=== PATIENT | male | born 1965 | race Hispanic/Latino ===

== ENCOUNTER 2017-09-01 17:48 | Emergency (ER) | payer OTHER ==
[2017-09-01 18:14] LABS: #Basophils 0.1 thou/uL (0.0-0.2); #Eosinphils 0.2 thou/uL (0.0-0.7); #Lymphocytes 2.8 thou/uL (1.20-3.40); #Monocytes 0.6 thou/uL (0.11-0.59); #Neutrophils 3.7 thou/uL (1.40-6.50); %Basophils 0.9 % (0.0-1.0); %Eosinophils 2.9 % (0.0-10.0); %Lymphocytes 38.1 % (21.0-51.0); %Monocytes 8.2 % (0.0-10.0); Hematocrit 42.6 % (42.0-52.0); Mean Platelet Volume 7.2 fL (7.4-10.4); Red Blood Cell (RBC) Count 4.64 mill/uL (4.70-6.10); White Blood Cell (WBC) Count 7.4 thou/uL (4.8-10.8)
[2017-09-01 18:32] LABS: Lactic Acid - Sepsis 2.4 mmol/L (0.5-2.2)
[2017-09-01 18:36] LABS: ALT (SGPT) 22 U/L (8-55); AST (SGOT) 17 U/L (5-34); Alkaline Phosphatase 166 U/L (40-150); Anion Gap 16 mmol/L (10-20); BUN (Urea Nitrogen) 13 mg/dL (8.4-25.7); Bilirubin, Total 0.2 mg/dL (0.2-1.2); Calc. Creatinine Clearance 0 mL/min (70-130); Calcium 9.2 mg/dL (7.8-10.44); Carbon Dioxide 23 mmol/L (22-29); Chloride 98 mmol/L (98-107); Estimated GFR-MDRD 74; Globulin 3.8 g/dL (2.4-3.5); Protein, Total 7.8 g/dL (6.0-8.3)
[2017-09-01] MEDS ORDERED: Insulin Regular 300 UNITS/3 ML VIAL ONE (18:59)
[2017-09-01 19:00] LABS: Bilirubin Negative (Negative); Blood, Urine Negative (Negative); Glucose, Urine (Dipstick) >=1000 mg/dL (Negative); Ketone, Urine Negative (Negative); Nitrite Negative (Negative); Protein, Urine (Dipstick) Negative (Neg-Trace); Urobilinogen 0.2 mg/dL (0.2-1.0)
== END 2017-09-01 20:19 | disposition home or self-care (01) ==
LOC: ERS 17:48
DX: E11.65 Type 2 diabetes mellitus with hyperglycemia (principal); E78.5 Hyperlipidemia, unspecified; I10 Essential (primary) hypertension; F41.9 Anxiety disorder, unspecified; F32.9 Major depressive disorder, single episode, unspecified; F17.210 Nicotine dependence, cigarettes, uncomplicated; Z79.4 Long term (current) use of insulin; Z79.899 Other long term (current) drug therapy
CPT/HCPCS: 36416; 80053; 81003; 82010; 83605; 85025; 96361; 96374; J1815

== ENCOUNTER 2017-12-29 16:21 | Inpatient (IN) | payer BC, OTHER, SELFPAY ==
[~2017-12-29 16:21] MED LIST: ISOVUE-370 76%-LOCM 1 ML ONE
[2017-12-29] MEDS ORDERED: Acetaminophen 500 MG TAB ONE ×2 (16:27→20:31)
[2017-12-29 16:47] LABS: #Lymphocytes 1.9 thou/uL (1.20-3.40); #Monocytes 0.6 thou/uL (0.11-0.59); #Neutrophils 9.2 thou/uL (1.40-6.50); %Basophils 0.4 % (0.0-1.0); %Eosinophils 0.2 % (0.0-10.0); %Monocytes 4.7 % (0.0-10.0); %Neutrophils 78.7 % (42.0-75.0); Hemoglobin 14.4 g/dL (14.0-18.0); Mean Corpuscular HGB CONC 35.4 g/dL (32.0-36.0); Mean Corpuscular Hemoglobin 32.7 pg (27.0-31.0); Mean Corpuscular Volume 92.5 fl (80.0-94.0); Mean Platelet Volume 7.1 fL (7.4-10.4); Platelet Count 290 thou/uL (130-400); RBC Distribution Width 11.1 % (11.5-14.5); Red Blood Cell (RBC) Count 4.41 mill/uL (4.70-6.10); White Blood Cell (WBC) Count 11.7 thou/uL (4.8-10.8)
[2017-12-29] MEDS ORDERED: Ibuprofen 200 MG TAB ONE (16:59)
[2017-12-29 17:08] LABS: ALT (SGPT) 19 U/L (8-55); AST (SGOT) 20 U/L (5-34); Albumin 4.1 g/dL (3.5-5.0); Alkaline Phosphatase 131 U/L (40-150); Anion Gap 18 mmol/L (10-20); BUN (Urea Nitrogen) 13 mg/dL (8.4-25.7); Bilirubin, Total 0.3 mg/dL (0.2-1.2); Calc. Creatinine Clearance 0 mL/min (70-130); Calcium 9.4 mg/dL (7.8-10.44); Carbon Dioxide 22 mmol/L (22-29); Chloride 94 mmol/L (98-107); Estimated GFR-MDRD Greater than 90; Globulin 3.9 g/dL (2.4-3.5); Glucose 321 mg/dL (70-105); Potassium 4.5 mmol/L (3.5-5.1); Sodium 129 mmol/L (136-145)
[2017-12-29 17:39] LABS: Magnesium 1.9 mg/dL (1.6-2.6)
[2017-12-29 17:44] LABS: CKMB 5.1 ng/mL (0-6.6)
--- NOTE | 2017-12-29 17:45 | RAD ---
PORTABLE CHEST: Date: 12/29/17 HISTORY: Chest pain. FINDINGS: Lungs are clear. Heart and mediastinum unremarkable. IMPRESSION: No acute abnormality. POS: [facility]
[2017-12-29 17:54] LABS: Troponin I 1.203 ng/mL (< 0.028)
[2017-12-29 18:23] LABS: Bilirubin Negative (Negative); Blood, Urine Large (Negative); Clarity CLEAR (Clear); Glucose, Urine (Dipstick) >=1000 mg/dL (Negative); Leukocyte Negative (Negative); Nitrite Negative (Negative); Protein, Urine (Dipstick) 100 mg/dL (Neg-Trace); Specific Gravity, Urine 1.039 (1.002-1.036); Urobilinogen 0.2 mg/dL (0.2-1.0); pH, Urine 5.5 (5.0-9.0)
[2017-12-29 18:27] LABS: Bacteria/HPF None Seen HPF (None Seen); Hyaline Casts/LPF 0-3 HYALINE CAST LPF (0-3 Hyaline); Pathc Cast-AUWi Flag 0.27 (0-2.49); RBC/HPF 21-50 HPF (0-3); Squamous Epithelial None Seen HPF (0-3); WBC/HPF 0-3 HPF (0-3)
[2017-12-29 18:30] LABS: Base Excess-Venous -3.5 mmol/L (-30.0-30.0); CO2 Tension (PvCO2) 35.6 mmHg (41.0-51.0); Calcium, Ionized 0.91 mmol/L (1.12-1.32); O2 Tension (PvO2) 52.1 mmHg (35.0-45.0); Potassium 4.7 mmol/L (3.4-4.7); T. Carbon Dioxide 22.1 mmol/L (1.0-85.0); pH (Venous) 7.378 (7.35-7.45)
[2017-12-29] MEDS ORDERED: Metoprolol Tartrate 5 MG/5 ML VIAL ONE (18:32)
[2017-12-29] MEDS ORDERED: Insulin Regular 300 UNITS/3 ML VIAL ONE (19:11)
[2017-12-29 19:55] LABS: Troponin I 1.545 ng/mL (< 0.028)
[2017-12-29] MEDS ORDERED: Ondansetron HCl/PF 4 MG/2 ML Vial IVP PRN (21:25)
[2017-12-29] MEDS ORDERED: Dextrose 5% in Water 1,000 ML IV PRN (21:27)
[2017-12-29] MEDS ORDERED: Dextrose 50% Abboject 50 ML SYRINGE SLOW IVP PRN (21:27)
[2017-12-29] MEDS ORDERED: cefTRIAXone\\ROCEPHIN 1 GM in Sodium Chloride 0.9% 100 ML IVPB SCH (21:30)
[2017-12-29 22:04] LABS: Troponin I 1.999 ng/mL (< 0.028)
--- NOTE | 2017-12-29 22:12 | CT ---
CT PULMONARY ANGIO CHEST WITH CONTRAST: Date: 12/29/17 Multiple axial tomograms were obtained through the chest with pulmonary angio protocol. Multiplanar r econstructions with 3D postprocessing acquired. HISTORY: Chest pain. FINDINGS: Pulmonary arteries show normal enhancement. No evidence of pulmonary embolus identified. Thoracic aor ta is opacified and there is no evidence of aortic dissection. Mediastinum unremarkable. Images throu gh the upper abdomen unremarkable. Lungs are clear. No infiltrate identified. IMPRESSION: 1. No evidence of pulmonary embolus. 2. No evidence of acute lung process. POS: [facility]
--- NOTE | 2017-12-29 22:35 | CON ---
DATE OF CONSULTATION: 12/29/2017 REASON FOR CONSULTATION: Fever, slightly increased troponin levels, abnormal EKG. HISTORY OF PRESENT ILLNESS: Mr. Zavaleta is a 52-year-old gentleman with diabetes. He presented to hospital for special surgery with weakness and fatigue and subjective fever. On arrival here, he was found to have 10 2 degree fever. He thought he had the flu, he had generalized aching. EKG was done which showed jaden e ST elevation diffusely 1 mm. Troponin level was also elevated at 1.2. He had no chest pain or pressure, or not short of breath. PAST MEDICAL HISTORY: 1. Hypertension 2. Diabetes. 3. No previous cardiac history. MEDICATIONS AT HOME: Included; 1. Lisinopril. 2. Insulin. 3. Pravastatin. REVIEW OF SYSTEMS: Positive for generalized weakness and fatigue. PHYSICAL EXAMINATION: GENERAL: This is a pleasant 52-year-old gentleman resting comfortably now and did have 102 degree fe gunjan. Pulse initially 130. After 5 mg of Lopressor, it was down to 105-108 sinus. HEENT: Eyes: Sclerae nonicteric. Mouth mucous membranes moist. NECK: Supple, no lymphadenopathy. LUNGS: Clear, no wheezing, rales, or rhonchi. CARDIAC: Normal S1, normal S2. There is no murmur, rub, or gallop. He is tachycardic, but it has i mproved. ABDOMEN: Soft, nontender. EXTREMITIES: No clubbing, cyanosis or edema. PERTINENT LABORATORY AND X-RAY FINDINGS: Hemoglobin was 14.4, WBC is 11.7. Troponin was 1.2 and 2-1 /2 hours later, it was 1.5. EKG did not show any acute change during the time he was here. ASSESSMENT: 1. Slight elevation of troponin level. 2. Fever. 3. Mild diffuse ST elevation in multiple leads on the EKG was slightly concave up, probably this rep resents pericarditis with some element of myocarditis. PLAN: 1. Will go ahead and give him a single dose of enoxaparin. 2. Colchicine. 3. Beta ange. 4. Repeat troponin level in the morning.
[2017-12-29] MEDS ORDERED: Sodium Chloride 0.45% 1,000 ML IV SCH (22:45)
[2017-12-29] MEDS ORDERED: Ibuprofen 800 MG TAB PO SCH (23:59)
[2017-12-30] MEDS: Acetaminophen 325 MG TAB PO PRN ×5 (00:44→22:42)
[2017-12-30 02:07] LABS: Critical Call Chem Troponin I RESULT DECREASING; Troponin I 1.275 ng/mL (< 0.028)
[2017-12-30 04:10] LABS: #Lymphocytes 1.5 thou/uL (1.20-3.40); #Monocytes 0.7 thou/uL (0.11-0.59); #Neutrophils 9.6 thou/uL (1.40-6.50); %Basophils 0.2 % (0.0-1.0); %Eosinophils 0.1 % (0.0-10.0); %Monocytes 5.9 % (0.0-10.0); %Neutrophils 80.8 % (42.0-75.0); Hemoglobin 12.8 g/dL (14.0-18.0); Mean Corpuscular HGB CONC 35.2 g/dL (32.0-36.0); Mean Corpuscular Hemoglobin 32.3 pg (27.0-31.0); Mean Corpuscular Volume 91.7 fl (80.0-94.0); Mean Platelet Volume 7.3 fL (7.4-10.4); Platelet Count 289 thou/uL (130-400); Red Blood Cell (RBC) Count 3.96 mill/uL (4.70-6.10); White Blood Cell (WBC) Count 11.8 thou/uL (4.8-10.8)
[2017-12-30 04:24] LABS: Anion Gap 15 mmol/L (10-20); BUN (Urea Nitrogen) 16 mg/dL (8.4-25.7); Calc. Creatinine Clearance 131 mL/min (70-130); Calcium 8.6 mg/dL (7.8-10.44); Carbon Dioxide 21 mmol/L (22-29); Chloride 94 mmol/L (98-107); Estimated GFR-MDRD Greater than 90; Glucose 252 mg/dL (70-105); Sodium 126 mmol/L (136-145)
[2017-12-30] MEDS ORDERED: Enoxaparin Sodium 100 MG/ML SYRINGE SC SCH (04:45)
--- NOTE | 2017-12-30 06:22 | HP ---
PRIMARY CARE PHYSICIAN: Collin Rollins M.D. PRESENTING COMPLAINT: Fever. HISTORY OF PRESENT ILLNESS: A 52-year-old male with a past medical history of type 2 diabetes mellit us, hypertension, seizure disorder and depression, who presents to the emergency room with a 2-day hi story of fever associated with headaches and neck discomforts. He also noticed his blood sugar was h igh and decided to come to the emergency room. He reports feeling unwell and has had generalized wea kness; however, he denies any cough, chest pain, diaphoresis, palpitations or shortness of breath. H e had some nausea and had one episode of vomiting. He has had no abdominal pain, constipation, or di arrhea. He has no urinary symptoms. At the emergency room, he was found to be febrile with temperat ure of 101.4. Labs showed slight leukocytosis. Chemistry showed a glucose of 321, troponin was 1.20 . TSH was 0.27. He had an EKG done as well, which showed diffuse ST segment elevations. Cardiology was consulted and after review made diagnosis of myocarditis. Recommendation was to admit to IMCU. Start on beta-blockers on colchicine and Cardiology to review in the morning. PAST MEDICAL HISTORY: Diabetes mellitus, hypertension, seizure disorder, depression. PAST SURGICAL HISTORY: None. FAMILY HISTORY: Reviewed and noncontributory. SOCIAL HISTORY: He does not drink alcohol or smoke cigarettes. Does not use illicit drugs. ALLERGIES: None. REVIEW OF SYSTEMS: Constitutional: No fevers. HEENT: Neck pain. Cardiovascular: Negative. Resp iratory: Negative. GI: Negative apart from nausea and one vomited episodes. : Negative. Muscu loskeletal: Positive for neck pain. Skin: Negative. Neurological: Headaches. Hematological/lymp hatic: Negative. Psychiatric: Negative. Allergy/immunology: Negative. PHYSICAL EXAMINATION: VITAL SIGNS: Blood pressure 176/90, pulse 122, respirations 20, temperature 101.4. CONSTITUTIONAL: In moderate distress. HEENT: Normocephalic, atraumatic. Not pale, anicteric. EOMI, PERRLA. NECK: Supple, full range of movement. Trachea midline. No adenopathy. No tenderness to palpation. RESPIRATORY: Vesicular breath sounds bilaterally. No wheezes or rales. CARDIOVASCULAR: Slight tachycardia, S1, S2 only. No murmurs, rubs or gallops. ABDOMEN: Soft, nontender, nondistended. Bowel sounds positive. MUSCULOSKELETAL: Spontaneous movements in all extremities. SKIN: Warm, dry, well-perfused. No rashes or lesions. NEUROLOGIC: Alert and oriented to time, place and person. No focal deficits. PSYCHIATRIC: Normal mood and affects. LABORATORY DATA: As stated in HPI. IMAGING: CTA chest, no clots. Chest x-ray, no acute pulmonary findings. EKG, multiple segments wit h ST elevations. ASSESSMENT AND PLAN: 1. Myocarditis. We will admit to IMCU. Monitor on telemetry and trend troponin. He will also be s tarted on colchicine and carvedilol. He is currently chest pain free. Cardiology to review in the [facility]. 2. Sepsis. He presented with fever and tachycardia. While this could be from his myocarditis, whic h could be viral, we will treat for presumed bacterial causes with vancomycin and ceftriaxone. Follo w up on culture results. Influenza screen was negative as well as Rapid Strep test that was negative . 3. Hyperglycemia. The patient reports not taking his insulin dose for today. We will put him on sl iding scale insulin with long-acting insulin as well as fingerstick glucose before meals and at bedti mo, diabetic diet and hyperglycemia protocol. 4. Type 2 diabetes mellitus as above. 5. Elevated troponin likely combination of myocarditis and presumed sepsis, we will trend. 6. Hypertension. He was hypertensive on arrival. We will restart his home medication as well as ca rvedilol. Monitor blood pressure closely. 7. Seizure disorder. The patient has remained seizure free. We will resume home medications. 8. History of rectal abscess likely responsible for his septic presentation. We will place on IV va ncomycin and ceftriaxone. Wound Care consult. 9. His neck pain is unlikely secondary to meningitis. His neck supple and we already have a source of infection.
[2017-12-30 06:26] LABS: Critical Call Chem Troponin I RESULT DECREASING
[2017-12-30] MEDS: HumaLOG 300 UNITS/3 ML VIAL SC PRN ×3 (06:35→16:35)
[2017-12-30] MEDS: Carvedilol 6.25 MG TAB PO SCH ×2 (07:53→16:35)
[2017-12-30] MEDS: Aspirin 325 mg Enteric Coated Tablet PO SCH (07:54)
[2017-12-30] MEDS: Docusate 100 MG CAP PO SCH ×2 (07:54→20:44)
[2017-12-30] MEDS: Colchicine 0.6 MG TAB PO SCH ×2 (07:54→20:44)
[2017-12-30] MEDS: Vancomycin HCl 1.5 GM in Sodium Chloride 0.9% 250 ML 300 ML IVPB SCH ×2 (07:55→19:43)
[2017-12-30] MEDS: Heparin 5,000 UNITS/ML VIAL SC SCH ×2 (07:55→15:12)
[2017-12-30] MEDS: Insulin Detemir 100 UNITS/ML 40 UNITS in Pre-Filled Syringe 1 EACH SC SCH (07:55)
[2017-12-30] MEDS ORDERED: Colchicine 0.6 MG TAB PO SCH (09:00)
[2017-12-30] MEDS ORDERED: Metoprolol Tartrate 25 MG TAB PO SCH (09:00)
[2017-12-30] MEDS ORDERED: Ondansetron HCl/PF 4 MG/2 ML Vial SLOW IVP SCH (09:45)
[2017-12-30] MEDS ORDERED: Metoprolol Tartrate 5 MG/5 ML VIAL IVP PRN (10:09)
[2017-12-30] MEDS ORDERED: Metoprolol Tartrate 5 MG/5 ML VIAL IVP SCH ×4 (10:15→16:45)
--- NOTE | 2017-12-30 10:38 | PRG ---
DATE OF SERVICE: 12/30/2017 Mr. Zavaleta complains of a headache today and pain in his throat. He has no chest pain. He is nause ated. He was unable to keep his medicines down. PHYSICAL EXAMINATION: VITAL SIGNS: Blood pressure is 160/90, pulse is 126, it is sinus tachycardia. LUNGS: Clear. CARDIAC: Tachycardic, no murmur, rub or gallop. ABDOMEN: Soft, nontender. EXTREMITIES: No clubbing, cyanosis or edema. Troponin level has decreased now at 0.65. ASSESSMENT: 1. Probably pericarditis with myocarditis. 2. Hypertension. 3. Tachycardia. 4. ? Infection, he is on antibiotics. 5. Anti-inflammatory in the form of colchicine. 6. Beta ange. 7. Echo to be done.
[2017-12-30] MEDS ORDERED: Ketorolac Tromethamine 30 MG/ML VIAL IVP SCH (11:00)
[2017-12-30] MEDS ORDERED: Piperacillin/Tazobactam 3.375 GM in Sodium Chloride 0.9% 100 ML IVPB SCH (16:00)
--- NOTE | 2017-12-30 16:56 | PDOC.PN ---
- Subjective Encounter Start Date: 12/30/17 Encounter Start Time: 16:45 Subjective: f/u for sepsis unclear source, sinus tachycardia and elevated troponins. -: Initial w/u negative as focal infectious source however suspicion for khadijah- -: carditis or anal lesion. Currently tx with Meropenem and Vancomycin. - Objective MAR Reviewed: Yes Vital Signs & Weight: Vital Signs (12 hours) Temp Pulse Resp BP Pulse Ox 12/30/17 16:43 103.3 F H 12/30/17 15:35 103.2 F H 126 H 22 H 170/94 H 96 12/30/17 15:11 103.0 F H 12/30/17 13:47 103.1 F H 12/30/17 12:40 101.3 F H 12/30/17 11:50 103.1 F H 12/30/17 11:25 102.6 F H 109 H 20 150/76 H 96 12/30/17 10:32 103.2 F H 12/30/17 08:00 99.7 F H 121 H 20 100 12/30/17 07:15 99.7 F H 121 H 20 164/93 H 97 Weight Admit Weight 188 lb 4.8 oz Weight 188 lb 4.8 oz I&O: 12/29/17 12/30/17 12/31/17 06:59 06:59 06:59 Intake Total 1300 240 Output Total 1000 Balance 300 240 Result Diagrams: 12/30/17 03:40 12/30/17 03:40 Additional Labs: Accuchecks 12/30/17 12/30/17 12/30/17 15:38 11:35 05:35 POC Glucose 232 H 199 H 238 H 12/29/17 22:25 POC Glucose 305 H Microbiology 12/29/17 18:27 Throat - Pending Group A Streptococcus Culture - Final 12/29/17 18:05 Throat - Pending Group A Streptococcus Screen (JOCELYNN) - Final 12/29/17 16:30 Nasal swab Influenza Types A,B Direct EIA - Final 12/29/17 18:04 Venous blood - Right Hand Blood Culture - Preliminary Specimen has been received and culture in progress. No Growth to date. 12/29/17 18:04 Urine voided Urine Culture - Preliminary NO GROWTH AT 24 HOURS 12/29/17 18:01 Venous blood - Left Hand Blood Culture - Preliminary Specimen has been received and culture in progress. No Growth to date. Radiology Reviewed by me: Yes (Echo - EF 50-55%, structurally normal) EKG Reviewed by me: Yes (Tele - Sinus tachycardia in 130's) Phys Exam - Physical Examination lethargic, answers questions briefly HEENT: PERRLA, oral pharynx no lesions Neck: no JVD, supple Respiratory: no wheezing tachycardic Gastrointestinal: soft, non-tender, no distention, positive bowel sounds Musculoskeletal: no edema, pulses present lethargic but opens eyes and answers questions Neurological: moves all 4 limbs Skin: normal turgor, cap refill <2 seconds Dx/Plan (1) Sepsis Code(s): A41.9 - SEPSIS, UNSPECIFIED ORGANISM Status: Acute Comment: Etiology unclear, suspected either myocarditis or rectal process, initial blood and Ucx negative, respiratory panel PCR pending, continue empiric Meropenem and Vancomycin, consider CSF analysis (2) Sinus tachycardia Code(s): R00.0 - TACHYCARDIA, UNSPECIFIED Status: Acute Comment: Secondary to sepsis, supportive care, IVF's, antipyretics, beta-blockers (3) Hyperglycemia due to type 2 diabetes mellitus Code(s): E11.65 - TYPE 2 DIABETES MELLITUS WITH HYPERGLYCEMIA Status: Chronic Comment: Uncontrolled, Insulin requiring, continue ISS, serial accuchecks, A1C in am (4) Hyponatremia Code(s): E87.1 - HYPO-OSMOLALITY AND HYPONATREMIA Status: Acute Comment: Secondary to hypernatremia and pseudohyponatremia (5) Elevated troponin I level Code(s): R74.8 - ABNORMAL LEVELS OF OTHER SERUM ENZYMES Status: Acute Comment: Likely demand state given current sepsis and tachycardia, Cardiology consulted - Plan continue antibiotics Continue current IV abx -: Await final blood and Ucx results -: Consider CSF analysis to r/o HSV -: Antipyretics for fever control -: Colchicine for ? myocarditis * AM lab: BMP, CBC, A1C * Consult Gen surgery regarding hemorrhoid
--- NOTE | 2017-12-30 17:07 | EKG ---
Test Reason : Blood Pressure : / mmHG Vent. Rate : 126 BPM Atrial Rate : 126 BPM P-R Int : 174 ms QRS Dur : 118 ms QT Int : 290 ms P-R-T Axes : 072 018 -01 degrees QTc Int : 420 ms Sinus tachycardia Possible Inferior infarct (cited on or before 25-FEB-2014) Anterior ST upsloping elevation, cannot R/O acute anterior MA Abnormal ECG When compared with ECG of 29-DEC-2017 18:15, (Unconfirmed) Inverted T waves have replaced nonspecific T wave abnormality in Inferior leads Confirmed by DR. Glory JOSHUA ([id number]) on 12/30/2017 5:07:25 PM Referred By: KATIANA Confirmed By:DR. Glory JOSHUA
[2017-12-30] MEDS ORDERED: cefTRIAXone\\ROCEPHIN 1 GM, Syringe 0.4 ML in Sterile Water 9.6 ML SLOW IVP SCH (18:00)
[2017-12-30] MEDS: Meropenem 2 GM, Admixture Fee 1 EACH in Sodium Chloride 0.9% 100 ML IVPB SCH (18:02)
[2017-12-30] MEDS: Ondansetron HCl/PF 4 MG/2 ML Vial SLOW IVP PRN (18:32)
[2017-12-30] MEDS: Ketorolac Tromethamine 30 MG/ML VIAL IVP PRN (19:41)
--- NOTE | 2017-12-30 20:01 | CON ---
DATE OF SERVICE: 12/30/2017 SERVICE: Pulmonary Medicine. REASON FOR CONSULTATION: [facility] patient. HISTORY OF PRESENT ILLNESS: The patient is a 52-year-old male with past medical history significant for type 2 diabetes mellitus. He had a 3-day history of increasing nausea, vomiting, and diarrhea. He presented to the emergency department 2 days ago and was discovered to have a fever of 103. These fevers have been intermittent for over 3 days. He did not have any focalizing symptoms other than a headache, nausea, vomiting, and diarrhea. He had complaints of the stiff neck though admitting physician suggested that his neck was actually quite supple and had a low threshold for thinking this was seen as infection. Despite that, he was put on TACK PULLER type medications. In the Emergency Department, the emergency physician what he thought was a rectal abscess. This was subsequently blanched. There is no actual documentation of that procedure so far as I can tell. That being said, the documentation by Wound Care suggested this is just simply a hemorrhoid that appears that it has opened up. Overnight, the patient did not have any significant events. His chest pain has improved. PHYSICAL EXAMINATION: VITAL SIGNS: T-max 103.2, pulse 109, blood pressure 150/76, respirations 20, saturation 96% on room air. GENERAL: The patient is awake, alert, in no apparent distress. LUNGS: Decent air entry with no prolonged expiratory phase, wheezing, rhonchi or crackles. HEART: Normal rate, regular. ABDOMEN: Soft, nontender, nondistended. Bowel sounds positive. MUSCULOSKELETAL: No cyanosis or clubbing. There is no pitting in the bilateral lower extremities. NEUROLOGIC: Grossly nonfocal. PAST MEDICAL HISTORY: 1. Type 2 diabetes mellitus. 2. Hypertension. 3. Dyslipidemia. 4. Seizure disorder. 5. Major depressive disorder. PAST SURGICAL HISTORY: None. FAMILY HISTORY: Noncontributory. SOCIAL HISTORY: Negative for alcohol, tobacco or illicit drug use. He has no exposure to chemicals, dust, asbestosis, or tuberculosis. ALLERGIES: No known drug allergies. MEDICATIONS LIST: List of inpatient medications were reviewed. Couple of small updates were made. REVIEW OF SYSTEMS: General, head, ears, eyes, nose, throat, cardiovascular, respiratory, GI, , musculoskeletal, neurologic, and skin is negative except as mentioned in the HPI. LABORATORY: WBC 11.8, hemoglobin 12.8, platelets 289,000. Neutrophil count is 81%. A pH 7.37, pCO2 35, pO2 52.1. Basic metabolic profile and liver function studies are essentially unremarkable. TSH 0.2, lipase normal, troponin 1.203 which trended before returning to normal. Lactate was negative. Sodium 126, currently. Urinalysis is positive only for glucose, ketones, and large amounts of blood without anything that looks like urinary tract infection. Beta hydroxybutyric acid is marginally elevated. Group A strep from the throat was negative x2, culture pending. Blood culture x2, urine cultures negative to date. Influenza A and B are negative. IMAGING: CTA of the chest demonstrates no acute cardiopulmonary abnormality. No pulmonary embolism is present. ASSESSMENT: 1. Severe sepsis. 2. Pericarditis/myocarditis. 3. Hyponatremia. PLAN: At this time, there is confusion over whether or not the patient has a GI infection or TACK PULLER infection. Either way, the TACK PULLER sample apparently was not sent off. At this point, the utility of performing an LP is reduced if a bacterial process is present. We are currently not covering anaerobic organisms. As such, I will switch him from the Rocephin over to meropenem to cover both GI fritz, and continue covering the TACK PULLER. We are awaiting other cultures and studies to come back. There is a possibility the patient has nothing more than a simple viral illness, but I think that continuing empiric antibiotic coverage for the time being is indicated. He will remain in the IMCU for an additional 24 hours and we will continue to follow very closely. 70 minutes have been devoted to this patient in various activities. I personally reviewed all imaging studies and laboratory data noted within this document. For greater than fifty percent of this time, I was interacting with the patient at the bedside or coordinating care with the care team. For the remainder of the time I was immediately available to the patient in the hospital unit. KIA
[2017-12-30] MEDS ORDERED: Insulin Detemir 100 UNITS/ML 40 UNITS in Pre-Filled Syringe 1 EACH SC SCH (21:00)
[2017-12-31] MEDS ORDERED: Acetaminophen 1,000 MG in Premix Bag 1 BAG IVPB SCH (01:00)
[2017-12-31] MEDS: Meropenem 2 GM, Admixture Fee 1 EACH in Sodium Chloride 0.9% 100 ML IVPB SCH ×2 (01:40→12:02)
[2017-12-31 04:44] LABS: #Lymphocytes 1.4 thou/uL (1.20-3.40); #Monocytes 1.1 thou/uL (0.11-0.59); #Neutrophils 9.3 thou/uL (1.40-6.50); %Basophils 0.1 % (0.0-1.0); %Eosinophils 0.1 % (0.0-10.0); %Lymphocytes 11.9 % (21.0-51.0); Hemoglobin 13.7 g/dL (14.0-18.0); Mean Corpuscular HGB CONC 33.7 g/dL (32.0-36.0); Mean Corpuscular Hemoglobin 31.1 pg (27.0-31.0); Mean Corpuscular Volume 92.2 fl (80.0-94.0); Mean Platelet Volume 7.6 fL (7.4-10.4); Platelet Count 304 thou/uL (130-400); RBC Distribution Width 11.1 % (11.5-14.5); Red Blood Cell (RBC) Count 4.41 mill/uL (4.70-6.10); White Blood Cell (WBC) Count 11.8 thou/uL (4.8-10.8)
[2017-12-31 04:46] LABS: Hemoglobin A1c 11.5 % (4.0-6.0)
[2017-12-31 05:10] LABS: Anion Gap 17 mmol/L (10-20); BUN (Urea Nitrogen) 16 mg/dL (8.4-25.7); Calc. Creatinine Clearance 138 mL/min (70-130); Carbon Dioxide 21 mmol/L (22-29); Chloride 92 mmol/L (98-107); Estimated GFR-MDRD Greater than 90; Glucose 254 mg/dL (70-105); Potassium 3.9 mmol/L (3.5-5.1); Sodium 126 mmol/L (136-145)
[2017-12-31] MEDS: Acetaminophen 325 MG TAB PO PRN (06:02)
[2017-12-31] MEDS: Metoprolol Tartrate 5 MG/5 ML VIAL IVP PRN ×3 (06:05→19:59)
[2017-12-31] MEDS ORDERED: FLU VACC QS2017-18 36 mo. & older 0.5 ML SYRINGE IM ONE (09:00)
[2017-12-31] MEDS: Carvedilol 6.25 MG TAB PO SCH ×2 (11:25→17:48)
[2017-12-31] MEDS: Vancomycin HCl 1.5 GM in Sodium Chloride 0.9% 250 ML 300 ML IVPB SCH ×2 (11:25→19:51)
[2017-12-31] MEDS: Docusate 100 MG CAP PO SCH ×2 (11:27→21:56)
[2017-12-31] MEDS: Ondansetron HCl/PF 4 MG/2 ML Vial SLOW IVP PRN ×2 (11:31→17:48)
[2017-12-31] MEDS: Colchicine 0.6 MG TAB PO SCH ×2 (11:35→22:00)
[2017-12-31 11:37] LABS: CSF, Glucose 85 mg/dl (40-70); CSF, Protein 194 mg/dL (15-40)
[2017-12-31 11:39] LABS: CSF Source CSF; Clarity Hazy (Clear); RBC Count - Manual 60 /cumm (None Seen); Tube # 1
[2017-12-31 11:40] LABS: Color Of CSF Supernatant COLORLESS (Colorless); Tube # 2; Unspun CSF Color COLORLESS (Colorless)
[2017-12-31] MEDS: Insulin Detemir 100 UNITS/ML 40 UNITS in Pre-Filled Syringe 1 EACH SC SCH (11:42)
[2017-12-31 11:45] LABS: WBC/NonHematics Count - Manual 990 /cumm (0-5)
[2017-12-31 11:57] LABS: CSF Source CSF; Clarity Hazy (Clear); Tube # 4
[2017-12-31 11:58] LABS: RBC Count - Manual 45 /cumm (None Seen); WBC/NonHematics Count - Manual 1320 /cumm (0-5)
[2017-12-31] MEDS: Aspirin 325 mg Enteric Coated Tablet PO SCH (12:02)
[2017-12-31] MEDS ORDERED: Cefepime 2 GM in Sodium Chloride 0.9% 100 ML IVPB SCH (12:15)
[2017-12-31 12:53] LABS: Cell Count Non Hematic 39 %; Lymphocytes 10 %; Segmented Neutrophils 50 %
[2017-12-31 12:57] LABS: Cell Count Non Hematic 15 %; Lymphocytes 35 %; Segmented Neutrophils 49 %
--- NOTE | 2017-12-31 13:00 | RAD ---
FLUOROSCOPICALLY GUIDED LUMBAR PUNCTURE: History: Fever. Rule out meningitis and encephalitis. Dosimetry: 0.3 minutes of fluoroscopy and DAP 252 mGy*cm^2. FINDINGS: The right L2-3 interlaminar space was localized utilizing fluoroscopic guidance. The overlying skin w as prepped and draped in the usual sterile manner. A 1% Lidocaine solution was utilized to anesthetiz e overlying soft tissues. Using fluoroscopic guidance, a 22 gauge spinal needle was placed in the sub arachnoid space. A total of 10 ml of cerebral spinal fluid was removed without difficulty. Specimen w as sent to pathology for evaluation. IMPRESSION: Successful fluoroscopically guided lumbar puncture. POS: [facility]
--- NOTE | 2017-12-31 13:09 | PRG ---
DATE OF SERVICE: 12/31/2017 SUBJECTIVE: Mr. Zavaleta looks somewhat better today. His fever is down somewhat. He has no chest p ain. PHYSICAL EXAMINATION: VITAL SIGNS: Blood pressure is 149/83, pulse is 135, sinus, temperature is down to 100.8. LUNGS: Clear. CARDIAC: Tachycardic. ABDOMEN: Soft and nontender. ASSESSMENT: 1. Pericarditis with probably some small amount of myocarditis. 2. Fever, improved. 3. Increased white blood cell count in the cerebrospinal fluid. Would like to discuss with Dr. Cash er what he thinks the significance of this is. There does appear to be some inflammation reflected i n the cerebrospinal fluid.
[2017-12-31] MEDS: Acetaminophen 1,000 MG in Premix Bag 1 BAG IVPB PRN ×2 (13:33→21:23)
[2017-12-31] MEDS: Cefepime 2 GM, Syringe 2.5 ML in Sterile Water 10 ML SLOW IVP SCH ×2 (13:42→19:51)
[2017-12-31] MEDS ORDERED: Cefepime 2 GM, Syringe 2.5 ML in Sterile Water 10 ML SLOW IVP SCH (14:00)
--- NOTE | 2017-12-31 14:55 | PDOC.PN ---
- Subjective Encounter Start Date: 12/31/17 Encounter Start Time: 11:45 -: old records requested/rev Pt seen and examined, chart reviewed in its entirety, this is my first visit with this patient No F/C, no N/V/D/C, no CP, no SOB awkae and alert, Ox3. per family and nursing, this is much improved. still persistently febrile, Ofirmev ordered 10 point ROS performed and neg for all systems except as per HPI - Objective MAR Reviewed: Yes Vital Signs & Weight: Vital Signs (12 hours) Temp Pulse Resp BP BP Pulse Ox 12/31/17 12:00 101.1 F H 125 H 20 149/83 H 97 12/31/17 11:25 149/83 H 12/31/17 09:07 100.8 F H 12/31/17 08:00 102.5 F H 128 H 20 156/99 H 96 12/31/17 07:21 103.2 F H 12/31/17 06:05 102.5 F H 128 H 20 164/92 H 96 12/31/17 04:00 100.9 F H 108 H 20 151/84 H 96 Weight Admit Weight 188 lb 4.8 oz Weight 188 lb 4.8 oz I&O: 12/30/17 12/31/17 01/01/18 06:59 06:59 06:59 Intake Total 1300 1060 Output Total 1000 1930 Balance 300 -870 Result Diagrams: 01/02/18 03:52 01/02/18 03:52 Additional Labs: Accuchecks 12/31/17 12/31/17 12/30/17 11:39 05:35 20:40 POC Glucose 277 H 273 H 200 H 12/30/17 15:38 POC Glucose 232 H Radiology Reviewed by me: Yes EKG Reviewed by me: Yes Phys Exam - Physical Examination Constitutional: NAD HEENT: PERRLA, moist MMs, sclera anicteric, oral pharynx no lesions Neck: no nodes, no JVD, supple, full ROM Respiratory: no wheezing, no rales, no rhonchi, clear to auscultation bilateral Cardiovascular: RRR, no significant murmur, no rub Gastrointestinal: soft, non-tender, no distention, positive bowel sounds Musculoskeletal: pulses present, edema present Neurological: non-focal, normal sensation, moves all 4 limbs Lymphatic: no nodes Psychiatric: normal affect, A&O x 3 Skin: no rash, normal turgor, cap refill <2 seconds Dx/Plan (1) Meningitis Code(s): G03.9 - MENINGITIS, UNSPECIFIED Status: Acute Comment: stop Meropenem as carbapenems can decrease seizure threshold. WBC in CSF 1000, 50% granulocytes, 23% other cells, low lymphs. Continue Vanc, change meropenem to cefepime flagyl, watch cultures. > viral vs bacterial given possible matt- and myocarditis (2) Sepsis Code(s): A41.9 - SEPSIS, UNSPECIFIED ORGANISM Status: Acute Qualifiers: Sepsis type: sepsis due to unspecified organism Qualified Code(s): A41.9 - Sepsis, unspecified organism Comment: Etiology unclear, suspected either myocarditis or rectal process, initial blood and Ucx negative, respiratory panel PCR pending, continue empiric cefepime and flagyl and Vancomycin, watch CSF culture (3) Sinus tachycardia Code(s): R00.0 - TACHYCARDIA, UNSPECIFIED Status: Acute Comment: Secondary to sepsis, supportive care, IVF's, antipyretics, beta-blockers (4) Anxiety and depression Code(s): F41.9 - ANXIETY DISORDER, UNSPECIFIED; F32.9 - MAJOR DEPRESSIVE DISORDER, SINGLE EPISODE, UNSPECIFIED Status: Chronic (5) HTN (hypertension) Code(s): I10 - ESSENTIAL (PRIMARY) HYPERTENSION Status: Chronic Qualifiers: Hypertension type: essential hypertension Qualified Code(s): I10 - Essential (primary) hypertension (6) Hyperglycemia due to type 2 diabetes mellitus Code(s): E11.65 - TYPE 2 DIABETES MELLITUS WITH HYPERGLYCEMIA Status: Chronic Qualifiers: Diabetes mellitus group home insulin use: with intermediate designer use Qualified Code( s): E11.65 - Type 2 diabetes mellitus with hyperglycemia; 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
[2017-12-31 15:32] LABS: Ref Lab Test Ordered MYOCARDIAL AB PANEL
[2017-12-31] MEDS: Sodium Chloride 0.9% 1,000 ML IV SCH (16:10)
[2017-12-31] MEDS: metroNIDAZOLE 500 MG in Premix Bag 1 BAG IVPB SCH ×2 (17:48→23:51)
[2017-12-31 19:30] LABS: Vancomycin, Trough 9.3 ug/mL
[2017-12-31] MEDS: Promethazine HCl 25 MG/ML VIAL IM/IV PRN (19:49)
--- NOTE | 2017-12-31 21:13 | PRG ---
DATE OF SERVICE: 12/31/2017 SERVICE: Pulmonary Medicine. INTERVAL HISTORY: Patient is doing really quite well from a respiratory standpoint. He is breathing comfortably. His headache is improved a little bit. His fever profile has also improved. He denie s any current vomiting. He had some nausea this morning following breakfast. No diarrhea or other f ocalizing infectious symptoms are present. PHYSICAL EXAMINATION: VITAL SIGNS: T-max overnight 103.2, but throughout the day he has been 101.1 and down trending. Pul se 113, blood pressure 129/70, respirations 20, saturation 99% on room air. GENERAL: Patient is awake and alert. He is in no apparent distress. LUNGS: Decent air entry. There is no prolonged expiratory phase or wheezing present. HEART: Normal rate, regular. ABDOMEN: Soft, nontender, nondistended. Bowel sounds are positive. MUSCULOSKELETAL: No cyanosis or clubbing. No pitting in the bilateral lower extremities. NEUROLOGIC: Grossly nonfocal. LABORATORY DATA: WBC 11.8, hemoglobin 13.7, platelets 304,000. Sodium 126 and stable. Chloride 92, bicarbonate 21. Anion gap is 17. Creatinine 0.75. Blood sugars ranged from 200-277. Hemoglobin A 1c of 11.5. CSF has multiple white blood cells as well as red blood cells, but white blood cells cer tainly predominate. Neutrophil count is 50% of those miscellaneous studies are currently pending on the CSF. Cryptococcal antigen is unremarkable. Respiratory virus panel is negative. Group A Strept ococcus, blood cultures x3, influenza A and B are all unremarkable to date. ASSESSMENT: 1. Severe sepsis. 2. Pericarditis. 3. Meningitis, likely viral. 4. Hyponatremia. DISCUSSION AND PLAN: The patient is currently stable for transition out of the [facility]. Pulmonary Crit ical Care will continue to follow if he remains in this location, but from my perspective, he can go to the telemetry unit given the myocarditis and tachycardia. Pulmonary Critical Care will continue t o follow up for the time being.
[2017-12-31] MEDS: HumaLOG 300 UNITS/3 ML VIAL SC PRN (22:04)
[2018-01-01] MEDS: Ketorolac Tromethamine 30 MG/ML VIAL IVP PRN (02:10)
[2018-01-01] MEDS: Metoprolol Tartrate 5 MG/5 ML VIAL IVP PRN ×2 (02:13→16:50)
[2018-01-01] MEDS: Acetaminophen 1,000 MG in Premix Bag 1 BAG IVPB PRN ×4 (03:37→22:48)
[2018-01-01] MEDS: Vancomycin HCl 1.25 GM in Sodium Chloride 0.9% 250 ML 250 ML IVPB SCH ×3 (03:40→20:26)
[2018-01-01] MEDS: Cefepime 2 GM, Syringe 2.5 ML in Sterile Water 10 ML SLOW IVP SCH ×3 (03:40→20:26)
[2018-01-01 05:07] LABS: #Monocytes 1.1 thou/uL (0.11-0.59); #Neutrophils 6.4 thou/uL (1.40-6.50); %Basophils 0.2 % (0.0-1.0); %Lymphocytes 20.8 % (21.0-51.0); %Monocytes 11.8 % (0.0-10.0); %Neutrophils 67.1 % (42.0-75.0); Hemoglobin 12.7 g/dL (14.0-18.0); Mean Corpuscular HGB CONC 34.2 g/dL (32.0-36.0); Mean Corpuscular Hemoglobin 31.5 pg (27.0-31.0); Mean Platelet Volume 7.6 fL (7.4-10.4); Platelet Count 289 thou/uL (130-400); Red Blood Cell (RBC) Count 4.03 mill/uL (4.70-6.10); White Blood Cell (WBC) Count 9.5 thou/uL (4.8-10.8)
[2018-01-01 05:09] LABS: Anion Gap 16 mmol/L (10-20); BUN (Urea Nitrogen) 20 mg/dL (8.4-25.7); Calc. Creatinine Clearance 134 mL/min (70-130); Calcium 7.9 mg/dL (7.8-10.44); Carbon Dioxide 22 mmol/L (22-29); Chloride 90 mmol/L (98-107); Estimated GFR-MDRD Greater than 90; Glucose 260 mg/dL (70-105); Potassium 3.7 mmol/L (3.5-5.1); Sodium 124 mmol/L (136-145)
[2018-01-01] MEDS: metroNIDAZOLE 500 MG in Premix Bag 1 BAG IVPB SCH ×4 (06:00→23:52)
[2018-01-01] MEDS: Sodium Chloride 0.9% 1,000 ML IV SCH (06:01)
[2018-01-01] MEDS: HumaLOG 300 UNITS/3 ML VIAL SC PRN ×2 (06:06→17:00)
[2018-01-01] MEDS: Promethazine HCl 25 MG/ML VIAL IM/IV PRN (06:31)
[2018-01-01] MEDS: Colchicine 0.6 MG TAB PO SCH ×2 (08:16→21:22)
[2018-01-01] MEDS: Docusate 100 MG CAP PO SCH ×2 (08:16→20:32)
[2018-01-01] MEDS: Carvedilol 6.25 MG TAB PO SCH ×2 (08:26→16:54)
[2018-01-01] MEDS: Aspirin 325 mg Enteric Coated Tablet PO SCH (08:26)
[2018-01-01] MEDS: Insulin Detemir 100 UNITS/ML 40 UNITS in Pre-Filled Syringe 1 EACH SC SCH (08:27)
--- NOTE | 2018-01-01 10:16 | PRG ---
DATE OF SERVICE: 01/01/2018 HISTORY: Mr. Zavaleta does not have chest pain or pressure. Feels fatigued. PHYSICAL EXAMINATION: VITAL SIGNS: Blood pressure 155/91, pulse earlier was 101, then 99.3, but he feels warm now. LUNGS: Clear. CARDIAC: Tachycardic. ABDOMEN: Soft, nontender. EXTREMITIES: No edema. ASSESSMENT: 1. Meningitis. 2. Fever, thought to be probably viral, but he is also being covered for bacterial infection. 3. Pericarditis, relatively mild. 4. Likely mild underlying myocarditis, appears mild based on troponin rise. PLAN: Continue supportive therapy including antibiotics and medicines for pericarditis.
--- NOTE | 2018-01-01 14:26 | PRG ---
DATE OF SERVICE: 01/01/2018 SERVICE: Pulmonary Medicine. INTERVAL HISTORY: The patient is doing really quite well from a respiratory standpoint. He is breat jason comfortably. He denies any current fevers, chills, nausea or vomiting. He is able to tolerate p.o. this morning. His headache is improving a little bit. He had 101 fever this morning, but his f ever profile overall is improving. Otherwise, he is returning to his usual state of health. PHYSICAL EXAMINATION: VITAL SIGNS: T-max 101.4, pulse 102, blood pressure 135/79, respirations 18, saturation 97% on room air. GENERAL: The patient is awake and alert, in no apparent distress. LUNGS: Excellent air entry with no prolonged expiratory phase, wheezing, rhonchi or crackles. HEART: Normal rate, regular. ABDOMEN: Soft, nontender, nondistended. Bowel sounds are positive. MUSCULOSKELETAL: No cyanosis or clubbing. No pitting in the bilateral lower extremities. NEUROLOGIC: Grossly nonfocal. LABORATORY DATA: WBC 9.5, hemoglobin 12.7, and platelets 289,000. Basic metabolic profile is otherw ise unremarkable except for sodium of 124. This continues to trend downward gently. Microbiology is all negative to date. There are some special studies that are currently pending. ASSESSMENT: 1. Severe sepsis, improving. 2. Pericarditis. 3. Meningitis. 4. Hyponatremia. DISCUSSION AND PLAN: If the sodium continues to trend downward, we may need to consider putting him on 3% saline. From a cardiovascular and respiratory standpoint, he is stable for transition to the edical unit. Pulmonary or Critical Care will continue to follow if he remains in this location.
--- NOTE | 2018-01-01 14:34 | PDOC.PN ---
- Subjective Encounter Start Date: 01/01/18 Encounter Start Time: 12:40 Pt much more awake and alert today, still with haptic fevers, but having periods of 99.x now. no N/V/d/c,no CP or sOb, no Chills or rigors, no cough or sputum production. Toilerating IV antibiotics 10 point ROS performed and neg for all systesm except as per HPI - Objective MAR Reviewed: Yes Vital Signs & Weight: Vital Signs (12 hours) Temp Pulse Resp BP BP Pulse Ox 01/01/18 12:00 101.3 F H 102 H 18 135/79 97 01/01/18 08:26 155/91 H 01/01/18 08:00 99.3 F 105 H 20 158/92 H 100 01/01/18 04:00 101.4 F H 99 16 120/72 100 Weight Admit Weight 188 lb 4.8 oz Weight 186 lb 11.2 oz I&O: 12/31/17 01/01/18 01/02/18 06:59 06:59 06:59 Intake Total 1060 3050 Output Total 1930 1650 Balance -870 1400 Result Diagrams: 01/02/18 03:52 01/02/18 03:52 Additional Labs: Accuchecks 01/01/18 01/01/18 12/31/17 11:40 06:07 22:03 POC Glucose 282 H 300 H 336 H 12/31/17 16:55 POC Glucose 243 H Radiology Reviewed by me: Yes EKG Reviewed by me: Yes Phys Exam - Physical Examination Constitutional: NAD HEENT: PERRLA, moist MMs, sclera anicteric, oral pharynx no lesions Neck: no nodes, no JVD, supple, full ROM Respiratory: no wheezing, no rales, no rhonchi, clear to auscultation bilateral Cardiovascular: RRR, no significant murmur, no rub Gastrointestinal: soft, non-tender, no distention, positive bowel sounds Musculoskeletal: pulses present, edema present Neurological: non-focal, normal sensation, moves all 4 limbs Lymphatic: no nodes Psychiatric: normal affect, A&O x 3 Skin: no rash, normal turgor, cap refill <2 seconds Dx/Plan - Plan cont current plan of care, plan discussed w/ family, continue antibiotics, PT/OT , out of bed/ambulate, DVT proph w/SCDs * .
[2018-01-01 19:42] LABS: Vancomycin, Trough 14.9 ug/mL
[2018-01-02] MEDS: Ketorolac Tromethamine 30 MG/ML VIAL IVP PRN (02:52)
[2018-01-02 04:17] LABS: #Basophils 0.1 thou/uL (0.0-0.2); #Lymphocytes 1.8 thou/uL (1.20-3.40); #Monocytes 0.9 thou/uL (0.11-0.59); #Neutrophils 4.6 thou/uL (1.40-6.50); %Basophils 0.8 % (0.0-1.0); %Eosinophils 0.2 % (0.0-10.0); %Lymphocytes 24.4 % (21.0-51.0); %Monocytes 12.3 % (0.0-10.0); %Neutrophils 62.3 % (42.0-75.0); Hemoglobin 12.7 g/dL (14.0-18.0); Mean Corpuscular HGB CONC 35.8 g/dL (32.0-36.0); Mean Corpuscular Hemoglobin 31.8 pg (27.0-31.0); Platelet Count 301 thou/uL (130-400); RBC Distribution Width 10.9 % (11.5-14.5); Red Blood Cell (RBC) Count 3.98 mill/uL (4.70-6.10); White Blood Cell (WBC) Count 7.4 thou/uL (4.8-10.8)
[2018-01-02] MEDS: Cefepime 2 GM, Syringe 2.5 ML in Sterile Water 10 ML SLOW IVP SCH ×2 (04:33→11:38)
[2018-01-02] MEDS: Vancomycin HCl 1.25 GM in Sodium Chloride 0.9% 250 ML 250 ML IVPB SCH ×2 (04:33→11:38)
[2018-01-02 04:36] LABS: Anion Gap 9 mmol/L (10-20); BUN (Urea Nitrogen) 14 mg/dL (8.4-25.7); Calc. Creatinine Clearance 160 mL/min (70-130); Calcium 7.6 mg/dL (7.8-10.44); Carbon Dioxide 24 mmol/L (22-29); Chloride 91 mmol/L (98-107); Estimated GFR-MDRD Greater than 90; Glucose 174 mg/dL (70-105); Potassium 3.1 mmol/L (3.5-5.1); Sodium 121 mmol/L (136-145)
[2018-01-02] MEDS: metroNIDAZOLE 500 MG in Premix Bag 1 BAG IVPB SCH ×2 (05:53→11:38)
[2018-01-02] MEDS: HumaLOG 300 UNITS/3 ML VIAL SC PRN ×3 (05:57→17:03)
--- NOTE | 2018-01-02 09:29 | PRG ---
DATE OF SERVICE: 01/02/2018 SUBJECTIVE: Ms. Zavaleta is much better today. He is alert and oriented, still has headache, but fee ls better. OBJECTIVE: VITAL SIGNS: Blood pressure 130/77 earlier, now is 160 systolic. Pulse is improved, still at high, but it is improved at 108. ASSESSMENT: 1. Meningitis.? viral. 2. Episode of pericarditis. Appears mild and suspect that was viral. 3. Hypertension. PLAN: 1. Continue carvedilol. Discontinue colchicine. 2. Continue antibiotics for now. 3. Receiving potassium. 4. Likely resume lisinopril tomorrow. He was taking 10 mg a day. We will go ahead and order, resum e that today.
[2018-01-02] MEDS ORDERED: Lisinopril 5 MG TAB PO SCH ×2 (09:30)
[2018-01-02] MEDS: Aspirin 325 mg Enteric Coated Tablet PO SCH (09:53)
[2018-01-02] MEDS: Docusate 100 MG CAP PO SCH ×2 (09:53→21:23)
[2018-01-02] MEDS: Carvedilol 6.25 MG TAB PO SCH ×2 (09:53→17:03)
[2018-01-02] MEDS: Insulin Detemir 100 UNITS/ML 40 UNITS in Pre-Filled Syringe 1 EACH SC SCH (09:54)
[2018-01-02] MEDS: Potassium Chloride 20 MEQ TAB PO SCH ×2 (09:54→13:06)
[2018-01-02] MEDS: Colchicine 0.6 MG TAB PO SCH (09:55)
[2018-01-02] MEDS ORDERED: Ampicillin 2 GM in Sodium Chloride 0.9% 100 ML IVPB SCH ×2 (13:00→17:00)
[2018-01-02 13:16] LABS: VDRL, CSF Non Reactive (Non Rea:<1:1)
[2018-01-02] MEDS ORDERED: GENTAMICIN SULFATE IVPB SCH (13:30)
[2018-01-02] MEDS: Ampicillin 2 GM, Syringe 5.2 ML in Sterile Water 14.8 ML SLOW IVP SCH ×3 (14:26→21:23)
[2018-01-02] MEDS ORDERED: Sodium Chloride 256 MEQ in Sterile Water Injection 936 ML IV SCH ×2 (15:30→16:00)
--- NOTE | 2018-01-02 15:35 | PRG ---
DATE OF SERVICE: 01/02/2015 SERVICE: Pulmonary Medicine. INTERVAL HISTORY: The patient is doing fine from cardiovascular and respiratory standpoint. He martin es any current fevers, chills, nausea, vomiting or chest discomfort. His headache is completely gone . He is tolerating p.o. Overall, he feels much improved. OBJECTIVE: VITAL SIGNS: T-max 100.9. Fever profile continues to improve. HEENT: Normocephalic, atraumatic. Sclerae are white, conjunctivae pink. Oral mucosa is moist witho ut lesions. LUNGS: Decent air entry. There is no prolonged expiratory phase, wheezing, rhonchi or crackles. HEART: Normal rate, regular. ABDOMEN: Soft, nontender, nondistended. Bowel sounds are positive. MUSCULOSKELETAL: No cyanosis or clubbing. There is no pitting in the bilateral lower extremities. NEUROLOGIC: Grossly nonfocal. LABORATORY: WBC 7.4, hemoglobin 12.7, platelets 301,000. Sodium continues to drop to 121. Potassiu m 3.1. Creatinine 0.64. Basic metabolic profile is otherwise unremarkable. Urinalysis is negative. VDRL of the CSF was nonreactive. Other cultures are currently pending. Miscellaneous test is also pending. Spinal fluid cultures growing gram-positive bianka, positive for Listeria. ASSESSMENT: 1. Severe sepsis, resolving. 2. Pericarditis. 3. Meningitis, likely listeria. 4. Hyponatremia. DISCUSSION AND PLAN: The patient is doing fantastic clinically. After being said, sodium continues to creep downward. We will replace the potassium today. I will get a repeat basic metabolic profile in the morning, and start him on 1.5 normal saline peripherally. Magnesium will also be readdressed in the morning. Pulmonary Critical Care will continue to follow, but he will need to remain in the IMCU for the time being given his low are dropping sodium.
--- NOTE | 2018-01-02 15:48 | PDOC.PN ---
- Subjective Encounter Start Date: 01/02/18 Encounter Start Time: 14:00 Pt sleeping but arousable, Ox3 culture with Listeria, Amp started, Vanc, Cefepime adn Flagyl to sop. Pt related a history of his refrigerator not functioning well, eating lunch meats and foods not well chilled. Fevers, but no chills, no N/V/D/C, no CPor SOB, good appetite - Objective MAR Reviewed: Yes Vital Signs & Weight: Vital Signs (12 hours) Temp Pulse Resp BP BP Pulse Ox 01/02/18 15:16 100.9 F H 90 18 125/71 95 01/02/18 11:28 100.2 F H 101 H 20 156/89 H 93 L 01/02/18 09:53 161/91 H 01/02/18 09:52 99 161/91 H 01/02/18 08:00 100.8 F H 99 20 100 01/02/18 07:23 100.8 F H 99 20 130/77 96 01/02/18 05:45 98.9 F 01/02/18 04:00 99.7 F H 95 18 158/89 H 94 L Weight Admit Weight 188 lb 4.8 oz Weight 193 lb 3.2 oz I&O: 01/01/18 01/02/18 01/03/18 06:59 06:59 06:59 Intake Total 3050 3935 Output Total 1650 1250 Balance 1400 2685 Result Diagrams: 01/02/18 03:52 01/02/18 03:52 Additional Labs: Accuchecks 01/02/18 01/02/18 01/01/18 11:08 05:46 21:39 POC Glucose 222 H 164 H 197 H 01/01/18 16:34 POC Glucose 245 H Radiology Reviewed by me: Yes EKG Reviewed by me: Yes Phys Exam - Physical Examination Constitutional: NAD HEENT: PERRLA, moist MMs, sclera anicteric, oral pharynx no lesions Neck: no nodes, no JVD, supple, full ROM Respiratory: no wheezing, no rales, no rhonchi, clear to auscultation bilateral Cardiovascular: RRR, no significant murmur, no rub Gastrointestinal: soft, non-tender, no distention, positive bowel sounds Musculoskeletal: no edema, pulses present Neurological: non-focal, normal sensation, moves all 4 limbs Lymphatic: no nodes Psychiatric: normal affect, A&O x 3 Skin: no rash, normal turgor, cap refill <2 seconds Dx/Plan (1) Meningitis Code(s): G03.9 - MENINGITIS, UNSPECIFIED Status: Acute Comment: 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 streamline to amp alone, 2g IV q 4 hours. planning 14 days Rx, about 10 days to go (2) Sepsis Code(s): A41.9 - SEPSIS, UNSPECIFIED ORGANISM Status: Acute Qualifiers: Sepsis type: sepsis due to unspecified organism Qualified Code(s): A41.9 - Sepsis, unspecified organism Comment: Listeria - BCx neg so far. (3) Sinus tachycardia Code(s): R00.0 - TACHYCARDIA, UNSPECIFIED Status: Resolved Comment: Secondary to sepsis, supportive care, IVF's, antipyretics, beta-blockers (4) Hyponatremia Code(s): E87.1 - HYPO-OSMOLALITY AND HYPONATREMIA Status: Acute Comment: Secondary to hypernatremia and pseudohyponatremia, ? cerebral salt wasting. IVF to start (5) Urinary retention Code(s): R33.9 - RETENTION OF URINE, UNSPECIFIED Status: Acute (6) Anxiety and depression Code(s): F41.9 - ANXIETY DISORDER, UNSPECIFIED; F32.9 - MAJOR DEPRESSIVE DISORDER, SINGLE EPISODE, UNSPECIFIED Status: Chronic (7) Dyslipidemia Code(s): E78.5 - HYPERLIPIDEMIA, UNSPECIFIED Status: Chronic (8) HTN (hypertension) Code(s): I10 - ESSENTIAL (PRIMARY) HYPERTENSION Status: Chronic Qualifiers: Hypertension type: essential hypertension Qualified Code(s): I10 - Essential (primary) hypertension (9) Hyperglycemia due to type 2 diabetes mellitus Code(s): E11.65 - TYPE 2 DIABETES MELLITUS WITH HYPERGLYCEMIA Status: Chronic Qualifiers: Diabetes mellitus usp insulin use: with exterminator helper use Qualified Code( s): E11.65 - Type 2 diabetes mellitus with hyperglycemia; Z79.4 - [facility] ( current) use of insulin; Z79.4 - exterminator helper (current) use of insulin; Z79.4 - [facility] (current) use of insulin; Z79.4 - exterminator helper (current) use of insulin Comment: Uncontrolled, Insulin requiring, continue ISS, serial accuchecks, A1C in am (10) Seizure disorder Code(s): G40.909 - EPILEPSY, UNSP, NOT INTRACTABLE, WITHOUT STATUS EPILEPTICUS Status: Chronic (11) Elevated troponin I level Code(s): R74.8 - ABNORMAL LEVELS OF OTHER SERUM ENZYMES Status: Acute Comment: Likely demand state given current sepsis and tachycardia, Cardiology consulted - Plan cont current plan of care, plan discussed w/ family, continue antibiotics, PT/OT , out of bed/ambulate * .
[2018-01-02 19:11] LABS: HSV 2 - DNA Negative (Negative)
[2018-01-02 19:31] LABS: Vancomycin, Trough 11.8 ug/mL
[2018-01-02 19:33] LABS: Anion Gap 10 mmol/L (10-20); BUN (Urea Nitrogen) 15 mg/dL (8.4-25.7); Calc. Creatinine Clearance 153 mL/min (70-130); Calcium 7.6 mg/dL (7.8-10.44); Carbon Dioxide 25 mmol/L (22-29); Chloride 94 mmol/L (98-107); Estimated GFR-MDRD Greater than 90; Glucose 171 mg/dL (70-105); Potassium 3.7 mmol/L (3.5-5.1); Sodium 125 mmol/L (136-145)
[2018-01-03] MEDS: Ampicillin 2 GM, Syringe 5.2 ML in Sterile Water 14.8 ML SLOW IVP SCH ×6 (01:36→20:39)
[2018-01-03 05:24] LABS: Anion Gap 7 mmol/L (10-20); BUN (Urea Nitrogen) 13 mg/dL (8.4-25.7); Calc. Creatinine Clearance 158 mL/min (70-130); Calcium 7.3 mg/dL (7.8-10.44); Carbon Dioxide 26 mmol/L (22-29); Chloride 97 mmol/L (98-107); Estimated GFR-MDRD Greater than 90; Glucose 204 mg/dL (70-105); Potassium 3.4 mmol/L (3.5-5.1); Sodium 127 mmol/L (136-145)
[2018-01-03] MEDS: HumaLOG 300 UNITS/3 ML VIAL SC PRN (05:40)
[2018-01-03] MEDS: Insulin Detemir 100 UNITS/ML 40 UNITS in Pre-Filled Syringe 1 EACH SC SCH (09:38)
[2018-01-03] MEDS: Potassium Chloride 20 MEQ TAB PO SCH ×3 (09:40→17:49)
[2018-01-03] MEDS: Carvedilol 6.25 MG TAB PO SCH ×2 (09:41→17:48)
[2018-01-03] MEDS: Docusate 100 MG CAP PO SCH ×2 (09:41→20:39)
[2018-01-03] MEDS: Lisinopril 5 MG TAB PO SCH (09:42)
[2018-01-03] MEDS: Aspirin 81 mg Enteric Coated Tablet PO SCH (09:42)
[2018-01-03] MEDS ORDERED: Carvedilol 6.25 MG TAB PO SCH ×2 (09:48→10:00)
[2018-01-03] MEDS: Calcium Citrate 950 MG TAB PO SCH ×2 (09:53→20:38)
--- NOTE | 2018-01-03 10:15 | PRG ---
DATE OF SERVICE: 01/03/2018 Mr. Zavaleta is doing much better. PHYSICAL EXAMINATION: VITAL SIGNS: His heart rates in the 80s, blood pressure 127/80, pulse is in the 80s. LUNGS: Clear. CARDIAC: Normal S1 and S2. Reviewing all the information, I think that the patient did actually not have pericarditis or myocard itis, I think this is all secondary to the infection. The EKG changes were mild and even some of the se were actually present on the old EKGs. He never had chest pain so I do not think he did have matt carditis. The patient has had a mild hypokinesis of his apex, but that was probably related to high fevers and prolonged tachycardia. We are going to repeat an echo today, if that looks okay, I would not think t hat he has had myocarditis. If that is all normal we will sign off.
[2018-01-03] MEDS ORDERED: Sodium Chloride 256 MEQ in Sterile Water Injection 897.6 ML IV SCH (13:15)
--- NOTE | 2018-01-03 14:04 | PDOC.PN ---
- Subjective Encounter Start Date: 01/03/18 Encounter Start Time: 11:35 MS back to normnal. Tmax trending down, no n/v/d/c, bharti amp well wihout rash or itching 10 point ROS performed and neg for all systems except as per HPI - Objective MAR Reviewed: Yes Vital Signs & Weight: Vital Signs (12 hours) Temp Pulse Resp BP BP Pulse Ox 01/03/18 10:49 99.2 F 86 19 141/74 H 96 01/03/18 09:42 85 129/69 01/03/18 08:00 99.2 F 91 15 95 01/03/18 07:30 99.2 F 91 15 127/80 95 01/03/18 04:00 99.7 F H 84 16 127/76 97 Weight Admit Weight 188 lb 4.8 oz Weight 192 lb 1.6 oz I&O: 01/02/18 01/03/18 01/04/18 06:59 06:59 06:59 Intake Total 3935 4010 Output Total 1250 2700 Balance 2685 1310 Result Diagrams: 01/02/18 03:52 01/03/18 04:41 Additional Labs: Accuchecks 01/03/18 01/03/18 01/02/18 10:41 05:41 21:39 POC Glucose 191 H 209 H 154 H 01/02/18 16:53 POC Glucose 356 H Phys Exam - Physical Examination Constitutional: NAD HEENT: PERRLA, moist MMs, sclera anicteric, oral pharynx no lesions Neck: no nodes, no JVD, supple, full ROM Respiratory: no wheezing, no rales, no rhonchi, clear to auscultation bilateral Cardiovascular: RRR, no significant murmur, no rub Gastrointestinal: soft, non-tender, no distention, positive bowel sounds Musculoskeletal: no edema, pulses present Neurological: non-focal, normal sensation, moves all 4 limbs Lymphatic: no nodes Psychiatric: normal affect, A&O x 3 Skin: no rash, normal turgor, cap refill <2 seconds Dx/Plan (1) Meningitis Code(s): G03.9 - MENINGITIS, UNSPECIFIED Status: Acute Comment: 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 streamline to amp alone, 2g IV q 4 hours. planning 14 days Rx, about 10 days to go (2) Sepsis Code(s): A41.9 - SEPSIS, UNSPECIFIED ORGANISM Status: Acute Qualifiers: Sepsis type: sepsis due to unspecified organism Qualified Code(s): A41.9 - Sepsis, unspecified organism Comment: Listeria - BCx neg so far. (3) Sinus tachycardia Code(s): R00.0 - TACHYCARDIA, UNSPECIFIED Status: Resolved Comment: Secondary to sepsis, supportive care, IVF's, antipyretics, beta-blockers (4) Hyponatremia Code(s): E87.1 - HYPO-OSMOLALITY AND HYPONATREMIA Status: Acute Comment: Secondary to hypernatremia and pseudohyponatremia, ? cerebral salt wasting. IVF to start. Dr Kemp managing (5) Urinary retention Code(s): R33.9 - RETENTION OF URINE, UNSPECIFIED Status: Acute (6) Anxiety and depression Code(s): F41.9 - ANXIETY DISORDER, UNSPECIFIED; F32.9 - MAJOR DEPRESSIVE DISORDER, SINGLE EPISODE, UNSPECIFIED Status: Chronic (7) Dyslipidemia Code(s): E78.5 - HYPERLIPIDEMIA, UNSPECIFIED Status: Chronic (8) HTN (hypertension) Code(s): I10 - ESSENTIAL (PRIMARY) HYPERTENSION Status: Chronic Qualifiers: Hypertension type: essential hypertension Qualified Code(s): I10 - Essential (primary) hypertension (9) Hyperglycemia due to type 2 diabetes mellitus Code(s): E11.65 - TYPE 2 DIABETES MELLITUS WITH HYPERGLYCEMIA Status: Chronic Qualifiers: Diabetes mellitus assisted insulin use: with assisted use Qualified Code( s): E11.65 - Type 2 diabetes mellitus with hyperglycemia; Z79.4 - nursing home ( current) use of insulin; Z79.4 - nursing home (current) use of insulin; Z79.4 - nursing home (current) use of insulin; Z79.4 - equipment operator intermodal yard (current) use of insulin Comment: Uncontrolled, Insulin requiring, continue ISS, serial accuchecks, A1C in am (10) Seizure disorder Code(s): G40.909 - EPILEPSY, UNSP, NOT INTRACTABLE, WITHOUT STATUS EPILEPTICUS Status: Chronic (11) Elevated troponin I level Code(s): R74.8 - ABNORMAL LEVELS OF OTHER SERUM ENZYMES Status: Acute Comment: Likely demand state given current sepsis and tachycardia, Cardiology consulted (12) Metabolic encephalopathy Code(s): G93.41 - METABOLIC ENCEPHALOPATHY Status: Resolved Comment: due to meningoencephalitis, POA, resoved now - Plan cont current plan of care, plan discussed w/ family, continue antibiotics, PT/OT , out of bed/ambulate * .
--- NOTE | 2018-01-03 15:25 | PRG ---
DATE OF SERVICE: 01/03/2018 SERVICE: Pulmonary Medicine. INTERVAL HISTORY: The patient is doing outstanding from a cardiovascular and respiratory standpoint. He denies any current fevers, chills, nausea, vomiting or shortness of breath. He feels much impro lupe. He remains on 1.5% sodium chloride for hyponatremia. This is moving in the right direction, th ough we need to see whether or not he can come off of this drip. PHYSICAL EXAMINATION: VITAL SIGNS: Afebrile, currently with a T-max of 99.8 since yesterday evening. HEENT: Normocephalic, atraumatic. Sclerae are white, conjunctivae pink. Oral mucosa is moist witho ut lesions. LUNGS: Decent air entry. There is no prolonged expiratory phase or wheezing. HEART: Normal rate, regular. ABDOMEN: Soft, nontender, nondistended. Bowel sounds are positive. MUSCULOSKELETAL: No cyanosis or clubbing. No pitting in the bilateral lower extremities. NEUROLOGIC: Grossly nonfocal. LABORATORY DATA: Sodium 127 and up trending, potassium 3.4. Basic metabolic profile is otherwise un remarkable. HSV 1 and 2 are negative in the CSF. Spinal fluid is actually growing listeria monocyto genes. Cryptococcal antigen is negative. ASSESSMENT: 1. Severe sepsis, resolving. 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 3. Hyponatremia, improving. DISCUSSION AND PLANS: The meningitis is likely creating the hyponatremia. Typically this should not be severe. That being said, I am not willing to toy with his sodium with his reduced seizure thresh old. We will wean away his 1.5% sodium chloride tonight after sodium is checked. Tomorrow morning, if it is stable or up trending, then he will have no further requirements for inpatient Pulmonary Cri tical Care opinion. I will continue to follow while the patient remains in this location, but we basilio l likely get him to the floor after we stop the 1.5% sodium.
--- NOTE | 2018-01-03 15:41 | SPC ---
LEFT UPPER EXTREMITY PICC LINE ULTRASOUND AND FLUOROSCOPIC GUIDANCE: PROCEDURE: After informed consent had been obtained, the patient was placed on the interventional suite table in a supine position. The left arm was prepped and draped in a standard sterile fashion. Topical anes thesia was achieved utilizing 1% Lidocaine and sodium bicarbonate. Under real-time sonography, the b asilic vein of the left upper extremity was accessed with a small caliber needle with venous flash pr esent at the needle hub. A guidewire was then advanced in to the needle, and under real-time fluoros copy, the guidewire was advanced to the level of the inferior vena cava to confirm appropriate venous placement. A small skin incision was made and the needle was removed. Over the guidewire, a single lumen PICC line was cut to 42 cm. The PICC line was advanced under real-time fluoroscopy over the g uidewire to the level of the cavoatrial junction. The guidewire and peelaway sheath were then remove d. PICC line flushed and aspirated appropriately and was secured to the left upper extremity. There were no procedural complications. RADIATION EXPOSURE DATA: 0 minutes intermittent fluoroscopy, 4 mGy*^cm2. IMPRESSION: Technically successful ultrasound and fluoroscopic-guided left PICC line placement, as above. POS: [facility]
[2018-01-03 18:13] LABS: Anion Gap 9 mmol/L (10-20); BUN (Urea Nitrogen) 10 mg/dL (8.4-25.7); Calc. Creatinine Clearance 188 mL/min (70-130); Calcium 7.6 mg/dL (7.8-10.44); Carbon Dioxide 25 mmol/L (22-29); Chloride 101 mmol/L (98-107); Estimated GFR-MDRD Greater than 90; Glucose 113 mg/dL (70-105); Potassium 3.9 mmol/L (3.5-5.1); Sodium 131 mmol/L (136-145)
[2018-01-03] MEDS: Acetaminophen 325 MG TAB PO PRN (19:38)
--- NOTE | 2018-01-03 23:26 | ADD-PRG ---
ADDENDUM: 01/03/2018 The patient had an echocardiogram today, which showed normal left ventricular function. I think the apical wall motion abnormality earlier during his hospitalization was due to tachycardia and sepsis. The patient likely had demand ischemia based on this. There is no evidence of pericarditis or myoca rditis. Cardiac status has returned to normal. We would recommend continuing low dose aspirin, TAM inhibitor, low dose beta ange as he is on now. Resume cholesterol medicines when he leaves the [facility] for prevention in terms of his diabetes. Otherwise, we will sign off the case at this point. Thank you so much for allowing us to participate in his care.
[2018-01-04] MEDS: Ampicillin 2 GM, Syringe 5.2 ML in Sterile Water 14.8 ML SLOW IVP SCH ×6 (00:55→20:55)
[2018-01-04] MEDS: Acetaminophen 325 MG TAB PO PRN ×2 (05:35→20:58)
[2018-01-04 05:51] LABS: #Monocytes 0.6 thou/uL (0.11-0.59); #Neutrophils 7.1 thou/uL (1.40-6.50); %Eosinophils 0.5 % (0.0-10.0); %Lymphocytes 20.8 % (21.0-51.0); %Neutrophils 72.6 % (42.0-75.0); Hemoglobin 11.6 g/dL (14.0-18.0); Mean Corpuscular HGB CONC 35.4 g/dL (32.0-36.0); Mean Corpuscular Hemoglobin 32.7 pg (27.0-31.0); Mean Corpuscular Volume 92.5 fl (80.0-94.0); Platelet Count 379 thou/uL (130-400); RBC Distribution Width 11.1 % (11.5-14.5); Red Blood Cell (RBC) Count 3.54 mill/uL (4.70-6.10); White Blood Cell (WBC) Count 9.7 thou/uL (4.8-10.8)
[2018-01-04 06:22] LABS: Anion Gap 10 mmol/L (10-20); BUN (Urea Nitrogen) 8 mg/dL (8.4-25.7); Calc. Creatinine Clearance 191 mL/min (70-130); Calcium 7.9 mg/dL (7.8-10.44); Carbon Dioxide 26 mmol/L (22-29); Chloride 97 mmol/L (98-107); Estimated GFR-MDRD Greater than 90; Glucose 143 mg/dL (70-105); Magnesium 1.9 mg/dL (1.6-2.6); Potassium 3.9 mmol/L (3.5-5.1); Sodium 129 mmol/L (136-145)
[2018-01-04] MEDS: HumaLOG 300 UNITS/3 ML VIAL SC PRN ×2 (06:24→16:44)
[2018-01-04] MEDS: Insulin Detemir 100 UNITS/ML 40 UNITS in Pre-Filled Syringe 1 EACH SC SCH (08:34)
[2018-01-04] MEDS: Lisinopril 5 MG TAB PO SCH (08:35)
[2018-01-04] MEDS: Carvedilol 6.25 MG TAB PO SCH ×2 (08:35→16:44)
[2018-01-04] MEDS: Aspirin 81 mg Enteric Coated Tablet PO SCH (08:35)
[2018-01-04] MEDS: Calcium Citrate 950 MG TAB PO SCH ×2 (08:35→20:55)
[2018-01-04] MEDS: Docusate 100 MG CAP PO SCH ×2 (08:36→20:55)
--- NOTE | 2018-01-04 15:17 | EKG ---
Test Reason : Blood Pressure : / mmHG Vent. Rate : 118 BPM Atrial Rate : 118 BPM P-R Int : 166 ms QRS Dur : 102 ms QT Int : 320 ms P-R-T Axes : 037 007 024 degrees QTc Int : 448 ms Sinus tachycardia Possible Left atrial enlargement Inferior infarct , possibly acute Abnormal ECG No chest pain #1 Confirmed by CONTRERAS LUTZ ([id number]), editor managing newspaper JENNI ABARCA ([id number] on 01/04/2018 3:17:25 PM Referred By: Confirmed By:CONTRERAS LUTZ
--- NOTE | 2018-01-04 15:18 | EKG ---
Test Reason : Blood Pressure : / mmHG Vent. Rate : 121 BPM Atrial Rate : 121 BPM P-R Int : 162 ms QRS Dur : 102 ms QT Int : 320 ms P-R-T Axes : 043 015 032 degrees QTc Int : 454 ms Sinus tachycardia Possible Left atrial enlargement Inferior infarct , possibly acute Abnormal ECG No chest pain #2 Confirmed by CONTRERAS LUTZ ([id number]), subeditor JENNI ABARCA ([id number]) on 01/04/2018 3:17:51 PM Referred By: Confirmed By:CONTRERAS LUTZ
--- NOTE | 2018-01-04 16:30 | PRG ---
DATE OF SERVICE: 01/04/2018 SERVICE: Pulmonary Medicine. INTERVAL HISTORY: The patient is doing fine from a cardiovascular and respiratory standpoint. He is breathing comfortably. We stopped his 1.5% saline yesterday. Today, his sodium trickled down ever so slightly, but it is not going down very fast at this point. PHYSICAL EXAMINATION: VITAL SIGNS: Afebrile with T-max of 99.4. Pulse 94, blood pressure 152/81, respirations 16, and sat uration 99% on room air. GENERAL: The patient is awake, alert, in no apparent distress. LUNGS: Excellent air entry with no prolonged expiratory phase, wheezing, rhonchi, or crackles. HEART: Normal rate, regular. ABDOMEN: Soft, nontender, nondistended. Bowel sounds are positive. MUSCULOSKELETAL: No cyanosis or clubbing. There is no pitting in the bilateral lower extremities. NEUROLOGIC: Grossly nonfocal. LABORATORY DATA: CBC is grossly unremarkable/stable. Creatinine 0.55, BUN 8. Chloride 97. Sodium gently trending down to 129. Blood sugars ranged from 148-239 Spinal fluid is growing Listeria monocytogenes. A cryptococcal antigen is unremarkable. Other studies are curre ntly pending. ASSESSMENT: 1. Severe sepsis, resolving. 2. 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 3. Hyponatremia, stabilizing. 4. Metabolic encephalopathy, resolved. PLAN: The patient is stable for transition to the medical unit Pulmonary Critical Care will continu e to follow him for 1-2 additional days until the sodium firms up a touch. We will repeat the sodium tomorrow morning.
--- NOTE | 2018-01-04 16:47 | PDOC.PN ---
- Subjective Encounter Start Date: 01/04/18 Encounter Start Time: 12:20 Pt doing welll, no complaints, PT/OT ordered, ok to transfer to floor. NoF/c, no N/V/d/c. UPlm helping manage sodium. 10 point ROS performed and neg for all systems except as above - Objective MAR Reviewed: Yes Vital Signs & Weight: Vital Signs (12 hours) Temp Pulse Resp BP Pulse Ox 01/04/18 15:54 99.4 F 94 16 152/81 H 99 01/04/18 11:31 98.3 F 83 18 152/85 H 94 L 01/04/18 08:35 93 01/04/18 08:00 99.1 F 93 12 97 01/04/18 07:27 99.1 F 93 12 153/88 H 91 L Weight Admit Weight 188 lb 4.8 oz Weight 193 lb 6.4 oz I&O: 01/03/18 01/04/18 01/05/18 06:59 06:59 06:59 Intake Total 4010 3425 660 Output Total 2700 1350 1920 Balance 1310 2075 -1260 Result Diagrams: 01/06/18 06:21 01/08/18 06:32 Additional Labs: Accuchecks 01/04/18 01/04/18 01/04/18 15:40 11:25 05:15 POC Glucose 239 H 192 H 167 H 01/03/18 01/03/18 20:14 16:43 POC Glucose 148 H 127 H EKG Reviewed by me: Yes Phys Exam - Physical Examination Constitutional: NAD HEENT: PERRLA, moist MMs, sclera anicteric, oral pharynx no lesions Neck: no nodes, no JVD, supple, full ROM Respiratory: no wheezing, no rales, no rhonchi, clear to auscultation bilateral Cardiovascular: RRR, no significant murmur, no rub Gastrointestinal: soft, non-tender, positive bowel sounds Musculoskeletal: no edema, pulses present Neurological: non-focal, normal sensation, moves all 4 limbs Lymphatic: no nodes Psychiatric: normal affect, A&O x 3 Skin: no rash, normal turgor, cap refill <2 seconds Dx/Plan (1) Meningitis Code(s): G03.9 - MENINGITIS, UNSPECIFIED Status: Acute Comment: 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 streamline to amp alone, 2g IV q 4 hours. planning 14 days Rx, about 10 days to go (2) Sepsis Code(s): A41.9 - SEPSIS, UNSPECIFIED ORGANISM Status: Acute Qualifiers: Sepsis type: sepsis due to unspecified organism Qualified Code(s): A41.9 - Sepsis, unspecified organism Comment: Listeria - BCx neg so far. (3) Sinus tachycardia Code(s): R00.0 - TACHYCARDIA, UNSPECIFIED Status: Resolved Comment: Secondary to sepsis, supportive care, IVF's, antipyretics, beta-blockers (4) Hyponatremia Code(s): E87.1 - HYPO-OSMOLALITY AND HYPONATREMIA Status: Acute Comment: Secondary to hypernatremia and pseudohyponatremia, ? cerebral salt wasting. IVF to start. Dr Kemp managing (5) Urinary retention Code(s): R33.9 - RETENTION OF URINE, UNSPECIFIED Status: Acute (6) Anxiety and depression Code(s): F41.9 - ANXIETY DISORDER, UNSPECIFIED; F32.9 - MAJOR DEPRESSIVE DISORDER, SINGLE EPISODE, UNSPECIFIED Status: Chronic (7) Dyslipidemia Code(s): E78.5 - HYPERLIPIDEMIA, UNSPECIFIED Status: Chronic (8) HTN (hypertension) Code(s): I10 - ESSENTIAL (PRIMARY) HYPERTENSION Status: Chronic Qualifiers: Hypertension type: essential hypertension Qualified Code(s): I10 - Essential (primary) hypertension (9) Hyperglycemia due to type 2 diabetes mellitus Code(s): E11.65 - TYPE 2 DIABETES MELLITUS WITH HYPERGLYCEMIA Status: Chronic Qualifiers: Diabetes mellitus terminal gauger supervisor insulin use: with prison use Qualified Code( s): E11.65 - Type 2 diabetes mellitus with hyperglycemia; Z79.4 - longterm ( current) use of insulin; Z79.4 - long term care pharmacist (current) use of insulin; Z79.4 - longterm (current) use of insulin; Z79.4 - long term care pharmacist (current) use of insulin Comment: Uncontrolled, Insulin requiring, continue ISS, serial accuchecks, A1C in am (10) Seizure disorder Code(s): G40.909 - EPILEPSY, UNSP, NOT INTRACTABLE, WITHOUT STATUS EPILEPTICUS Status: Chronic (11) Elevated troponin I level Code(s): R74.8 - ABNORMAL LEVELS OF OTHER SERUM ENZYMES Status: Acute Comment: Likely demand state given current sepsis and tachycardia, Cardiology consulted (12) Metabolic encephalopathy Code(s): G93.41 - METABOLIC ENCEPHALOPATHY Status: Resolved Comment: due to meningoencephalitis, POA, resoved now - Plan * .
[2018-01-05] MEDS: Ampicillin 2 GM, Syringe 5.2 ML in Sterile Water 14.8 ML SLOW IVP SCH ×6 (01:34→20:44)
[2018-01-05] MEDS: Acetaminophen 325 MG TAB PO PRN ×2 (04:28→10:02)
[2018-01-05 06:35] LABS: Sodium 133 mmol/L (136-145)
[2018-01-05] MEDS: Docusate 100 MG CAP PO SCH ×2 (08:04→20:44)
[2018-01-05] MEDS: Carvedilol 6.25 MG TAB PO SCH ×2 (08:04→17:16)
[2018-01-05] MEDS: Lisinopril 5 MG TAB PO SCH (08:05)
[2018-01-05] MEDS: Aspirin 81 mg Enteric Coated Tablet PO SCH (08:05)
[2018-01-05] MEDS: Insulin Detemir 100 UNITS/ML 40 UNITS in Pre-Filled Syringe 1 EACH SC SCH ×2 (08:45→20:45)
[2018-01-05] MEDS: Ondansetron HCl/PF 4 MG/2 ML Vial SLOW IVP PRN ×2 (08:46→15:39)
[2018-01-05] MEDS: Calcium Citrate 950 MG TAB PO SCH ×2 (08:46→20:43)
[2018-01-05] MEDS ORDERED: Lisinopril 5 MG TAB PO SCH (10:00)
[2018-01-05] MEDS: Pravastatin Sodium 20 MG TAB PO SCH (10:01)
[2018-01-05] MEDS: Bupropion 150 MG XL TAB PO SCH (10:06)
[2018-01-05] MEDS: metFORMIN XR 500 MG TAB PO SCH (17:17)
[2018-01-05] MEDS: HumaLOG 300 UNITS/3 ML VIAL SC PRN (17:20)
[2018-01-05] MEDS: Promethazine HCl 25 MG/ML VIAL IM/IV PRN (18:37)
[2018-01-05] MEDS: Tamsulosin HCl 0.4 MG CAP PO SCH (20:43)
[2018-01-05] MEDS ORDERED: Non-Formulary Item 1 EACH (Insulin Glargine,Hum.Rec.Anlog 40 UNIT) SC SCH (21:00)
--- NOTE | 2018-01-05 22:50 | PRG ---
DATE OF SERVICE: 01/05/2018 SERVICE: Pulmonary Medicine. INTERVAL HISTORY: The patient is doing really well from a cardiovascular and respiratory standpoint. He is breathing comfortably. He has the headache that is returning again. He also had a little bi t of nausea. He ate breakfast, but had some vomiting. He took some Phenergan and then got very slee py. He is just now starting to wake up from that. He is hopeful that tomorrow is going to bring a b vickey day. Otherwise, he had no events overnight like seizures. PHYSICAL EXAMINATION: VITAL SIGNS: Afebrile, pulse 81, blood pressure 148/74, saturations 96, blood pressure 132/98. HEENT: Normocephalic, atraumatic. Sclerae are white, conjunctivae pink. Oral and nasal mucosa is m oist without lesions. LUNGS: Decent air entry. There is no prolonged expiratory phase, wheezing, rhonchi, or crackles pre sent. HEART: Normal rate, regular. ABDOMEN: Soft, nontender, nondistended. Bowel sounds are positive. MUSCULOSKELETAL: No cyanosis or clubbing. There is no pitting in the bilateral lower extremities. NEUROLOGIC: Grossly nonfocal. LABORATORY DATA: Sodium 133. 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 ASSESSMENT: 1. Severe sepsis, resolving. 2. 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 3. Hyponatremia, improving. 4. Metabolic encephalopathy, resolved. DISCUSSION AND PLAN: The patient's sodium is doing just fine. As such, he has no further requiremen ts for inpatient Pulmonary Critical Care opinion. Please call with additional questions or concerns moving forward.
[2018-01-06] MEDS: Ampicillin 2 GM, Syringe 5.2 ML in Sterile Water 14.8 ML SLOW IVP SCH ×7 (01:10→23:53)
[2018-01-06 06:30] LABS: #Eosinphils 0.1 thou/uL (0.0-0.7); #Lymphocytes 1.5 thou/uL (1.20-3.40); #Monocytes 0.7 thou/uL (0.11-0.59); #Neutrophils 7.4 thou/uL (1.40-6.50); %Basophils 0.1 % (0.0-1.0); %Eosinophils 0.6 % (0.0-10.0); %Lymphocytes 15.5 % (21.0-51.0); %Neutrophils 76.7 % (42.0-75.0); Hemoglobin 11.3 g/dL (14.0-18.0); Mean Corpuscular HGB CONC 35.2 g/dL (32.0-36.0); Mean Corpuscular Hemoglobin 31.8 pg (27.0-31.0); Mean Corpuscular Volume 90.3 fl (80.0-94.0); Mean Platelet Volume 6.3 fL (7.4-10.4); Platelet Count 478 thou/uL (130-400); RBC Distribution Width 11.1 % (11.5-14.5); Red Blood Cell (RBC) Count 3.55 mill/uL (4.70-6.10); White Blood Cell (WBC) Count 9.7 thou/uL (4.8-10.8)
[2018-01-06 06:55] LABS: Anion Gap 10 mmol/L (10-20); BUN (Urea Nitrogen) 10 mg/dL (8.4-25.7); Calc. Creatinine Clearance 154 mL/min (70-130); Calcium 8.4 mg/dL (7.8-10.44); Carbon Dioxide 29 mmol/L (22-29); Chloride 95 mmol/L (98-107); Estimated GFR-MDRD Greater than 90; Glucose 152 mg/dL (70-105); Potassium 3.5 mmol/L (3.5-5.1); Sodium 130 mmol/L (136-145)
[2018-01-06] MEDS: Insulin Detemir 100 UNITS/ML 40 UNITS in Pre-Filled Syringe 1 EACH SC SCH ×2 (08:38→19:28)
[2018-01-06] MEDS: Aspirin 81 mg Enteric Coated Tablet PO SCH (08:39)
[2018-01-06] MEDS: Lisinopril 10 MG TAB PO SCH (08:39)
[2018-01-06] MEDS: Carvedilol 6.25 MG TAB PO SCH ×2 (08:39→17:20)
[2018-01-06] MEDS: Pravastatin Sodium 20 MG TAB PO SCH (08:41)
[2018-01-06] MEDS: Docusate 100 MG CAP PO SCH ×2 (08:41→19:25)
[2018-01-06] MEDS: metFORMIN XR 500 MG TAB PO SCH ×2 (08:42→17:21)
[2018-01-06] MEDS: Calcium Citrate 950 MG TAB PO SCH ×2 (08:44→19:26)
[2018-01-06] MEDS: Bupropion 150 MG XL TAB PO SCH (08:44)
[2018-01-06] MEDS ORDERED: Heparin 1,000 UNITS/ML VIAL ONE (09:00)
[2018-01-06] MEDS: Acetaminophen 325 MG TAB PO PRN (14:16)
[2018-01-06] MEDS ORDERED: Potassium Chloride 20 MEQ TAB PO SCH (14:30)
--- NOTE | 2018-01-06 16:29 | PDOC.PN ---
- Subjective Encounter Start Date: 01/05/18 Encounter Start Time: 16:30 slepign soundly, no acute overnight events, doing well on medical floor. No F/c, no N/V/D/C, bharti po, bharti bx without itching or rash, PICC functioning well 10 point ROS performed and neg for all systems except as per hPI - Objective MAR Reviewed: Yes Vital Signs & Weight: Vital Signs (12 hours) Temp Pulse Resp BP BP Pulse Ox 01/06/18 08:39 151/67 H 01/06/18 08:00 98.1 F 98 16 98 01/06/18 07:46 98.1 F 98 16 151/67 H 98 Weight Admit Weight 188 lb 4.8 oz Weight 193 lb 6.4 oz I&O: 01/05/18 01/06/18 01/07/18 06:59 06:59 06:59 Intake Total 1340 1440 320 Output Total 2521 Balance -1181 1440 320 Result Diagrams: 01/06/18 06:21 01/08/18 06:32 Additional Labs: Accuchecks 01/06/18 01/06/18 01/05/18 11:34 04:41 19:28 POC Glucose 104 65 L 140 H 01/05/18 15:56 POC Glucose 157 H Phys Exam - Physical Examination Constitutional: NAD HEENT: PERRLA, moist MMs, sclera anicteric, oral pharynx no lesions Neck: no nodes, no JVD, supple, full ROM Respiratory: no wheezing, no rales, no rhonchi, clear to auscultation bilateral Cardiovascular: RRR, no significant murmur, no rub Gastrointestinal: soft, non-tender, no distention, positive bowel sounds Musculoskeletal: no edema, pulses present Neurological: non-focal, normal sensation, moves all 4 limbs Lymphatic: no nodes Psychiatric: normal affect, A&O x 3 Skin: no rash, normal turgor, cap refill <2 seconds Dx/Plan (1) Meningitis Code(s): G03.9 - MENINGITIS, UNSPECIFIED Status: Acute Comment: 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 streamline to amp alone, 2g IV q 4 hours. planning 14 days Rx, about 8 days to go (2) Sepsis Code(s): A41.9 - SEPSIS, UNSPECIFIED ORGANISM Status: Acute Qualifiers: Sepsis type: sepsis due to unspecified organism Qualified Code(s): A41.9 - Sepsis, unspecified organism Comment: Listeria - BCx neg so far. (3) Sinus tachycardia Code(s): R00.0 - TACHYCARDIA, UNSPECIFIED Status: Resolved Comment: Secondary to sepsis, supportive care, IVF's, antipyretics, beta-blockers (4) Hyponatremia Code(s): E87.1 - HYPO-OSMOLALITY AND HYPONATREMIA Status: Acute Comment: Secondary to hypernatremia and pseudohyponatremia, ? cerebral salt wasting. IVF to start. Dr Kemp managing (5) Urinary retention Code(s): R33.9 - RETENTION OF URINE, UNSPECIFIED Status: Acute (6) Anxiety and depression Code(s): F41.9 - ANXIETY DISORDER, UNSPECIFIED; F32.9 - MAJOR DEPRESSIVE DISORDER, SINGLE EPISODE, UNSPECIFIED Status: Chronic (7) Dyslipidemia Code(s): E78.5 - HYPERLIPIDEMIA, UNSPECIFIED Status: Chronic (8) HTN (hypertension) Code(s): I10 - ESSENTIAL (PRIMARY) HYPERTENSION Status: Chronic Qualifiers: Hypertension type: essential hypertension Qualified Code(s): I10 - Essential (primary) hypertension (9) Hyperglycemia due to type 2 diabetes mellitus Code(s): E11.65 - TYPE 2 DIABETES MELLITUS WITH HYPERGLYCEMIA Status: Chronic Qualifiers: Diabetes mellitus roasterman insulin use: with roasterman use Qualified Code( s): E11.65 - Type 2 diabetes mellitus with hyperglycemia; Z79.4 - manager terminal ( current) use of insulin; Z79.4 - manager terminal (current) use of insulin; Z79.4 - manager terminal (current) use of insulin; Z79.4 - intermediate (current) use of insulin Comment: Uncontrolled, Insulin requiring, continue ISS, serial accuchecks, A1C in am (10) Seizure disorder Code(s): G40.909 - EPILEPSY, UNSP, NOT INTRACTABLE, WITHOUT STATUS EPILEPTICUS Status: Chronic (11) Elevated troponin I level Code(s): R74.8 - ABNORMAL LEVELS OF OTHER SERUM ENZYMES Status: Acute Comment: Likely demand state given current sepsis and tachycardia, Cardiology consulted (12) Metabolic encephalopathy Code(s): G93.41 - METABOLIC ENCEPHALOPATHY Status: Resolved Comment: due to meningoencephalitis, POA, resoved now - Plan * .
--- NOTE | 2018-01-06 16:29 | PDOC.PN ---
- Subjective Encounter Start Date: 01/06/18 Encounter Start Time: 11:00 doing well, no complaints. Bored. bharti abx, no PICC problems NoF/C,no N/V/D/C, noCP or sOB, no new neuro issues. less headache, neck no longer stiff, hurts to move eyes a little 10 point ROS performed and neg for all systems except as per HPI - Objective MAR Reviewed: Yes Vital Signs & Weight: Vital Signs (12 hours) Temp Pulse Resp BP BP Pulse Ox 01/06/18 08:39 151/67 H 01/06/18 08:00 98.1 F 98 16 98 01/06/18 07:46 98.1 F 98 16 151/67 H 98 Weight Admit Weight 188 lb 4.8 oz Weight 193 lb 6.4 oz I&O: 01/05/18 01/06/18 01/07/18 06:59 06:59 06:59 Intake Total 1340 1440 320 Output Total 2521 Balance -1181 1440 320 Result Diagrams: 01/06/18 06:21 01/08/18 06:32 Additional Labs: Accuchecks 01/06/18 01/06/18 01/05/18 11:34 04:41 19:28 POC Glucose 104 65 L 140 H 01/05/18 15:56 POC Glucose 157 H Phys Exam - Physical Examination Constitutional: NAD HEENT: PERRLA, moist MMs, sclera anicteric, oral pharynx no lesions Neck: no nodes, no JVD, supple Respiratory: no wheezing, no rales, no rhonchi, clear to auscultation bilateral Cardiovascular: RRR, no significant murmur, no rub Gastrointestinal: soft, non-tender, no distention, positive bowel sounds Musculoskeletal: no edema, pulses present Neurological: non-focal, normal sensation, moves all 4 limbs Lymphatic: no nodes Psychiatric: normal affect, A&O x 3 Skin: no rash, normal turgor, cap refill <2 seconds Dx/Plan (1) Meningitis Code(s): G03.9 - MENINGITIS, UNSPECIFIED Status: Acute Comment: 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 streamline to amp alone, 2g IV q 4 hours. planning 14 days Rx, about 7 days to go (2) Sepsis Code(s): A41.9 - SEPSIS, UNSPECIFIED ORGANISM Status: Acute Qualifiers: Sepsis type: sepsis due to unspecified organism Qualified Code(s): A41.9 - Sepsis, unspecified organism Comment: Listeria - BCx neg so far. (3) Hyponatremia Code(s): E87.1 - HYPO-OSMOLALITY AND HYPONATREMIA Status: Acute Comment: Secondary to hypernatremia and pseudohyponatremia, ? cerebral salt wasting. IVF to start. Dr Kemp managing (4) Urinary retention Code(s): R33.9 - RETENTION OF URINE, UNSPECIFIED Status: Acute (5) Anxiety and depression Code(s): F41.9 - ANXIETY DISORDER, UNSPECIFIED; F32.9 - MAJOR DEPRESSIVE DISORDER, SINGLE EPISODE, UNSPECIFIED Status: Chronic (6) Dyslipidemia Code(s): E78.5 - HYPERLIPIDEMIA, UNSPECIFIED Status: Chronic (7) HTN (hypertension) Code(s): I10 - ESSENTIAL (PRIMARY) HYPERTENSION Status: Chronic Qualifiers: Hypertension type: essential hypertension Qualified Code(s): I10 - Essential (primary) hypertension (8) Hyperglycemia due to type 2 diabetes mellitus Code(s): E11.65 - TYPE 2 DIABETES MELLITUS WITH HYPERGLYCEMIA Status: Chronic Qualifiers: Diabetes mellitus senior living insulin use: with ad terminal makeup operator use Qualified Code( s): E11.65 - Type 2 diabetes mellitus with hyperglycemia; Z79.4 - half-way ( current) use of insulin; Z79.4 - intermodal truck driver (current) use of insulin; Z79.4 - intermodal truck driver (current) use of insulin; Z79.4 - intermodal truck driver (current) use of insulin Comment: restart home meds. SSI for correction (9) Seizure disorder Code(s): G40.909 - EPILEPSY, UNSP, NOT INTRACTABLE, WITHOUT STATUS EPILEPTICUS Status: Chronic (10) Elevated troponin I level Code(s): R74.8 - ABNORMAL LEVELS OF OTHER SERUM ENZYMES Status: Resolved Comment: Likely demand state given current sepsis and tachycardia, Cardiology consulted (11) Metabolic encephalopathy Code(s): G93.41 - METABOLIC ENCEPHALOPATHY Status: Resolved Comment: due to meningoencephalitis, POA, resoved now (12) Sinus tachycardia Code(s): R00.0 - TACHYCARDIA, UNSPECIFIED Status: Resolved Comment: Secondary to sepsis, supportive care, IVF's, antipyretics, beta-blockers - Plan cont current plan of care, continue antibiotics, PT/OT, out of bed/ambulate * .
[2018-01-06] MEDS: HumaLOG 300 UNITS/3 ML VIAL SC PRN (17:21)
[2018-01-06] MEDS: Tamsulosin HCl 0.4 MG CAP PO SCH (19:26)
--- NOTE | 2018-01-06 22:55 | PRG ---
DATE OF SERVICE: 01/06/2018 SERVICE: Pulmonary Medicine. INTERVAL HISTORY: The patient is doing fine from a respiratory standpoint. Today, his headache is b vickey. He also has been having any nausea or vomiting. He is tolerating p.o. this morning. All bharti d, he feels that he is improving. Otherwise, there has been no interval change to his condition. PHYSICAL EXAMINATION: VITAL SIGNS: Afebrile, blood pressure 151/67, respirations 16, saturation 98% on room air. GENERAL: The patient is awake, alert, in no apparent distress. LUNGS: Excellent air entry with no prolonged expiratory phase, wheezing, rhonchi or crackles. HEART: Normal rate and regular. ABDOMEN: Soft, nontender, nondistended. Bowel sounds are positive. MUSCULOSKELETAL: No cyanosis or clubbing. There is no pitting in the bilateral lower extremities. NEUROLOGIC: Nonfocal. LABORATORY DATA: CBC is unremarkable. Sodium is gently down trending to 130. Basic metabolic profi le is otherwise unremarkable. Potassium 3.5 and creatinine 0.69. virus antibody panels are un remarkable. ASSESSMENT: 1. 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 2. Severe sepsis, resolved. 3. Hyponatremia. 4. Metabolic encephalopathy, resolved. DISCUSSION, PLAN: The patient is doing really well. Clinically, he feels better today, but the sodi um continues to trend upward and downward. Until it firms up a touch more, I will continue to follow intermittently. I will repeat sodium tomorrow morning.
[2018-01-07] MEDS ORDERED: Ampicillin 2 GM, Syringe 5.2 ML in Sterile Water 14.8 ML SLOW IVP SCH ×3 (04:00→18:00)
[2018-01-07] MEDS: Ampicillin 2 GM, Syringe 5.2 ML in Sterile Water 14.8 ML SLOW IVP SCH (04:12)
[2018-01-07] MEDS: Acetaminophen 325 MG TAB PO PRN ×2 (06:06→12:43)
[2018-01-07] MEDS: Pravastatin Sodium 20 MG TAB PO SCH (08:41)
[2018-01-07] MEDS: Aspirin 81 mg Enteric Coated Tablet PO SCH (08:41)
[2018-01-07] MEDS: Carvedilol 6.25 MG TAB PO SCH ×2 (08:41→18:05)
[2018-01-07] MEDS: Docusate 100 MG CAP PO SCH ×2 (08:42→21:14)
[2018-01-07] MEDS: Lisinopril 10 MG TAB PO SCH (08:42)
[2018-01-07] MEDS: Insulin Detemir 100 UNITS/ML 40 UNITS in Pre-Filled Syringe 1 EACH SC SCH ×2 (08:43→21:13)
[2018-01-07] MEDS: Calcium Citrate 950 MG TAB PO SCH ×2 (08:44→21:14)
[2018-01-07] MEDS: Bupropion 150 MG XL TAB PO SCH (08:44)
[2018-01-07] MEDS: metFORMIN XR 500 MG TAB PO SCH ×2 (08:45→18:05)
[2018-01-07] MEDS: HumaLOG 300 UNITS/3 ML VIAL SC PRN ×2 (12:47→18:05)
[2018-01-07] MEDS: Ampicillin 2 GM in Sodium Chloride 0.9% 100 ML SLOW IVP SCH ×3 (14:26→21:15)
[2018-01-07] MEDS: Tamsulosin HCl 0.4 MG CAP PO SCH (21:14)
[2018-01-08] MEDS: Ampicillin 2 GM in Sodium Chloride 0.9% 100 ML SLOW IVP SCH ×6 (01:47→22:05)
[2018-01-08] MEDS: Acetaminophen 325 MG TAB PO PRN (06:13)
[2018-01-08] MEDS: Ondansetron HCl/PF 4 MG/2 ML Vial SLOW IVP PRN ×2 (06:20→17:38)
[2018-01-08 06:48] LABS: Anion Gap 12 mmol/L (10-20); BUN (Urea Nitrogen) 8 mg/dL (8.4-25.7); Calc. Creatinine Clearance 171 mL/min (70-130); Calcium 9.4 mg/dL (7.8-10.44); Carbon Dioxide 28 mmol/L (22-29); Chloride 96 mmol/L (98-107); Estimated GFR-MDRD Greater than 90; Glucose 91 mg/dL (70-105); Potassium 4.4 mmol/L (3.5-5.1); Sodium 132 mmol/L (136-145)
--- NOTE | 2018-01-08 08:43 | PDOC.PN ---
- Subjective Encounter Start Date: 01/07/18 Encounter Start Time: 09:40 continues toimprove, notices horzontal diplopia at extremes of lateral gzew,no visual defects. No f/C, no N/V/D/C, bharti abx, no rash. no headache, no neck pain 10 point ROs performed and neg for all systems except as per HPI - Objective MAR Reviewed: Yes Vital Signs & Weight: Weight Admit Weight 188 lb 4.8 oz Weight 193 lb 6.4 oz I&O: 01/07/18 01/08/18 01/09/18 06:59 06:59 06:59 Intake Total 1740 2380 Balance 1740 2380 Result Diagrams: 01/06/18 06:21 01/08/18 06:32 Additional Labs: Accuchecks 01/08/18 01/08/18 01/07/18 04:26 02:45 19:37 POC Glucose 102 86 315 H 01/07/18 01/07/18 16:12 11:19 POC Glucose 156 H 169 H Phys Exam - Physical Examination Constitutional: NAD HEENT: PERRLA, moist MMs, sclera anicteric, oral pharynx no lesions Neck: no nodes, no JVD, supple, full ROM Respiratory: no wheezing, no rales, no rhonchi, clear to auscultation bilateral Cardiovascular: RRR, no significant murmur, no rub Gastrointestinal: soft, non-tender, no distention, positive bowel sounds Musculoskeletal: no edema, pulses present LUE PICC C/D/I Neurological: non-focal, normal sensation, moves all 4 limbs Lymphatic: no nodes Psychiatric: normal affect, A&O x 3 Skin: no rash, normal turgor, cap refill <2 seconds Dx/Plan (1) Meningitis Code(s): G03.9 - MENINGITIS, UNSPECIFIED Status: Acute Comment: 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 streamline to amp alone, 2g IV q 4 hours. planning 14 days Rx, about 6 days to go (2) Sepsis Code(s): A41.9 - SEPSIS, UNSPECIFIED ORGANISM Status: Acute Qualifiers: Sepsis type: sepsis due to unspecified organism Qualified Code(s): A41.9 - Sepsis, unspecified organism Comment: Listeria - BCx neg so far. (3) Hyponatremia Code(s): E87.1 - HYPO-OSMOLALITY AND HYPONATREMIA Status: Acute Comment: Secondary to hypernatremia and pseudohyponatremia, ? cerebral salt wasting. IVF to start. Dr Kemp managing (4) Urinary retention Code(s): R33.9 - RETENTION OF URINE, UNSPECIFIED Status: Acute (5) Anxiety and depression Code(s): F41.9 - ANXIETY DISORDER, UNSPECIFIED; F32.9 - MAJOR DEPRESSIVE DISORDER, SINGLE EPISODE, UNSPECIFIED Status: Chronic (6) Dyslipidemia Code(s): E78.5 - HYPERLIPIDEMIA, UNSPECIFIED Status: Chronic (7) HTN (hypertension) Code(s): I10 - ESSENTIAL (PRIMARY) HYPERTENSION Status: Chronic Qualifiers: Hypertension type: essential hypertension Qualified Code(s): I10 - Essential (primary) hypertension (8) Hyperglycemia due to type 2 diabetes mellitus Code(s): E11.65 - TYPE 2 DIABETES MELLITUS WITH HYPERGLYCEMIA Status: Chronic Qualifiers: Diabetes mellitus middle or intermediate school principal insulin use: with middle or intermediate school principal use Qualified Code( s): E11.65 - Type 2 diabetes mellitus with hyperglycemia; Z79.4 - prison ( current) use of insulin; Z79.4 - prison (current) use of insulin; Z79.4 - prison (current) use of insulin; Z79.4 - prison (current) use of insulin Comment: restart home meds. SSI for correction (9) Seizure disorder Code(s): G40.909 - EPILEPSY, UNSP, NOT INTRACTABLE, WITHOUT STATUS EPILEPTICUS Status: Chronic (10) Elevated troponin I level Code(s): R74.8 - ABNORMAL LEVELS OF OTHER SERUM ENZYMES Status: Resolved Comment: Likely demand state given current sepsis and tachycardia, Cardiology consulted (11) Metabolic encephalopathy Code(s): G93.41 - METABOLIC ENCEPHALOPATHY Status: Resolved Comment: due to meningoencephalitis, POA, resoved now (12) Sinus tachycardia Code(s): R00.0 - TACHYCARDIA, UNSPECIFIED Status: Resolved Comment: Secondary to sepsis, supportive care, IVF's, antipyretics, beta-blockers - Plan * .
[2018-01-08] MEDS: Bupropion 150 MG XL TAB PO SCH (09:14)
[2018-01-08] MEDS: Pravastatin Sodium 20 MG TAB PO SCH (09:18)
[2018-01-08] MEDS: Docusate 100 MG CAP PO SCH ×2 (09:18→20:18)
[2018-01-08] MEDS: Calcium Citrate 950 MG TAB PO SCH ×2 (09:20→20:18)
[2018-01-08] MEDS: Carvedilol 6.25 MG TAB PO SCH ×2 (09:20→17:37)
[2018-01-08] MEDS: metFORMIN XR 500 MG TAB PO SCH ×2 (09:20→17:37)
[2018-01-08] MEDS: Aspirin 81 mg Enteric Coated Tablet PO SCH (09:22)
[2018-01-08] MEDS: Lisinopril 10 MG TAB PO SCH (09:22)
[2018-01-08] MEDS: Insulin Detemir 100 UNITS/ML 40 UNITS in Pre-Filled Syringe 1 EACH SC SCH ×2 (09:23→22:04)
[2018-01-08] MEDS: HumaLOG 300 UNITS/3 ML VIAL SC PRN (13:04)
[2018-01-08 14:41] VITALS: BMI 30.2
--- NOTE | 2018-01-08 15:12 | PDOC.PN ---
- Subjective Encounter Start Date: 01/08/18 Encounter Start Time: 10:45 pt states neck is sore when he woke up, but still improved. BARNETT improved and barely presnt, less diplopia with lateral gazes. some vertigo earlier, nausea and vomiting X 1 earlier, none of either now. Nof/C,no D/c, no CP or SOB. 10 point ROS performed and neg for all systems except as per HPI - Objective MAR Reviewed: Yes Vital Signs & Weight: Vital Signs (12 hours) Temp Pulse Resp BP BP Pulse Ox 01/08/18 13:00 98.6 F 01/08/18 12:00 87 18 147/82 H 01/08/18 09:22 178/91 H 01/08/18 09:20 178/91 H 01/08/18 08:00 98.2 F 96 16 178/91 H 99 Weight Admit Weight 188 lb 4.8 oz Weight 193 lb 6.4 oz I&O: 01/07/18 01/08/18 01/09/18 06:59 06:59 06:59 Intake Total 1740 2380 180 Balance 1740 2380 180 Result Diagrams: 01/06/18 06:21 01/08/18 06:32 Additional Labs: Accuchecks 01/08/18 01/08/18 01/08/18 11:38 04:26 02:45 POC Glucose 249 H 102 86 01/07/18 01/07/18 19:37 16:12 POC Glucose 315 H 156 H Radiology Reviewed by me: Yes EKG Reviewed by me: Yes Phys Exam - Physical Examination Constitutional: NAD HEENT: PERRLA, moist MMs, sclera anicteric, oral pharynx no lesions Neck: no nodes, no JVD, supple, full ROM Respiratory: no wheezing, no rales, no rhonchi, clear to auscultation bilateral Cardiovascular: RRR, no significant murmur, no rub Gastrointestinal: soft, non-tender, no distention, positive bowel sounds Musculoskeletal: no edema, pulses present Neurological: non-focal, normal sensation, moves all 4 limbs Lymphatic: no nodes Psychiatric: normal affect, A&O x 3 Skin: no rash, normal turgor, cap refill <2 seconds Dx/Plan (1) Meningitis Code(s): G03.9 - MENINGITIS, UNSPECIFIED Status: Acute Comment: 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 streamline to amp alone, 2g IV q 4 hours. planning 14 days Rx, about 6 days to go (2) Sepsis Code(s): A41.9 - SEPSIS, UNSPECIFIED ORGANISM Status: Acute Qualifiers: Sepsis type: sepsis due to unspecified organism Qualified Code(s): A41.9 - Sepsis, unspecified organism Comment: Listeria - BCx neg so far. (3) Hyponatremia Code(s): E87.1 - HYPO-OSMOLALITY AND HYPONATREMIA Status: Acute Comment: likely cerebral, up 130 to 132 without intervention, watch (4) Urinary retention Code(s): R33.9 - RETENTION OF URINE, UNSPECIFIED Status: Acute (5) Anxiety and depression Code(s): F41.9 - ANXIETY DISORDER, UNSPECIFIED; F32.9 - MAJOR DEPRESSIVE DISORDER, SINGLE EPISODE, UNSPECIFIED Status: Chronic (6) Dyslipidemia Code(s): E78.5 - HYPERLIPIDEMIA, UNSPECIFIED Status: Chronic (7) HTN (hypertension) Code(s): I10 - ESSENTIAL (PRIMARY) HYPERTENSION Status: Chronic Qualifiers: Hypertension type: essential hypertension Qualified Code(s): I10 - Essential (primary) hypertension (8) Hyperglycemia due to type 2 diabetes mellitus Code(s): E11.65 - TYPE 2 DIABETES MELLITUS WITH HYPERGLYCEMIA Status: Chronic Qualifiers: Diabetes mellitus snf insulin use: with rodent exterminator use Qualified Code( s): E11.65 - Type 2 diabetes mellitus with hyperglycemia; Z79.4 - rodent exterminator ( current) use of insulin; Z79.4 - rodent exterminator (current) use of insulin; Z79.4 - rodent exterminator (current) use of insulin; Z79.4 - rodent exterminator (current) use of insulin Comment: restart home meds. [facility] for correction (9) Seizure disorder Code(s): G40.909 - EPILEPSY, UNSP, NOT INTRACTABLE, WITHOUT STATUS EPILEPTICUS Status: Chronic (10) Elevated troponin I level Code(s): R74.8 - ABNORMAL LEVELS OF OTHER SERUM ENZYMES Status: Resolved Comment: Likely demand state given current sepsis and tachycardia, Cardiology consulted (11) Metabolic encephalopathy Code(s): G93.41 - METABOLIC ENCEPHALOPATHY Status: Resolved Comment: due to meningoencephalitis, POA, resoved now (12) Sinus tachycardia Code(s): R00.0 - TACHYCARDIA, UNSPECIFIED Status: Resolved Comment: Secondary to sepsis, supportive care, IVF's, antipyretics, beta-blockers - Plan cont current plan of care, continue antibiotics, out of bed/ambulate * .
--- NOTE | 2018-01-08 17:07 | PRG ---
DATE OF SERVICE: 01/08/2018 SERVICE: Pulmonary Medicine. INTERVAL HISTORY: The patient is doing fine from a cardiovascular and respiratory standpoint. He de nies any current chest pain, fevers, chills, nausea or vomiting. Otherwise, he has returned to his [facility] state of health. PHYSICAL EXAMINATION: VITAL SIGNS: Afebrile, pulse 87, blood pressure 147/82, respirations 18, saturation 99% on room air. GENERAL: The patient is awake and alert, in no apparent distress. LUNGS: Excellent air entry with no prolonged expiratory phase, wheezing, rhonchi or crackles. HEART: Normal rate, regular. ABDOMEN: Soft, nontender, nondistended. Bowel sounds positive. MUSCULOSKELETAL: No cyanosis or clubbing. No pitting in the bilateral lower extremities. NEUROLOGIC: Grossly nonfocal. LABORATORY DATA: Sodium 132. Basic metabolic profile is otherwise unremarkable. ASSESSMENT: 1. Severe sepsis. 2. 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 3. Hyponatremia, improving. 4. Metabolic encephalopathy, resolved. PLAN: The patient is doing outstanding from a cardiovascular and respiratory standpoint. His sodium is stable if not improving ever so slightly. We will continue fluid restriction until his sodium fi rao up a little bit. Pulmonary and Critical Care will sign off at this time. Please call with addit ional questions or concerns moving forward.
[2018-01-08] MEDS: Meclizine HCl 25 MG TAB PO PRN (18:39)
[2018-01-08] MEDS: Tamsulosin HCl 0.4 MG CAP PO SCH (20:18)
[2018-01-09] MEDS: Acetaminophen 325 MG TAB PO PRN ×4 (00:11→23:22)
[2018-01-09] MEDS: Ampicillin 2 GM in Sodium Chloride 0.9% 100 ML SLOW IVP SCH ×6 (01:47→23:17)
[2018-01-09] MEDS: Ondansetron HCl/PF 4 MG/2 ML Vial SLOW IVP PRN (04:07)
[2018-01-09] MEDS: Meclizine HCl 25 MG TAB PO PRN ×2 (07:04→16:34)
[2018-01-09] MEDS: Calcium Citrate 950 MG TAB PO SCH ×2 (09:48→20:10)
[2018-01-09] MEDS: metFORMIN XR 500 MG TAB PO SCH ×2 (09:48→16:34)
[2018-01-09] MEDS: Insulin Detemir 100 UNITS/ML 40 UNITS in Pre-Filled Syringe 1 EACH SC SCH ×2 (09:48→23:16)
[2018-01-09] MEDS: Bupropion 150 MG XL TAB PO SCH (09:48)
[2018-01-09] MEDS: Carvedilol 6.25 MG TAB PO SCH ×2 (09:49→16:34)
[2018-01-09] MEDS: Aspirin 81 mg Enteric Coated Tablet PO SCH (09:49)
[2018-01-09] MEDS: Pravastatin Sodium 20 MG TAB PO SCH (09:50)
[2018-01-09] MEDS: Docusate 100 MG CAP PO SCH ×2 (09:50→20:10)
[2018-01-09] MEDS: Lisinopril 10 MG TAB PO SCH (09:51)
--- NOTE | 2018-01-09 16:29 | PDOC.PN ---
- Subjective Encounter Start Date: 01/09/18 Encounter Start Time: 11:45 Subjective: pt up in bed complains of mild dizziness - Objective Vital Signs & Weight: Vital Signs (12 hours) Temp Pulse Resp BP BP Pulse Ox 01/09/18 11:40 98.4 F 98 16 170/98 H 100 01/09/18 09:51 144/88 H 01/09/18 09:49 144/88 H 01/09/18 08:00 98.4 F 98 16 95 01/09/18 07:30 97.7 F 91 14 155/91 H 100 Weight Admit Weight 188 lb 4.8 oz Weight 193 lb 6.4 oz I&O: 01/08/18 01/09/18 01/10/18 06:59 06:59 06:59 Intake Total 2380 2190 Balance 2380 2190 Result Diagrams: 01/06/18 06:21 01/08/18 06:32 Additional Labs: Accuchecks 01/09/18 01/08/18 01/08/18 03:59 21:34 16:48 POC Glucose 78 132 H 141 H Phys Exam - Physical Examination HEENT: PERRLA Neck: no nodes Respiratory: no wheezing, no rales Cardiovascular: RRR, no significant murmur Gastrointestinal: soft, non-tender Musculoskeletal: no edema, pulses present Neurological: non-focal, normal sensation Dx/Plan - Plan * Meningitis * sepsis * hyponatremia * htn * dm type2 * seizure disorder * * * plan: listeria on csf cx, continue amp until saturday. * sepsis resolved * na is stable continue to monitor * continue home meds * continue ss insulin * continue seizure meds * * * . 1 Review of Systems - Review of Systems Eyes: negative: Pain, Vision Change, Conjunctivae Inflammation, Eyelid Inflammation, Redness, Other ENT: negative: Ear Pain, Ear Discharge, Nose Pain, Nose Discharge, Nose Congestion, Mouth Pain, Mouth Swelling, Throat Pain, Throat Swelling, Other Respiratory: negative: Cough, Dry, Shortness of Breath, Hemoptysis, SOB with Excertion, Pleuritic Pain, Sputum, Wheezing Cardiovascular: negative: chest pain, palpitations, orthopnea, paroxysmal nocturnal dyspnea, edema, light headedness, other - Medications/Allergies Allergies/Adverse Reactions: Allergies Allergy/AdvReac Type Severity Reaction Status Date / Time No Known Allergies Allergy Verified 06/13/17 14:14 Medications: Current Medications Acetaminophen (Tylenol) 650 mg PO Q4H PRN PRN Reason: Headache/Fever or Pain Last Admin: 01/09/18 05:33 Dose: 650 mg Aspirin (Ecotrin) 81 mg PO DAILY [facility] Last Admin: 01/09/18 09:49 Dose: 81 mg Bupropion HCl (Wellbutrin Xl) 300 mg PO DAILY [facility] Last Admin: 01/09/18 09:48 Dose: 300 mg Calcium Citrate (Calcium Citrate) 950 mg PO BID [facility] Last Admin: 01/09/18 09:48 Dose: 950 mg Carvedilol (Coreg) 6.25 mg PO BID-[facility] Last Admin: 01/09/18 09:49 Dose: 6.25 mg Dextrose/Water (Dextrose 50%) 25 gm SLOW IVP PRN PRN PRN Reason: Hypoglycemia Docusate Sodium (Colace) 100 mg PO BID [facility] Last Admin: 01/09/18 09:50 Dose: 100 mg Glucagon (Glucagon) 1 mg IM PRN PRN PRN Reason: Hypoglycemia Dextrose/Water (D5w) 1,000 mls @ 0 mls/hr IV .Q0M PRN; As Directed PRN Reason: Hypoglycemia Insulin Detemir 40 units/ (Miscellaneous Medication) 0.4 mls @ 0 mls/hr SC [facility] Last Admin: 01/09/18 09:48 Dose: 0.4 mls Insulin Detemir 40 units/ (Miscellaneous Medication) 0.4 mls @ 0 mls/hr SC [facility] Last Admin: 01/08/18 22:04 Dose: Not Given Ampicillin Sodium 2 gm/ Sodium (Chloride) 100 mls @ 200 mls/hr SLOW IVP Q4H [facility] Last Admin: 01/09/18 14:42 Dose: 100 mls Insulin Human Lispro (Humalog) 0 units SC .MODERATE SLIDING SC PRN PRN Reason: Moderate Correctional Scale Last Admin: 01/08/18 13:04 Dose: 4 unit Insulin Human Lispro (Humalog) 0 units SC .BEDTIME SLIDING SC PRN PRN Reason: Bedtime Correctional Scale Last Admin: 12/31/17 22:04 Dose: 4 unit [facility]) [facility] [place] Last Admin: 01/09/18 09:51 Dose: 10 mg Meclizine HCl (Antivert) 25 mg PO Q8H PRN PRN Reason: Dizziness Last Admin: 01/09/18 07:04 Dose: 25 mg Metformin HCl (Glucophage Xr) 1,000 mg PO BID-[facility] Last Admin: 01/09/18 09:48 Dose: 1,000 mg Metoprolol Tartrate (Lopressor) 5 mg IVP Q4H PRN PRN Reason: HR>120 AND SBP >120 Last Admin: 01/01/18 16:50 Dose: 5 mg Ondansetron HCl (Zofran) 8 mg SLOW IVP Q6H PRN PRN Reason: Nausea/Vomiting Last Admin: 01/09/18 04:07 Dose: 8 mg Phenytoin Sodium (Dilantin Er) 100 mg PO TID [facility] Last Admin: 01/09/18 14:42 Dose: 100 mg Pravastatin Sodium (Pravachol) [facility] [place] Last Admin: 01/09/18 09:50 Dose: 10 mg Promethazine HCl (Phenergan) 25 mg IM/IV Q6H PRN PRN Reason: Nausea/Vomiting Last Admin: 01/05/18 18:37 Dose: 25 mg Sertraline HCl (Zoloft) 50 mg PO DAILY [facility] Last Admin: 01/09/18 09:49 Dose: 50 mg Sodium Chloride (Flush - Normal Saline) 10 ml IVF Q12HR [facility] Last Admin: 01/09/18 09:52 Dose: 10 ml Sodium Chloride (Flush - Normal Saline) 10 ml IVF PRN PRN PRN Reason: Saline Flush Last Admin: 01/04/18 05:20 Dose: 10 ml Tamsulosin HCl (Flomax) 0.4 mg PO HS [facility] Last Admin: 01/08/18 20:18 Dose: 0.4 mg
[2018-01-09] MEDS: Tamsulosin HCl 0.4 MG CAP PO SCH (20:10)
[2018-01-10] MEDS: Ampicillin 2 GM in Sodium Chloride 0.9% 100 ML SLOW IVP SCH ×4 (02:24→14:26)
[2018-01-10] MEDS: Meclizine HCl 25 MG TAB PO PRN ×2 (07:36→17:17)
[2018-01-10] MEDS: Carvedilol 6.25 MG TAB PO SCH ×2 (07:37→17:16)
[2018-01-10] MEDS: Docusate 100 MG CAP PO SCH ×2 (08:03→20:25)
[2018-01-10] MEDS: Aspirin 81 mg Enteric Coated Tablet PO SCH (08:04)
[2018-01-10] MEDS: Lisinopril 10 MG TAB PO SCH (08:04)
[2018-01-10] MEDS: Pravastatin Sodium 20 MG TAB PO SCH (08:04)
[2018-01-10] MEDS: Bupropion 150 MG XL TAB PO SCH (08:05)
[2018-01-10] MEDS: Calcium Citrate 950 MG TAB PO SCH ×2 (08:05→20:26)
[2018-01-10] MEDS: Insulin Detemir 100 UNITS/ML 40 UNITS in Pre-Filled Syringe 1 EACH SC SCH ×2 (08:12→20:26)
[2018-01-10] MEDS: metFORMIN XR 500 MG TAB PO SCH ×2 (08:13→17:16)
[2018-01-10] MEDS: Ampicillin 2 GM in Sodium Chloride 0.9% 100 ML IV SCH ×3 (14:14→21:56)
--- NOTE | 2018-01-10 14:50 | PDOC.PN ---
- Subjective Encounter Start Date: 01/10/18 Encounter Start Time: 13:00 Subjective: pt up in bed still has some dizziness but has improved a bit - Objective Vital Signs & Weight: Vital Signs (12 hours) Temp Pulse Resp BP BP BP Pulse Ox 01/10/18 12:26 98.0 F 101 H 15 147/71 H 98 01/10/18 08:04 167/92 H 01/10/18 07:58 97.9 F 88 16 167/92 H 98 01/10/18 07:40 98.3 F 96 20 01/10/18 07:37 164/96 H 01/10/18 04:00 98.3 F 96 20 167/93 H 98 Weight Admit Weight 188 lb 4.8 oz Weight 193 lb 6.4 oz I&O: 01/09/18 01/10/18 01/11/18 06:59 06:59 06:59 Intake Total 2190 2130 Balance 2190 2130 Result Diagrams: 01/06/18 06:21 01/08/18 06:32 Additional Labs: Accuchecks 01/10/18 01/10/18 01/09/18 11:17 04:16 20:45 POC Glucose 190 H 132 H 106 Phys Exam - Physical Examination HEENT: PERRLA, moist MMs Neck: no nodes, no JVD Respiratory: no wheezing, no rales Cardiovascular: RRR, no significant murmur Dx/Plan - Plan * . Plan * Meningitis * sepsis * hyponatremia * htn * dm type2 * seizure disorder * dizziness * * * plan: listeria on csf cx, continue amp until saturday 01/13 * sepsis resolved * na is stable continue to monitor * continue home meds * continue ss insulin * continue seizure meds * pt on meclizine * Review of Systems - Review of Systems Eyes: negative: Pain, Vision Change, Conjunctivae Inflammation, Eyelid Inflammation, Redness, Other ENT: negative: Ear Pain, Ear Discharge, Nose Pain, Nose Discharge, Nose Congestion, Mouth Pain, Mouth Swelling, Throat Pain, Throat Swelling, Other Respiratory: negative: Cough, Dry, Shortness of Breath, Hemoptysis, SOB with Excertion, Pleuritic Pain, Sputum, Wheezing Cardiovascular: negative: chest pain, palpitations, orthopnea, paroxysmal nocturnal dyspnea, edema, light headedness, other Musculoskeletal: negative: Neck Pain, Shoulder Pain, Arm Pain, Back Pain, Hand Pain, Leg Pain, Foot Pain, Other - Medications/Allergies Allergies/Adverse Reactions: Allergies Allergy/AdvReac Type Severity Reaction Status Date / Time No Known Allergies Allergy Verified 06/13/17 14:14 Medications: Current Medications Acetaminophen (Tylenol) 650 mg PO Q4H PRN PRN Reason: Headache/Fever or Pain Last Admin: 01/09/18 23:22 Dose: 650 mg Aspirin (Ecotrin) 81 mg PO DAILY [facility] Last Admin: 01/10/18 08:04 Dose: 81 mg Bupropion HCl (Wellbutrin Xl) 300 mg PO DAILY [facility] Last Admin: 01/10/18 08:05 Dose: 300 mg Calcium Citrate (Calcium Citrate) 950 mg PO BID [facility] Last Admin: 01/10/18 08:05 Dose: 950 mg Carvedilol (Coreg) 6.25 mg PO BID[facility] Last Admin: 01/10/18 07:37 Dose: 6.25 mg Dextrose/Water (Dextrose 50%) 25 gm SLOW IVP PRN PRN PRN Reason: Hypoglycemia Docusate Sodium (Colace) 100 mg PO BID [facility] Last Admin: 01/10/18 08:03 Dose: 100 mg Glucagon (Glucagon) 1 mg IM PRN PRN PRN Reason: Hypoglycemia Dextrose/Water (D5w) 1,000 mls @ 0 mls/hr IV .Q0M PRN; As Directed PRN Reason: Hypoglycemia Insulin Detemir 40 units/ (Miscellaneous Medication) 0.4 mls @ 0 mls/hr SC QAM [facility] Last Admin: 01/10/18 08:12 Dose: 0.4 mls Insulin Detemir 40 units/ (Miscellaneous Medication) 0.4 mls @ 0 mls/hr SC HS [facility] Last Admin: 01/09/18 23:16 Dose: Not Given Ampicillin Sodium 2 gm/ Sodium (Chloride) 100 mls @ 200 mls/hr IV Q4H [facility] Last Admin: 01/10/18 14:14 Dose: 100 mls Insulin Human Lispro (Humalog) 0 units SC .MODERATE SLIDING SC PRN PRN Reason: Moderate Correctional Scale Last Admin: 01/08/18 13:04 Dose: 4 unit Insulin Human Lispro (Humalog) 0 units SC .BEDTIME SLIDING SC PRN PRN Reason: Bedtime Correctional Scale Last Admin: 12/31/17 22:04 Dose: 4 unit [facility]inopril ([facility]est[facility]) [facility] [place] Admin: 01/10/18 08:04 Dose: 10 mg Meclizine HCl (Antivert) 25 mg PO Q8H PRN PRN Reason: Dizziness Last Admin: 01/10/18 07:36 Dose: 25 mg Metformin HCl (Glucophage Xr) 1,000 mg PO BID-[facility] Last Admin: 01/10/18 08:13 Dose: 1,000 mg Metoprolol Tartrate (Lopressor) 5 mg IVP Q4H PRN PRN Reason: HR>120 AND SBP >120 Last Admin: 01/01/18 16:50 Dose: 5 mg Ondansetron HCl (Zofran) 8 mg SLOW IVP Q6H PRN PRN Reason: Nausea/Vomiting Last Admin: 01/09/18 04:07 Dose: 8 mg Phenytoin Sodium (Dilantin Er) 100 mg PO TID [facility] Last Admin: 01/10/18 14:16 Dose: 100 mg Pravastatin Sodium (Pravachol) 10 mg PO [facility] Last Admin: 01/10/18 08:04 Dose: 10 mg Promethazine HCl (Phenergan) 25 mg IM/IV Q6H PRN PRN Reason: Nausea/Vomiting Last Admin: 01/05/18 18:37 Dose: 25 mg Sertraline HCl (Zoloft) 50 mg PO DAILY [facility] Last Admin: 01/10/18 08:04 Dose: 50 mg Sodium Chloride (Flush - Normal Saline) 10 ml IVF Q12HR [facility] Last Admin: 01/10/18 08:09 Dose: 10 ml Sodium Chloride (Flush - Normal Saline) 10 ml IVF PRN PRN PRN Reason: Saline Flush Last Admin: 01/10/18 02:25 Dose: 10 ml Tamsulosin HCl (Flomax) 0.4 mg PO HS [facility] Last Admin: 01/09/18 20:10 Dose: 0.4 mg
[2018-01-10] MEDS: Acetaminophen 325 MG TAB PO PRN ×2 (17:22→21:58)
[2018-01-10] MEDS: Tamsulosin HCl 0.4 MG CAP PO SCH (20:25)
[2018-01-11] MEDS: Ampicillin 2 GM in Sodium Chloride 0.9% 100 ML IV SCH ×6 (02:12→21:11)
[2018-01-11 04:49] LABS: Anion Gap 14 mmol/L (10-20); BUN (Urea Nitrogen) 10 mg/dL (8.4-25.7); Calc. Creatinine Clearance 156 mL/min (70-130); Calcium 9.2 mg/dL (7.8-10.44); Carbon Dioxide 23 mmol/L (22-29); Chloride 99 mmol/L (98-107); Estimated GFR-MDRD Greater than 90; Glucose 156 mg/dL (70-105); Potassium 4.7 mmol/L (3.5-5.1); Sodium 131 mmol/L (136-145)
[2018-01-11 05:01] LABS: Band 3 % (5-11); Hemoglobin 11.6 g/dL (14.0-18.0); Lymphocytes 35 % (21-51); MDiff Complete? YES; Mean Corpuscular HGB CONC 33.7 g/dL (32.0-36.0); Mean Corpuscular Hemoglobin 31.3 pg (27.0-31.0); Mean Platelet Volume 5.5 fL (7.4-10.4); Monocytes 8 % (0-10); Neutrophil 54 % (42-75); PLT Morphology Comment Appears Increased; Platelet Count 646 thou/uL (130-400); RBC Distribution Width 11.8 % (11.5-14.5); Red Blood Cell (RBC) Count 3.71 mill/uL (4.70-6.10); White Blood Cell (WBC) Count 6.6 thou/uL (4.8-10.8)
[2018-01-11] MEDS: Acetaminophen 325 MG TAB PO PRN ×2 (05:53→14:14)
[2018-01-11] MEDS: metFORMIN XR 500 MG TAB PO SCH ×2 (08:42→17:14)
[2018-01-11] MEDS: Calcium Citrate 950 MG TAB PO SCH ×2 (08:42→21:11)
[2018-01-11] MEDS: Bupropion 150 MG XL TAB PO SCH (08:43)
[2018-01-11] MEDS: Aspirin 81 mg Enteric Coated Tablet PO SCH (08:44)
[2018-01-11] MEDS: Docusate 100 MG CAP PO SCH ×2 (08:44→21:11)
[2018-01-11] MEDS: Carvedilol 6.25 MG TAB PO SCH ×2 (08:44→17:14)
[2018-01-11] MEDS: Pravastatin Sodium 20 MG TAB PO SCH (08:45)
[2018-01-11] MEDS: Lisinopril 10 MG TAB PO SCH (08:45)
[2018-01-11] MEDS: Insulin Detemir 100 UNITS/ML 40 UNITS in Pre-Filled Syringe 1 EACH SC SCH ×2 (08:50→21:11)
[2018-01-11] MEDS: HumaLOG 300 UNITS/3 ML VIAL SC PRN ×2 (12:30→17:17)
--- NOTE | 2018-01-11 14:54 | PDOC.PN ---
- Subjective Encounter Start Date: 01/11/18 Encounter Start Time: 13:45 Subjective: pt up in bed no compalins - Objective Vital Signs & Weight: Vital Signs (12 hours) Temp Pulse Resp BP BP BP Pulse Ox 01/11/18 11:39 98.1 F 96 18 154/92 H 99 01/11/18 08:45 145/81 H 01/11/18 08:44 145/81 H 01/11/18 08:00 98.0 F 91 18 01/11/18 07:49 98.0 F 91 18 145/81 H 99 01/11/18 04:00 98.2 F 95 18 162/91 H 98 Weight Admit Weight 188 lb 4.8 oz Weight 193 lb 6.4 oz I&O: 01/10/18 01/11/18 01/12/18 06:59 06:59 07:59 Intake Total 2130 1760 480 Output Total 1020 Balance 2130 740 480 Result Diagrams: 01/11/18 04:00 01/11/18 04:00 Additional Labs: Accuchecks 01/11/18 01/11/18 01/10/18 11:01 05:37 19:36 POC Glucose 173 H 151 H 167 H 01/10/18 16:53 POC Glucose 143 H Phys Exam - Physical Examination HEENT: PERRLA, moist MMs Neck: no nodes, no JVD Respiratory: no wheezing, no rales Cardiovascular: RRR, no significant murmur Gastrointestinal: soft, non-tender Musculoskeletal: no edema Neurological: non-focal Dx/Plan - Plan Meningitis * sepsis * hyponatremia * htn * dm type2 * seizure disorder * dizziness * * * plan: listeria on csf cx, continue amp until saturday 01/13 * sepsis resolved * na is stable continue to monitor * continue home meds * continue ss insulin * continue seizure meds * pt on meclizine * . Review of Systems - Review of Systems Eyes: negative: Pain, Vision Change, Conjunctivae Inflammation, Eyelid Inflammation, Redness, Other ENT: negative: Ear Pain, Ear Discharge, Nose Pain, Nose Discharge, Nose Congestion, Mouth Pain, Mouth Swelling, Throat Pain, Throat Swelling, Other Respiratory: negative: Cough, Dry, Shortness of Breath, Hemoptysis, SOB with Excertion, Pleuritic Pain, Sputum, Wheezing Cardiovascular: negative: chest pain, palpitations, orthopnea, paroxysmal nocturnal dyspnea, edema, light headedness, other Gastrointestinal: negative: Nausea, Vomiting, Abdominal Pain, Diarrhea, Constipation, Melena, Hematochezia, Other Genitourinary: negative: Dysuria, Frequency, Incontinence, Hematuria, Retention , Other - Medications/Allergies Allergies/Adverse Reactions: Allergies Allergy/AdvReac Type Severity Reaction Status Date / Time No Known Allergies Allergy Verified 06/13/17 14:14 Medications: Current Medications Acetaminophen (Tylenol) 650 mg PO Q4H PRN PRN Reason: Headache/Fever or Pain Last Admin: 01/11/18 14:14 Dose: 650 mg Aspirin (Ecotrin) 81 mg PO DAILY [facility] Last Admin: 01/11/18 08:44 Dose: 81 mg Bupropion HCl (Wellbutrin Xl) 300 mg PO DAILY [facility] Last Admin: 01/11/18 08:43 Dose: 300 mg Calcium Citrate (Calcium Citrate) 950 mg PO BID [facility] Last Admin: 01/11/18 08:42 Dose: 950 mg Carvedilol (Coreg) 6.25 mg PO BID-[facility] Last Admin: 01/11/18 08:44 Dose: 6.25 mg Dextrose/Water (Dextrose 50%) 25 gm SLOW IVP PRN PRN PRN Reason: Hypoglycemia Docusate Sodium (Colace) 100 mg PO BID [facility] Last Admin: 01/11/18 08:44 Dose: Not Given Glucagon (Glucagon) 1 mg IM PRN PRN PRN Reason: Hypoglycemia Dextrose/Water (D5w) 1,000 mls @ 0 mls/hr IV .Q0M PRN; As Directed PRN Reason: Hypoglycemia Insulin Detemir 40 units/ (Miscellaneous Medication) 0.4 mls @ 0 mls/hr SC QAM [facility] Last Admin: 01/11/18 08:50 Dose: Not Given Insulin Detemir 40 units/ (Miscellaneous Medication) 0.4 mls @ 0 mls/hr SC HS [facility] Last Admin: 01/10/18 20:26 Dose: Not Given Ampicillin Sodium 2 gm/ Sodium (Chloride) 100 mls @ 200 mls/hr IV Q4H [facility] Last Admin: 01/11/18 14:15 Dose: 100 mls Insulin Human Lispro (Humalog) 0 units SC .MODERATE SLIDING SC PRN PRN Reason: Moderate Correctional Scale Last Admin: 01/11/18 12:30 Dose: 2 unit Insulin Human Lispro (Humalog) 0 units SC .BEDTIME SLIDING SC PRN PRN Reason: Bedtime Correctional Scale Last Admin: 12/31/17 22:04 Dose: 4 unit Lisinopril (Zestril) 10 mg PO QAM [facility] Last Admin: 01/11/18 08:45 Dose: 10 mg Meclizine HCl (Antivert) 25 mg PO Q8H PRN PRN Reason: Dizziness Last Admin: 01/10/18 17:17 Dose: 25 mg Metformin HCl (Glucophage Xr) 1,000 mg PO BID-[facility] Last Admin: 01/11/18 08:42 Dose: 1,000 mg Metoprolol Tartrate (Lopressor) 5 mg IVP Q4H PRN PRN Reason: HR>120 AND SBP >120 Last Admin: 01/01/18 16:50 Dose: 5 mg Ondansetron HCl (Zofran) 8 mg SLOW IVP Q6H PRN PRN Reason: Nausea/Vomiting Last Admin: 01/09/18 04:07 Dose: 8 mg Phenytoin Sodium (Dilantin Er) 100 mg PO TID [facility] Last Admin: 01/11/18 14:14 Dose: 100 mg Pravastatin Sodium (Pravachol) [facility] [place] Last Admin: 01/11/18 08:45 Dose: 10 mg Promethazine HCl (Phenergan) 25 mg IM/IV Q6H PRN PRN Reason: Nausea/Vomiting Last Admin: 01/05/18 18:37 Dose: 25 mg Sertraline HCl (Zoloft) 50 mg PO DAILY [facility] Last Admin: 01/11/18 08:44 Dose: 50 mg Sodium Chloride (Flush - Normal Saline) 10 ml IVF Q12HR [facility] Last Admin: 01/11/18 08:46 Dose: 10 ml Sodium Chloride (Flush - Normal Saline) 10 ml IVF PRN PRN PRN Reason: Saline Flush Last Admin: 01/11/18 14:16 Dose: 10 ml Tamsulosin HCl (Flomax) 0.4 mg PO HS [facility] Last Admin: 01/10/18 20:25 Dose: 0.4 mg
[2018-01-11] MEDS: Tamsulosin HCl 0.4 MG CAP PO SCH (21:10)
[2018-01-12] MEDS: Ampicillin 2 GM in Sodium Chloride 0.9% 100 ML IV SCH ×6 (03:17→21:11)
[2018-01-12 05:01] LABS: Anion Gap 12 mmol/L (10-20); BUN (Urea Nitrogen) 10 mg/dL (8.4-25.7); Calc. Creatinine Clearance 156 mL/min (70-130); Calcium 9.5 mg/dL (7.8-10.44); Carbon Dioxide 27 mmol/L (22-29); Chloride 98 mmol/L (98-107); Estimated GFR-MDRD Greater than 90; Glucose 195 mg/dL (70-105); Potassium 4.5 mmol/L (3.5-5.1); Sodium 132 mmol/L (136-145)
[2018-01-12] MEDS: Aspirin 81 mg Enteric Coated Tablet PO SCH (08:39)
[2018-01-12] MEDS: Lisinopril 10 MG TAB PO SCH (08:39)
[2018-01-12] MEDS: Carvedilol 6.25 MG TAB PO SCH ×2 (08:40→16:40)
[2018-01-12] MEDS: metFORMIN XR 500 MG TAB PO SCH ×2 (08:41→16:37)
[2018-01-12] MEDS: Bupropion 150 MG XL TAB PO SCH (08:42)
[2018-01-12] MEDS: Calcium Citrate 950 MG TAB PO SCH ×2 (08:42→21:11)
[2018-01-12] MEDS: Pravastatin Sodium 20 MG TAB PO SCH (08:43)
[2018-01-12] MEDS: Docusate 100 MG CAP PO SCH ×2 (08:43→19:39)
[2018-01-12] MEDS: Insulin Detemir 100 UNITS/ML 40 UNITS in Pre-Filled Syringe 1 EACH SC SCH (08:44)
[2018-01-12] MEDS: Meclizine HCl 25 MG TAB PO PRN (11:01)
[2018-01-12] MEDS: HumaLOG 300 UNITS/3 ML VIAL SC PRN (13:00)
--- NOTE | 2018-01-12 17:36 | PDOC.PN ---
- Subjective Encounter Start Date: 01/12/18 Encounter Start Time: 12:00 Subjective: I FEEL MUCH BETTER - Objective MAR Reviewed: Yes Vital Signs & Weight: Vital Signs (12 hours) Temp Pulse Resp BP BP Pulse Ox 01/12/18 16:54 98.0 F 100 16 142/81 H 100 01/12/18 16:40 142/81 H 01/12/18 11:00 97.9 F 92 16 163/95 H 98 01/12/18 08:40 161/96 H 01/12/18 08:39 161/96 H 01/12/18 08:00 98.1 F 97 16 161/96 H 98 Weight Admit Weight 188 lb 4.8 oz Weight 193 lb 6.4 oz I&O: 01/11/18 01/12/18 01/13/18 05:59 06:59 06:59 Intake Total 480 Output Total Balance 480 Result Diagrams: 01/11/18 04:00 01/12/18 04:38 Additional Labs: Accuchecks 01/12/18 01/12/18 01/12/18 16:25 11:35 04:50 POC Glucose 148 H 265 H 199 H 01/11/18 20:48 POC Glucose 153 H Phys Exam - Physical Examination Constitutional: NAD HEENT: PERRLA, moist MMs, sclera anicteric Neck: supple, full ROM Respiratory: no wheezing, no rhonchi, clear to auscultation bilateral Cardiovascular: RRR Gastrointestinal: soft, non-tender, no distention Musculoskeletal: no edema Neurological: non-focal, moves all 4 limbs Psychiatric: normal affect, A&O x 3 Skin: no rash Dx/Plan (1) Meningitis Code(s): G03.9 - MENINGITIS, UNSPECIFIED Status: Acute Comment: 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 streamline to amp alone, 2g IV q 4 hours. planning 14 days Rx, about 6 days to go (2) Sepsis Code(s): A41.9 - SEPSIS, UNSPECIFIED ORGANISM Status: Acute Qualifiers: Sepsis type: sepsis due to unspecified organism Qualified Code(s): A41.9 - Sepsis, unspecified organism Comment: Listeria - BCx neg so far. (3) Elevated troponin I level Code(s): R74.8 - ABNORMAL LEVELS OF OTHER SERUM ENZYMES Status: Resolved Comment: Likely demand state given current sepsis and tachycardia, Cardiology consulted (4) Metabolic encephalopathy Code(s): G93.41 - METABOLIC ENCEPHALOPATHY Status: Resolved Comment: due to meningoencephalitis, POA, resoved now (5) Hyponatremia Code(s): E87.1 - HYPO-OSMOLALITY AND HYPONATREMIA Status: Acute Comment: likely cerebral, up 130 to 132 without intervention, watch (6) Anxiety and depression Code(s): F41.9 - ANXIETY DISORDER, UNSPECIFIED; F32.9 - MAJOR DEPRESSIVE DISORDER, SINGLE EPISODE, UNSPECIFIED Status: Chronic (7) HTN (hypertension) Code(s): I10 - ESSENTIAL (PRIMARY) HYPERTENSION Status: Chronic Qualifiers: Hypertension type: essential hypertension Qualified Code(s): I10 - Essential (primary) hypertension (8) Hyperglycemia due to type 2 diabetes mellitus Code(s): E11.65 - TYPE 2 DIABETES MELLITUS WITH HYPERGLYCEMIA Status: Chronic Qualifiers: Diabetes mellitus retirement insulin use: with exterminator helper use Qualified Code( s): E11.65 - Type 2 diabetes mellitus with hyperglycemia; Z79.4 - alf ( current) use of insulin; Z79.4 - joint terminal attack controller (current) use of insulin; Z79.4 - joint terminal attack controller (current) use of insulin; Z79.4 - joint terminal attack controller (current) use of insulin Comment: restart home meds. SSI for correction (9) Pilonidal cyst Code(s): L05.91 - PILONIDAL CYST WITHOUT ABSCESS Status: Chronic - Plan cont current plan of care, continue antibiotics, PT/OT CONDITION IMPROVED, CONTINUE FLUID RESTRICTION AND FOLLOW NA. * .
[2018-01-12] MEDS ORDERED: Dextrose 50% Abboject 50 ML SYRINGE SLOW IVP PRN (17:47)
[2018-01-12] MEDS ORDERED: Dextrose 5% in Water 1,000 ML IV PRN (17:47)
[2018-01-12] MEDS ORDERED: Insulin Regular 300 UNITS/3 ML VIAL SC PRN (17:47)
[2018-01-12] MEDS: Tamsulosin HCl 0.4 MG CAP PO SCH (21:11)
[2018-01-12] MEDS: Insulin Detemir 100 UNITS/ML 20 UNITS in Pre-Filled Syringe 1 EACH SC SCH (21:13)
[2018-01-13] MEDS: Ampicillin 2 GM in Sodium Chloride 0.9% 100 ML IV SCH ×6 (02:40→21:27)
[2018-01-13 05:17] LABS: #Eosinphils 0.1 thou/uL (0.0-0.7); #Lymphocytes 2.1 thou/uL (1.20-3.40); #Monocytes 0.5 thou/uL (0.11-0.59); #Neutrophils 4.2 thou/uL (1.40-6.50); %Basophils 0.3 % (0.0-1.0); %Eosinophils 1.3 % (0.0-10.0); %Lymphocytes 30.7 % (21.0-51.0); %Monocytes 7.2 % (0.0-10.0); %Neutrophils 60.5 % (42.0-75.0); Hemoglobin 11.6 g/dL (14.0-18.0); Mean Corpuscular HGB CONC 34.4 g/dL (32.0-36.0); Mean Corpuscular Hemoglobin 31.6 pg (27.0-31.0); Mean Corpuscular Volume 91.8 fl (80.0-94.0); Mean Platelet Volume 5.1 fL (7.4-10.4); Platelet Count 574 thou/uL (130-400); RBC Distribution Width 11.8 % (11.5-14.5); Red Blood Cell (RBC) Count 3.67 mill/uL (4.70-6.10)
[2018-01-13 05:31] LABS: Anion Gap 11 mmol/L (10-20); BUN (Urea Nitrogen) 10 mg/dL (8.4-25.7); Calc. Creatinine Clearance 174 mL/min (70-130); Calcium 9.2 mg/dL (7.8-10.44); Carbon Dioxide 27 mmol/L (22-29); Chloride 99 mmol/L (98-107); Estimated GFR-MDRD Greater than 90; Glucose 162 mg/dL (70-105); Potassium 4.2 mmol/L (3.5-5.1); Sodium 133 mmol/L (136-145)
[2018-01-13] MEDS: Aspirin 81 mg Enteric Coated Tablet PO SCH (08:26)
[2018-01-13] MEDS: Docusate 100 MG CAP PO SCH ×2 (08:26→21:26)
[2018-01-13] MEDS: Pravastatin Sodium 20 MG TAB PO SCH (08:27)
[2018-01-13] MEDS: Lisinopril 10 MG TAB PO SCH (08:28)
[2018-01-13] MEDS: Carvedilol 6.25 MG TAB PO SCH ×2 (08:28→17:55)
[2018-01-13] MEDS: Calcium Citrate 950 MG TAB PO SCH ×2 (08:29→21:26)
[2018-01-13] MEDS: Insulin Detemir 100 UNITS/ML 20 UNITS in Pre-Filled Syringe 1 EACH SC SCH ×2 (08:30→21:26)
[2018-01-13] MEDS: Bupropion 150 MG XL TAB PO SCH (08:30)
[2018-01-13] MEDS: metFORMIN XR 500 MG TAB PO SCH ×2 (08:30→17:55)
--- NOTE | 2018-01-13 10:35 | PDOC.PN ---
- Subjective Encounter Start Date: 01/13/18 Encounter Start Time: 10:33 Subjective: NO DIZZINESS THIS MORNING, I FEEL BETTER - Objective MAR Reviewed: Yes Vital Signs & Weight: Vital Signs (12 hours) Temp Pulse Resp BP BP Pulse Ox 01/13/18 08:28 146/83 H 01/13/18 08:00 97.9 F 103 H 18 146/83 H 99 Weight Admit Weight 188 lb 4.8 oz Weight 193 lb 6.4 oz I&O: 01/12/18 01/13/18 01/14/18 06:59 06:59 06:59 Intake Total 1910 Output Total 1200 Balance 710 Result Diagrams: 01/13/18 04:52 01/13/18 04:52 Additional Labs: Accuchecks 01/13/18 01/12/18 01/12/18 04:30 21:14 16:25 POC Glucose 166 H 286 H 148 H 01/12/18 11:35 POC Glucose 265 H Phys Exam - Physical Examination Constitutional: NAD HEENT: PERRLA, moist MMs, sclera anicteric Neck: supple, full ROM Respiratory: no wheezing, no rhonchi, clear to auscultation bilateral Cardiovascular: RRR, no significant murmur Gastrointestinal: soft, non-tender, positive bowel sounds Musculoskeletal: no edema, pulses present Neurological: non-focal, moves all 4 limbs Psychiatric: normal affect, A&O x 3 Skin: no rash Dx/Plan (1) Meningitis Code(s): G03.9 - MENINGITIS, UNSPECIFIED Status: Acute Comment: 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 streamline to amp alone, 2g IV q 4 hours. planning 14 days Rx, about 6 days to go (2) Sepsis Code(s): A41.9 - SEPSIS, UNSPECIFIED ORGANISM Status: Acute Qualifiers: Sepsis type: sepsis due to unspecified organism Qualified Code(s): A41.9 - Sepsis, unspecified organism Comment: Listeria - BCx neg so far. (3) Elevated troponin I level Code(s): R74.8 - ABNORMAL LEVELS OF OTHER SERUM ENZYMES Status: Resolved Comment: Likely demand state given current sepsis and tachycardia, Cardiology consulted (4) Metabolic encephalopathy Code(s): G93.41 - METABOLIC ENCEPHALOPATHY Status: Resolved Comment: due to meningoencephalitis, POA, resoved now (5) Hyponatremia Code(s): E87.1 - HYPO-OSMOLALITY AND HYPONATREMIA Status: Acute Comment: likely cerebral, up 130 to 132 without intervention, watch (6) Anxiety and depression Code(s): F41.9 - ANXIETY DISORDER, UNSPECIFIED; F32.9 - MAJOR DEPRESSIVE DISORDER, SINGLE EPISODE, UNSPECIFIED Status: Chronic (7) HTN (hypertension) Code(s): I10 - ESSENTIAL (PRIMARY) HYPERTENSION Status: Chronic Qualifiers: Hypertension type: essential hypertension Qualified Code(s): I10 - Essential (primary) hypertension (8) Hyperglycemia due to type 2 diabetes mellitus Code(s): E11.65 - TYPE 2 DIABETES MELLITUS WITH HYPERGLYCEMIA Status: Chronic Qualifiers: Diabetes mellitus long term care administrator insulin use: with long term care administrator use Qualified Code( s): E11.65 - Type 2 diabetes mellitus with hyperglycemia; Z79.4 - jail ( current) use of insulin; Z79.4 - jail (current) use of insulin; Z79.4 - medical terminologist (current) use of insulin; Z79.4 - jail (current) use of insulin Comment: restart home meds. SSI for correction (9) Pilonidal cyst Code(s): L05.91 - PILONIDAL CYST WITHOUT ABSCESS Status: Chronic - Plan cont current plan of care, continue antibiotics, PT/OT NO VERTIGO, STABLE SODIUM, HOME TOMORROW AFTER 1 MORE DOSE OF AMP * .
[2018-01-13] MEDS: HumaLOG 300 UNITS/3 ML VIAL SC PRN ×2 (16:33→21:29)
[2018-01-13] MEDS: Tamsulosin HCl 0.4 MG CAP PO SCH (21:26)
[2018-01-14] MEDS: Acetaminophen 325 MG TAB PO PRN ×2 (01:59→08:58)
[2018-01-14] MEDS: Ampicillin 2 GM in Sodium Chloride 0.9% 100 ML IV SCH ×3 (01:59→10:15)
[2018-01-14 04:53] LABS: #Eosinphils 0.1 thou/uL (0.0-0.7); #Lymphocytes 2.7 thou/uL (1.20-3.40); #Monocytes 0.5 thou/uL (0.11-0.59); #Neutrophils 6.9 thou/uL (1.40-6.50); %Basophils 0.4 % (0.0-1.0); %Eosinophils 0.7 % (0.0-10.0); %Lymphocytes 26.6 % (21.0-51.0); %Monocytes 4.9 % (0.0-10.0); %Neutrophils 67.4 % (42.0-75.0); Hemoglobin 12.2 g/dL (14.0-18.0); Mean Corpuscular HGB CONC 34.1 g/dL (32.0-36.0); Mean Corpuscular Hemoglobin 31.3 pg (27.0-31.0); Mean Corpuscular Volume 91.9 fl (80.0-94.0); Platelet Count 573 thou/uL (130-400); Red Blood Cell (RBC) Count 3.89 mill/uL (4.70-6.10); White Blood Cell (WBC) Count 10.2 thou/uL (4.8-10.8)
[2018-01-14 05:08] LABS: Anion Gap 14 mmol/L (10-20); BUN (Urea Nitrogen) 8 mg/dL (8.4-25.7); Calc. Creatinine Clearance 174 mL/min (70-130); Calcium 9.7 mg/dL (7.8-10.44); Carbon Dioxide 25 mmol/L (22-29); Chloride 100 mmol/L (98-107); Estimated GFR-MDRD Greater than 90; Glucose 88 mg/dL (70-105); Potassium 4.2 mmol/L (3.5-5.1); Sodium 135 mmol/L (136-145)
[2018-01-14] MEDS: HumaLOG 300 UNITS/3 ML VIAL SC PRN ×2 (06:07→12:19)
[2018-01-14 08:35] VITALS: BP 129/83; TEMP 98.2
[2018-01-14] MEDS: metFORMIN XR 500 MG TAB PO SCH (08:58)
[2018-01-14] MEDS: Docusate 100 MG CAP PO SCH (08:58)
[2018-01-14] MEDS: Pravastatin Sodium 20 MG TAB PO SCH (08:58)
[2018-01-14] MEDS: Bupropion 150 MG XL TAB PO SCH (08:58)
[2018-01-14] MEDS: Carvedilol 6.25 MG TAB PO SCH (08:59)
[2018-01-14] MEDS: Lisinopril 10 MG TAB PO SCH (08:59)
[2018-01-14] MEDS: Aspirin 81 mg Enteric Coated Tablet PO SCH (08:59)
[2018-01-14] MEDS: Calcium Citrate 950 MG TAB PO SCH (09:00)
[2018-01-14] MEDS: Insulin Detemir 100 UNITS/ML 20 UNITS in Pre-Filled Syringe 1 EACH SC SCH (09:00)
[2018-01-14] MEDS: Meclizine HCl 25 MG TAB PO PRN (09:08)
[2018-01-14 09:19] LABS: Final Culture No virus isolated. (.)
--- NOTE | 2018-01-14 15:26 | DIS ---
DATE OF ADMISSION: 12/29/2017 DATE OF DISCHARGE: 01/14/2018 PRIMARY DISCHARGE DIAGNOSES: 1. Listeria meningitis. 2. Pericarditis. 3. Sepsis. 4. Diabetes type 2. HOSPITAL COURSE: The patient was admitted with mental status changes. Workup included a lumbar punc ture. 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 The patient was seen and assessed b y Cardiology as well as Pulmonary Critical Care Service. The patient was treated with IV ampicillin. Patient improved during his stay here. He was also noted to have pericarditis initially on ECG as well as echocardiogram. The patient was seen and treated by Dr. Aldrich of the Cardiology Service. I t was felt that the initial hypokinesis was from sepsis. Follow up echo showed normal EF and no sign s of wall motion abnormalities. The patient's mental status continued to improve during his treatmen t. His sodium levels were below normal levels during his hospital stay. He was placed on a fluid re striction diet. His lab values improved to appropriate levels. The patient received a total of appr oximately 14 days of IV antibiotics and was deemed stable for discharge. He will be following up wit h his primary care physician. DISCHARGE DISPOSITION: To home. DISCHARGE DIET: ADA 1800. DISCHARGE MEDICATIONS: Please see medication reconciliation list. Lisinopril was added to his home regimen as well as 81 mg of aspirin every day and meclizine 25 mg as needed. PHYSICAL EXAMINATION: GENERAL: He is in no acute distress. HEAD: Normocephalic, atraumatic. EYES: PERRL. Extraocular muscles are intact. CARDIAC: Regular rate and rhythm, no murmurs, regurg, gallops. LUNGS: Clear to auscultation. ABDOMEN: Nontender, nondistended. EXTREMITIES: No clubbing, cyanosis or edema. CONSULTANTS: Dr. Aldrich, Cardiology and Dr. Kemp, Pulmonary and Critical Care. PROCEDURES: Lumbar puncture as well as echocardiogram results as dictated above. FOLLOWUP: The patient is to follow up with his PCP within 7-10 days.
== END 2018-01-14 13:25 | disposition home or self-care (01) | DRG 871 ==
LOC: ERS 16:21 → IMCU/EMU 21:58 → T4-A 01-04 17:51
PROVIDERS: ADMIT Internal Medicine; ATTEND Internal Medicine
PROC: 009U3ZX Drainage of Spinal Canal, Percutaneous Approach, Diagnostic (ICD-10-PCS; principal; 2017-12-31)
PROC: B01B1ZZ Fluoroscopy of Spinal Cord using Low Osmolar Contrast (ICD-10-PCS; 2017-12-31)
PROC: 02HV33Z Insertion of Infusion Device into Superior Vena Cava, Percutaneous Approach (ICD-10-PCS; 2018-01-03)
DX: A41.9 Sepsis, unspecified organism (principal); G93.41 Metabolic encephalopathy; A32.11 Listerial meningitis; E11.65 Type 2 diabetes mellitus with hyperglycemia; E87.1 Hypo-osmolality and hyponatremia; I24.8 Other forms of acute ischemic heart disease; G40.909 Epilepsy, unspecified, not intractable, without status epilepticus; I10 Essential (primary) hypertension; F32.9 Major depressive disorder, single episode, unspecified; R65.20 Severe sepsis without septic shock; E78.5 Hyperlipidemia, unspecified; F41.9 Anxiety disorder, unspecified; L05.91 Pilonidal cyst without abscess; R33.9 Retention of urine, unspecified
CPT/HCPCS: 36415; 36416; 36569; 62270; 71045; 71275; 80048; 80053; 80202; 81003; 81015; 82010; 82330; 82553; 82803; 82945; 83036; 83605; 83690; 83735; 83880; 83930; 84157; 84295; 84439; 84443; 84484; 85007; 85025; 85027; 85060; 86592; 86612; 86635; 86698; 87040; 87070; 87077; 87081; 87086; 87205; 87252; 87430; 87529; 87633; 87798; 87899; 89051; 93005; 93010; 93306; 96361; 96365; 96372; 96375; A4216; A4217; C1751; G8978-GP-CL; G8979-GP-CJ; G8987-GO-CI; G8988-GO-CI; G8989-GO-CI; J0131; J0290; J0692; J0696; J1644; J1815; J2185; J2405; J2543; J2550; J3370; J7050

== ENCOUNTER 2019-05-16 14:26 | Inpatient (IN) | payer BC ==
[2019-05-16 15:19] LABS: #Monocytes 0.4 thou/uL (0.11-0.59); #Neutrophils 6.7 thou/uL (1.40-6.50); %Eosinophils 0.6 % (0.0-10.0); %Lymphocytes 12.3 % (21.0-51.0); %Monocytes 5.3 % (0.0-10.0); %Neutrophils 81.9 % (42.0-75.0); Hemoglobin 11.7 g/dL (14.0-18.0); Mean Corpuscular HGB CONC 33.2 g/dL (32.0-36.0); Mean Corpuscular Hemoglobin 30.7 pg (27.0-31.0); Mean Corpuscular Volume 92.5 fL (78.0-98.0); Mean Platelet Volume 6.8 fL (7.4-10.4); Platelet Count 374 thou/uL (130-400); RBC Distribution Width 11.1 % (11.5-14.5); White Blood Cell (WBC) Count 8.2 thou/uL (4.8-10.8)
[2019-05-16 15:35] LABS: ALT (SGPT) 10 U/L (8-55); AST (SGOT) 10 U/L (5-34); Albumin 3.7 g/dL (3.5-5.0); Alkaline Phosphatase 115 U/L (40-150); Anion Gap 13 mmol/L (10-20); BUN (Urea Nitrogen) 22 mg/dL (8.4-25.7); Bilirubin, Total 0.3 mg/dL (0.2-1.2); Calc. Creatinine Clearance 0 mL/min (70-130); Calcium 9.4 mg/dL (7.8-10.44); Carbon Dioxide 22 mmol/L (22-29); Chloride 102 mmol/L (98-107); Estimated GFR-MDRD 78; Globulin 3.2 g/dL (2.4-3.5); Glucose 208 mg/dL (70-105); Lipase 35 U/L (8-78); Potassium 4.4 mmol/L (3.5-5.1); Protein, Total 6.9 g/dL (6.0-8.3); Sodium 133 mmol/L (136-145)
--- NOTE | 2019-05-16 15:37 | RAD ---
Chest AP view INDICATION: Sepsis COMPARISON: December 29, 2017 FINDINGS: Lungs:The lungs are clear Cardiac silhouette pulmonary vasculature:The cardiomediastinal silhouette appears within normal limit s. Pleural spaces:No pleural effusion or pneumothorax is demonstrated. Upper abdomen:No abnormality seen. Osseous structures: No acute osseous abnormality. Additional findings:None. IMPRESSION: No acute cardiopulmonary abnormality.
--- NOTE | 2019-05-16 15:42 | CT ---
CT OF THE ABDOMEN AND PELVIS WITH IV CONTRAST INDICATION: Abdominal pain with nausea vomiting and diarrhea COMPARISON: CT pelvis dated 04/14/2017 FINDINGS: ABDOMEN: Lung bases: Clear Liver: No focal lesion. Gallbladder: Normal appearing. Pancreas: Normal. Adrenal glands: Normal. Spleen: Normal. Kidneys: Normal. Retroperitoneum of the upper abdomen: There are mild vascular calcifications involving the abdominal aorta. No enlarged lymph nodes are evident. Pelvis: Small and large bowel: There is a normal appendix in the right lower quadrant. There are scattered di verticula involving the colon. There is fluid density seen within loops of ascending colon and transverse colon which can be seen with diarrheal states Bladder: Normal. Rectal and perirectal soft tissues:Normal. Reproductive structures: Normal. Free fluid in pelvis: No free fluid is evident. Lymphadenopathy pelvis: No lymphadenopathy is evident. Osseous structures: No acute osseous abnormality. No destructive osteolytic or osteoblastic lesion i s identified. There is scattered degenerative and osteoarthritic changes. IMPRESSION: 1. Fluid density seen within portions of the colon can be seen in diarrheal states or mild colitis. 2. No additional acute abnormality demonstrated. 3. Other chronic findings as above
[2019-05-16 16:13] LABS: Bacteria/HPF None Seen HPF (None Seen); Bilirubin Negative (Negative); Blood, Urine 2+ (Negative); Clarity Clear (Clear); Glucose, Urine (Dipstick) 30 mg/dL (Negative); Leukocyte Negative Leu/uL (Negative); Nitrite Negative (Negative); Protein, Urine (Dipstick) 10 mg/dL (Neg-Trace); Squamous Epithelial 0-3 HPF (0-3); Urobilinogen Normal mg/dL (Less than 2); WBC/HPF 0-3 HPF (0-3)
[2019-05-16] MEDS ORDERED: Morphine 10 MG/ML VIAL ONE (16:16)
[2019-05-16] MEDS ORDERED: Ondansetron PF 4 MG/2 ML Vial ONE (16:17)
[2019-05-16] MEDS ORDERED: metroNIDAZOLE 500 MG/100 ML BAG ONE (16:17)
[2019-05-16] MEDS ORDERED: Dextrose 50% Abboject 50 ML SYRINGE SLOW IVP PRN (18:32)
[2019-05-16] MEDS ORDERED: Dextrose 5% in Water 1,000 ML IV PRN (18:32)
[2019-05-16] MEDS ORDERED: HumaLOG 300 UNITS/3 ML VIAL SC PRN (18:32)
[2019-05-16] MEDS ORDERED: Acetaminophen 325 MG TAB PO PRN (18:32)
[2019-05-16] MEDS ORDERED: Morphine 2 MG/ML SYRINGE SLOW IVP PRN (18:45)
[2019-05-16 19:05] LABS: Lactic Acid 1.6 mmol/L (0.5-2.2)
[2019-05-16] MEDS ORDERED: Ondansetron ODT 4 MG TAB SL PRN (19:15)
[2019-05-16] MEDS ORDERED: Ondansetron PF 4 MG/2 ML Vial IVP PRN (19:15)
--- NOTE | 2019-05-16 19:21 | HP ---
PRIMARY CARE PROVIDER: Collin Rollins MD CHIEF COMPLAINT: Diarrhea. HISTORY OF PRESENT ILLNESS: Mr. Zavaleta is a pleasant 54-year-old gentleman, who was seen at [facility] on May 16, 2019, after he was sent here from urgent care clinic. 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 He reports that he has a history of bone spurs in both legs. He reports that they become inflamed and formed blisters and then the skin breaks down. He reports that this has been going on for the last few months. He had these lesions bilaterally, but now the lesions on the left foot are healed and he has a lesion on the right foot. He reports that one week ago, he was seen [facility] and was started on antibiotic. He does not recall the name of the antibiotic. Two nights ago, he left some meat overnight in his vehicle. He moved it to the refrigerator yesterday morning to make dry sandwiches. He had sandwich yesterday afternoon. Last night, he ate at [employer]. Today morning, he woke up feeling nauseous. He reports having abdominal cramps. He also reports two loose watery stools. He checked his temperature and was found to have a fever of 101.4 degrees Fahrenheit. He reports that the abdominal cramps are on and off, across upper abdomen, radiating to left lower quadrant, 7/10 at its worst. He cannot recall any aggravating or relieving factors. He presented to the emergency room because Urgent Care [facility] sent him here. REVIEW OF SYSTEMS: All other systems were reviewed and found to be negative. PAST MEDICAL HISTORY: Diabetes mellitus type 2, dependent on insulin; dyslipidemia; hypertension, depression, seizure disorder. Also had a history of cardiomyopathy; 2D echocardiogram done in December 2017, showed left ventricular ejection fraction of 50% to 55% and a hypokinetic apex. PAST SURGICAL HISTORY: None. SOCIAL HISTORY: The patient denies tobacco use, alcohol use, or recreational drug use. FAMILY HISTORY: Significant for myocardial infarction in his mother and one of his brothers. Another brother had stroke. ALLERGIES: NO KNOWN DRUG ALLERGIES. CURRENT MEDICATIONS: These need to be clarified, but include metformin, pravastatin, lisinopril, sertraline, bupropion, Dilantin, aspirin, Levemir 30 units 2 times a day, and Humalog by insulin sliding scale. PHYSICAL EXAMINATION: GENERAL: On examination, Mr. Zvaaleta is awake and alert, not in acute distress. VITAL SIGNS: Blood pressure is 159/87, pulse 115, respiratory rate 20, oxygen saturation 95% on room air, T-max in the emergency room is 99.7 degrees Fahrenheit. EYES: No scleral icterus, no conjunctival pallor. ENT: Dry mucosal membranes. No oropharyngeal erythema or exudates. NECK: Supple and nontender, trachea is midline. RESPIRATORY: Accessory muscles of breathing are not active. Chest wall movements are symmetric bilaterally. Lungs are clear to auscultation without wheeze, rhonchi, or crepitations. CARDIOVASCULAR: S1 and S2 are heard, tachycardic and regular. Peripheral pulses palpable. No carotid bruit. No pericardial rub. ABDOMEN: Mild epigastric tenderness. No guarding or rigidity. Bowel sounds are heard, no hepatomegaly, no splenomegaly. NEUROLOGIC: Cranial nerves 2 through 12 intact, deep tendon reflexes 2+. MUSCULOSKELETAL: Power is 5/5 in all 4 extremities. SKIN: Small wound on plantar aspect of right great toe. LYMPHATIC: No cervical lymphadenopathy. PSYCHIATRIC: Normal mood, normal affect, the patient is oriented to person, place, and time. LABORATORY DATA: Mr. Zavaleta labs and investigations were reviewed. I reviewed his electrocardiogram, which shows sinus tachycardia, no ST changes to suggest an acute coronary syndrome. I also reviewed his chest x-ray, which does not show any pulmonary infiltrates. He also had CT scan of the abdomen and pelvis with IV contrast, which showed fluid density within portions of the colon, which can be seen in diarrheal states or mild colitis. He has normal white count, mildly decreased hemoglobin of 11.7, normal platelet count, decreased sodium of 133, normal potassium, normal creatinine, normal LFTs, normal lipase, and elevated lactic acid level of 2.5. Urinalysis is negative for nitrite and leukocyte esterase. ASSESSMENT AND PLAN: Mr. Zavaleta is a pleasant 54-year-old gentleman, who was seen at [facility] on May 16, 2019. His problem list includes: 1. Sepsis: Mr. Zavaleta is presenting with severe sepsis, most likely secondary to infectious colitis. He will be admitted to the hospital for further management. 2. Infectious colitis: Mr. Zavaleta appears to be presenting with infectious colitis, most likely secondary to food poisoning from bacterial sources. He will be admitted to the hospital for further management. We will check stool cultures. We will also check Clostridium difficile test, given his recent use of antibiotics. 3. Diabetes mellitus type 2: We will start him on Accu-Cheks and insulin sliding scale. 4. Depression: Chronic, moderate, stable. Continue home medications. 5. Seizure disorder: Continue Dilantin once dose is clarified. 6. Hypertension: Resume home medications of clarifying doses, monitor vital signs and titrate antihypertensives as needed. Many thanks for allowing me to participate in Mr. Zavaleta' care. Please feel free to contact me with any questions or concerns. LEVEL OF RISK: High. LEVEL OF COMPLEXITY: High. Job ID: [id number] MTDD
[2019-05-16 20:10] VITALS: BMI 32.0
[2019-05-16] MEDS: Insulin Glargine 20 UNITS in Pre-Filled Syringe 1 EACH SC SCH (21:25)
[2019-05-16] MEDS: Sodium Chloride 0.9% 1,000 ML IV SCH (21:30)
[2019-05-16] MEDS: metroNIDAZOLE 500 MG in Premix Bag 1 BAG IVPB SCH (21:31)
[2019-05-17] MEDS: Sodium Chloride 0.9% 1,000 ML IV SCH (04:30)
[2019-05-17 05:56] LABS: #Eosinphils 0.1 thou/uL (0.0-0.7); #Lymphocytes 1.3 thou/uL (1.20-3.40); #Monocytes 0.5 thou/uL (0.11-0.59); #Neutrophils 3.5 thou/uL (1.40-6.50); %Basophils 0.2 % (0.0-1.0); %Eosinophils 2.5 % (0.0-10.0); %Monocytes 9.4 % (0.0-10.0); %Neutrophils 63.8 % (42.0-75.0); Hemoglobin 10.2 g/dL (14.0-18.0); Mean Corpuscular HGB CONC 34.5 g/dL (32.0-36.0); Mean Corpuscular Hemoglobin 31.6 pg (27.0-31.0); Mean Corpuscular Volume 91.6 fL (78.0-98.0); Mean Platelet Volume 7.1 fL (7.4-10.4); Platelet Count 259 thou/uL (130-400); RBC Distribution Width 12.1 % (11.5-14.5); Red Blood Cell (RBC) Count 3.23 mill/uL (4.70-6.10); White Blood Cell (WBC) Count 5.5 thou/uL (4.8-10.8)
[2019-05-17] MEDS: metroNIDAZOLE 500 MG in Premix Bag 1 BAG IVPB SCH ×2 (05:57→14:16)
[2019-05-17 06:06] LABS: Anion Gap 10 mmol/L (10-20); BUN (Urea Nitrogen) 16 mg/dL (8.4-25.7); Calc. Creatinine Clearance 148 mL/min (70-130); Calcium 8.2 mg/dL (7.8-10.44); Carbon Dioxide 22 mmol/L (22-29); Chloride 107 mmol/L (98-107); Estimated GFR-MDRD Greater than 90; Glucose 150 mg/dL (70-105); Potassium 4.1 mmol/L (3.5-5.1); Sodium 135 mmol/L (136-145)
[2019-05-17] MEDS ORDERED: Enoxaparin Sodium 40 MG/0.4 ML SYRINGE SC SCH (09:00)
[2019-05-17] MEDS: Insulin Glargine 20 UNITS in Pre-Filled Syringe 1 EACH SC SCH (09:46)
[2019-05-17 16:49] VITALS: BP 169/87; TEMP 97.9
--- NOTE | 2019-05-17 21:48 | DIS ---
DATE OF ADMISSION: 05/16/2019 DATE OF DISCHARGE: 05/17/2019 PRIMARY CARE PROVIDER: Dr. Rollins. DISCHARGE DIAGNOSES: 1. Sepsis. 2. Infectious colitis. CONDITION OF PATIENT ON THE DAY OF DISCHARGE: Stable. I assessed Mr. Zavaleta on the day of discharge. He does not have any diarrhea today. Vital signs are stable. S1 and S2 are heard, regular. Lungs are clear to auscultation bilaterally. DISCHARGE MEDICATIONS: 1. Bupropion 300 mg daily. 2. NovoLog insulin by sliding scale. 3. Levemir insulin 30 units 2 times a day. 4. Lisinopril 20 mg daily. 5. Metformin 2000 mg 2 times a day. 6. Phenytoin 300 mg daily. 7. Pravastatin 10 mg daily. 8. Zoloft 50 mg daily. 9. Aspirin 81 mg daily. 10. Ciprofloxacin 500 mg 2 times a day for 6 more days. 11. Metronidazole 500 mg 3 times a day for 6 more days. 12. Acetaminophen p.r.n. 13. Ibuprofen p.r.n. HOSPITAL COURSE: Mr. Zavaleta is a pleasant 54-year-old gentleman, who was admitted to [facility] on May 16, 2019, for sepsis due to colitis, presumed to be infectious. Please refer to my history and physical note dated May 16, 2019, for further details. He was treated with ciprofloxacin and metronidazole. Diarrhea resolved. Stool Clostridium difficile test was negative. Shiga toxin test was negative. Campylobacter antigen test was pending. The estimated date for testing is May 20, 2019. There was a delay in testing of Campylobacter antigen due to apns lack of available supply. Preliminary blood cultures were negative. He is being discharged home on ciprofloxacin and Flagyl. He has been advised to follow up with his primary care provider for final reports of stool and blood cultures. Many thanks for allowing me to participate in your patient's care. Please feel free to contact me with any questions or concerns. LABORATORY DATA: On the day of discharge, he has a white count of 5500, hemoglobin 10.2, platelet count 259,000. Sodium 135, potassium 4.1, and creatinine 0.74. DISCHARGE DESTINATION: Home. TIME SPENT: Total amount of time spent coordinating this discharge: 32 minutes. FOLLOWUP APPOINTMENTS: The patient has been advised to follow up with his primary care provider. Job ID: [id number]
== END 2019-05-17 19:05 | disposition home or self-care (01) | DRG 872 ==
LOC: ERS 14:26 → T4-B 16:20
PROVIDERS: ADMIT Internal Medicine; ATTEND Internal Medicine
DX: A41.9 Sepsis, unspecified organism (principal); A09 Infectious gastroenteritis and colitis, unspecified; E11.9 Type 2 diabetes mellitus without complications; E78.5 Hyperlipidemia, unspecified; I10 Essential (primary) hypertension; F32.9 Major depressive disorder, single episode, unspecified; G40.909 Epilepsy, unspecified, not intractable, without status epilepticus; R65.20 Severe sepsis without septic shock; Z79.4 Long term (current) use of insulin; Z79.82 Long term (current) use of aspirin
CPT/HCPCS: 36415; 36416; 71045; 74177; 80048; 80053; 81003; 81015; 83605; 83690; 85025; 87040; 87045; 87046; 87324; 87449; 87899; 93005; 96361; 96365; 96367; 96375; J0744; J1650; J1815; J2270; J2405; Q9966

== ENCOUNTER 2019-11-17 19:32 | Emergency (ER) | payer BC ==
[2019-11-17 20:26] LABS: #Basophils 0.1 thou/uL (0.0-0.2); #Eosinphils 0.3 thou/uL (0.0-0.7); #Lymphocytes 3.1 thou/uL (1.20-3.40); #Monocytes 0.5 thou/uL (0.11-0.59); #Neutrophils 3.5 thou/uL (1.40-6.50); %Eosinophils 3.6 % (0.0-10.0); %Lymphocytes 41.7 % (21.0-51.0); %Monocytes 6.6 % (0.0-10.0); %Neutrophils 47.1 % (42.0-75.0); Hemoglobin 11.5 g/dL (14.0-18.0); Mean Corpuscular Hemoglobin 31.9 pg (27.0-31.0); Mean Corpuscular Volume 88.6 fL (78.0-98.0); Mean Platelet Volume 7.5 fL (7.4-10.4); Platelet Count 301 thou/uL (130-400); Red Blood Cell (RBC) Count 3.61 mill/uL (4.70-6.10); White Blood Cell (WBC) Count 7.5 thou/uL (4.8-10.8)
[2019-11-17 20:48] LABS: ALT (SGPT) 14 U/L (8-55); AST (SGOT) 12 U/L (5-34); Albumin 3.9 g/dL (3.5-5.0); Alkaline Phosphatase 122 U/L (40-110); Anion Gap 11 mmol/L (10-20); BUN (Urea Nitrogen) 24 mg/dL (8.4-25.7); Bilirubin, Total 0.2 mg/dL (0.2-1.2); Calc. Creatinine Clearance 0 mL/min (70-130); Calcium 9.1 mg/dL (7.8-10.44); Carbon Dioxide 27 mmol/L (22-29); Chloride 102 mmol/L (98-107); Estimated GFR-MDRD 60; Globulin 3.1 g/dL (2.4-3.5); Glucose 183 mg/dL (70-105); Potassium 4.2 mmol/L (3.5-5.1); Sodium 136 mmol/L (136-145)
--- NOTE | 2019-11-21 15:45 | EKG ---
Test Reason : Blood Pressure : / mmHG Vent. Rate : 082 BPM Atrial Rate : 082 BPM P-R Int : 198 ms QRS Dur : 108 ms QT Int : 378 ms P-R-T Axes : 032 005 022 degrees QTc Int : 441 ms Normal sinus rhythm Possible Inferior infarct , age undetermined Abnormal ECG Confirmed by KONG MILES ([id number]), movie editor JENNI ABARCA ([id number]) on 11/21/2019 3:44:40 PM Referred By: Confirmed By:KONG Mcneal
== END 2019-11-17 21:37 | disposition home or self-care (01) ==
LOC: ERS 19:32
DX: I10 Essential (primary) hypertension (principal); E11.9 Type 2 diabetes mellitus without complications; E78.5 Hyperlipidemia, unspecified; F41.9 Anxiety disorder, unspecified; F32.9 Major depressive disorder, single episode, unspecified; Z87.891 Personal history of nicotine dependence; Z79.899 Other long term (current) drug therapy
CPT/HCPCS: 36415; 80053; 85025; 93005

== ENCOUNTER 2019-12-31 12:35 | Outpatient (CLI) | payer BC ==
--- NOTE | 2019-12-31 13:08 | RAD ---
EXAM: XR Foot Rt 3 View STANDARD PROVIDED CLINICAL HISTORY: Diabetic ulcer FINDINGS: There is no evidence for fracture or other acute osseous abnormality. Alignment appears anatomic. Yessica nt spaces appear preserved. Plantar and posterior calcaneal enthesophyte formation are noted. Vascular calcifications are seen. IMPRESSION: No evidence for an acute osseous abnormality. If there is persistent clinical concern, conservative m anagement and follow-up imaging advised.
== END 2019-12-31 12:36 | disposition home or self-care (01) ==
LOC: RAD 12:35
DX: E11.621 Type 2 diabetes mellitus with foot ulcer (principal); L97.512 Non-pressure chronic ulcer of other part of right foot with fat layer exposed

== ENCOUNTER 2020-03-24 21:39 | Emergency (ER) | payer BC, SELFPAY ==
[2020-03-24 22:49] LABS: #Basophils 0.1 thou/uL (0.0-0.2); #Eosinphils 0.1 thou/uL (0.0-0.7); #Lymphocytes 2.4 thou/uL (1.20-3.40); #Monocytes 0.5 thou/uL (0.11-0.59); #Neutrophils 5.4 thou/uL (1.40-6.50); %Basophils 0.6 % (0.0-1.0); %Eosinophils 1.6 % (0.0-10.0); %Monocytes 5.9 % (0.0-10.0); %Neutrophils 63.8 % (42.0-75.0); Hemoglobin 11.1 g/dL (14.0-18.0); Mean Corpuscular HGB CONC 34.5 g/dL (32.0-36.0); Mean Corpuscular Hemoglobin 31.3 pg (27.0-31.0); Mean Corpuscular Volume 90.7 fL (78.0-98.0); Mean Platelet Volume 8.7 fL (7.4-10.4); Platelet Count 292 thou/uL (130-400); RBC Distribution Width 11.5 % (11.5-14.5); Red Blood Cell (RBC) Count 3.56 mill/uL (4.70-6.10); White Blood Cell (WBC) Count 8.5 thou/uL (4.8-10.8)
--- NOTE | 2020-03-24 22:59 | RAD ---
Exam: Chest one view HISTORY:Altered mental status. Hyperglycemia. Comparison: 05/16/2019 FINDINGS: Cardiac silhouette: Normal Aorta: Atherosclerosis Pulmonary vessels: Normal Costophrenic angles: Clear LUNGS: No masses or consolidation. Pneumothorax: None Osseous abnormalities: None IMPRESSION: No acute cardiopulmonary process. Atherosclerosis.
[2020-03-24 23:06] LABS: Base Excess-Venous -0.3 mmol/L (-2.0 to 3.0); Bicarbonate (HCO3v) 25.3 mmol/L (22.0-28.0); CO2 Tension (PvCO2) 44.9 mmHg (40.0-50.0); Calcium, Ionized 1.14 mmol/L (See Comments:); Chloride 96 mmol/L (98-107); Hemoglobin - Calc 11.1 g/dL (14.0-18.0); Potassium 4.1 mmol/L (3.5-5.1); Sodium 133 mmol/L (138-145); T. Carbon Dioxide 26.7 mmol/L (22.0-28.0); vO2 Saturation-calc 83.6 % (60.0-85.0)
[2020-03-24 23:25] LABS: ALT (SGPT) 10 U/L (8-55); AST (SGOT) 10 U/L (5-34); Alkaline Phosphatase 165 U/L (40-110); Anion Gap 13 mmol/L (10-20); BUN (Urea Nitrogen) 21 mg/dL (8.4-25.7); Bilirubin, Total 0.2 mg/dL (0.2-1.2); Calc. Creatinine Clearance 0 mL/min (70-130); Calcium 8.6 mg/dL (7.8-10.44); Carbon Dioxide 25 mmol/L (22-29); Chloride 99 mmol/L (98-107); Estimated GFR-MDRD 46; Globulin 2.9 g/dL (2.4-3.5); Glucose 423 mg/dL (70-105); Magnesium 1.8 mg/dL (1.6-2.6); Phosphorus 2.9 mg/dL (2.3-4.7); Potassium 4.4 mmol/L (3.5-5.1); Protein, Total 6.9 g/dL (6.0-8.3); Sodium 133 mmol/L (136-145)
[2020-03-24 23:59] LABS: Bilirubin Negative (Negative); Blood, Urine 1+ (Negative); Clarity Clear (Clear); Glucose, Urine (Dipstick) Greater than 1000 mg/dL (Negative); Leukocyte Negative Leu/uL (Negative); Nitrite Negative (Negative); Protein, Urine (Dipstick) 50 mg/dL (Neg-Trace); Squamous Epithelial 0-3 HPF (0-3); Urobilinogen Normal mg/dL (Less than 2); WBC/HPF 0-3 HPF (0-3)
[2020-03-25 00:01] LABS: Bacteria/HPF Rare-Few HPF (None Seen)
== END 2020-03-25 00:52 | disposition home or self-care (01) ==
LOC: ERS 21:39
DX: E11.65 Type 2 diabetes mellitus with hyperglycemia (principal); E78.5 Hyperlipidemia, unspecified; E78.00 Pure hypercholesterolemia, unspecified; I10 Essential (primary) hypertension; F31.9 Bipolar disorder, unspecified; F41.9 Anxiety disorder, unspecified; Z87.891 Personal history of nicotine dependence; Z79.4 Long term (current) use of insulin; Z79.82 Long term (current) use of aspirin; Z79.899 Other long term (current) drug therapy
CPT/HCPCS: 36416; 71045; 80053; 81003; 81015; 82010; 82330; 82803; 83735; 84100; 84484; 85025

== ENCOUNTER 2020-04-21 10:08 | Emergency (ER) | payer OTHER, SELFPAY ==
[2020-04-22 14:49] LABS: SARS-CoV-2 MS2 Positive; SARS-CoV-2 N Gene Positive; SARS-CoV-2 S Gene Positive; SARS-CoV-2 orf1ab Positive
== END 2020-04-21 11:01 | disposition home or self-care (01) ==
LOC: ERS 10:08
DX: U07.1 COVID-19 (principal); J01.90 Acute sinusitis, unspecified; I10 Essential (primary) hypertension; F41.9 Anxiety disorder, unspecified; F32.9 Major depressive disorder, single episode, unspecified; E11.9 Type 2 diabetes mellitus without complications; E78.5 Hyperlipidemia, unspecified; E78.00 Pure hypercholesterolemia, unspecified; Z87.891 Personal history of nicotine dependence; Z79.82 Long term (current) use of aspirin; Z79.4 Long term (current) use of insulin; Z79.899 Other long term (current) drug therapy
CPT/HCPCS: 87635; 99283; U0003

== ENCOUNTER 2020-04-28 12:00 | Inpatient (IN) | payer OTHER, SELFPAY ==
[2020-04-28 12:51] LABS: #Lymphocytes 1.4 thou/uL (1.20-3.40); #Monocytes 0.4 thou/uL (0.11-0.59); #Neutrophils 8.7 thou/uL (1.40-6.50); %Eosinophils 0.3 % (0.0-10.0); %Lymphocytes 13.2 % (21.0-51.0); %Monocytes 3.4 % (0.0-10.0); %Neutrophils 83.2 % (42.0-75.0); Hemoglobin 10.6 g/dL (14.0-18.0); Mean Corpuscular HGB CONC 34.8 g/dL (32.0-36.0); Mean Corpuscular Hemoglobin 31.9 pg (27.0-31.0); Mean Corpuscular Volume 91.8 fL (78.0-98.0); Mean Platelet Volume 7.6 fL (7.4-10.4); Platelet Count 270 thou/uL (130-400); White Blood Cell (WBC) Count 10.5 thou/uL (4.8-10.8)
[2020-04-28 13:11] LABS: ALT (SGPT) 12 U/L (8-55); AST (SGOT) 16 U/L (5-34); Albumin 3.2 g/dL (3.5-5.0); Alkaline Phosphatase 91 U/L (40-110); Anion Gap 16 mmol/L (10-20); BUN (Urea Nitrogen) 28 mg/dL (8.4-25.7); Bilirubin, Total 0.3 mg/dL (0.2-1.2); Calc. Creatinine Clearance 0 mL/min (70-130); Calcium 8.3 mg/dL (7.8-10.44); Carbon Dioxide 19 mmol/L (22-29); Chloride 100 mmol/L (98-107); Estimated GFR-MDRD 51; Globulin 3.8 g/dL (2.4-3.5); Glucose 290 mg/dL (70-105); Potassium 4.6 mmol/L (3.5-5.1); Sodium 130 mmol/L (136-145)
--- NOTE | 2020-04-28 13:11 | RAD ---
XR Chest 1 View Portable HISTORY: Cough and shortness of breath COMPARISON: 03/24/2020 FINDINGS: The heart size normal. The lungs are well expanded. Mild opacity may be seen in the left lo wer lung. This appears to be new since the last exam
[2020-04-28] MEDS ORDERED: Dexamethasone 10 MG/ML VIAL ONE (17:10)
--- NOTE | 2020-04-28 19:04 | HP ---
PRIMARY CARE PHYSICIAN: Collin Rollins MD CHIEF COMPLAINT: Having worse coughing and shortness of breath. HISTORY OF PRESENT ILLNESS: Mr. Zavaleta is a very pleasant 54-year-old gentleman, who has a history of diabetes mellitus and hypertension. He has also been diagnosed with COVID-19 infection. He came in about a week ago on because he was having sinus like symptoms and he denies having any fever. He says he got tested and then about a few days later, he was told that he was positive. He was quarantining at home and then the last couple of days, his symptoms have gotten worse. He says he is having increasing coughing and says that when he would cough, he would get very short of breath. He also notes increasing sinus congestion and he says it has been going down into his bronchial tubes and he feels a tightness in his chest. He says he has had no fever that he can think of. No nausea, no vomiting. He did have a couple of bouts of diarrhea but it was not very intense, only two stools and for this reason, he came to the ER for evaluation. When he was evaluated in the ER, he was found to be moderately hypoxic, which corrected easily with 2 L of nasal cannula. However, it is felt that it is best to monitor him in the hospital for a few days. REVIEW OF SYSTEMS: All systems were reviewed and are negative except for that mentioned in the history of present illness. PAST MEDICAL HISTORY: Significant for diabetes mellitus, hypertension, seizure disorder, depression. He denies cardiomyopathy, but it was in his records. PAST SURGICAL HISTORY: None. SOCIAL HISTORY: He is a nonsmoker and nondrinker. He does not use any recreational drugs. FAMILY HISTORY: Significant for coronary artery disease in his mother and brothers. ALLERGIES: NO KNOWN DRUG ALLERGIES. CURRENT MEDICATIONS: Include: 1. Aspirin 81 mg daily. 2. Phenytoin 100 mg 3 times a day. 3. Amlodipine 10 mg daily. 4. Bupropion extended release 300 mg daily. 5. Lisinopril 40 mg daily. 6. Metformin 500 mg twice a day. 7. Pravastatin 10 mg daily. 8. Sertraline 50 mg daily. 9. Levemir insulin 40 units subcu twice daily. 10. NovoLog insulin as directed. 11. Augmentin 875 mg twice a day. 12. Prednisone 20 mg three tablets every 3 days. PHYSICAL EXAMINATION: GENERAL: He is alert and oriented. He appears to be in no acute distress. VITAL SIGNS: Blood pressure 151/78, heart rate 103, respiratory rate of 22, temperature is 99.2. HEENT: Pupils are equal, round, and reactive. Extraocular muscles are intact. His sclerae anicteric. Throat, there is no erythema, no exudates. NECK: No adenopathy. No bruits. LUNGS: He has some very fine rales and occasional wheeze. No rhonchi. CARDIOVASCULAR: He has a normal S1, S2. There is no S3 or S4. No murmurs, clicks, or rubs. ABDOMEN: Soft, nontender, and nondistended. Positive for bowel sounds. No rebound. No guarding. No organomegaly. EXTREMITIES: There is no clubbing or cyanosis. No edema. No calf tenderness. No joint effusions. He has palpable dorsalis pedis pulses. NEUROLOGIC: The exam is grossly nonfocal. SKIN AND INTEGUMENT: Under the bottom of the right toe, there is an ulcer with kind of a reddish base, but there is no drainage. No odor. He has good capillary refill. LABORATORY RESULTS: White blood cell count is 10.5, hemoglobin 10.6, hematocrit is 30.3, and platelet count is 270. Sodium 130, potassium 4.6, chloride is 100, CO2 is 19, BUN of 28, creatinine 1.45, glucose is 290, albumin 3.2. Chest x-ray was essentially negative. The heart size was normal and there is no evidence of any increased pulmonary vascular markings. ASSESSMENT: This is a pleasant 54-year-old gentleman, who is being admitted for acute respiratory failure due to COVID-19 infection. He will be monitored in the hospital to see which direction he is going. I talked to him about remdesivir. He is seven days out and this can be used up to 10 days post onset of symptoms. We discussed the risks and benefits including kidney injury as well as liver injury and the fact that this is an experimental medicine, which has been released for emergency use. He says that he is agreeable to the medication should he be deemed a candidate. Therefore, we will reassess him tomorrow and if his sats are lower, then strong consideration will be given to starting this medication. Also consideration for Decadron as well. 1. Diabetes mellitus. We will reconcile and restart his home medications, as well as sliding scale. 2. Hypertension. Once again reconcile and start his home medications. 3. We will place him on full dose anticoagulation given the risk for thrombosis in this disorder. 4. Diabetic foot infection. We will recommend some local cream and consider wound care consult if available during the COVID infection. Job ID: [id number]
[2020-04-28] MEDS ORDERED: Ondansetron PF 4 MG/2 ML Vial IVP PRN (20:07)
[2020-04-28] MEDS ORDERED: Ondansetron ODT 4 MG TAB SL PRN (20:07)
[2020-04-28] MEDS ORDERED: Dextrose 50% Abboject 50 ML SYRINGE SLOW IVP PRN (20:32)
[2020-04-28] MEDS ORDERED: Dextrose 5% in Water 1,000 ML IV PRN (20:32)
[2020-04-28] MEDS ORDERED: Loperamide HCl 2 MG CAP PO PRN (20:32)
[2020-04-28 20:49] VITALS: BMI 30.7
[2020-04-28] MEDS ORDERED: Non-Formulary Item 1 EACH (Insulin Detemir [Levemir Flextouch] 30 UNIT) SQ SCH (21:00)
[2020-04-28] MEDS: Benzonatate 100 MG CAP PO PRN (21:03)
[2020-04-28] MEDS: HumaLOG 300 UNITS/3 ML VIAL SC PRN (21:08)
[2020-04-28] MEDS: Insulin Glargine 30 UNITS in Pre-Filled Syringe 1 EACH SC SCH (21:10)
[2020-04-28] MEDS: Enoxaparin Sodium 100 MG/ML SYRINGE SC SCH (21:11)
[2020-04-28] MEDS: hydrALAZINE 20 MG/ML VIAL SLOW IVP PRN (21:16)
[2020-04-29] MEDS: HumaLOG 300 UNITS/3 ML VIAL SC PRN ×3 (04:22→21:34)
[2020-04-29] MEDS: hydrALAZINE 20 MG/ML VIAL SLOW IVP PRN ×2 (04:27→08:59)
[2020-04-29 06:18] LABS: #Lymphocytes 1.4 thou/uL (1.20-3.40); #Monocytes 0.4 thou/uL (0.11-0.59); %Basophils 0.2 % (0.0-1.0); %Eosinophils 0.3 % (0.0-10.0); %Lymphocytes 18.1 % (21.0-51.0); %Monocytes 4.6 % (0.0-10.0); %Neutrophils 76.9 % (42.0-75.0); Hemoglobin 10.6 g/dL (14.0-18.0); Mean Corpuscular HGB CONC 33.8 g/dL (32.0-36.0); Mean Corpuscular Volume 91.9 fL (78.0-98.0); Platelet Count 285 thou/uL (130-400); RBC Distribution Width 11.1 % (11.5-14.5); Red Blood Cell (RBC) Count 3.41 mill/uL (4.70-6.10); White Blood Cell (WBC) Count 7.7 thou/uL (4.8-10.8)
[2020-04-29 06:38] LABS: Anion Gap 16 mmol/L (10-20); BUN (Urea Nitrogen) 25 mg/dL (8.4-25.7); CRP (Inflammatory) 27.09 mg/dL (= or < 0.5); Calc. Creatinine Clearance 97 mL/min (70-130); Calcium 8.5 mg/dL (7.8-10.44); Carbon Dioxide 18 mmol/L (22-29); Chloride 103 mmol/L (98-107); Estimated GFR-MDRD 71; Glucose 323 mg/dL (70-105); Potassium 4.5 mmol/L (3.5-5.1); Sodium 132 mmol/L (136-145)
[2020-04-29] MEDS: Enoxaparin Sodium 100 MG/ML SYRINGE SC SCH ×2 (08:57→20:56)
[2020-04-29] MEDS: Insulin Glargine 30 UNITS in Pre-Filled Syringe 1 EACH SC SCH ×2 (08:58→20:57)
[2020-04-29] MEDS: Zinc Sulfate 220 MG CAP PO SCH (08:58)
[2020-04-29] MEDS: Amlodipine 10 MG TAB PO SCH (08:58)
[2020-04-29] MEDS: Folic Acid/Vit B Comp W-C PO SCH (08:58)
[2020-04-29] MEDS: Lisinopril 20 MG TAB PO SCH (08:59)
[2020-04-29] MEDS: Ascorbic Acid 500 mg Chewable Tablet PO SCH (08:59)
[2020-04-29] MEDS: Simvastatin 5 MG TAB PO SCH (09:00)
[2020-04-29] MEDS: Benzonatate 100 MG CAP PO PRN ×3 (09:04→21:24)
--- NOTE | 2020-04-29 12:52 | PDOC.HOSPP ---
- Subjective Encounter Date: 04/29/20 Encounter Time: 12:50 Subjective: Ms. Zavaleta was seen today in follow-up of COVID pneumonia. He feels about the same. He continues to have coughing spells, and this is when he gets short of breath. - Objective Vital Signs & Weight: Vital Signs (12 hours) Temp Pulse Resp BP BP Pulse Ox 04/29/20 11:00 98.1 F 99 18 154/82 H 93 L 04/29/20 08:59 99 184/97 H 04/29/20 08:58 99 184/97 H 04/29/20 08:00 97.5 F L 100 18 137/77 93 L 04/29/20 07:00 97.5 F L 100 18 137/87 93 L 04/29/20 04:27 99 184/97 H 04/29/20 03:00 97.9 F 100 24 H 184/97 H 96 04/29/20 01:10 97 04/29/20 01:07 97 Weight Weight 196 lb I&O: 04/28/20 04/29/20 04/30/20 06:59 06:59 06:59 Intake Total 240 Balance 240 Result Diagrams: 04/29/20 05:43 04/29/20 05:43 Additional Labs: Accuchecks 04/29/20 04/28/20 04/28/20 04:24 21:10 13:12 POC Glucose 339 H 337 H 279 H Hospitalist ROS - Medication Medications: Active Medications Generic Name Dose Route Start Last Admin Trade Name Freq PRN Reason Stop Dose Admin Amlodipine Besylate 10 mg 04/29/20 09:00 04/29/20 08:58 Norvasc PO 10 mg DAILY ALEXEI Administration Ascorbic Acid 1,000 mg 04/29/20 09:00 04/29/20 08:59 Vitamin C PO 1,000 mg DAILY ALEXEI Administration Benzonatate 100 mg 04/28/20 20:32 04/29/20 09:04 Tessalon PO 100 mg Q6H PRN Administration Cough Enoxaparin Sodium 90 mg 04/28/20 21:00 04/29/20 08:57 Lovenox SC 90 mg 0900,2100 ALEXEI Administration Hydralazine HCl 10 mg 04/28/20 20:32 04/29/20 08:59 Apresoline SLOW IVP 10 mg Q4H PRN Administration SBP > 180 and HR < 70 Insulin Glargine 30 units/ 0.3 mls @ 0 mls/hr 04/28/20 21:00 04/29/20 08:58 Miscellaneous Medication SC 0.3 mls BID ALEXEI Administration Insulin Human Lispro 0 units 04/28/20 20:32 04/29/20 04:22 Humalog SC 8 unit .MODERATE SLIDING SC PRN Administration Moderate Correctional Scale Insulin Human Lispro 0 units 04/28/20 20:32 04/28/20 21:08 Humalog SC 4 unit .BEDTIME SLIDING SC PRN Administration Bedtime Correctional Scale Lisinopril 40 mg 04/29/20 09:00 04/29/20 08:59 Zestril PO 40 mg DAILY ALEXEI Administration Pantoprazole Sodium 40 mg 04/29/20 09:00 04/29/20 08:59 Protonix PO 40 mg DAILY ALEXEI Administration Phenytoin Sodium 300 mg 04/29/20 09:00 04/29/20 08:58 Dilantin Er PO 300 mg DAILY ALEXEI Administration Simvastatin 5 mg 04/29/20 09:00 04/29/20 09:00 Zocor PO 5 mg QAM ALEXEI Administration Sodium Chloride 10 ml 04/29/20 09:00 04/29/20 09:00 Flush - Normal Saline IVF 10 ml Q12HR ALEXEI Administration Vitamin B Complex/Vit C/Folic Acid 1 tab 04/29/20 09:00 04/29/20 08:58 Nephro-Yuliya Tablet PO 1 tab DAILY ALEXEI Administration Zinc Sulfate 220 mg 04/29/20 09:00 04/29/20 08:58 Zinc Sulfate PO 220 mg DAILY ALEXEI Administration - Exam Eye: PERRL, anicteric sclera Heart: RRR, no murmur, no gallops, no rubs Respiratory: rales (+ rales faint, and) Gastrointestinal: soft, non-tender, non-distended, normal bowel sounds, no palpable masses Extremities: no cyanosis Hosp A/P (1) Pneumonia due to COVID-19 virus Code(s): U07.1 - COVID-19; J12.89 - OTHER VIRAL PNEUMONIA Status: Acute (2) Diabetes mellitus type 2 in nonobese Code(s): E11.9 - TYPE 2 DIABETES MELLITUS WITHOUT COMPLICATIONS Status: Chronic (3) HTN (hypertension) Code(s): I10 - ESSENTIAL (PRIMARY) HYPERTENSION Status: Chronic Qualifiers: Hypertension type: essential hypertension Qualified Code(s): I10 - Essential (primary) hypertension - Plan * COVID Pneumonia- continue supportive care. He appears to have relatively mild symptoms so far. * Will continue to monitor his inflammatory markers * Will trend his need for supplemental oxygen * HTN- re-start his home medications * DM- Low dose Lantus Insulin has been added, and will titrate as needed
[2020-04-29] MEDS ORDERED: Non-Formulary Item 1 EACH in Sodium Chloride 0.9% 250 ML 210 ML IV SCH (15:45)
[2020-04-29] MEDS: Dexamethasone 6 MG in Sodium Chloride 0.9% 50 ML IVPB SCH (16:16)
[2020-04-30] MEDS: Benzonatate 100 MG CAP PO PRN ×2 (04:17→21:17)
[2020-04-30 05:57] LABS: #Lymphocytes 1.6 thou/uL (1.20-3.40); #Monocytes 0.4 thou/uL (0.11-0.59); #Neutrophils 4.4 thou/uL (1.40-6.50); %Basophils 0.4 % (0.0-1.0); %Eosinophils 0.6 % (0.0-10.0); %Lymphocytes 24.3 % (21.0-51.0); %Monocytes 6.7 % (0.0-10.0); %Neutrophils 67.9 % (42.0-75.0); Hemoglobin 10.8 g/dL (14.0-18.0); Mean Corpuscular HGB CONC 34.7 g/dL (32.0-36.0); Mean Corpuscular Hemoglobin 31.8 pg (27.0-31.0); Mean Corpuscular Volume 91.5 fL (78.0-98.0); Mean Platelet Volume 7.7 fL (7.4-10.4); Platelet Count 354 thou/uL (130-400); Red Blood Cell (RBC) Count 3.39 mill/uL (4.70-6.10); White Blood Cell (WBC) Count 6.5 thou/uL (4.8-10.8)
[2020-04-30 06:16] LABS: Anion Gap 13 mmol/L (10-20); BUN (Urea Nitrogen) 17 mg/dL (8.4-25.7); CRP (Inflammatory) 18.33 mg/dL (= or < 0.5); Calc. Creatinine Clearance 107 mL/min (70-130); Calcium 8.7 mg/dL (7.8-10.44); Carbon Dioxide 23 mmol/L (22-29); Chloride 105 mmol/L (98-107); Estimated GFR-MDRD 79; Glucose 120 mg/dL (70-105); Potassium 3.9 mmol/L (3.5-5.1); Sodium 137 mmol/L (136-145)
[2020-04-30 06:19] LABS: ALT (SGPT) 18 U/L (8-55); AST (SGOT) 22 U/L (5-34); Albumin 3.2 g/dL (3.5-5.0); Alkaline Phosphatase 87 U/L (40-110); Bilirubin, Direct 0.1 mg/dL (0.1-0.3); Bilirubin, Total 0.2 mg/dL (0.2-1.2); Protein, Total 7.2 g/dL (6.0-8.3)
[2020-04-30] MEDS: Folic Acid/Vit B Comp W-C PO SCH (08:31)
[2020-04-30] MEDS: Amlodipine 10 MG TAB PO SCH (08:31)
[2020-04-30] MEDS: Lisinopril 20 MG TAB PO SCH (08:31)
[2020-04-30] MEDS: metFORMIN XR 500 MG TAB PO SCH ×2 (08:31→16:28)
[2020-04-30] MEDS: Zinc Sulfate 220 MG CAP PO SCH (08:31)
[2020-04-30] MEDS: Ascorbic Acid 500 mg Chewable Tablet PO SCH (08:32)
[2020-04-30] MEDS: Simvastatin 5 MG TAB PO SCH (08:32)
[2020-04-30] MEDS: Enoxaparin Sodium 100 MG/ML SYRINGE SC SCH ×2 (08:32→21:12)
[2020-04-30] MEDS: Insulin Glargine 30 UNITS in Pre-Filled Syringe 1 EACH SC SCH ×2 (08:33→21:13)
[2020-04-30] MEDS: Ondansetron ODT 4 MG TAB PO PRN ×2 (13:17→21:17)
[2020-04-30] MEDS: Acetaminophen 325 MG TAB PO PRN ×2 (13:17→21:17)
--- NOTE | 2020-04-30 16:09 | PDOC.HOSPP ---
- Subjective Encounter Date: 04/30/20 Encounter Time: 16:07 Subjective: Mr. Zavaleta was seen today in follow-up of COVID pneumonia. He had a episode of dizziness this afternoon when he got up to go to the bathroom. He says he has had vertigo before. He denies feeling short of breath. He denies chest pain. , body aches. - Objective Vital Signs & Weight: Vital Signs (12 hours) Temp Pulse Resp BP BP Pulse Ox 04/30/20 15:00 99 18 152/88 H 98 04/30/20 11:00 98.8 F 101 H 18 160/82 H 96 04/30/20 08:31 97 184/97 H 04/30/20 08:00 96 04/30/20 07:00 97.9 F 99 20 157/82 H 93 L 04/30/20 04:42 98.2 F 97 16 129/74 93 L Weight Admit Weight 196 lb Weight 196 lb I&O: 04/29/20 04/30/20 05/01/20 06:59 06:59 06:59 Intake Total 240 Balance 240 Result Diagrams: 04/30/20 05:34 04/30/20 05:34 Additional Labs: Accuchecks 04/30/20 04/30/20 04/30/20 15:07 11:07 04:27 POC Glucose 146 H 182 H 146 H 04/29/20 04/29/20 21:10 18:33 POC Glucose 245 H 141 H Hospitalist ROS - Medication Medications: Active Medications Generic Name Dose Route Start Last Admin Trade Name Freq PRN Reason Stop Dose Admin Acetaminophen 650 mg 04/28/20 20:32 04/30/20 13:17 Tylenol PO 650 mg Q4H PRN Administration Headache/Fever/Mild Pain (1-3) Amlodipine Besylate 10 mg 04/29/20 09:00 04/30/20 08:31 Norvasc PO 10 mg DAILY ALEXEI Administration Ascorbic Acid 1,000 mg 04/29/20 09:00 04/30/20 08:32 Vitamin C PO 1,000 mg DAILY ALEXEI Administration Benzonatate 100 mg 04/28/20 20:32 04/30/20 04:17 Tessalon PO 100 mg Q6H PRN Administration Cough Enoxaparin Sodium 90 mg 04/28/20 21:00 04/30/20 08:32 Lovenox SC 90 mg 0900,2100 ALEXEI Administration Hydralazine HCl 10 mg 04/28/20 20:32 04/29/20 08:59 Apresoline SLOW IVP 10 mg Q4H PRN Administration SBP > 180 and HR < 70 Insulin Glargine 30 units/ 0.3 mls @ 0 mls/hr 04/28/20 21:00 04/30/20 08:33 Miscellaneous Medication SC 0.3 mls BID ALEXEI Administration Dexamethasone 6 mg/ Sodium 51.5 mls @ 100 mls/hr 04/29/20 16:00 04/29/20 16: 16 Chloride IVPB 51.5 mls 1600 ALEXEI Administration Insulin Human Lispro 0 units 04/28/20 20:32 04/29/20 12:50 Humalog SC 4 unit .MODERATE SLIDING SC PRN Administration Moderate Correctional Scale Insulin Human Lispro 0 units 04/28/20 20:32 04/29/20 21:34 Humalog SC 2 unit .BEDTIME SLIDING SC PRN Administration Bedtime Correctional Scale Lisinopril 40 mg 04/29/20 09:00 04/30/20 08:31 Zestril PO 40 mg DAILY ALEXEI Administration Metformin HCl 1,000 mg 04/30/20 08:00 04/30/20 08:31 Glucophage Xr PO 1,000 mg BID-WM ALEXEI Administration Ondansetron HCl 4 mg 04/28/20 20:32 04/30/20 13:17 Zofran Odt PO 4 mg Q6H PRN Administration Nausea/Vomiting Pantoprazole Sodium 40 mg 04/29/20 09:00 04/30/20 08:31 Protonix PO 40 mg DAILY ALEXEI Administration Phenytoin Sodium 300 mg 04/29/20 09:00 04/30/20 08:31 Dilantin Er PO 300 mg DAILY ALEXEI Administration Simvastatin 5 mg 04/29/20 09:00 04/30/20 08:32 Zocor PO 5 mg QAM ALEXEI Administration Sodium Chloride 10 ml 04/29/20 09:00 04/30/20 08:34 Flush - Normal Saline IVF 10 ml Q12HR ALEXEI Administration Vitamin B Complex/Vit C/Folic Acid 1 tab 04/29/20 09:00 04/30/20 08:31 Nephro-Yluiya Tablet PO 1 tab DAILY ALEXEI Administration Zinc Sulfate 220 mg 04/29/20 09:00 04/30/20 08:31 Zinc Sulfate PO 220 mg DAILY ALEXEI Administration - Exam Eye: PERRL Heart: RRR, no murmur, no gallops, no rubs, normal peripheral pulses Respiratory: no ronchi, normal chest expansion, no tachypnea, rales Gastrointestinal: soft, non-tender, non-distended, normal bowel sounds, no palpable masses, no hepatomegaly Extremities: no cyanosis (good dorsalis pedis and posterior tibial pulses), no edema Hosp A/P (1) Pneumonia due to COVID-19 virus Code(s): U07.1 - COVID-19; J12.89 - OTHER VIRAL PNEUMONIA Status: Acute (2) Diabetes mellitus type 2 in nonobese Code(s): E11.9 - TYPE 2 DIABETES MELLITUS WITHOUT COMPLICATIONS Status: Chronic (3) HTN (hypertension) Code(s): I10 - ESSENTIAL (PRIMARY) HYPERTENSION Status: Chronic Qualifiers: Hypertension type: essential hypertension Qualified Code(s): I10 - Essential (primary) hypertension - Plan * COVID Pneumonia- He is currently on day 2 of Remdesivir * Continue Decadron IV * Will continue to monitor his inflammatory markers * Will trend his need for supplemental oxygen * HTN- is elevated- will continue his home medications and PRN medications as well * DM- Metoformin has been re-started * Depression and Anxiety- re-start Sertraline, and Burpropion * Vertigo- likley the result of the COVID infection- add Meclizine
[2020-04-30] MEDS: Dexamethasone 6 MG in Sodium Chloride 0.9% 50 ML IVPB SCH (16:16)
[2020-04-30] MEDS: Non-Formulary Item 1 EACH in Sodium Chloride 0.9% 250 ML 230 ML IV SCH (16:16)
[2020-04-30] MEDS ORDERED: Ibuprofen 200 MG TAB PO PRN (16:20)
[2020-04-30] MEDS: Meclizine HCl 25 MG TAB PO PRN (16:28)
[2020-05-01 06:27] LABS: #Basophils 0.1 thou/uL (0.0-0.2); #Lymphocytes 1.4 thou/uL (1.20-3.40); #Monocytes 0.4 thou/uL (0.11-0.59); #Neutrophils 3.9 thou/uL (1.40-6.50); %Basophils 1.4 % (0.0-1.0); %Eosinophils 0.4 % (0.0-10.0); %Lymphocytes 24.6 % (21.0-51.0); %Monocytes 7.5 % (0.0-10.0); %Neutrophils 66.1 % (42.0-75.0); Hemoglobin 10.5 g/dL (14.0-18.0); Mean Corpuscular HGB CONC 35.2 g/dL (32.0-36.0); Mean Corpuscular Hemoglobin 32.2 pg (27.0-31.0); Mean Corpuscular Volume 91.4 fL (78.0-98.0); Mean Platelet Volume 7.6 fL (7.4-10.4); Platelet Count 393 thou/uL (130-400); Red Blood Cell (RBC) Count 3.26 mill/uL (4.70-6.10); White Blood Cell (WBC) Count 5.9 thou/uL (4.8-10.8)
[2020-05-01 06:50] LABS: Anion Gap 13 mmol/L (10-20); BUN (Urea Nitrogen) 18 mg/dL (8.4-25.7); CRP (Inflammatory) 23.47 mg/dL (= or < 0.5); Calc. Creatinine Clearance 102 mL/min (70-130); Calcium 8.3 mg/dL (7.8-10.44); Carbon Dioxide 23 mmol/L (22-29); Chloride 105 mmol/L (98-107); Estimated GFR-MDRD 75; Glucose 164 mg/dL (70-105); Potassium 4.1 mmol/L (3.5-5.1); Sodium 137 mmol/L (136-145)
[2020-05-01 06:56] LABS: ALT (SGPT) 17 U/L (8-55); AST (SGOT) 19 U/L (5-34); Alkaline Phosphatase 80 U/L (40-110); Bilirubin, Direct 0.1 mg/dL (0.1-0.3); Bilirubin, Total 0.2 mg/dL (0.2-1.2); Protein, Total 6.9 g/dL (6.0-8.3)
[2020-05-01] MEDS: Folic Acid/Vit B Comp W-C PO SCH (08:49)
[2020-05-01] MEDS: Aspirin 81 mg Enteric Coated Tablet PO SCH (08:49)
[2020-05-01] MEDS: metFORMIN XR 500 MG TAB PO SCH ×2 (08:49→18:13)
[2020-05-01] MEDS: Lisinopril 20 MG TAB PO SCH (08:50)
[2020-05-01] MEDS: Zinc Sulfate 220 MG CAP PO SCH (08:50)
[2020-05-01] MEDS: Simvastatin 5 MG TAB PO SCH (08:50)
[2020-05-01] MEDS: Ascorbic Acid 500 mg Chewable Tablet PO SCH (08:50)
[2020-05-01] MEDS: Amlodipine 10 MG TAB PO SCH (08:50)
[2020-05-01] MEDS: Bupropion 150 MG XL TAB PO SCH (08:50)
[2020-05-01] MEDS: Insulin Glargine 30 UNITS in Pre-Filled Syringe 1 EACH SC SCH (08:51)
[2020-05-01] MEDS: Enoxaparin Sodium 100 MG/ML SYRINGE SC SCH ×2 (08:51→22:07)
[2020-05-01] MEDS: Acetaminophen 325 MG TAB PO PRN ×2 (11:04→22:10)
[2020-05-01] MEDS: Meclizine HCl 25 MG TAB PO PRN (12:25)
--- NOTE | 2020-05-01 14:52 | PDOC.HOSPP ---
- Subjective Encounter Date: 05/01/20 Encounter Time: 14:51 Subjective: Mr. Zavaleta was seen today in follow-up of COVID infection with respiratory failure. He says he is feeling better today. He is breathing better, and less cough. - Objective Vital Signs & Weight: Vital Signs (12 hours) Temp Pulse Resp BP Pulse Ox 05/01/20 08:00 98.1 F 116 H 22 H 138/77 92 L Weight Admit Weight 196 lb Weight 196 lb Result Diagrams: 05/01/20 05:50 05/01/20 05:50 Additional Labs: Accuchecks 05/01/20 05/01/20 04/30/20 10:56 06:21 21:28 POC Glucose 147 H 160 H 378 H 04/30/20 15:07 POC Glucose 146 H Hospitalist ROS - Medication Medications: Active Medications Generic Name Dose Route Start Last Admin Trade Name Freq PRN Reason Stop Dose Admin Acetaminophen 650 mg 04/28/20 20:32 04/30/20 21:17 Tylenol PO 650 mg Q4H PRN Administration Headache/Fever/Mild Pain (1-3) Amlodipine Besylate 10 mg 04/29/20 09:00 05/01/20 08:50 Norvasc PO 10 mg DAILY ALEXEI Administration Ascorbic Acid 1,000 mg 04/29/20 09:00 05/01/20 08:50 Vitamin C PO 1,000 mg DAILY ALEXEI Administration Aspirin 81 mg 05/01/20 09:00 05/01/20 08:49 Ecotrin PO 81 mg DAILY ALEXEI Administration Benzonatate 100 mg 04/28/20 20:32 04/30/20 21:17 Tessalon PO 100 mg Q6H PRN Administration Cough Bupropion HCl 300 mg 05/01/20 09:00 05/01/20 08:50 Wellbutrin Xl PO 300 mg DAILY ALEXEI Administration Enoxaparin Sodium 90 mg 04/28/20 21:00 05/01/20 08:51 Lovenox SC 90 mg 0900,2100 ALEXEI Administration Hydralazine HCl 10 mg 04/28/20 20:32 04/29/20 08:59 Apresoline SLOW IVP 10 mg Q4H PRN Administration SBP > 180 and HR < 70 Insulin Glargine 30 units/ 0.3 mls @ 0 mls/hr 04/28/20 21:00 05/01/20 08:51 Miscellaneous Medication SC 0.3 mls BID ALEXEI Administration Dexamethasone 6 mg/ Sodium 51.5 mls @ 100 mls/hr 04/29/20 16:00 04/30/20 16: 16 Chloride IVPB 51.5 mls 1600 ALEXEI Administration Non-Formulary Medication 1 250 mls @ 250 mls/hr 04/30/20 16:00 04/30/20 16:16 each/ Sodium Chloride IV 05/03/20 16:59 250 mls 1600 ALEXEI Administration Insulin Human Lispro 0 units 04/28/20 20:32 04/29/20 12:50 Humalog SC 4 unit .MODERATE SLIDING SC PRN Administration Moderate Correctional Scale Insulin Human Lispro 0 units 04/28/20 20:32 04/29/20 21:34 Humalog SC 2 unit .BEDTIME SLIDING SC PRN Administration Bedtime Correctional Scale Lisinopril 40 mg 04/29/20 09:00 05/01/20 08:50 Zestril PO 40 mg DAILY ALEXEI Administration Meclizine HCl 25 mg 04/30/20 16:07 05/01/20 12:25 Antivert PO 25 mg Q8H PRN Administration Dizziness Metformin HCl 1,000 mg 04/30/20 08:00 05/01/20 08:49 Glucophage Xr PO 1,000 mg BID-WM ALEXEI Administration Ondansetron HCl 4 mg 04/28/20 20:32 04/30/20 21:17 Zofran Odt PO 4 mg Q6H PRN Administration Nausea/Vomiting Pantoprazole Sodium 40 mg 04/29/20 09:00 05/01/20 08:50 Protonix PO 40 mg DAILY ALEXEI Administration Phenytoin Sodium 300 mg 04/29/20 09:00 05/01/20 08:49 Dilantin Er PO 300 mg DAILY ALEXEI Administration Sertraline HCl 50 mg 05/01/20 09:00 05/01/20 08:50 Zoloft PO 50 mg DAILY ALEXEI Administration Simvastatin 5 mg 04/29/20 09:00 05/01/20 08:50 Zocor PO 5 mg QAM ALEXEI Administration Sodium Chloride 10 ml 04/29/20 09:00 05/01/20 08:52 Flush - Normal Saline IVF 10 ml Q12HR ALEXEI Administration Vitamin B Complex/Vit C/Folic Acid 1 tab 04/29/20 09:00 05/01/20 08:49 Nephro-Yuliya Tablet PO 1 tab DAILY ALEXEI Administration Zinc Sulfate 220 mg 04/29/20 09:00 05/01/20 08:50 Zinc Sulfate PO 220 mg DAILY ALEXEI Administration - Exam Eye: PERRL, anicteric sclera Heart: RRR, no murmur, no gallops, no rubs, normal peripheral pulses Respiratory: rales (+ rales bilaterally, no wheezing or rhonchi) Gastrointestinal: soft, non-tender, non-distended, normal bowel sounds, no palpable masses Extremities: no cyanosis Hosp A/P (1) Pneumonia due to COVID-19 virus Code(s): U07.1 - COVID-19; J12.89 - OTHER VIRAL PNEUMONIA Status: Acute (2) Diabetes mellitus type 2 in nonobese Code(s): E11.9 - TYPE 2 DIABETES MELLITUS WITHOUT COMPLICATIONS Status: Chronic (3) HTN (hypertension) Code(s): I10 - ESSENTIAL (PRIMARY) HYPERTENSION Status: Chronic Qualifiers: Hypertension type: essential hypertension Qualified Code(s): I10 - Essential (primary) hypertension - Plan * COVID Pneumonia- One more day of Remdesivir * He appears to be clinically improving * Continue Decadron IV * It appears his inflammatory markers are improving * Will trend his need for supplemental oxygen * HTN- is elevated- will continue his home medications and PRN medications as well * DM- Metoformin has been re-started * Depression and Anxiety- re-start Sertraline, and Burpropion * Vertigo- likely the result of the COVID infection- continue Meclizine as needed
[2020-05-01] MEDS: Dexamethasone 6 MG in Sodium Chloride 0.9% 50 ML IVPB SCH (15:41)
[2020-05-01] MEDS: Non-Formulary Item 1 EACH in Sodium Chloride 0.9% 250 ML 230 ML IV SCH (15:41)
[2020-05-02] MEDS: Insulin Glargine 30 UNITS in Pre-Filled Syringe 1 EACH SC SCH ×3 (02:08→21:51)
[2020-05-02 05:55] LABS: ALT (SGPT) 24 U/L (8-55); AST (SGOT) 30 U/L (5-34); Albumin 2.9 g/dL (3.5-5.0); Alkaline Phosphatase 76 U/L (40-110); Anion Gap 13 mmol/L (10-20); BUN (Urea Nitrogen) 19 mg/dL (8.4-25.7); Bilirubin, Direct 0.1 mg/dL (0.1-0.3); Bilirubin, Total 0.2 mg/dL (0.2-1.2); CRP (Inflammatory) 27.48 mg/dL (= or < 0.5); Calc. Creatinine Clearance 102 mL/min (70-130); Calcium 8.5 mg/dL (7.8-10.44); Carbon Dioxide 23 mmol/L (22-29); Chloride 106 mmol/L (98-107); Estimated GFR-MDRD 75; Glucose 106 mg/dL (70-105); Potassium 3.7 mmol/L (3.5-5.1); Protein, Total 6.9 g/dL (6.0-8.3); Sodium 138 mmol/L (136-145)
[2020-05-02] MEDS: Enoxaparin Sodium 100 MG/ML SYRINGE SC SCH ×2 (08:10→21:51)
[2020-05-02] MEDS: Aspirin 81 mg Enteric Coated Tablet PO SCH (08:11)
[2020-05-02] MEDS: Zinc Sulfate 220 MG CAP PO SCH (08:11)
[2020-05-02] MEDS: Folic Acid/Vit B Comp W-C PO SCH (08:11)
[2020-05-02] MEDS: metFORMIN XR 500 MG TAB PO SCH ×2 (08:11→17:22)
[2020-05-02] MEDS: Bupropion 150 MG XL TAB PO SCH (08:11)
[2020-05-02] MEDS: Ascorbic Acid 500 mg Chewable Tablet PO SCH (08:12)
[2020-05-02] MEDS: Simvastatin 5 MG TAB PO SCH (08:12)
[2020-05-02] MEDS: Lisinopril 20 MG TAB PO SCH (08:13)
[2020-05-02] MEDS: Amlodipine 10 MG TAB PO SCH (08:14)
[2020-05-02] MEDS: Ondansetron ODT 4 MG TAB PO PRN (08:39)
[2020-05-02] MEDS: Acetaminophen 325 MG TAB PO PRN ×2 (10:29→17:29)
[2020-05-02] MEDS: Meclizine HCl 25 MG TAB PO PRN (12:18)
--- NOTE | 2020-05-02 15:31 | PDOC.HOSPP ---
- Subjective Encounter Date: 05/02/20 Encounter Time: 13:00 Subjective: feels better, slept well last night is amb in room - Objective Vital Signs & Weight: Vital Signs (12 hours) Temp Pulse Resp BP Pulse Ox 05/02/20 11:00 98.1 F 105 H 16 146/90 H 96 05/02/20 08:00 96 05/02/20 07:00 98.4 F 109 H 18 175/90 H 96 Weight Admit Weight 196 lb Weight 196 lb Result Diagrams: 05/01/20 05:50 05/02/20 05:06 Additional Labs: Accuchecks 05/02/20 05/02/20 05/01/20 10:41 05:51 22:55 POC Glucose 93 106 195 H 05/01/20 05/01/20 16:42 16:10 POC Glucose 144 H 69 L Hospitalist ROS - Medication Medications: Active Medications Generic Name Dose Route Start Last Admin Trade Name Freq PRN Reason Stop Dose Admin Acetaminophen 650 mg 04/28/20 20:32 05/02/20 10:29 Tylenol PO 650 mg Q4H PRN Administration Headache/Fever/Mild Pain (1-3) Amlodipine Besylate 10 mg 04/29/20 09:00 05/02/20 08:14 Norvasc PO 10 mg DAILY ALEXEI Administration Ascorbic Acid 1,000 mg 04/29/20 09:00 05/02/20 08:12 Vitamin C PO 1,000 mg DAILY ALEXEI Administration Aspirin 81 mg 05/01/20 09:00 05/02/20 08:11 Ecotrin PO 81 mg DAILY ALEXEI Administration Benzonatate 100 mg 04/28/20 20:32 04/30/20 21:17 Tessalon PO 100 mg Q6H PRN Administration Cough Bupropion HCl 300 mg 05/01/20 09:00 05/02/20 08:11 Wellbutrin Xl PO 300 mg DAILY ALEXEI Administration Enoxaparin Sodium 90 mg 04/28/20 21:00 05/02/20 08:10 Lovenox SC 90 mg 0900,2100 ALEXEI Administration Hydralazine HCl 10 mg 04/28/20 20:32 04/29/20 08:59 Apresoline SLOW IVP 10 mg Q4H PRN Administration SBP > 180 and HR < 70 Insulin Glargine 30 units/ 0.3 mls @ 0 mls/hr 04/28/20 21:00 05/02/20 08:09 Miscellaneous Medication SC 0.3 mls BID ALEXEI Administration Non-Formulary Medication 1 250 mls @ 250 mls/hr 04/30/20 16:00 05/01/20 15:41 each/ Sodium Chloride IV 05/03/20 16:59 250 mls 1600 ALEXEI Administration Insulin Human Lispro 0 units 04/28/20 20:32 04/29/20 12:50 Humalog SC 4 unit .MODERATE SLIDING SC PRN Administration Moderate Correctional Scale Insulin Human Lispro 0 units 04/28/20 20:32 04/29/20 21:34 Humalog SC 2 unit .BEDTIME SLIDING SC PRN Administration Bedtime Correctional Scale Lisinopril 40 mg 04/29/20 09:00 05/02/20 08:13 Zestril PO 40 mg DAILY ALEXEI Administration Meclizine HCl 25 mg 04/30/20 16:07 05/02/20 12:18 Antivert PO 25 mg Q8H PRN Administration Dizziness Metformin HCl 1,000 mg 04/30/20 08:00 05/02/20 08:11 Glucophage Xr PO 1,000 mg BID-WM ALEXEI Administration Ondansetron HCl 4 mg 04/28/20 20:32 05/02/20 08:39 Zofran Odt PO 4 mg Q6H PRN Administration Nausea/Vomiting Pantoprazole Sodium 40 mg 04/29/20 09:00 05/02/20 08:13 Protonix PO 40 mg DAILY ALEXEI Administration Phenytoin Sodium 300 mg 04/29/20 09:00 05/02/20 08:11 Dilantin Er PO 300 mg DAILY ALEXEI Administration Sertraline HCl 50 mg 05/01/20 09:00 05/02/20 08:12 Zoloft PO 50 mg DAILY ALEXEI Administration Simvastatin 5 mg 04/29/20 09:00 05/02/20 08:12 Zocor PO 5 mg QAM ALEXEI Administration Sodium Chloride 10 ml 04/29/20 09:00 05/02/20 08:15 Flush - Normal Saline IVF 10 ml Q12HR ALEXEI Administration Vitamin B Complex/Vit C/Folic Acid 1 tab 04/29/20 09:00 05/02/20 08:11 Nephro-Yuliya Tablet PO 1 tab DAILY ALEXEI Administration Zinc Sulfate 220 mg 04/29/20 09:00 05/02/20 08:11 Zinc Sulfate PO 220 mg DAILY ALEXEI Administration - Exam General Appearance: awake alert Eye: PERRL, anicteric sclera ENT: no oropharyngeal lesions, moist mucosa Neck: supple, no JVD Heart: RRR, no murmur Respiratory: no wheezes, no rales, rhonchi Gastrointestinal: soft, non-tender, non-distended, normal bowel sounds Extremities: no cyanosis, no edema Neurological: cranial nerve grossly intact, no focal deficits Psychiatric: A&O x 3 Hosp A/P (1) Pneumonia due to COVID-19 virus Code(s): U07.1 - COVID-19; J12.89 - OTHER VIRAL PNEUMONIA Status: Acute (2) DM type 2 (diabetes mellitus, type 2) Status: Chronic Qualifiers: Diabetes mellitus terminal press operator insulin use: with long-term use (3) Anxiety and depression Code(s): F41.9 - ANXIETY DISORDER, UNSPECIFIED; F32.9 - MAJOR DEPRESSIVE DISORDER, SINGLE EPISODE, UNSPECIFIED Status: Chronic (4) Dyslipidemia Code(s): E78.5 - HYPERLIPIDEMIA, UNSPECIFIED Status: Chronic (5) HTN (hypertension) Code(s): I10 - ESSENTIAL (PRIMARY) HYPERTENSION Status: Chronic Qualifiers: Hypertension type: essential hypertension Qualified Code(s): I10 - Essential (primary) hypertension - Plan is on day 3 of remdesivir, last dose in am, dexamethasone taper and dc oxygen, if not will need home oxygen for dc plan continue asp, zocor, norvasc, bupropion, sertraline, lantus, lisinopril and metformin hemostable likely dc plan in am if stable
[2020-05-02] MEDS: Non-Formulary Item 1 EACH in Sodium Chloride 0.9% 250 ML 230 ML IV SCH (15:54)
[2020-05-02] MEDS: Dexamethasone Sod Phosphate 6 MG in Sodium Chloride 0.9% 50 ML IVPB SCH (17:22)
[2020-05-03 06:07] LABS: Anion Gap 15 mmol/L (10-20); BUN (Urea Nitrogen) 22 mg/dL (8.4-25.7); CRP (Inflammatory) 25.87 mg/dL (= or < 0.5); Calc. Creatinine Clearance 123 mL/min (70-130); Calcium 8.6 mg/dL (7.8-10.44); Carbon Dioxide 19 mmol/L (22-29); Chloride 105 mmol/L (98-107); Estimated GFR-MDRD Greater than 90; Glucose 109 mg/dL (70-105); Potassium 4.4 mmol/L (3.5-5.1); Sodium 135 mmol/L (136-145)
[2020-05-03 06:09] LABS: ALT (SGPT) 34 U/L (8-55); AST (SGOT) 36 U/L (5-34); Albumin 2.8 g/dL (3.5-5.0); Alkaline Phosphatase 67 U/L (40-110); Bilirubin, Direct 0.1 mg/dL (0.1-0.3); Bilirubin, Total 0.2 mg/dL (0.2-1.2); Protein, Total 6.9 g/dL (6.0-8.3)
[2020-05-03] MEDS: Insulin Glargine 30 UNITS in Pre-Filled Syringe 1 EACH SC SCH ×2 (08:44→22:33)
[2020-05-03] MEDS: Enoxaparin Sodium 100 MG/ML SYRINGE SC SCH ×2 (08:44→22:32)
[2020-05-03] MEDS: Lisinopril 20 MG TAB PO SCH (08:46)
[2020-05-03] MEDS: Amlodipine 10 MG TAB PO SCH (08:46)
[2020-05-03] MEDS: Ascorbic Acid 500 mg Chewable Tablet PO SCH (08:46)
[2020-05-03] MEDS: Aspirin 81 mg Enteric Coated Tablet PO SCH (08:46)
[2020-05-03] MEDS: metFORMIN XR 500 MG TAB PO SCH ×2 (08:46→16:50)
[2020-05-03] MEDS: Folic Acid/Vit B Comp W-C PO SCH (08:46)
[2020-05-03] MEDS: Simvastatin 5 MG TAB PO SCH (08:47)
[2020-05-03] MEDS: Benzonatate 100 MG CAP PO PRN ×3 (08:47→22:48)
[2020-05-03] MEDS: Zinc Sulfate 220 MG CAP PO SCH (08:47)
[2020-05-03] MEDS: Bupropion 150 MG XL TAB PO SCH (08:51)
--- NOTE | 2020-05-03 14:51 | PDOC.HOSPP ---
- Subjective Encounter Date: 05/03/20 Encounter Time: 12:00 Subjective: feels better, still has coughing spells is amb in room - Objective Vital Signs & Weight: Vital Signs (12 hours) Temp Pulse Resp BP BP Pulse Ox 05/03/20 11:00 98.1 F 107 H 18 163/80 H 94 L 05/03/20 08:46 98.1 F 103 H 18 184/97 H 175/83 H 93 L 05/03/20 08:00 93 L Weight Admit Weight 196 lb Weight 196 lb Result Diagrams: 05/01/20 05:50 05/03/20 05:23 Additional Labs: Accuchecks 05/03/20 05/03/20 05/02/20 12:33 06:21 21:57 POC Glucose 197 H 114 H 157 H 05/02/20 17:32 POC Glucose 131 H Hospitalist ROS - Medication Medications: Active Medications Generic Name Dose Route Start Last Admin Trade Name Freq PRN Reason Stop Dose Admin Acetaminophen 650 mg 04/28/20 20:32 05/02/20 17:29 Tylenol PO 650 mg Q4H PRN Administration Headache/Fever/Mild Pain (1-3) Amlodipine Besylate 10 mg 04/29/20 09:00 05/03/20 08:46 Norvasc PO 10 mg DAILY ALEXEI Administration Ascorbic Acid 1,000 mg 04/29/20 09:00 05/03/20 08:46 Vitamin C PO 1,000 mg DAILY ALEXEI Administration Aspirin 81 mg 05/01/20 09:00 05/03/20 08:46 Ecotrin PO 81 mg DAILY ALEXEI Administration Benzonatate 100 mg 04/28/20 20:32 05/03/20 08:47 Tessalon PO 100 mg Q6H PRN Administration Cough Bupropion HCl 300 mg 05/01/20 09:00 05/03/20 08:51 Wellbutrin Xl PO 300 mg DAILY ALEXEI Administration Enoxaparin Sodium 90 mg 04/28/20 21:00 05/03/20 08:44 Lovenox SC 90 mg 09,2100 ALEEXI Administration Hydralazine HCl 10 mg 04/28/20 20:32 04/29/20 08:59 Apresoline SLOW IVP 10 mg Q4H PRN Administration SBP > 180 and HR < 70 Insulin Glargine 30 units/ 0.3 mls @ 0 mls/hr 04/28/20 21:00 05/03/20 08:44 Miscellaneous Medication SC 0.3 mls BID ALEXEI Administration Non-Formulary Medication 1 250 mls @ 250 mls/hr 04/30/20 16:00 05/02/20 15:54 each/ Sodium Chloride IV 05/03/20 16:59 250 mls 1600 ALEXEI Administration Dexamethasone Sodium Phosphate 50.6 mls @ 98.252 mls/hr 05/02/20 16:00 17:22 6 mg/ Sodium Chloride IVPB 50.6 mls 1600 ALEXEI Administration Insulin Human Lispro 0 units 04/28/20 20:32 04/29/20 12:50 Humalog SC 4 unit .MODERATE SLIDING SC PRN Administration Moderate Correctional Scale Insulin Human Lispro 0 units 04/28/20 20:32 04/29/20 21:34 Humalog SC 2 unit .BEDTIME SLIDING SC PRN Administration Bedtime Correctional Scale Lisinopril 40 mg 04/29/20 09:00 05/03/20 08:46 Zestril PO 40 mg DAILY ALEXEI Administration Meclizine HCl 25 mg 04/30/20 16:07 05/02/20 12:18 Antivert PO 25 mg Q8H PRN Administration Dizziness Metformin HCl 1,000 mg 04/30/20 08:00 05/03/20 08:46 Glucophage Xr PO 1,000 mg BID-WM ALEXEI Administration Ondansetron HCl 4 mg 04/28/20 20:32 05/02/20 08:39 Zofran Odt PO 4 mg Q6H PRN Administration Nausea/Vomiting Pantoprazole Sodium 40 mg 04/29/20 09:00 05/03/20 08:47 Protonix PO 40 mg DAILY ALEXEI Administration Phenytoin Sodium 300 mg 04/29/20 09:00 05/03/20 08:45 Dilantin Er PO 300 mg DAILY ALEXEI Administration Sertraline HCl 50 mg 05/01/20 09:00 05/03/20 08:47 Zoloft PO 50 mg DAILY ALEXEI Administration Simvastatin 5 mg 04/29/20 09:00 05/03/20 08:47 Zocor PO 5 mg QAM ALEXEI Administration Sodium Chloride 10 ml 04/29/20 09:00 05/03/20 08:47 Flush - Normal Saline IVF Not Given Q12HR [facility] Vitamin B Complex/Vit C/Folic Acid 1 tab 04/29/20 09:00 05/03/20 08:46 Nephro-Yuliya Tablet PO 1 tab DAILY ALEXEI Administration Zinc Sulfate 220 mg 04/29/20 09:00 05/03/20 08:47 Zinc Sulfate PO 220 mg DAILY ALEXEI Administration - Exam General Appearance: awake alert Eye: PERRL, anicteric sclera ENT: no oropharyngeal lesions, moist mucosa Neck: supple, no JVD Heart: RRR, no murmur Respiratory: no wheezes, no rales Gastrointestinal: soft, non-tender, non-distended, normal bowel sounds Extremities: no cyanosis, no edema Neurological: cranial nerve grossly intact, no focal deficits Psychiatric: normal affect, A&O x 3 Hosp A/P (1) Pneumonia due to COVID-19 virus Code(s): U07.1 - COVID-19; J12.89 - OTHER VIRAL PNEUMONIA Status: Acute (2) DM type 2 (diabetes mellitus, type 2) Status: Chronic Qualifiers: Diabetes mellitus termination clerk insulin use: with mcc use (3) Anxiety and depression Code(s): F41.9 - ANXIETY DISORDER, UNSPECIFIED; F32.9 - MAJOR DEPRESSIVE DISORDER, SINGLE EPISODE, UNSPECIFIED Status: Chronic (4) Dyslipidemia Code(s): E78.5 - HYPERLIPIDEMIA, UNSPECIFIED Status: Chronic (5) HTN (hypertension) Code(s): I10 - ESSENTIAL (PRIMARY) HYPERTENSION Status: Chronic Qualifiers: Hypertension type: essential hypertension Qualified Code(s): I10 - Essential (primary) hypertension - Plan is on day 4 of remdesivir, dexamethasone taper and dc oxygen, if not will need home oxygen for dc plan continue asp, zocor, norvasc, bupropion, sertraline, lantus, lisinopril and metformin hemostable likely dc plan in am if stable, still has elevated inflamatory markers, will check repeat cxr
[2020-05-03] MEDS: Dexamethasone Sod Phosphate 6 MG in Sodium Chloride 0.9% 50 ML IVPB SCH (15:07)
[2020-05-03] MEDS: Non-Formulary Item 1 EACH in Sodium Chloride 0.9% 250 ML 230 ML IV SCH (16:50)
--- NOTE | 2020-05-03 16:59 | RAD ---
Chest AP view INDICATION: Follow-up Covid positive patient COMPARISON: Prior exam dated April 28, 2020 FINDINGS: Lungs: There is worsening bilateral airspace disease consistent with worsening pneumonia Cardiac silhouette: The cardiomediastinal silhouette appears within normal limits. Pulmonary vasculature: Normal Pleural spaces: No pleural effusion or pneumothorax is demonstrated. Upper abdomen: No abnormality seen. Osseous structures: No acute osseous abnormality. Additional findings: None. IMPRESSION: Worsening bilateral airspace disease consistent with worsening pneumonia
[2020-05-04 07:30] LABS: Anion Gap 12 mmol/L (10-20); BUN (Urea Nitrogen) 20 mg/dL (8.4-25.7); CRP (Inflammatory) 13.43 mg/dL (= or < 0.5); Calc. Creatinine Clearance 118 mL/min (70-130); Calcium 9.1 mg/dL (7.8-10.44); Carbon Dioxide 22 mmol/L (22-29); Chloride 102 mmol/L (98-107); Estimated GFR-MDRD 89; Glucose 140 mg/dL (70-105); Potassium 4.1 mmol/L (3.5-5.1); Sodium 132 mmol/L (136-145)
[2020-05-04 07:38] LABS: ALT (SGPT) 36 U/L (8-55); AST (SGOT) 26 U/L (5-34); Alkaline Phosphatase 73 U/L (40-110); Bilirubin, Direct 0.1 mg/dL (0.1-0.3); Bilirubin, Total 0.2 mg/dL (0.2-1.2); Protein, Total 7.2 g/dL (6.0-8.3)
[2020-05-04] MEDS: Zinc Sulfate 220 MG CAP PO SCH (09:07)
[2020-05-04] MEDS: metFORMIN XR 500 MG TAB PO SCH ×2 (09:07→17:08)
[2020-05-04] MEDS: Ascorbic Acid 500 mg Chewable Tablet PO SCH (09:08)
[2020-05-04] MEDS: Amlodipine 10 MG TAB PO SCH (09:08)
[2020-05-04] MEDS: Lisinopril 20 MG TAB PO SCH (09:08)
[2020-05-04] MEDS: Aspirin 81 mg Enteric Coated Tablet PO SCH (09:08)
[2020-05-04] MEDS: Folic Acid/Vit B Comp W-C PO SCH (09:08)
[2020-05-04] MEDS: Simvastatin 5 MG TAB PO SCH (09:10)
[2020-05-04] MEDS: Enoxaparin Sodium 100 MG/ML SYRINGE SC SCH ×2 (09:15→20:04)
[2020-05-04] MEDS: Insulin Glargine 30 UNITS in Pre-Filled Syringe 1 EACH SC SCH ×2 (09:17→20:03)
[2020-05-04] MEDS: Benzonatate 100 MG CAP PO PRN (09:42)
[2020-05-04] MEDS: Bupropion 150 MG XL TAB PO SCH (12:35)
--- NOTE | 2020-05-04 14:13 | PDOC.HOSPP ---
- Subjective Encounter Date: 05/04/20 Encounter Time: 12:00 Subjective: no sob, is off oxygen says he is amb around his bed has dry cough, tries to lie on his sides when he sleeps - Objective Vital Signs & Weight: Vital Signs (12 hours) BP Pulse Ox 05/04/20 08:00 96 05/04/20 05:00 158/84 H Weight Admit Weight 196 lb Weight 196 lb Result Diagrams: 05/01/20 05:50 05/04/20 06:27 Additional Labs: Accuchecks 05/04/20 05/04/20 05/03/20 12:51 02:58 22:43 POC Glucose 129 H 304 H 289 H 05/03/20 17:53 POC Glucose 165 H Hospitalist ROS - Medication Medications: Active Medications Generic Name Dose Route Start Last Admin Trade Name Freq PRN Reason Stop Dose Admin Acetaminophen 650 mg 04/28/20 20:32 05/02/20 17:29 Tylenol PO 650 mg Q4H PRN Administration Headache/Fever/Mild Pain (1-3) Amlodipine Besylate 10 mg 04/29/20 09:00 05/04/20 09:08 Norvasc PO 10 mg DAILY ALEXEI Administration Ascorbic Acid 1,000 mg 04/29/20 09:00 05/04/20 09:08 Vitamin C PO 1,000 mg DAILY ALEXEI Administration Aspirin 81 mg 05/01/20 09:00 05/04/20 09:08 Ecotrin PO 81 mg DAILY ALEXEI Administration Benzonatate 100 mg 04/28/20 20:32 05/04/20 09:42 Tessalon PO 100 mg Q6H PRN Administration Cough Bupropion HCl 300 mg 05/01/20 09:00 05/04/20 12:35 Wellbutrin Xl PO 300 mg DAILY ALEXEI Administration Enoxaparin Sodium 90 mg 04/28/20 21:00 05/04/20 09:15 Lovenox SC 90 mg 0900,2100 ALEXEI Administration Hydralazine HCl 10 mg 04/28/20 20:32 04/29/20 08:59 Apresoline SLOW IVP 10 mg Q4H PRN Administration SBP > 180 and HR < 70 Insulin Glargine 30 units/ 0.3 mls @ 0 mls/hr 04/28/20 21:00 05/04/20 09:17 Miscellaneous Medication SC 0.3 mls BID ALEXEI Administration Dexamethasone Sodium Phosphate 50.6 mls @ 98.252 mls/hr 05/02/20 16:00 15:07 6 mg/ Sodium Chloride IVPB 50.6 mls 1600 ALEXEI Administration Insulin Human Lispro 0 units 04/28/20 20:32 04/29/20 12:50 Humalog SC 4 unit .MODERATE SLIDING SC PRN Administration Moderate Correctional Scale Insulin Human Lispro 0 units 04/28/20 20:32 04/29/20 21:34 Humalog SC 2 unit .BEDTIME SLIDING SC PRN Administration Bedtime Correctional Scale Lisinopril 40 mg 04/29/20 09:00 05/04/20 09:08 Zestril PO 40 mg DAILY ALEXEI Administration Meclizine HCl 25 mg 04/30/20 16:07 05/02/20 12:18 Antivert PO 25 mg Q8H PRN Administration Dizziness Metformin HCl 1,000 mg 04/30/20 08:00 05/04/20 09:07 Glucophage Xr PO 1,000 mg BID-WM ALEXEI Administration Ondansetron HCl 4 mg 04/28/20 20:32 05/02/20 08:39 Zofran Odt PO 4 mg Q6H PRN Administration Nausea/Vomiting Pantoprazole Sodium 40 mg 04/29/20 09:00 05/04/20 09:07 Protonix PO 40 mg DAILY ALEXEI Administration Phenytoin Sodium 300 mg 04/29/20 09:00 05/04/20 09:15 Dilantin Er PO 300 mg DAILY ALEXEI Administration Sertraline HCl 50 mg 05/01/20 09:00 05/04/20 09:09 Zoloft PO 50 mg DAILY ALEXEI Administration Simvastatin 5 mg 04/29/20 09:00 05/04/20 09:10 Zocor PO 5 mg QAM ALEXEI Administration Sodium Chloride 10 ml 04/29/20 09:00 05/04/20 09:16 Flush - Normal Saline IVF 10 ml Q12HR ALEXEI Administration Vitamin B Complex/Vit C/Folic Acid 1 tab 04/29/20 09:00 05/04/20 09:08 Nephro-Yuliya Tablet PO 1 tab DAILY ALEXEI Administration Zinc Sulfate 220 mg 04/29/20 09:00 05/04/20 09:07 Zinc Sulfate PO 220 mg DAILY ALEXEI Administration - Exam General Appearance: awake alert Eye: PERRL, anicteric sclera ENT: no oropharyngeal lesions, moist mucosa Neck: supple, no JVD Heart: RRR, no murmur Respiratory: no wheezes, rales, rhonchi Gastrointestinal: soft, non-tender, non-distended, normal bowel sounds Extremities: no cyanosis, no edema Neurological: cranial nerve grossly intact, no focal deficits Psychiatric: normal affect, A&O x 3 Hosp A/P (1) Pneumonia due to COVID-19 virus Code(s): U07.1 - COVID-19; J12.89 - OTHER VIRAL PNEUMONIA Status: Acute (2) DM type 2 (diabetes mellitus, type 2) Status: Chronic Qualifiers: Diabetes mellitus shelter 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 (3) Anxiety and depression Code(s): F41.9 - ANXIETY DISORDER, UNSPECIFIED; F32.9 - MAJOR DEPRESSIVE DISORDER, SINGLE EPISODE, UNSPECIFIED Status: Chronic (4) Dyslipidemia Code(s): E78.5 - HYPERLIPIDEMIA, UNSPECIFIED Status: Chronic (5) HTN (hypertension) Code(s): I10 - ESSENTIAL (PRIMARY) HYPERTENSION Status: Chronic Qualifiers: Hypertension type: essential hypertension Qualified Code(s): I10 - Essential (primary) hypertension - Plan has finished 4 days of remdesivir(last dose on , is on dexamethasone is off supplemental oxygen, likely will need home oxygen, has extensive disease in his lungs on cxr. continue asp, zocor, norvasc, bupropion, sertraline, lantus, lisinopril and metformin hemostable still has elevated inflamatory markers dc plan per advice
[2020-05-04] MEDS: glipiZIDE 5 MG TAB PO SCH (17:08)
[2020-05-04] MEDS: Dexamethasone Sod Phosphate 6 MG in Sodium Chloride 0.9% 50 ML IVPB SCH (17:08)
--- NOTE | 2020-05-04 18:02 | CON ---
DATE OF CONSULTATION: 05/04/2020 REASON FOR CONSULTATION: COVID pneumonia. 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 He had an episode of gastroenteritis with colitis. The C difficile antigen was negative. All the other assays were negative. Now, he presents on the with 2-3 days' history of dyspnea, cough, and myalgias. COVID test was positive. He was felt to be [id number] course of illness, had bilateral infiltrates with elevated inflammatory markers, so he was given remdesivir, started on Decadron as well. The remdesivir has been completed on the and he is still on Decadron 6 mg daily. The patient also received for a while Rocephin and azithromycin. It looks like the Decadron was started on the , so this is the 6th day of therapy with Decadron. He is feeling better now, he has turned around this on room air and saturating 94%, still coughing intermittently. No headaches. No visual symptoms. No anosmia. No sore throat, odynophagia, or dysphagia. No back pain. No chest pain. No abdominal pain or diarrhea. No genitourinary symptoms no joint symptoms. He moves extremities equally. PAST MEDICAL HISTORY: Includes: 1. Type 2 diabetes. 2. Hyperlipidemia. 3. Hypertension. 4. Listeria meningitis in 2018. SOCIAL HISTORY: Never smoker. Lives in the area. No alcoholic beverage use. ALLERGIES: NONE. FAMILY HISTORY: Noncontributory. CURRENT MEDICATIONS: 1. P.r.n. medications. 2. Wellbutrin. 3. Decadron. 4. He finished his remdesivir. 5. Insulin. 6. Ondansetron. 7. Pantoprazole. 8. Zinc. PHYSICAL EXAMINATION: VITAL SIGNS: His T-max is 98.4. Other vital signs are fairly unremarkable. His O2 sats started at 93, went down to 92%, and now is up to 96% on room air. His flow rates started at 2, went up to 4 briefly and then went down to 1.5 and 2, and now he is on room air, saturating at 94. SKIN: Normal. There is no lymphadenopathy. He is voiding in the toilet. HEENT: Ocular movements conjugate. Oral cavity normal. NECK: Supple. LUNGS: Symmetric air entry with a few crackles in the scattered areas. No wheezing. HEART: S1 and S2. Regular rate. No S3 or S4. ABDOMEN: Soft, not distended or tender. No ascites. No bladder distention. EXTREMITIES: No joint inflammatory activity. No edema. Pulses 1+ in dorsalis pedis. Plantar responses are flexor. He moves extremities equally. NEUROLOGIC: His cognitive function appears to be intact. LABORATORY DATA: Sodium 132 and creatinine 0.89. The trends in the inflammatory markers. The ferritin keeps going up and is now at 2300. The C-reactive protein, however, started at 27, went down to 18, up to 27 and now is at 13. The CRP tends to be a more fast turnaround of the decreased than the ferritin. The D-dimer went up to 0.64, now is down to 0.45 and the patient has been on enoxaparin b.i.d. ASSESSMENT: Type 2 diabetes and COVID pneumonia with severe course, but now clearly improving. The ferritin still going up, but the other markers are going down, so hopefully, in the next day or 2, he can go home off oxygen. This is the 7th day of illness, so another 3 days as long as he is not symptomatic. He should be able to get off quarantine if he goes home. If his CRP continues to trend down as well as a D-dimer and the ferritin turns around the thing and his O2 saturations are good on room air, then may be sent him home tomorrow or the day after. Job ID: [id number]
[2020-05-04] MEDS: Acetaminophen 325 MG TAB PO PRN (18:05)
[2020-05-05 07:01] LABS: Anion Gap 15 mmol/L (10-20); BUN (Urea Nitrogen) 19 mg/dL (8.4-25.7); CRP (Inflammatory) 8.11 mg/dL (= or < 0.5); Calc. Creatinine Clearance 119 mL/min (70-130); Calcium 9.2 mg/dL (7.8-10.44); Carbon Dioxide 23 mmol/L (22-29); Chloride 104 mmol/L (98-107); Estimated GFR-MDRD 90; Glucose 92 mg/dL (70-105); Potassium 4.5 mmol/L (3.5-5.1); Sodium 137 mmol/L (136-145)
[2020-05-05] MEDS: Aspirin 81 mg Enteric Coated Tablet PO SCH (08:47)
[2020-05-05] MEDS: metFORMIN XR 500 MG TAB PO SCH ×2 (08:47→16:53)
[2020-05-05] MEDS: Bupropion 150 MG XL TAB PO SCH (08:47)
[2020-05-05] MEDS: Simvastatin 5 MG TAB PO SCH (08:48)
[2020-05-05] MEDS: glipiZIDE 5 MG TAB PO SCH ×2 (08:48→16:53)
[2020-05-05] MEDS: Lisinopril 20 MG TAB PO SCH (08:50)
[2020-05-05] MEDS: Ascorbic Acid 500 mg Chewable Tablet PO SCH (08:50)
[2020-05-05] MEDS: Folic Acid/Vit B Comp W-C PO SCH (08:50)
[2020-05-05] MEDS: Amlodipine 10 MG TAB PO SCH (08:50)
[2020-05-05] MEDS: Insulin Glargine 30 UNITS in Pre-Filled Syringe 1 EACH SC SCH ×2 (08:54→20:32)
[2020-05-05] MEDS: Enoxaparin Sodium 100 MG/ML SYRINGE SC SCH ×2 (08:54→20:32)
[2020-05-05] MEDS: Zinc Sulfate 220 MG CAP PO SCH (08:54)
[2020-05-05] MEDS: Benzonatate 100 MG CAP PO PRN (14:40)
[2020-05-05] MEDS: Dexamethasone Sod Phosphate 6 MG in Sodium Chloride 0.9% 50 ML IVPB SCH (16:53)
--- NOTE | 2020-05-05 17:14 | PDOC.HOSPP ---
- Subjective Encounter Date: 05/05/20 Encounter Time: 12:00 Subjective: feels better, is more active and walking in the room is back on nasal canula oxygen now - Objective Vital Signs & Weight: Vital Signs (12 hours) Temp Pulse Resp BP Pulse Ox 05/05/20 12:42 98.1 F 101 H 18 150/88 H 95 05/05/20 09:00 98.1 F 100 16 194/96 H 97 05/05/20 08:00 97 Weight Admit Weight 196 lb Weight 196 lb Result Diagrams: 05/01/20 05:50 05/05/20 06:26 Additional Labs: Accuchecks 05/05/20 05/05/20 05/04/20 12:38 06:45 20:15 POC Glucose 84 77 235 H 05/04/20 17:21 POC Glucose 95 Hospitalist ROS - Medication Medications: Active Medications Generic Name Dose Route Start Last Admin Trade Name Freq PRN Reason Stop Dose Admin Acetaminophen 650 mg 04/28/20 20:32 05/04/20 18:05 Tylenol PO 650 mg Q4H PRN Administration Headache/Fever/Mild Pain (1-3) Amlodipine Besylate 10 mg 04/29/20 09:00 05/05/20 08:50 Norvasc PO 10 mg DAILY ALEXEI Administration Ascorbic Acid 1,000 mg 04/29/20 09:00 05/05/20 08:50 Vitamin C PO 1,000 mg DAILY ALEXEI Administration Aspirin 81 mg 05/01/20 09:00 05/05/20 08:47 Ecotrin PO 81 mg DAILY ALEXEI Administration Benzonatate 100 mg 04/28/20 20:32 05/05/20 14:40 Tessalon PO 100 mg Q6H PRN Administration Cough Bupropion HCl 300 mg 05/01/20 09:00 05/05/20 08:47 Wellbutrin Xl PO 300 mg DAILY ALEXEI Administration Enoxaparin Sodium 90 mg 04/28/20 21:00 05/05/20 08:54 Lovenox SC 90 mg 09,2099 ALEXEI Administration Glipizide 5 mg 05/04/20 16:30 05/05/20 16:53 Glucotrol PO 5 mg BID-AC ALEXEI Administration Hydralazine HCl 10 mg 04/28/20 20:32 04/29/20 08:59 Apresoline SLOW IVP 10 mg Q4H PRN Administration SBP > 180 and HR < 70 Insulin Glargine 30 units/ 0.3 mls @ 0 mls/hr 04/28/20 21:00 05/05/20 08:54 Miscellaneous Medication SC 0.3 mls BID ALEXEI Administration Dexamethasone Sodium Phosphate 50.6 mls @ 98.252 mls/hr 05/02/20 16:00 16:53 6 mg/ Sodium Chloride IVPB 50.6 mls 1600 ALEXEI Administration Insulin Human Lispro 0 units 04/28/20 20:32 04/29/20 12:50 Humalog SC 4 unit .MODERATE SLIDING SC PRN Administration Moderate Correctional Scale Insulin Human Lispro 0 units 04/28/20 20:32 04/29/20 21:34 Humalog SC 2 unit .BEDTIME SLIDING SC PRN Administration Bedtime Correctional Scale Lisinopril 40 mg 04/29/20 09:00 05/05/20 08:50 Zestril PO 40 mg DAILY ALEXEI Administration Meclizine HCl 25 mg 04/30/20 16:07 05/02/20 12:18 Antivert PO 25 mg Q8H PRN Administration Dizziness Metformin HCl 1,000 mg 04/30/20 08:00 05/05/20 16:53 Glucophage Xr PO 1,000 mg BID-WM ALEXEI Administration Ondansetron HCl 4 mg 04/28/20 20:32 05/02/20 08:39 Zofran Odt PO 4 mg Q6H PRN Administration Nausea/Vomiting Pantoprazole Sodium 40 mg 04/29/20 09:00 05/05/20 08:51 Protonix PO 40 mg DAILY ALEXEI Administration Phenytoin Sodium 300 mg 04/29/20 09:00 05/05/20 08:48 Dilantin Er PO 300 mg DAILY ALEXEI Administration Sertraline HCl 50 mg 05/01/20 09:00 05/05/20 08:48 Zoloft PO 50 mg DAILY ALEXEI Administration Simvastatin 5 mg 04/29/20 09:00 05/05/20 08:48 Zocor PO 5 mg QAM ALEXEI Administration Sodium Chloride 10 ml 04/29/20 09:00 05/05/20 08:51 Flush - Normal Saline IVF 10 ml Q12HR ALEXEI Administration Vitamin B Complex/Vit C/Folic Acid 1 tab 04/29/20 09:00 05/05/20 08:50 Nephro-Yuliya Tablet PO 1 tab DAILY ALEXEI Administration Zinc Sulfate 220 mg 04/29/20 09:00 05/05/20 08:54 Zinc Sulfate PO 220 mg DAILY ALEXEI Administration - Exam General Appearance: awake alert Eye: PERRL, anicteric sclera ENT: no oropharyngeal lesions, moist mucosa Neck: supple, no JVD Heart: RRR, no murmur Respiratory: no wheezes, rales, rhonchi Gastrointestinal: soft, non-distended, normal bowel sounds Extremities: no cyanosis, no edema Neurological: cranial nerve grossly intact, no focal deficits Psychiatric: normal affect, A&O x 3 Hosp A/P (1) Pneumonia due to COVID-19 virus Code(s): U07.1 - COVID-19; J12.89 - OTHER VIRAL PNEUMONIA Status: Acute (2) DM type 2 (diabetes mellitus, type 2) Status: Chronic Qualifiers: Diabetes mellitus ad terminal makeup operator insulin use: with ad terminal makeup operator use (3) Anxiety and depression Code(s): F41.9 - ANXIETY DISORDER, UNSPECIFIED; F32.9 - MAJOR DEPRESSIVE DISORDER, SINGLE EPISODE, UNSPECIFIED Status: Chronic (4) Dyslipidemia Code(s): E78.5 - HYPERLIPIDEMIA, UNSPECIFIED Status: Chronic (5) HTN (hypertension) Code(s): I10 - ESSENTIAL (PRIMARY) HYPERTENSION Status: Chronic Qualifiers: Hypertension type: essential hypertension Qualified Code(s): I10 - Essential (primary) hypertension - Plan has finished 4 days of remdesivir(last dose on , is on dexamethasone is off supplemental oxygen, likely will need home oxygen, has extensive disease in his lungs on cxr. continue asp, zocor, norvasc, bupropion, sertraline, lantus, lisinopril and metformin hemostable inflamatory markers are slowly trending down dc plan per advice, likely in am on home O2 and home health with nursing
[2020-05-05] MEDS: HumaLOG 300 UNITS/3 ML VIAL SC PRN (20:53)
[2020-05-06 07:31] LABS: #Eosinphils 0.1 thou/uL (0.0-0.7); #Lymphocytes 2.1 thou/uL (1.20-3.40); #Monocytes 0.4 thou/uL (0.11-0.59); #Neutrophils 3.3 thou/uL (1.40-6.50); %Basophils 0.6 % (0.0-1.0); %Eosinophils 1.4 % (0.0-10.0); %Lymphocytes 35.2 % (21.0-51.0); %Monocytes 6.5 % (0.0-10.0); %Neutrophils 56.2 % (42.0-75.0); Hemoglobin 11.6 g/dL (14.0-18.0); Mean Corpuscular HGB CONC 34.1 g/dL (32.0-36.0); Mean Corpuscular Hemoglobin 31.5 pg (27.0-31.0); Mean Corpuscular Volume 92.4 fL (78.0-98.0); Mean Platelet Volume 6.7 fL (7.4-10.4); Platelet Count 805 thou/uL (130-400); RBC Distribution Width 11.2 % (11.5-14.5); Red Blood Cell (RBC) Count 3.69 mill/uL (4.70-6.10); White Blood Cell (WBC) Count 5.9 thou/uL (4.8-10.8)
[2020-05-06] MEDS: Folic Acid/Vit B Comp W-C PO SCH (07:42)
[2020-05-06] MEDS: glipiZIDE 5 MG TAB PO SCH (07:42)
[2020-05-06] MEDS: Aspirin 81 mg Enteric Coated Tablet PO SCH (07:42)
[2020-05-06] MEDS: Amlodipine 10 MG TAB PO SCH (07:42)
[2020-05-06] MEDS: Ascorbic Acid 500 mg Chewable Tablet PO SCH (07:42)
[2020-05-06] MEDS: Simvastatin 5 MG TAB PO SCH (07:43)
[2020-05-06] MEDS: Lisinopril 20 MG TAB PO SCH (07:43)
[2020-05-06] MEDS: metFORMIN XR 500 MG TAB PO SCH (07:43)
[2020-05-06 07:46] LABS: ALT (SGPT) 87 U/L (8-55); AST (SGOT) 76 U/L (5-34); Albumin 3.2 g/dL (3.5-5.0); Alkaline Phosphatase 83 U/L (40-110); Anion Gap 14 mmol/L (10-20); BUN (Urea Nitrogen) 19 mg/dL (8.4-25.7); Bilirubin, Total Less than 0.2 mg/dL (0.2-1.2); CRP (Inflammatory) 4.02 mg/dL (= or < 0.5); Calc. Creatinine Clearance 133 mL/min (70-130); Calcium 9.5 mg/dL (7.8-10.44); Carbon Dioxide 23 mmol/L (22-29); Chloride 103 mmol/L (98-107); Estimated GFR-MDRD Greater than 90; Globulin 4.5 g/dL (2.4-3.5); Glucose 68 mg/dL (70-105); Potassium 4.5 mmol/L (3.5-5.1); Protein, Total 7.7 g/dL (6.0-8.3); Sodium 135 mmol/L (136-145)
[2020-05-06] MEDS: Enoxaparin Sodium 100 MG/ML SYRINGE SC SCH (09:25)
[2020-05-06] MEDS: Zinc Sulfate 220 MG CAP PO SCH (09:26)
[2020-05-06] MEDS: Bupropion 150 MG XL TAB PO SCH (09:26)
[2020-05-06] MEDS: Insulin Glargine 30 UNITS in Pre-Filled Syringe 1 EACH SC SCH (09:26)
[2020-05-06 14:27] VITALS: BP 162/93; TEMP 97.1
--- NOTE | 2020-05-06 18:59 | DIS ---
DATE OF ADMISSION: 04/28/2020 DATE OF DISCHARGE: 05/06/2020 DISCHARGE DISPOSITION: Is to home. PRIMARY DISCHARGE DIAGNOSES: 1. COVID-19 pneumonia. 2. Sepsis secondary to above. SECONDARY DISCHARGE DIAGNOSES: 1. Diabetes mellitus type 2. 2. Hypertension. 3. Anxiety. 4. Depression. 5. Dyslipidemia. PROCEDURES DONE DURING HOSPITALIZATION: The patient finished 4-day course of Remdesivir. Last dose was on 05/03/2020. He also received dexamethasone for nearly 8 days during his stay here. Chest x-ray done on the day of admission showed bilateral patchy infiltrates. He has had a repeat chest x-ray done on 2019, which showed worsening of his infiltrates in both lungs. H and H of 11 and 34, platelet count 805. Serial ferritin levels done peaked up to 2307. Serial CRP initially peaked at 27 and has come down to 4.0 at the time of discharge. His COVID-19 PCR on 04/21/2020 was positive. DISCHARGE MEDICATIONS: 1. Norvasc 10 mg daily. 2. Bupropion extended release 300 mg daily. 3. Levemir 30 units subcutaneous twice daily. 4. Lisinopril 40 mg daily. 5. Metformin extended release 1000 mg twice daily. 6. Phenytoin extended release 300 mg daily. 7. Pravastatin 10 mg p.o. q.a.m. 8. Zoloft 50 mg p.o. q.a.m. 9. Eliquis 2.5 mg twice daily for another 15 days. 10. Aspirin 81 mg daily. 11. Dexamethasone 4 mg p.o. daily for 4 days. 12. Protonix 40 mg p.o. daily. ALLERGIES: TO SHRIMP. INPATIENT CONSULT: Dr. Murray for Infectious Disease. DISCHARGE PLAN: The patient to follow up with his primary care physician, Dr. Collin Rollins in 1 week. He needs to follow up with om outpatient consultation with Dr. Murray on Saturday or Saturday. BRIEF COURSE DURING HOSPITALIZATION: The patient initially got admitted on April 28 with complaints of increasing cough and shortness of breath. He had tested positive for COVID-19 on April 22. On initial presentation, his x-ray showed bilateral infiltrates with the patient having fever and a fever of 99.2 degrees with multiple risk factors. He was placed on Remdesivir and has completed a 4-day course. He was also on steroids for all the 8 days that he was here. He is being given prescription for dexamethasone for another 3 days upon discharge. He was evaluated by Dr. Murray. The patient has been prescribed oxygen for home use as well due to his saturations dropping on ambulation due to bilateral patchy infiltrates from COVID pneumonia. He is also prescribed Eliquis for a total duration of 15 days in view of risk of clotting from COVID-19 infection. Prior to discharge, he is eating well and is ambulating in the room. Case Management consultation was requested for help with setting up oxygen and for help with Eliquis as well. He is hemodynamically stable and will be shortly discharged home. Please note, I have seen and examined the patient on the day of discharge. Job ID: [id number] MTDD
--- NOTE | 2020-05-09 07:18 | PQF ---
MATT Mason MD [phone] [id number] CLINICAL DOCUMENTATION CLARIFICATION FORM: POST DISCHARGE Addendum to original discharge summary date: ____ Late entry note date: __ DATE: 05/09/2020 ATTN: Matt Rojas Please exercise your independent, professional judgment in responding to the clarification form. Clinical indicators are provided on the bottom of this form for your review Diagnosis: Sepsis Present on Admission (POA): [ x ] Yes [ ] No [ ] Unable to determine Coding guidelines require hospitals to identify whether a diagnosis was present on admission (POA) or not. To accurately assign the appropriate POA indicator, this information must be clearly documented within the medical record. CLINICAL INDICATORS - SIGNS / SYMPTOMS / LABS DS 05/06 "Sepsis" DS 05/06 "Covid19 pneumonia" Chest Xray 04/28 "mild opacity may be seen in the left lower lung" HP 04/28 "CC: having worse coughing and SOB" HP 04/28 "acute respiratoru failure due to Covid19 infection" Vital Signs 04/28: Temp=98.3 Pulse=99 JY=761/90 Respi=20 Labs WBC: 04/28=10.5 04/30=6.5 05/06=5.9 Labs Lactate: 04/28=1.2 RISK FACTORS: DM-DS 05/06 Covid19 infection-DS 05/06 Pneumonia-DS 05/06 TREATMENT: Chest Xray-Collected 04/28 Oxygen via [facility] 04/28 Ciprofloxacin 500mg oral-MAR 04/28 (This form is maintained as a part of the permanent medical record) 2014 [email or web address]. All Rights Reserved [email or web address] [phone] [email or web address]
== END 2020-05-06 14:46 | disposition home or self-care (01) | DRG 871 ==
LOC: ERS 12:00 → T4-A 15:51
PROVIDERS: ADMIT Internal Medicine; ATTEND Internal Medicine
PROC: 8E0ZXY6 Isolation (ICD-10-PCS; principal; 2020-04-28)
DX: A41.9 Sepsis, unspecified organism (principal); U07.1 COVID-19; J96.01 Acute respiratory failure with hypoxia; J12.89 Other viral pneumonia; E11.9 Type 2 diabetes mellitus without complications; E78.5 Hyperlipidemia, unspecified; E78.00 Pure hypercholesterolemia, unspecified; G40.409 Other generalized epilepsy and epileptic syndromes, not intractable, without status epilepticus; R42 Dizziness and giddiness; F41.9 Anxiety disorder, unspecified; F32.9 Major depressive disorder, single episode, unspecified; Z91.013 Allergy to seafood; Z79.82 Long term (current) use of aspirin; Z79.4 Long term (current) use of insulin; Z79.899 Other long term (current) drug therapy
CPT/HCPCS: 36415; 36416; 71045; 80048; 80053; 80076; 82728; 83605; 84484; 85025; 85379; 86140; 93005; 96361; 96374; J0360; J1100; J1650; J1815; Q0162

== ENCOUNTER 2020-12-02 19:40 | Emergency (ER) | payer OTHER, SELFPAY ==
[2020-12-02] MEDS ORDERED: Morphine 4 MG/ML VIAL ONE (20:13)
[2020-12-02 20:35] LABS: #Basophils 0.1 thou/uL (0.0-0.2); #Eosinphils 0.3 thou/uL (0.0-0.7); #Lymphocytes 3.3 thou/uL (1.20-3.40); #Monocytes 0.5 thou/uL (0.11-0.59); #Neutrophils 3.4 thou/uL (1.40-6.50); %Basophils 1.1 % (0.0-1.0); %Eosinophils 4.3 % (0.0-10.0); %Lymphocytes 43.3 % (21.0-51.0); %Monocytes 7.1 % (0.0-10.0); %Neutrophils 44.2 % (42.0-75.0); Hemoglobin 11.2 g/dL (14.0-18.0); Mean Corpuscular HGB CONC 34.9 g/dL (32.0-36.0); Mean Corpuscular Hemoglobin 31.4 pg (27.0-31.0); Platelet Count 338 thou/uL (130-400); RBC Distribution Width 11.3 % (11.5-14.5); Red Blood Cell (RBC) Count 3.55 mill/uL (4.70-6.10); White Blood Cell (WBC) Count 7.6 thou/uL (4.8-10.8)
[2020-12-02 20:55] LABS: ALT (SGPT) 12 U/L (8-55); AST (SGOT) 10 U/L (5-34); Albumin 3.7 g/dL (3.5-5.0); Alkaline Phosphatase 125 U/L (40-110); Anion Gap 16 mmol/L (10-20); BUN (Urea Nitrogen) 28 mg/dL (8.4-25.7); Bilirubin, Total Less than 0.2 mg/dL (0.2-1.2); Calc. Creatinine Clearance 0 mL/min (70-130); Calcium 8.8 mg/dL (7.8-10.44); Carbon Dioxide 23 mmol/L (22-29); Chloride 101 mmol/L (98-107); Globulin 3.6 g/dL (2.4-3.5); Glucose 333 mg/dL (70-105); Lipase 62 U/L (8-78); Potassium 4.6 mmol/L (3.5-5.1); Protein, Total 7.3 g/dL (6.0-8.3); Sodium 135 mmol/L (136-145)
[2020-12-02 21:20] LABS: Bacteria/HPF None Seen HPF (None Seen); Bilirubin Negative (Negative); Blood, Urine 2+ (Negative); Clarity Clear (Clear); Glucose, Urine (Dipstick) Greater than 1000 mg/dL (Negative); Ketone, Urine Negative (Negative); Leukocyte Negative Leu/uL (Negative); Nitrite Negative (Negative); Protein, Urine (Dipstick) 200 mg/dL (Neg-Trace); Specific Gravity, Urine 1.016 (1.002-1.036); Squamous Epithelial None Seen HPF (0-3); Urobilinogen Normal mg/dL (Less than 2); WBC/HPF 0-3 HPF (0-3)
== END 2020-12-03 00:25 | disposition home or self-care (01) ==
LOC: ERS 19:40
DX: R10.9 Unspecified abdominal pain (principal); E11.9 Type 2 diabetes mellitus without complications; E78.5 Hyperlipidemia, unspecified; E78.00 Pure hypercholesterolemia, unspecified; I10 Essential (primary) hypertension; Z79.82 Long term (current) use of aspirin; Z79.4 Long term (current) use of insulin; Z79.899 Other long term (current) drug therapy
CPT/HCPCS: 71045; 74176; 80053; 81003; 81015; 83690; 84484; 85025; 93005; 96374; J2270

== ENCOUNTER 2021-04-17 21:41 | Emergency (ER) | payer SELFPAY ==
[2021-04-17 22:26] LABS: #Eosinphils 0.2 thou/uL (0.0-0.7); #Lymphocytes 1.9 thou/uL (1.20-3.40); #Monocytes 0.6 thou/uL (0.11-0.59); #Neutrophils 7.3 thou/uL (1.40-6.50); %Basophils 0.4 % (0.0-1.0); %Lymphocytes 19.1 % (21.0-51.0); %Monocytes 6.1 % (0.0-10.0); %Neutrophils 72.4 % (42.0-75.0); Hemoglobin 10.6 g/dL (14.0-18.0); Mean Corpuscular HGB CONC 34.2 g/dL (32.0-36.0); Mean Corpuscular Hemoglobin 31.3 pg (27.0-31.0); Mean Corpuscular Volume 91.7 fL (78.0-98.0); Mean Platelet Volume 7.5 fL (7.4-10.4); Platelet Count 337 thou/uL (130-400); RBC Distribution Width 11.2 % (11.5-14.5); Red Blood Cell (RBC) Count 3.38 mill/uL (4.70-6.10)
[2021-04-17 22:48] LABS: ALT (SGPT) 11 U/L (8-55); AST (SGOT) 13 U/L (5-34); Albumin 3.7 g/dL (3.5-5.0); Alkaline Phosphatase 122 U/L (40-110); Anion Gap 15 mmol/L (10-20); BUN (Urea Nitrogen) 34 mg/dL (8.4-25.7); Bilirubin, Total 0.2 mg/dL (0.2-1.2); CK (CPK) 202 U/L (30-200); Calc. Creatinine Clearance 0 mL/min (70-130); Calcium 9.3 mg/dL (7.8-10.44); Carbon Dioxide 20 mmol/L (22-29); Chloride 104 mmol/L (98-107); Globulin 3.3 g/dL (2.4-3.5); Glucose 232 mg/dL (70-105); Potassium 4.8 mmol/L (3.5-5.1); Sodium 134 mmol/L (136-145)
== END 2021-04-18 00:07 | disposition home or self-care (01) ==
LOC: ERS 21:41
DX: E86.0 Dehydration (principal); E11.9 Type 2 diabetes mellitus without complications; E78.5 Hyperlipidemia, unspecified; E78.00 Pure hypercholesterolemia, unspecified; I10 Essential (primary) hypertension; Z79.4 Long term (current) use of insulin; Z79.899 Other long term (current) drug therapy
CPT/HCPCS: 36415; 80053; 82550; 85025; 99284

== ENCOUNTER 2021-06-14 21:07 | Inpatient (IN) | payer OTHER ==
[~2021-06-14 21:07] MED LIST changes: -ISOVUE-370 76%-LOCM 1 ML ONE; +Iopamidol-370 76% 500 ML 1 ML ONE
[2021-06-14 21:51] LABS: #Eosinphils 0.3 thou/uL (0.0-0.7); #Lymphocytes 2.6 thou/uL (1.20-3.40); #Monocytes 0.5 thou/uL (0.11-0.59); #Neutrophils 5.2 thou/uL (1.40-6.50); %Basophils 0.1 % (0.0-1.0); %Eosinophils 3.1 % (0.0-10.0); %Lymphocytes 30.1 % (21.0-51.0); %Monocytes 5.8 % (0.0-10.0); %Neutrophils 60.9 % (42.0-75.0); Mean Corpuscular HGB CONC 33.8 g/dL (32.0-36.0); Mean Corpuscular Hemoglobin 30.6 pg (27.0-31.0); Mean Corpuscular Volume 90.7 fL (78.0-98.0); Platelet Count 418 thou/uL (130-400); RBC Distribution Width 11.3 % (11.5-14.5); Red Blood Cell (RBC) Count 3.25 mill/uL (4.70-6.10); White Blood Cell (WBC) Count 8.6 thou/uL (4.8-10.8)
[2021-06-14 22:17] LABS: ALT (SGPT) 13 U/L (8-55); AST (SGOT) 11 U/L (5-34); Albumin 3.7 g/dL (3.5-5.0); Alkaline Phosphatase 126 U/L (40-110); Anion Gap 13 mmol/L (10-20); BUN (Urea Nitrogen) 41 mg/dL (8.4-25.7); Bilirubin, Total 0.2 mg/dL (0.2-1.2); Calc. Creatinine Clearance 0 mL/min (70-130); Calcium 9.3 mg/dL (7.8-10.44); Carbon Dioxide 16 mmol/L (22-29); Chloride 111 mmol/L (98-107); Globulin 3.5 g/dL (2.4-3.5); Glucose 230 mg/dL (70-105); Potassium 5.8 mmol/L (3.5-5.1); Protein, Total 7.2 g/dL (6.0-8.3); Sodium 134 mmol/L (136-145)
[2021-06-14 22:40] LABS: Bilirubin Negative (Negative); Blood, Urine 1+ (Negative); Clarity Clear (Clear); Glucose, Urine (Dipstick) 100 mg/dL (Negative); Ketone, Urine Negative (Negative); Leukocyte Negative Leu/uL (Negative); Nitrite Negative (Negative); Protein, Urine (Dipstick) 70 mg/dL (Neg-Trace); RBC/HPF 0-3 HPF (0-3); Specific Gravity, Urine 1.012 (1.002-1.036); Squamous Epithelial None Seen HPF (0-3); Urobilinogen Normal mg/dL (Less than 2); WBC/HPF 0-3 HPF (0-3)
[2021-06-14 22:47] LABS: Bacteria/HPF Rare-Few HPF (None Seen)
[2021-06-15 01:19] LABS: SARS-CoV-2 NAA Rapid Test Not Detected (NotDetected)
[2021-06-15 01:45] LABS: Troponin I Less than 0.010 ng/mL (< 0.028)
[2021-06-15] MEDS: Sodium Chloride 0.9% 1,000 ML IV SCH ×2 (04:56→19:01)
[2021-06-15 04:59] LABS: Troponin I Less than 0.010 ng/mL (< 0.028)
[2021-06-15] MEDS ORDERED: Ondansetron PF 4 MG/2 ML Vial IVP PRN (05:06)
[2021-06-15] MEDS ORDERED: Dextrose 5% in Water 1,000 ML IV PRN (05:11)
[2021-06-15] MEDS ORDERED: HumaLOG 300 UNITS/3 ML VIAL SC PRN (05:11)
[2021-06-15 05:56] LABS: #Eosinphils 0.2 thou/uL (0.0-0.7); #Lymphocytes 2.2 thou/uL (1.20-3.40); #Monocytes 0.6 thou/uL (0.11-0.59); #Neutrophils 4.5 thou/uL (1.40-6.50); %Basophils 0.3 % (0.0-1.0); %Eosinophils 2.7 % (0.0-10.0); %Lymphocytes 29.7 % (21.0-51.0); %Monocytes 7.3 % (0.0-10.0); %Neutrophils 59.9 % (42.0-75.0); Hemoglobin 9.5 g/dL (14.0-18.0); Mean Corpuscular HGB CONC 34.7 g/dL (32.0-36.0); Mean Corpuscular Hemoglobin 31.2 pg (27.0-31.0); Mean Platelet Volume 7.1 fL (7.4-10.4); Platelet Count 376 thou/uL (130-400); RBC Distribution Width 11.4 % (11.5-14.5); Red Blood Cell (RBC) Count 3.05 mill/uL (4.70-6.10); White Blood Cell (WBC) Count 7.5 thou/uL (4.8-10.8)
[2021-06-15 06:17] LABS: Iron 111 ug/dL (65-175); Iron Binding Capacity, Total 248 mcg/dL (261-462)
[2021-06-15 06:18] LABS: Anion Gap 12 mmol/L (10-20); BUN (Urea Nitrogen) 36 mg/dL (8.4-25.7); Calc. Creatinine Clearance 0 mL/min (70-130); Calcium 8.9 mg/dL (7.8-10.44); Carbon Dioxide 15 mmol/L (22-29); Chloride 114 mmol/L (98-107); Glucose 256 mg/dL (70-105); Iron 110 ug/dL (65-175); Iron Binding Capacity, Total 248 mcg/dL (261-462); Potassium 5.2 mmol/L (3.5-5.1); Sodium 136 mmol/L (136-145)
[2021-06-15 06:36] LABS: Thyroid Stimulating Hormone 0.6275 uIU/mL (0.35-4.94)
[2021-06-15] MEDS ORDERED: Amlodipine 5 MG TAB ONE (09:03)
[2021-06-15] MEDS ORDERED: Regadenoson 0.4 MG/5 ML SYRINGE ONE (09:07)
[2021-06-15] MEDS: Sodium Bicarbonate 150 MEQ in Dextrose 5% in Water 1,000 ML IV SCH (12:46)
[2021-06-15] MEDS: Amlodipine 10 MG TAB PO SCH (13:40)
[2021-06-15] MEDS ORDERED: HumaLOG 300 UNITS/3 ML VIAL ONE (13:52)
[2021-06-15] MEDS: HumaLOG 300 UNITS/3 ML VIAL SC PRN ×2 (13:56→19:02)
[2021-06-15 14:50] LABS: Anion Gap 11 mmol/L (10-20); BUN (Urea Nitrogen) 33 mg/dL (8.4-25.7); Calc. Creatinine Clearance 0 mL/min (70-130); Calcium 9.1 mg/dL (7.8-10.44); Carbon Dioxide 18 mmol/L (22-29); Chloride 109 mmol/L (98-107); Glucose 332 mg/dL (70-105); Potassium 5.2 mmol/L (3.5-5.1); Sodium 133 mmol/L (136-145)
[2021-06-15 22:33] VITALS: BMI 33.3
[2021-06-15] MEDS: Lantus 1000 UNITS/10 ML VIAL SC SCH (23:00)
[2021-06-16] MEDS: Sodium Bicarbonate 150 MEQ in Dextrose 5% in Water 1,000 ML IV SCH ×2 (03:09→10:21)
[2021-06-16 05:22] LABS: #Eosinphils 0.3 thou/uL (0.0-0.7); #Lymphocytes 2.6 thou/uL (1.20-3.40); #Monocytes 0.5 thou/uL (0.11-0.59); %Basophils 0.2 % (0.0-1.0); %Eosinophils 4.2 % (0.0-10.0); %Lymphocytes 41.1 % (21.0-51.0); %Monocytes 8.1 % (0.0-10.0); %Neutrophils 46.4 % (42.0-75.0); Hemoglobin 9.3 g/dL (14.0-18.0); Mean Corpuscular HGB CONC 35.1 g/dL (32.0-36.0); Mean Corpuscular Hemoglobin 31.6 pg (27.0-31.0); Mean Corpuscular Volume 90.1 fL (78.0-98.0); Mean Platelet Volume 7.2 fL (7.4-10.4); Platelet Count 365 thou/uL (130-400); RBC Distribution Width 11.4 % (11.5-14.5); Red Blood Cell (RBC) Count 2.96 mill/uL (4.70-6.10); White Blood Cell (WBC) Count 6.4 thou/uL (4.8-10.8)
[2021-06-16 05:47] LABS: Anion Gap 10 mmol/L (10-20); BUN (Urea Nitrogen) 28 mg/dL (8.4-25.7); Calc. Creatinine Clearance 91 mL/min (70-130); Calcium 8.8 mg/dL (7.8-10.44); Carbon Dioxide 24 mmol/L (22-29); Chloride 109 mmol/L (98-107); Glucose 178 mg/dL (70-105); Potassium 4.5 mmol/L (3.5-5.1); Sodium 138 mmol/L (136-145)
[2021-06-16] MEDS: HumaLOG 300 UNITS/3 ML VIAL SC PRN ×3 (06:11→16:11)
[2021-06-16] MEDS ORDERED: Sodium Chloride 0.9% 1,000 ML IV SCH (09:00)
[2021-06-16] MEDS: Amlodipine 10 MG TAB PO SCH (10:16)
[2021-06-16] MEDS: Lantus 1000 UNITS/10 ML VIAL SC SCH ×2 (10:16→21:56)
[2021-06-16] MEDS ORDERED: hydrALAZINE 25 MG TAB PO SCH ×2 (10:30→15:00)
[2021-06-16] MEDS ORDERED: buPROPion HCl 100 MG TAB PO SCH (12:30)
[2021-06-16] MEDS ORDERED: Lisinopril 20 MG TAB PO SCH (12:30)
[2021-06-17] MEDS: Acetaminophen 325 MG TAB PO PRN (04:54)
[2021-06-17 05:29] LABS: #Eosinphils 0.3 thou/uL (0.0-0.7); #Lymphocytes 2.6 thou/uL (1.20-3.40); #Monocytes 0.4 thou/uL (0.11-0.59); #Neutrophils 3.5 thou/uL (1.40-6.50); %Basophils 0.4 % (0.0-1.0); %Eosinophils 4.4 % (0.0-10.0); %Lymphocytes 38.4 % (21.0-51.0); %Monocytes 6.3 % (0.0-10.0); %Neutrophils 50.5 % (42.0-75.0); Hemoglobin 9.6 g/dL (14.0-18.0); Mean Corpuscular HGB CONC 34.3 g/dL (32.0-36.0); Mean Corpuscular Hemoglobin 31.2 pg (27.0-31.0); Mean Platelet Volume 7.3 fL (7.4-10.4); Platelet Count 393 thou/uL (130-400); RBC Distribution Width 11.3 % (11.5-14.5); Red Blood Cell (RBC) Count 3.07 mill/uL (4.70-6.10); White Blood Cell (WBC) Count 6.8 thou/uL (4.8-10.8)
[2021-06-17 05:50] LABS: Anion Gap 11 mmol/L (10-20); BUN (Urea Nitrogen) 25 mg/dL (8.4-25.7); Calc. Creatinine Clearance 108 mL/min (70-130); Calcium 8.9 mg/dL (7.8-10.44); Carbon Dioxide 25 mmol/L (22-29); Chloride 109 mmol/L (98-107); Glucose 113 mg/dL (70-105); Potassium 4.2 mmol/L (3.5-5.1); Sodium 141 mmol/L (136-145)
[2021-06-17] MEDS ORDERED: buPROPion HCl 100 MG TAB PO SCH (09:00)
[2021-06-17] MEDS: Lisinopril 20 MG TAB PO SCH (09:44)
[2021-06-17] MEDS: Amlodipine 10 MG TAB PO SCH (09:45)
[2021-06-17] MEDS: Lantus 1000 UNITS/10 ML VIAL SC SCH ×2 (09:46→22:21)
[2021-06-17] MEDS ORDERED: GoLYTELY 4,000 ml Bottle PO SCH (10:30)
[2021-06-17] MEDS: HumaLOG 300 UNITS/3 ML VIAL SC PRN (11:10)
[2021-06-17] MEDS: hydrALAZINE 20 MG/ML VIAL SLOW IVP PRN (11:18)
[2021-06-17] MEDS ORDERED: hydrALAZINE 25 MG TAB PO SCH ×2 (11:30→22:00)
[2021-06-17] MEDS: hydrALAZINE 25 MG TAB PO SCH (23:02)
[2021-06-18] MEDS: Acetaminophen 325 MG TAB PO PRN ×3 (00:46→13:17)
[2021-06-18] MEDS: Dextrose 50% Abboject 50 ML SYRINGE SLOW IVP PRN ×3 (01:04→07:41)
[2021-06-18] MEDS ORDERED: Dextrose 5 % And 0.9 % NaCl 1,000 ML IV SCH (04:45)
[2021-06-18] MEDS ORDERED: PROPOFOL 200 MG/20 ML VIAL ONE (08:21)
[2021-06-18] MEDS ORDERED: Lidocaine 1% PF 5 ML VIAL ONE (08:21)
[2021-06-18] MEDS ORDERED: Ondansetron HCl/PF 4 MG/2 ML Vial IVP PRN (08:38)
[2021-06-18] MEDS ORDERED: Promethazine HCl 25 MG/ML VIAL IM PRN (08:38)
[2021-06-18] MEDS ORDERED: Promethazine HCl 25 MG/ML VIAL IVPB PRN (08:38)
[2021-06-18] MEDS: Lisinopril 20 MG TAB PO SCH (10:21)
[2021-06-18] MEDS: Amlodipine 10 MG TAB PO SCH (10:24)
[2021-06-18] MEDS: Lantus 1000 UNITS/10 ML VIAL SC SCH (10:26)
[2021-06-18] MEDS: hydrALAZINE 20 MG/ML VIAL SLOW IVP PRN (10:30)
[2021-06-18] MEDS: hydrALAZINE 25 MG TAB PO SCH ×2 (12:23→15:53)
[2021-06-18] MEDS ORDERED: Spironolactone 25 MG TAB PO SCH (14:30)
[2021-06-18] MEDS ORDERED: cloNIDine 0.1 MG TAB PO SCH ×2 (15:45→21:00)
[2021-06-18 15:53] VITALS: BP 144/73; TEMP 98
== END 2021-06-18 18:00 | disposition home or self-care (01) | DRG 683 ==
LOC: ERS 21:07 → ERHOLD 23:36 → 2SW 23:47 → OBSVTOIN 06-16 10:00
PROVIDERS: ADMIT Internal Medicine; ATTEND Internal Medicine
PROC: 0DJ08ZZ Inspection of Upper Intestinal Tract, Via Natural or Artificial Opening Endoscopic (ICD-10-PCS; principal; 2021-06-18)
PROC: 0DJD8ZZ Inspection of Lower Intestinal Tract, Via Natural or Artificial Opening Endoscopic (ICD-10-PCS; 2021-06-18)
DX: N17.9 Acute kidney failure, unspecified (principal); E87.2 Acidosis; I12.9 Hypertensive chronic kidney disease with stage 1 through stage 4 chronic kidney disease, or unspecified chronic kidney disease; E11.22 Type 2 diabetes mellitus with diabetic chronic kidney disease; E78.5 Hyperlipidemia, unspecified; R07.9 Chest pain, unspecified; E11.65 Type 2 diabetes mellitus with hyperglycemia; K57.30 Diverticulosis of large intestine without perforation or abscess without bleeding; R19.5 Other fecal abnormalities; F41.9 Anxiety disorder, unspecified; F32.9 Major depressive disorder, single episode, unspecified; E86.0 Dehydration; D63.1 Anemia in chronic kidney disease; E87.5 Hyperkalemia; I16.0 Hypertensive urgency; M47.812 Spondylosis without myelopathy or radiculopathy, cervical region; N18.30 Chronic kidney disease, stage 3 unspecified; I95.1 Orthostatic hypotension; Z20.822 Contact with and (suspected) exposure to COVID-19; G40.909 Epilepsy, unspecified, not intractable, without status epilepticus; Z86.16 Personal history of COVID-19; Z79.4 Long term (current) use of insulin; Z79.82 Long term (current) use of aspirin; Z79.899 Other long term (current) drug therapy; Z87.891 Personal history of nicotine dependence
CPT/HCPCS: 0240U; 36415; 36416; 71045; 72141; 74177; 78452; 80048; 80053; 81003; 81015; 82274; 82728; 83540; 83550; 84443; 84484; 85025; 93005; 93017; 93306; A9500; G0378; J0360; J1815; J2704; J2785; J7070; Q9967

== ENCOUNTER 2021-07-15 18:07 | Emergency (ER) | payer OTHER ==
[2021-07-15 19:08] LABS: #Eosinphils 0.4 thou/uL (0.0-0.7); #Lymphocytes 2.9 thou/uL (1.20-3.40); #Monocytes 0.6 thou/uL (0.11-0.59); #Neutrophils 3.6 thou/uL (1.40-6.50); %Basophils 0.3 % (0.0-1.0); %Eosinophils 4.8 % (0.0-10.0); %Monocytes 8.1 % (0.0-10.0); %Neutrophils 47.7 % (42.0-75.0); Hemoglobin 9.6 g/dL (14.0-18.0); Mean Corpuscular Hemoglobin 32.3 pg (27.0-31.0); Mean Corpuscular Volume 92.3 fL (78.0-98.0); Mean Platelet Volume 7.4 fL (7.4-10.4); Platelet Count 355 thou/uL (130-400); RBC Distribution Width 11.8 % (11.5-14.5); Red Blood Cell (RBC) Count 2.98 mill/uL (4.70-6.10); White Blood Cell (WBC) Count 7.5 thou/uL (4.8-10.8)
[2021-07-15 19:29] LABS: ALT (SGPT) 22 U/L (8-55); AST (SGOT) 16 U/L (5-34); Albumin 3.4 g/dL (3.5-5.0); Alkaline Phosphatase 112 U/L (40-110); Anion Gap 12 mmol/L (10-20); BUN (Urea Nitrogen) 25 mg/dL (8.4-25.7); Bilirubin, Total Less than 0.2 mg/dL (0.2-1.2); Calc. Creatinine Clearance 0 mL/min (70-130); Calcium 8.4 mg/dL (7.8-10.44); Carbon Dioxide 25 mmol/L (22-29); Chloride 103 mmol/L (98-107); Glucose 193 mg/dL (70-105); Protein, Total 6.4 g/dL (6.0-8.3); Sodium 135 mmol/L (136-145)
[2021-07-15 19:49] LABS: CK (CPK) 74 U/L (30-200); Lipase 43 U/L (8-78)
[2021-07-15 21:17] LABS: SARS-CoV-2 NAA Rapid Test Not Detected (NotDetected)
== END 2021-07-15 20:42 | disposition home or self-care (01) ==
LOC: ERS 18:07
DX: R53.1 Weakness (principal); E11.22 Type 2 diabetes mellitus with diabetic chronic kidney disease; I12.9 Hypertensive chronic kidney disease with stage 1 through stage 4 chronic kidney disease, or unspecified chronic kidney disease; N18.30 Chronic kidney disease, stage 3 unspecified; E78.5 Hyperlipidemia, unspecified; Z87.891 Personal history of nicotine dependence
CPT/HCPCS: 36415; 71045; 80053; 82550; 83690; 83880; 84484; 85025; 93005; U0002

== ENCOUNTER 2021-08-08 15:14 | Emergency (ER) | payer OTHER ==
[2021-08-08 16:10] LABS: #Eosinphils 0.2 thou/uL (0.0-0.7); #Lymphocytes 2.6 thou/uL (1.20-3.40); #Monocytes 0.6 thou/uL (0.11-0.59); #Neutrophils 5.8 thou/uL (1.40-6.50); %Basophils 0.3 % (0.0-1.0); %Eosinophils 2.3 % (0.0-10.0); %Lymphocytes 28.3 % (21.0-51.0); %Monocytes 6.5 % (0.0-10.0); %Neutrophils 62.5 % (42.0-75.0); Hemoglobin 9.7 g/dL (14.0-18.0); Mean Corpuscular HGB CONC 34.7 g/dL (32.0-36.0); Mean Corpuscular Hemoglobin 31.8 pg (27.0-31.0); Mean Corpuscular Volume 91.7 fL (78.0-98.0); Mean Platelet Volume 7.8 fL (7.4-10.4); Platelet Count 374 thou/uL (130-400); RBC Distribution Width 11.3 % (11.5-14.5); Red Blood Cell (RBC) Count 3.05 mill/uL (4.70-6.10); White Blood Cell (WBC) Count 9.3 thou/uL (4.8-10.8)
[2021-08-08 16:23] LABS: ALT (SGPT) 14 U/L (8-55); AST (SGOT) 11 U/L (5-34); Albumin 3.5 g/dL (3.5-5.0); Alkaline Phosphatase 117 U/L (40-110); Anion Gap 13 mmol/L (10-20); BUN (Urea Nitrogen) 37 mg/dL (8.4-25.7); Bilirubin, Total Less than 0.2 mg/dL (0.2-1.2); Calc. Creatinine Clearance 0 mL/min (70-130); Carbon Dioxide 24 mmol/L (22-29); Chloride 106 mmol/L (98-107); Globulin 3.1 g/dL (2.4-3.5); Glucose 131 mg/dL (70-105); Protein, Total 6.6 g/dL (6.0-8.3); Sodium 138 mmol/L (136-145)
[2021-08-08 18:00] LABS: Bacteria/HPF None Seen HPF (None Seen); Bilirubin Negative (Negative); Blood, Urine Trace (Negative); Clarity Clear (Clear); Glucose, Urine (Dipstick) 200 mg/dL (Negative); Ketone, Urine Negative (Negative); Leukocyte Negative Leu/uL (Negative); Nitrite Negative (Negative); Protein, Urine (Dipstick) 300 mg/dL (Neg-Trace); Specific Gravity, Urine 1.016 (1.002-1.036); Squamous Epithelial 0-3 HPF (0-3); Urobilinogen Normal mg/dL (Less than 2); WBC/HPF 0-3 HPF (0-3); pH, Urine 5.5 (5.0-9.0)
== END 2021-08-08 19:10 | disposition home or self-care (01) ==
LOC: ERS 15:14
DX: N28.9 Disorder of kidney and ureter, unspecified (principal); K57.30 Diverticulosis of large intestine without perforation or abscess without bleeding; E78.5 Hyperlipidemia, unspecified; E78.00 Pure hypercholesterolemia, unspecified; N18.30 Chronic kidney disease, stage 3 unspecified; I12.0 Hypertensive chronic kidney disease with stage 5 chronic kidney disease or end stage renal disease; E11.22 Type 2 diabetes mellitus with diabetic chronic kidney disease; N18.6 End stage renal disease; Z79.4 Long term (current) use of insulin; Z87.891 Personal history of nicotine dependence
CPT/HCPCS: 36415; 74176; 80053; 81003; 81015; 83605; 83690; 85025; 87086; 94760

== ENCOUNTER 2021-09-12 11:28 | Emergency (ER) | payer OTHER ==
[2021-09-12 12:34] LABS: #Eosinphils 0.2 thou/uL (0.0-0.7); #Lymphocytes 2.2 thou/uL (1.20-3.40); #Monocytes 0.5 thou/uL (0.11-0.59); #Neutrophils 5.6 thou/uL (1.40-6.50); %Basophils 0.3 % (0.0-1.0); %Neutrophils 65.7 % (42.0-75.0); Hemoglobin 10.3 g/dL (14.0-18.0); Mean Corpuscular HGB CONC 35.4 g/dL (32.0-36.0); Mean Corpuscular Hemoglobin 31.9 pg (27.0-31.0); Mean Corpuscular Volume 90.2 fL (78.0-98.0); Mean Platelet Volume 7.8 fL (7.4-10.4); Platelet Count 354 thou/uL (130-400); Red Blood Cell (RBC) Count 3.22 mill/uL (4.70-6.10); White Blood Cell (WBC) Count 8.5 thou/uL (4.8-10.8)
[2021-09-12 12:42] LABS: ALT (SGPT) 13 U/L (8-55); AST (SGOT) 15 U/L (5-34); Albumin 3.4 g/dL (3.5-5.0); Alkaline Phosphatase 143 U/L (40-110); Anion Gap 16 mmol/L (10-20); BUN (Urea Nitrogen) 37 mg/dL (8.4-25.7); Bilirubin, Total Less than 0.2 mg/dL (0.2-1.2); Calc. Creatinine Clearance 0 mL/min (70-130); Calcium 9.1 mg/dL (7.8-10.44); Carbon Dioxide 20 mmol/L (22-29); Chloride 101 mmol/L (98-107); Globulin 3.3 g/dL (2.4-3.5); Glucose 416 mg/dL (70-105); Potassium 5.3 mmol/L (3.5-5.1); Protein, Total 6.7 g/dL (6.0-8.3); Sodium 132 mmol/L (136-145)
[2021-09-12] MEDS ORDERED: Insulin Regular 300 UNITS/3 ML VIAL ONE (14:44)
== END 2021-09-12 15:42 | disposition home or self-care (01) ==
LOC: ERS 11:28
DX: E11.65 Type 2 diabetes mellitus with hyperglycemia (principal); E87.5 Hyperkalemia; R42 Dizziness and giddiness; I12.0 Hypertensive chronic kidney disease with stage 5 chronic kidney disease or end stage renal disease; E11.22 Type 2 diabetes mellitus with diabetic chronic kidney disease; N18.6 End stage renal disease; E78.5 Hyperlipidemia, unspecified; E78.00 Pure hypercholesterolemia, unspecified; Z87.891 Personal history of nicotine dependence; Z79.84 Long term (current) use of oral hypoglycemic drugs; Z79.899 Other long term (current) drug therapy; Z79.82 Long term (current) use of aspirin
CPT/HCPCS: 36416; 71045; 80053; 83880; 84484; 85025; 93005; J1815

== ENCOUNTER 2021-09-27 13:54 | Emergency (ER) | payer OTHER ==
[2021-09-27] MEDS ORDERED: Boostrix 0.5 ML (Tdap) VIAL ONE (14:58)
== END 2021-09-27 15:36 | disposition home or self-care (01) ==
LOC: ERS 13:54
DX: S46.911A Strain of unspecified muscle, fascia and tendon at shoulder and upper arm level, right arm, initial encounter (principal); S20.20XA Contusion of thorax, unspecified, initial encounter; S80.211A Abrasion, right knee, initial encounter; V49.40XA Driver injured in collision with unspecified motor vehicles in traffic accident, initial encounter; I12.0 Hypertensive chronic kidney disease with stage 5 chronic kidney disease or end stage renal disease; N18.6 End stage renal disease; E11.22 Type 2 diabetes mellitus with diabetic chronic kidney disease; E78.5 Hyperlipidemia, unspecified; E78.00 Pure hypercholesterolemia, unspecified; Z87.891 Personal history of nicotine dependence
CPT/HCPCS: 71045; 90471; 90715

== ENCOUNTER 2021-11-14 13:42 | Inpatient (IN) | payer OTHER ==
[2021-11-14] MEDS ORDERED: Ondansetron PF 4 MG/2 ML Vial IVP SCH (14:30)
[2021-11-14] MEDS ORDERED: Nitroglycerin 2% Ointment 1 INCH/1 GM Packet ONE ×2 (14:34→15:23)
[2021-11-14] MEDS ORDERED: Ondansetron PF 4 MG/2 ML Vial ONE (14:34)
[2021-11-14 14:57] LABS: #Lymphocytes 1.4 thou/uL (1.20-3.40); #Monocytes 0.4 thou/uL (0.11-0.59); #Neutrophils 6.5 thou/uL (1.40-6.50); %Basophils 0.1 % (0.0-1.0); %Eosinophils 0.4 % (0.0-10.0); %Lymphocytes 16.6 % (21.0-51.0); %Monocytes 4.7 % (0.0-10.0); %Neutrophils 78.2 % (42.0-75.0); Mean Corpuscular HGB CONC 36.1 g/dL (32.0-36.0); Mean Corpuscular Hemoglobin 32.1 pg (27.0-31.0); Mean Corpuscular Volume 88.7 fL (78.0-98.0); Mean Platelet Volume 8.5 fL (7.4-10.4); Platelet Count 374 thou/uL (130-400); RBC Distribution Width 11.4 % (11.5-14.5); Red Blood Cell (RBC) Count 3.75 mill/uL (4.70-6.10); White Blood Cell (WBC) Count 8.4 thou/uL (4.8-10.8)
[2021-11-14] MEDS ORDERED: Amlodipine 5 MG TAB ONE (15:14)
[2021-11-14 15:20] LABS: Actual Bicarbonate (HCO3v) 24 mEq/L (22-28); Analyzer IN Cardio ER; Base Excess -2.2 mEq/L (-2.0 to +3.0); Calcium, Ionized (venous) 1.11 mmol/L (1.16-1.32); Chloride (VBG) 94 mmol/L (98-106); Hemoglobin (Hb) 12.3 g/dL (13.1-17.2); Potassium (VBG) 4.13 mmol/L (3.70-5.30); Sodium 129.7 mmol/L (133-146); pH (venous) 7.32 (7.32-7.43)
[2021-11-14 15:24] LABS: ALT (SGPT) 15 U/L (8-55); AST (SGOT) 13 U/L (5-34); Albumin 3.4 g/dL (3.5-5.0); Alkaline Phosphatase 201 U/L (40-110); Anion Gap 17 mmol/L (10-20); BUN (Urea Nitrogen) 28 mg/dL (8.4-25.7); Bilirubin, Total 0.4 mg/dL (0.2-1.2); Calc. Creatinine Clearance 0 mL/min (70-130); Calcium 9.6 mg/dL (7.8-10.44); Carbon Dioxide 23 mmol/L (22-29); Chloride 92 mmol/L (98-107); Globulin 3.6 g/dL (2.4-3.5); Lipase 47 U/L (8-78); Magnesium 2.1 mg/dL (1.6-2.6); Potassium 4.6 mmol/L (3.5-5.1); Sodium 127 mmol/L (136-145)
[2021-11-14 15:46] LABS: Glucose 725 mg/dL (70-105)
[2021-11-14] MEDS ORDERED: Insulin Regular 300 UNITS/3 ML VIAL IVP SCH (16:34)
[2021-11-14] MEDS ORDERED: NS 0.9% w/ 20 MEQ KCL 1,000 ML ONE ×2 (16:48→19:15)
[2021-11-14] MEDS ORDERED: Promethazine HCl 25 MG/ML VIAL ONE (17:13)
[2021-11-14 17:14] LABS: SARS-CoV-2 NAA Rapid Test Not Detected (NotDetected)
[2021-11-14] MEDS ORDERED: INSULIN REGULAR IN 0.9 % NACL 100 UNIT in Premix Bag 1 BAG IVPB SCH (17:30)
[2021-11-14] MEDS ORDERED: Sodium Chloride 0.9% 1,000 ML IV SCH (17:30)
[2021-11-14] MEDS ORDERED: INSULIN REGULAR IN 0.9 % NACL 100 UNIT/100 ML BAG ONE (17:33)
[2021-11-14 18:22] LABS: Bacteria/HPF None Seen HPF (None Seen); Bilirubin Negative (Negative); Blood, Urine 1+ (Negative); Clarity Clear (Clear); Glucose, Urine (Dipstick) Greater than 1000 mg/dL (Negative); Ketone, Urine Trace mg/dL (Negative); Leukocyte Negative Leu/uL (Negative); Nitrite Negative (Negative); Protein, Urine (Dipstick) 200 mg/dL (Neg-Trace); Specific Gravity, Urine 1.022 (1.002-1.036); Squamous Epithelial 0-3 HPF (0-3); Urobilinogen Normal mg/dL (Less than 2); WBC/HPF 0-3 HPF (0-3); pH, Urine 6.5 (5.0-9.0)
[2021-11-14 18:37] LABS: Lactic Acid 2.1 mmol/L (0.5-2.2)
[2021-11-14] MEDS ORDERED: Ondansetron PF 4 MG/2 ML Vial IVP PRN (20:18)
[2021-11-14] MEDS ORDERED: Acetaminophen 325 MG TAB PO PRN (20:18)
[2021-11-14] MEDS ORDERED: Sodium Chloride 0.9% 1,000 ML IV PRN ×4 (20:19)
[2021-11-14] MEDS ORDERED: Dextrose 5 %-0.45 % NaCl 1,000 ML IV PRN (20:19)
[2021-11-14] MEDS ORDERED: NS 0.9% w/ 20 MEQ KCL 1,000 ML IV PRN ×2 (20:19)
[2021-11-14] MEDS ORDERED: Electrolyte Replacement Protocol 1 EACH IVPB ONE (20:19)
[2021-11-14] MEDS ORDERED: Electrolyte Replacement Protocol FS PRN (20:30)
[2021-11-14] MEDS ORDERED: HUMULIN R 100 UNITS in Sodium Chloride 0.9% 100 ML IVPB SCH (20:30)
[2021-11-14 20:54] LABS: Amphetamine Not Detected (NotDetected); Barbiturates Screen Not Detected (NotDetected); Benzodiazepine Screen Not Detected (NotDetected); Cocaine Metabolite Screen Not Detected (NotDetected); Methadone Not Detected (NotDetected); Methamphetamine Not Detected (NotDetected); Opiate Screen Not Detected (NotDetected); Oxycodone Screen Not Detected (NotDetected); Phencyclidine (PCP) Not Detected (NotDetected); THC/Cannabinoid Screen Not Detected (NotDetected); Tricyclic Screen Not Detected (NotDetected)
[2021-11-14 21:05] LABS: Anion Gap 14 mmol/L (10-20); BUN (Urea Nitrogen) 24 mg/dL (8.4-25.7); Calc. Creatinine Clearance 0 mL/min (70-130); Calcium 8.8 mg/dL (7.8-10.44); Carbon Dioxide 23 mmol/L (22-29); Chloride 107 mmol/L (98-107); Glucose 292 mg/dL (70-105); Potassium 3.7 mmol/L (3.5-5.1); Sodium 140 mmol/L (136-145)
[2021-11-14] MEDS ORDERED: D5 1/2 NS w/20 mEq KCL 1,000 ML ONE (21:31)
[2021-11-14] MEDS: Amlodipine 10 MG TAB PO SCH (21:37)
[2021-11-14] MEDS: hydrALAZINE 25 MG TAB PO SCH (22:12)
[2021-11-14] MEDS: Carvedilol 6.25 MG TAB PO SCH (22:12)
[2021-11-15 00:58] VITALS: BMI 32.7
[2021-11-15] MEDS: Heparin 5,000 UNITS/ML VIAL SC SCH ×4 (01:49→22:04)
[2021-11-15 02:05] LABS: #Lymphocytes 1.5 thou/uL (1.20-3.40); #Monocytes 0.3 thou/uL (0.11-0.59); #Neutrophils 10.1 thou/uL (1.40-6.50); %Basophils 0.4 % (0.0-1.0); %Lymphocytes 12.2 % (21.0-51.0); %Monocytes 2.9 % (0.0-10.0); %Neutrophils 84.5 % (42.0-75.0); Hemoglobin 11.5 g/dL (14.0-18.0); Mean Corpuscular HGB CONC 35.9 g/dL (32.0-36.0); Mean Corpuscular Hemoglobin 32.4 pg (27.0-31.0); Mean Corpuscular Volume 90.4 fL (78.0-98.0); Platelet Count 352 thou/uL (130-400); RBC Distribution Width 11.4 % (11.5-14.5); Red Blood Cell (RBC) Count 3.55 mill/uL (4.70-6.10); White Blood Cell (WBC) Count 11.9 thou/uL (4.8-10.8)
[2021-11-15] MEDS: D5 1/2 NS w/20 mEq KCL 1,000 ML IV PRN ×2 (02:24→05:41)
[2021-11-15 02:26] LABS: Anion Gap 15 mmol/L (10-20); BUN (Urea Nitrogen) 23 mg/dL (8.4-25.7); Calc. Creatinine Clearance 75 mL/min (70-130); Carbon Dioxide 19 mmol/L (22-29); Chloride 109 mmol/L (98-107); Glucose 142 mg/dL (70-105); Potassium 4.1 mmol/L (3.5-5.1); Sodium 139 mmol/L (136-145)
[2021-11-15 02:41] LABS: Hemoglobin A1c Greater than 14.0 % (4.0-6.0)
[2021-11-15 06:11] LABS: Anion Gap 10 mmol/L (10-20); BUN (Urea Nitrogen) 23 mg/dL (8.4-25.7); Calc. Creatinine Clearance 70 mL/min (70-130); Calcium 8.2 mg/dL (7.8-10.44); Carbon Dioxide 23 mmol/L (22-29); Chloride 107 mmol/L (98-107); Glucose 233 mg/dL (70-105); Potassium 3.9 mmol/L (3.5-5.1); Sodium 136 mmol/L (136-145)
[2021-11-15] MEDS: Aspirin 81 mg Enteric Coated Tablet PO SCH (09:04)
[2021-11-15] MEDS: Carvedilol 6.25 MG TAB PO SCH ×2 (09:04→22:04)
[2021-11-15] MEDS: hydrALAZINE 25 MG TAB PO SCH ×3 (09:04→22:03)
[2021-11-15] MEDS ORDERED: HumaLOG 300 UNITS/3 ML VIAL SC PRN (13:55)
[2021-11-15] MEDS ORDERED: Dextrose 50% Abboject 50 ML SYRINGE SLOW IVP PRN (13:55)
[2021-11-15] MEDS ORDERED: Dextrose 5% in Water 1,000 ML IV PRN (13:55)
[2021-11-15] MEDS: metFORMIN 500 MG TAB PO SCH (18:00)
[2021-11-15] MEDS: Amlodipine 10 MG TAB PO SCH (22:04)
[2021-11-15] MEDS: Simvastatin 5 MG TAB PO SCH (22:05)
[2021-11-15] MEDS: Lantus 1000 UNITS/10 ML VIAL SC SCH (22:05)
[2021-11-16] MEDS: HumaLOG 300 UNITS/3 ML VIAL SC PRN ×2 (06:22→12:08)
[2021-11-16 07:36] LABS: Anion Gap 13 mmol/L (10-20); BUN (Urea Nitrogen) 23 mg/dL (8.4-25.7); Calc. Creatinine Clearance 70 mL/min (70-130); Calcium 8.4 mg/dL (7.8-10.44); Carbon Dioxide 19 mmol/L (22-29); Chloride 104 mmol/L (98-107); Glucose 426 mg/dL (70-105); Sodium 132 mmol/L (136-145)
[2021-11-16 07:39] LABS: #Eosinphils 0.2 thou/uL (0.0-0.7); #Lymphocytes 2.3 thou/uL (1.20-3.40); #Monocytes 0.5 thou/uL (0.11-0.59); #Neutrophils 3.7 thou/uL (1.40-6.50); %Basophils 0.2 % (0.0-1.0); %Eosinophils 2.9 % (0.0-10.0); %Lymphocytes 34.4 % (21.0-51.0); %Monocytes 7.2 % (0.0-10.0); %Neutrophils 55.3 % (42.0-75.0); Hemoglobin 10.7 g/dL (14.0-18.0); Mean Corpuscular HGB CONC 36.3 g/dL (32.0-36.0); Mean Corpuscular Hemoglobin 32.7 pg (27.0-31.0); Mean Platelet Volume 7.8 fL (7.4-10.4); Platelet Count 325 thou/uL (130-400); RBC Distribution Width 11.3 % (11.5-14.5); Red Blood Cell (RBC) Count 3.27 mill/uL (4.70-6.10); White Blood Cell (WBC) Count 6.7 thou/uL (4.8-10.8)
[2021-11-16] MEDS: Bupropion 150 MG XL TAB PO SCH (08:59)
[2021-11-16] MEDS: metFORMIN 500 MG TAB PO SCH ×2 (08:59→16:26)
[2021-11-16] MEDS: Ferrous Sulfate 325 MG TAB PO SCH (09:00)
[2021-11-16] MEDS: Heparin 5,000 UNITS/ML VIAL SC SCH ×3 (09:00→21:46)
[2021-11-16] MEDS: Aspirin 81 mg Enteric Coated Tablet PO SCH (09:00)
[2021-11-16] MEDS: Lantus 1000 UNITS/10 ML VIAL SC SCH ×2 (09:00→21:46)
[2021-11-16] MEDS: hydrALAZINE 25 MG TAB PO SCH ×4 (09:01→21:46)
[2021-11-16] MEDS: Carvedilol 6.25 MG TAB PO SCH ×3 (09:03→21:46)
[2021-11-16] MEDS ORDERED: NPH, Human Insulin Isophane 300 UNIT/3 ML VIAL SC SCH (13:30)
[2021-11-16] MEDS ORDERED: glipiZIDE 5 MG TAB PO SCH (16:30)
[2021-11-16] MEDS: Simvastatin 5 MG TAB PO SCH (21:44)
[2021-11-16] MEDS: Amlodipine 10 MG TAB PO SCH (21:44)
[2021-11-16] MEDS ORDERED: Ondansetron PF 4 MG/2 ML Vial IVP PRN (21:58)
[2021-11-17] MEDS ORDERED: Loperamide HCl 1 MG/7.5 ML UDCUP PO PRN (05:56)
[2021-11-17 07:17] LABS: #Eosinphils 0.2 thou/uL (0.0-0.7); #Lymphocytes 2.1 thou/uL (1.20-3.40); #Monocytes 0.4 thou/uL (0.11-0.59); #Neutrophils 3.5 thou/uL (1.40-6.50); %Basophils 0.7 % (0.0-1.0); %Eosinophils 2.9 % (0.0-10.0); %Lymphocytes 33.9 % (21.0-51.0); %Monocytes 6.5 % (0.0-10.0); Hemoglobin 11.3 g/dL (14.0-18.0); Mean Corpuscular HGB CONC 34.3 g/dL (32.0-36.0); Mean Corpuscular Hemoglobin 31.2 pg (27.0-31.0); Mean Corpuscular Volume 91.1 fL (78.0-98.0); Platelet Count 352 thou/uL (130-400); RBC Distribution Width 11.3 % (11.5-14.5); Red Blood Cell (RBC) Count 3.63 mill/uL (4.70-6.10); White Blood Cell (WBC) Count 6.2 thou/uL (4.8-10.8)
[2021-11-17 07:31] LABS: Anion Gap 14 mmol/L (10-20); BUN (Urea Nitrogen) 24 mg/dL (8.4-25.7); Calc. Creatinine Clearance 71 mL/min (70-130); Calcium 8.7 mg/dL (7.8-10.44); Carbon Dioxide 22 mmol/L (22-29); Chloride 104 mmol/L (98-107); Glucose 88 mg/dL (70-105); Potassium 3.6 mmol/L (3.5-5.1); Sodium 136 mmol/L (136-145)
[2021-11-17 08:08] LABS: SARS-CoV-2 NAA Rapid Test Not Detected (NotDetected)
[2021-11-17] MEDS: metFORMIN 500 MG TAB PO SCH (09:04)
[2021-11-17] MEDS: Ferrous Sulfate 325 MG TAB PO SCH (09:04)
[2021-11-17] MEDS: Aspirin 81 mg Enteric Coated Tablet PO SCH (09:05)
[2021-11-17] MEDS: hydrALAZINE 25 MG TAB PO SCH (09:05)
[2021-11-17] MEDS: Bupropion 150 MG XL TAB PO SCH (09:05)
[2021-11-17] MEDS: Carvedilol 6.25 MG TAB PO SCH (09:09)
[2021-11-17] MEDS: Lantus 1000 UNITS/10 ML VIAL SC SCH (09:11)
[2021-11-17] MEDS: Heparin 5,000 UNITS/ML VIAL SC SCH (09:11)
[2021-11-17 09:55] VITALS: TEMP 97.7
[2021-11-17 12:58] VITALS: BP 132/70
== END 2021-11-17 14:00 | disposition home or self-care (01) | DRG 637 ==
LOC: ERS 13:42 → ERHOLD 18:04 → IMCU/EMU 11-15 00:43 → MSONC 11-15 15:14
PROVIDERS: ADMIT Internal Medicine; ATTEND Internal Medicine
DX: E11.00 Type 2 diabetes mellitus with hyperosmolarity without nonketotic hyperglycemic-hyperosmolar coma (NKHHC) (principal); G93.41 Metabolic encephalopathy; Z20.822 Contact with and (suspected) exposure to COVID-19; E87.1 Hypo-osmolality and hyponatremia; N17.9 Acute kidney failure, unspecified; E11.22 Type 2 diabetes mellitus with diabetic chronic kidney disease; E78.5 Hyperlipidemia, unspecified; E78.00 Pure hypercholesterolemia, unspecified; I12.9 Hypertensive chronic kidney disease with stage 1 through stage 4 chronic kidney disease, or unspecified chronic kidney disease; N18.30 Chronic kidney disease, stage 3 unspecified; G40.909 Epilepsy, unspecified, not intractable, without status epilepticus; F41.9 Anxiety disorder, unspecified; F32.A Depression, unspecified; D63.1 Anemia in chronic kidney disease; A08.4 Viral intestinal infection, unspecified; Z87.891 Personal history of nicotine dependence; Z91.013 Allergy to seafood; Z79.84 Long term (current) use of oral hypoglycemic drugs; Z79.82 Long term (current) use of aspirin; Z79.4 Long term (current) use of insulin; Z79.899 Other long term (current) drug therapy; Z91.14 Patient's other noncompliance with medication regimen; Z82.49 Family history of ischemic heart disease and other diseases of the circulatory system; Z82.3 Family history of stroke; Z83.3 Family history of diabetes mellitus
CPT/HCPCS: 0240U; 36415; 36416; 70450; 70551; 71045; 80048; 80053; 80306; 81003; 81015; 82010; 82805; 83036; 83605; 83690; 83735; 83930; 84484; 85025; 87045; 87046; 87324; 87427; 87449; 93005; 96365; 96375; 96376; J1644; J1815; J2405; J2550; J3480; J3490; J7042; U0002

== ENCOUNTER 2021-11-19 09:35 | Emergency (ER) | payer OTHER ==
[2021-11-19 10:15] LABS: #Eosinphils 0.1 thou/uL (0.0-0.7); #Lymphocytes 2.3 thou/uL (1.20-3.40); #Monocytes 0.5 thou/uL (0.11-0.59); #Neutrophils 4.3 thou/uL (1.40-6.50); %Basophils 0.5 % (0.0-1.0); %Eosinophils 1.3 % (0.0-10.0); %Lymphocytes 31.3 % (21.0-51.0); %Monocytes 6.8 % (0.0-10.0); %Neutrophils 60.1 % (42.0-75.0); Mean Corpuscular Hemoglobin 30.9 pg (27.0-31.0); Mean Corpuscular Volume 90.9 fL (78.0-98.0); Mean Platelet Volume 7.5 fL (7.4-10.4); Platelet Count 405 thou/uL (130-400); RBC Distribution Width 11.3 % (11.5-14.5); Red Blood Cell (RBC) Count 3.56 mill/uL (4.70-6.10); White Blood Cell (WBC) Count 7.2 thou/uL (4.8-10.8)
[2021-11-19] MEDS ORDERED: Ondansetron PF 4 MG/2 ML Vial ONE (10:29)
[2021-11-19] MEDS ORDERED: Acetaminophen 500 MG TAB ONE (10:29)
[2021-11-19 10:36] LABS: ALT (SGPT) 12 U/L (8-55); AST (SGOT) 16 U/L (5-34); Alkaline Phosphatase 99 U/L (40-110); Anion Gap 12 mmol/L (10-20); BUN (Urea Nitrogen) 21 mg/dL (8.4-25.7); Bilirubin, Total 0.3 mg/dL (0.2-1.2); Calc. Creatinine Clearance 0 mL/min (70-130); Calcium 9.1 mg/dL (7.8-10.44); Carbon Dioxide 23 mmol/L (22-29); Chloride 106 mmol/L (98-107); Globulin 3.5 g/dL (2.4-3.5); Glucose 134 mg/dL (70-105); Potassium 4.2 mmol/L (3.5-5.1); Protein, Total 6.5 g/dL (6.0-8.3); Sodium 137 mmol/L (136-145)
[2021-11-19 12:36] LABS: SARS-CoV-2 NAA Rapid Test Not Detected (NotDetected)
[2021-11-19 13:11] LABS: Bacteria/HPF 4+ HPF (None Seen); Bilirubin Negative (Negative); Blood, Urine Negative (Negative); Clarity Clear (Clear); Glucose, Urine (Dipstick) 100 mg/dL (Negative); Ketone, Urine Negative (Negative); Leukocyte Negative Leu/uL (Negative); Nitrite Negative (Negative); Protein, Urine (Dipstick) 200 mg/dL (Neg-Trace); Specific Gravity, Urine 1.011 (1.002-1.036); Squamous Epithelial 0-3 HPF (0-3); Urobilinogen Normal mg/dL (Less than 2); WBC/HPF 0-3 HPF (0-3)
== END 2021-11-19 13:33 | disposition home or self-care (01) ==
LOC: ERS 09:35
DX: B34.9 Viral infection, unspecified (principal); I12.9 Hypertensive chronic kidney disease with stage 1 through stage 4 chronic kidney disease, or unspecified chronic kidney disease; E78.5 Hyperlipidemia, unspecified; E78.00 Pure hypercholesterolemia, unspecified; E11.22 Type 2 diabetes mellitus with diabetic chronic kidney disease; N18.6 End stage renal disease; Z87.891 Personal history of nicotine dependence
CPT/HCPCS: 36415; 36416; 80053; 81003; 81015; 83605; 83690; 84443; 84484; 85025; 93005; 96374; J2405; U0002

== ENCOUNTER 2021-11-22 14:24 | Emergency (ER) | payer OTHER ==
[~2021-11-22 14:24] MED LIST changes: +Iopamidol 370 76% 100 ML VIAL ONE; -Iopamidol-370 76% 500 ML 1 ML ONE
[2021-11-22 15:18] LABS: #Eosinphils 0.2 thou/uL (0.0-0.7); #Lymphocytes 2.4 thou/uL (1.20-3.40); #Monocytes 0.5 thou/uL (0.11-0.59); #Neutrophils 3.8 thou/uL (1.40-6.50); %Basophils 0.3 % (0.0-1.0); %Eosinophils 2.3 % (0.0-10.0); %Lymphocytes 34.9 % (21.0-51.0); %Monocytes 7.7 % (0.0-10.0); %Neutrophils 54.8 % (42.0-75.0); Hemoglobin 9.3 g/dL (14.0-18.0); Mean Corpuscular HGB CONC 34.6 g/dL (32.0-36.0); Mean Corpuscular Hemoglobin 32.3 pg (27.0-31.0); Mean Corpuscular Volume 93.1 fL (78.0-98.0); Platelet Count 397 thou/uL (130-400); RBC Distribution Width 11.4 % (11.5-14.5); Red Blood Cell (RBC) Count 2.87 mill/uL (4.70-6.10)
[2021-11-22 15:45] LABS: ALT (SGPT) 19 U/L (8-55); AST (SGOT) 30 U/L (5-34); Albumin 2.9 g/dL (3.5-5.0); Alkaline Phosphatase 90 U/L (40-110); Anion Gap 13 mmol/L (10-20); BUN (Urea Nitrogen) 32 mg/dL (8.4-25.7); Bilirubin, Total Less than 0.2 mg/dL (0.2-1.2); Calc. Creatinine Clearance 0 mL/min (70-130); Calcium 8.5 mg/dL (7.8-10.44); Carbon Dioxide 22 mmol/L (22-29); Chloride 105 mmol/L (98-107); Globulin 3.5 g/dL (2.4-3.5); Glucose 90 mg/dL (70-105); Protein, Total 6.4 g/dL (6.0-8.3); Sodium 135 mmol/L (136-145)
[2021-11-22] MEDS ORDERED: Meclizine HCl 25 MG TAB ONE (17:34)
[2021-11-22 18:18] LABS: Bacteria/HPF 2+ HPF (None Seen); Bilirubin Negative (Negative); Blood, Urine Negative (Negative); Clarity Clear (Clear); Glucose, Urine (Dipstick) Normal (Negative); Ketone, Urine Negative (Negative); Leukocyte Negative Leu/uL (Negative); Nitrite Negative (Negative); Protein, Urine (Dipstick) 100 mg/dL (Neg-Trace); RBC/HPF 0-3 HPF (0-3); Specific Gravity, Urine 1.007 (1.002-1.036); Squamous Epithelial 0-3 HPF (0-3); Urobilinogen Normal mg/dL (Less than 2); WBC/HPF 0-3 HPF (0-3); pH, Urine 5.5 (5.0-9.0)
[2021-11-22] MEDS ORDERED: Morphine 4 MG/ML VIAL ONE (19:32)
[2021-11-22] MEDS ORDERED: Ondansetron PF 4 MG/2 ML Vial ONE (19:32)
[2021-11-22] MEDS ORDERED: cefTRIAXone\\ROCEPHIN 1 GM VIAL ONE (19:32)
== END 2021-11-22 21:58 | disposition home or self-care (01) ==
LOC: ERS 14:24
DX: N39.0 Urinary tract infection, site not specified (principal); M54.2 Cervicalgia; R53.1 Weakness; E78.5 Hyperlipidemia, unspecified; E78.00 Pure hypercholesterolemia, unspecified; I12.0 Hypertensive chronic kidney disease with stage 5 chronic kidney disease or end stage renal disease; N18.6 End stage renal disease; E11.22 Type 2 diabetes mellitus with diabetic chronic kidney disease; Z87.891 Personal history of nicotine dependence
CPT/HCPCS: 36415; 36416; 51702; 70450; 71045; 74177; 80053; 81003; 81015; 85025; 87040; 87086; 93005; 96365; 96375; J0696; J2270; J2405; Q9967

== ENCOUNTER 2021-12-03 15:06 | Emergency (ER) | payer OTHER ==
[2021-12-03 15:38] LABS: #Eosinphils 0.1 thou/uL (0.0-0.7); #Lymphocytes 2.2 thou/uL (1.20-3.40); #Monocytes 0.5 thou/uL (0.11-0.59); #Neutrophils 3.8 thou/uL (1.40-6.50); %Basophils 0.4 % (0.0-1.0); %Eosinophils 2.2 % (0.0-10.0); %Lymphocytes 32.2 % (21.0-51.0); %Neutrophils 57.2 % (42.0-75.0); Hemoglobin 9.8 g/dL (14.0-18.0); Mean Corpuscular HGB CONC 35.5 g/dL (32.0-36.0); Mean Corpuscular Hemoglobin 33.5 pg (27.0-31.0); Mean Corpuscular Volume 94.4 fL (78.0-98.0); Mean Platelet Volume 6.6 fL (7.4-10.4); Platelet Count 394 thou/uL (130-400); RBC Distribution Width 11.4 % (11.5-14.5); Red Blood Cell (RBC) Count 2.92 mill/uL (4.70-6.10); White Blood Cell (WBC) Count 6.7 thou/uL (4.8-10.8)
[2021-12-03 15:59] LABS: ALT (SGPT) 14 U/L (8-55); AST (SGOT) 15 U/L (5-34); Albumin 3.3 g/dL (3.5-5.0); Alkaline Phosphatase 89 U/L (40-110); Anion Gap 14 mmol/L (10-20); BUN (Urea Nitrogen) 31 mg/dL (8.4-25.7); Bilirubin, Total Less than 0.2 mg/dL (0.2-1.2); Calc. Creatinine Clearance 0 mL/min (70-130); Calcium 8.9 mg/dL (7.8-10.44); Carbon Dioxide 23 mmol/L (22-29); Chloride 104 mmol/L (98-107); Globulin 3.2 g/dL (2.4-3.5); Glucose 220 mg/dL (70-105); Lipase 36 U/L (8-78); Potassium 4.5 mmol/L (3.5-5.1); Protein, Total 6.5 g/dL (6.0-8.3); Sodium 136 mmol/L (136-145)
[2021-12-03 19:14] LABS: Bacteria/HPF None Seen HPF (None Seen); Bilirubin Negative (Negative); Blood, Urine Negative (Negative); Clarity Clear (Clear); Glucose, Urine (Dipstick) 70 mg/dL (Negative); Ketone, Urine Negative (Negative); Leukocyte Negative Leu/uL (Negative); Nitrite Negative (Negative); Protein, Urine (Dipstick) 200 mg/dL (Neg-Trace); RBC/HPF 0-3 HPF (0-3); Specific Gravity, Urine 1.013 (1.002-1.036); Squamous Epithelial None Seen HPF (0-3); Urobilinogen Normal mg/dL (Less than 2); WBC/HPF 0-3 HPF (0-3)
[2021-12-04 00:38] LABS: SARS-CoV-2 PCR by NAA Not Detected (NotDetected)
== END 2021-12-03 20:40 | disposition home or self-care (01) ==
LOC: ERS 15:06
DX: I12.9 Hypertensive chronic kidney disease with stage 1 through stage 4 chronic kidney disease, or unspecified chronic kidney disease (principal); E11.22 Type 2 diabetes mellitus with diabetic chronic kidney disease; N18.30 Chronic kidney disease, stage 3 unspecified; D63.1 Anemia in chronic kidney disease; Z20.822 Contact with and (suspected) exposure to COVID-19; E78.5 Hyperlipidemia, unspecified; E78.00 Pure hypercholesterolemia, unspecified; Z87.891 Personal history of nicotine dependence
CPT/HCPCS: 36415; 36416; 80053; 81003; 81015; 83690; 83880; 84484; 85025; 93005; 94760; U0003; U0005

== ENCOUNTER 2021-12-31 15:02 | Emergency (ER) | payer OTHER | END 2021-12-31 16:43 | disposition home or self-care (01) | LOC: ERS 15:02 | DX: H66.91 Otitis media, unspecified, right ear (principal) | CPT/HCPCS: 99282 ==

== ENCOUNTER 2022-01-06 12:34 | Emergency (ER) | payer OTHER, SELFPAY | END 2022-01-06 13:06 | disposition home or self-care (01) | LOC: ERS 12:34 | DX: H65.91 Unspecified nonsuppurative otitis media, right ear (principal); Z79.4 Long term (current) use of insulin; D50.9 Iron deficiency anemia, unspecified; N18.6 End stage renal disease; E11.22 Type 2 diabetes mellitus with diabetic chronic kidney disease; Z79.899 Other long term (current) drug therapy; Z79.84 Long term (current) use of oral hypoglycemic drugs | CPT/HCPCS: 99282 ==

== ENCOUNTER 2022-01-07 16:54 | Emergency (ER) | payer SELFPAY ==
[2022-01-07] MEDS ORDERED: Meclizine HCl 25 MG TAB ONE (18:03)
[2022-01-07] MEDS ORDERED: Ondansetron ODT 4 MG TAB ONE (18:04)
[2022-01-07] MEDS ORDERED: Ondansetron PF 4 MG/2 ML Vial ONE (18:04)
[2022-01-08 01:24] LABS: SARS-CoV-2 PCR by NAA Not Detected (NotDetected)
== END 2022-01-07 19:35 | disposition home or self-care (01) ==
LOC: ERS 16:54
DX: R42 Dizziness and giddiness (principal); T38.0X5A Adverse effect of glucocorticoids and synthetic analogues, initial encounter; Z20.822 Contact with and (suspected) exposure to COVID-19; E11.22 Type 2 diabetes mellitus with diabetic chronic kidney disease; I12.0 Hypertensive chronic kidney disease with stage 5 chronic kidney disease or end stage renal disease; N18.6 End stage renal disease; Z79.4 Long term (current) use of insulin; Z79.899 Other long term (current) drug therapy
CPT/HCPCS: 99284; J2405; Q0162; U0003; U0005

== ENCOUNTER 2022-04-03 16:57 | Emergency (ER) | payer SELFPAY ==
[2022-04-03 17:26] LABS: #Eosinphils 0.2 thou/uL (0.0-0.7); #Lymphocytes 3.5 thou/uL (1.20-3.40); #Monocytes 0.6 thou/uL (0.11-0.59); #Neutrophils 4.2 thou/uL (1.40-6.50); %Basophils 0.4 % (0.0-1.0); %Eosinophils 2.8 % (0.0-10.0); %Lymphocytes 41.1 % (21.0-51.0); %Monocytes 6.8 % (0.0-10.0); %Neutrophils 48.8 % (42.0-75.0); Hemoglobin 10.8 g/dL (14.0-18.0); Mean Corpuscular HGB CONC 35.4 g/dL (32.0-36.0); Mean Corpuscular Hemoglobin 31.7 pg (27.0-31.0); Mean Corpuscular Volume 89.5 fL (78.0-98.0); Platelet Count 348 thou/uL (130-400); RBC Distribution Width 11.9 % (11.5-14.5); White Blood Cell (WBC) Count 8.6 thou/uL (4.8-10.8)
[2022-04-03 17:50] LABS: ALT (SGPT) 16 U/L (8-55); AST (SGOT) 14 U/L (5-34); Albumin 3.3 g/dL (3.5-5.0); Alkaline Phosphatase 126 U/L (40-110); Anion Gap 12 mmol/L (10-20); BUN (Urea Nitrogen) 35 mg/dL (8.4-25.7); Bilirubin, Total 0.2 mg/dL (0.2-1.2); Calc. Creatinine Clearance 0 mL/min (70-130); Calcium 8.6 mg/dL (7.8-10.44); Carbon Dioxide 23 mmol/L (22-29); Chloride 107 mmol/L (98-107); Globulin 3.5 g/dL (2.4-3.5); Glucose 113 mg/dL (70-105); Potassium 4.6 mmol/L (3.5-5.1); Protein, Total 6.8 g/dL (6.0-8.3); Sodium 137 mmol/L (136-145)
[2022-04-03] MEDS ORDERED: Amlodipine 5 MG TAB ONE (19:58)
[2022-04-03] MEDS ORDERED: hydrALAZINE 25 MG TAB ONE (19:59)
== END 2022-04-03 20:51 | disposition home or self-care (01) ==
LOC: ERS 16:57
DX: I13.2 Hypertensive heart and chronic kidney disease with heart failure and with stage 5 chronic kidney disease, or end stage renal disease (principal); E11.22 Type 2 diabetes mellitus with diabetic chronic kidney disease; D63.1 Anemia in chronic kidney disease; Z79.899 Other long term (current) drug therapy; Z79.84 Long term (current) use of oral hypoglycemic drugs; N18.6 End stage renal disease
CPT/HCPCS: 36415; 36416; 71045; 80053; 84484; 85025; 93005

== ENCOUNTER 2022-05-08 12:04 | Emergency (ER) | payer SELFPAY | END 2022-05-08 13:23 | disposition home or self-care (01) | LOC: ERS 12:04 | DX: H43.13 Vitreous hemorrhage, bilateral (principal); E11.65 Type 2 diabetes mellitus with hyperglycemia; D50.9 Iron deficiency anemia, unspecified; I10 Essential (primary) hypertension; I12.0 Hypertensive chronic kidney disease with stage 5 chronic kidney disease or end stage renal disease; E11.22 Type 2 diabetes mellitus with diabetic chronic kidney disease; N18.6 End stage renal disease; Z79.899 Other long term (current) drug therapy; Z79.84 Long term (current) use of oral hypoglycemic drugs | CPT/HCPCS: 36416; 99284 ==

== ENCOUNTER 2022-10-16 14:34 | Emergency (ER) | payer SELFPAY ==
[~2022-10-16 14:34] MED LIST changes: -Iopamidol 370 76% 100 ML VIAL ONE; +Iopamidol-370 76% 500 ML 1 ML ONE
[2022-10-16 15:28] LABS: Bacteria/HPF None Seen HPF (None Seen); Bilirubin Negative (Negative); Blood, Urine 1+ (Negative); Clarity Clear (Clear); Glucose, Urine (Dipstick) 200 mg/dL (Negative); Ketone, Urine Negative (Negative); Leukocyte Negative Leu/uL (Negative); Nitrite Negative (Negative); Protein, Urine (Dipstick) 300 mg/dL (Neg-Trace); RBC/HPF 0-3 HPF (0-3); Specific Gravity, Urine 1.014 (1.002-1.036); Squamous Epithelial 0-3 HPF (0-3); Urobilinogen Normal mg/dL (Less than 2); WBC/HPF 0-3 HPF (0-3)
[2022-10-16 15:29] LABS: #Eosinphils 0.2 thou/uL (0.0-0.7); #Lymphocytes 2.4 thou/uL (1.20-3.40); #Monocytes 0.5 thou/uL (0.11-0.59); #Neutrophils 5.6 thou/uL (1.40-6.50); %Basophils 0.5 % (0.0-1.0); %Eosinophils 1.8 % (0.0-10.0); %Lymphocytes 28.2 % (21.0-51.0); %Monocytes 5.2 % (0.0-10.0); %Neutrophils 64.3 % (42.0-75.0); Hemoglobin 11.9 g/dL (14.0-18.0); Mean Corpuscular HGB CONC 34.9 g/dL (32.0-36.0); Mean Corpuscular Hemoglobin 31.7 pg (27.0-31.0); Mean Platelet Volume 8.5 fL (7.4-10.4); Platelet Count 344 10x3/uL (130-400); RBC Distribution Width 11.5 % (11.5-14.5); Red Blood Cell (RBC) Count 3.74 mill/uL (4.70-6.10); White Blood Cell (WBC) Count 8.7 10x3/uL (4.8-10.8)
[2022-10-16 15:51] LABS: ALT (SGPT) 11 U/L (8-55); AST (SGOT) 13 U/L (5-34); Albumin 3.3 g/dL (3.5-5.0); Alkaline Phosphatase 131 U/L (40-110); Anion Gap 13 mmol/L (10-20); BUN (Urea Nitrogen) 41 mg/dL (8.4-25.7); Bilirubin, Total Less than 0.2 mg/dL (0.2-1.2); Calc. Creatinine Clearance 0 mL/min (70-130); Calcium 8.7 mg/dL (7.8-10.44); Carbon Dioxide 20 mmol/L (22-29); Chloride 108 mmol/L (98-107); Estimated GFR 28; Globulin 3.7 g/dL (2.4-3.5); Glucose 331 mg/dL (70-105); Potassium 4.4 mmol/L (3.5-5.1); Sodium 137 mmol/L (136-145)
== END 2022-10-16 21:05 | disposition home or self-care (01) ==
LOC: ERS 14:34
DX: R42 Dizziness and giddiness (principal); M54.9 Dorsalgia, unspecified; E11.22 Type 2 diabetes mellitus with diabetic chronic kidney disease; N18.6 End stage renal disease; I12.9 Hypertensive chronic kidney disease with stage 1 through stage 4 chronic kidney disease, or unspecified chronic kidney disease; Z79.84 Long term (current) use of oral hypoglycemic drugs
CPT/HCPCS: 70496; 80053; 81003; 81015; 84484; 85025; 93005; 96360; Q9967

== ENCOUNTER 2023-07-12 14:57 | Emergency (ER) | payer BC, SELFPAY ==
[2023-07-12 18:04] LABS: #Eosinphils 0.1 thou/uL (0.0-0.7); #Monocytes 0.9 thou/uL (0.11-0.59); #Neutrophils 8.6 thou/uL (1.40-6.50); %Basophils 0.3 % (0.0-1.0); %Eosinophils 0.8 % (0.0-10.0); %Lymphocytes 16.5 % (21.0-51.0); %Monocytes 7.8 % (0.0-10.0); %Neutrophils 74.3 % (42.0-75.0); Hematocrit 30.5 % (42.0-52.0); Hemoglobin 10.3 g/dL (14.0-18.0); Mean Corpuscular HGB CONC 33.8 g/dL (32.0-36.0); Mean Corpuscular Hemoglobin 30.5 pg (27.0-31.0); Mean Corpuscular Volume 90.2 fl (78.0-98.0); Mean Platelet Volume 9.9 fL (7.4-10.4); Platelet Count 385 10x3/uL (130-400); RBC Distribution Width 12.3 % (11.5-14.5); Red Blood Cell (RBC) Count 3.38 mill/uL (4.70-6.10); White Blood Cell (WBC) Count 11.6 10x3/uL (4.8-10.8)
[2023-07-12 18:32] LABS: ALT (SGPT) 15 U/L (8-55); AST (SGOT) 11 U/L (5-34); Albumin 3.2 g/dL (3.5-5.0); Alkaline Phosphatase 109 U/L (40-110); Anion Gap 15 mmol/L (10-20); BUN (Urea Nitrogen) 55 mg/dL (8.4-25.7); Bilirubin, Total 0.3 mg/dL (0.2-1.2); Calc. Creatinine Clearance 0 mL/min (70-130); Calcium 9.2 mg/dL (7.8-10.44); Carbon Dioxide 17 mmol/L (22-29); Chloride 100 mmol/L (98-107); Estimated GFR 19; Globulin 4.3 g/dL (2.4-3.5); Glucose 305 mg/dL (70-105); Potassium 4.5 mmol/L (3.5-5.1); Protein, Total 7.5 g/dL (6.0-8.3); Sodium 127 mmol/L (136-145)
[2023-07-12] MEDS ORDERED: Piperacillin/Tazobactam 3.375 GM VIAL ONE (18:51)
[2023-07-12] MEDS ORDERED: Vancomycin 1 GM/200 ML (FROZEN) BAG ONE (19:45)
== END 2023-07-12 21:43 | disposition home or self-care (01) ==
LOC: ERS 14:57
DX: L03.115 Cellulitis of right lower limb (principal); E11.621 Type 2 diabetes mellitus with foot ulcer; L97.519 Non-pressure chronic ulcer of other part of right foot with unspecified severity; E87.1 Hypo-osmolality and hyponatremia; I12.9 Hypertensive chronic kidney disease with stage 1 through stage 4 chronic kidney disease, or unspecified chronic kidney disease; E11.22 Type 2 diabetes mellitus with diabetic chronic kidney disease; N18.30 Chronic kidney disease, stage 3 unspecified; N17.9 Acute kidney failure, unspecified
CPT/HCPCS: 36415; 80053; 83605; 85025; 87040; 87070; 87077; 87186; 87205; 96365; 96366; 96367; J2543; J3370-JW

== ENCOUNTER 2024-06-11 13:21 | Inpatient (IN) | payer BC, OTHER, SELFPAY ==
[~2024-06-11 13:21] MED LIST changes: -Iopamidol-370 76% 500 ML 1 ML ONE; +Iopamidol-370 76% 500 ML MDV (1 ML CHARGE) ONE
[2024-06-11] MEDS ORDERED: hydrALAZINE 20 MG/ML VIAL ONE (13:51)
[2024-06-11] MEDS ORDERED: Morphine 2 MG/ML VIAL ONE (13:52)
[2024-06-11] MEDS ORDERED: Ondansetron PF 4 MG/2 ML Vial ONE ×2 (14:13→15:23)
[2024-06-11 14:18] LABS: #Basophils 0.03 10x3/uL (0.0-0.2); %Basophils 0.3 % (0.0-1.0); %Eosinophils 2.9 % (0.0-10.0); %Lymphocytes 26.7 % (21.0-51.0); %Monocytes 5.8 % (0.0-10.0); Hematocrit 29.4 % (42.0-52.0); Hemoglobin 10.2 g/dL (14.0-18.0); Mean Corpuscular HGB CONC 34.7 g/dL (32.0-36.0); Mean Corpuscular Hemoglobin 30.5 pg (27.0-31.0); Mean Platelet Volume 9.8 fL (7.4-10.4); Platelet Count 309 10x3/uL (130-400); RBC Distribution Width 13.4 % (11.5-14.5); Red Blood Cell (RBC) Count 3.34 mill/uL (4.70-6.10)
[2024-06-11] MEDS ORDERED: niCARdipine 25 MG/10 ML SDV ONE (14:33)
[2024-06-11 14:34] LABS: ALT (SGPT) 12 U/L (8-55); AST (SGOT) 11 U/L (5-34); Albumin 2.5 g/dL (3.5-5.0); Alkaline Phosphatase 117 U/L (40-110); Anion Gap 13 mmol/L (10-20); BUN (Urea Nitrogen) 61 mg/dL (8.4-25.7); Bilirubin, Total 0.3 mg/dL (0.2-1.2); Calc. Creatinine Clearance 0 mL/min (70-130); Calcium 8.5 mg/dL (7.8-10.44); Carbon Dioxide 16 mmol/L (22-29); Chloride 114 mmol/L (98-107); Estimated GFR 20; Globulin 3.8 g/dL (2.4-3.5); Glucose 229 mg/dL (70-105); Protein, Total 6.3 g/dL (6.0-8.3); Sodium 138 mmol/L (136-145)
[2024-06-11 14:38] LABS: Troponin I Less than 0.010 ng/mL (< 0.028)
[2024-06-11] MEDS ORDERED: Dextrose 50% Abboject 50 ML SYRINGE SLOW IVP PRN (20:15)
[2024-06-11] MEDS ORDERED: Glucagon 1 MG/ML KIT IM PRN (20:15)
[2024-06-11] MEDS ORDERED: Dextrose 5% in Water 1,000 ML IV PRN (20:15)
[2024-06-11] MEDS: niCARdipine 25 MG in Sodium Chloride 0.9% 250 ML 250 ML IVPB SCH (21:09)
[2024-06-11 21:16] VITALS: BMI 29.7
[2024-06-11] MEDS: Dextrose 5%-Lactated Ringers 1,000 ML IV SCH (21:33)
[2024-06-11] MEDS: Tamsulosin HCl 0.4 MG CAP PO SCH (22:23)
[2024-06-11] MEDS: hydrALAZINE 25 MG TAB PO SCH (22:23)
[2024-06-11] MEDS: levETIRAcetam 500 MG TAB PO SCH (23:01)
[2024-06-11] MEDS: levETIRAcetam 500 MG (5 mL) VIAL SLOW IVP SCH (23:42)
[2024-06-12 04:59] LABS: #Basophils Less than 0.03 10x3/uL (0.0-0.2); #Eosinphils Less than 0.03 10x3/uL (0.0-0.7); %Basophils 0.1 % (0.0-1.0); %Lymphocytes 27.6 % (21.0-51.0); %Monocytes 6.7 % (0.0-10.0); %Neutrophils 65.2 % (42.0-75.0); Hematocrit 28.4 % (42.0-52.0); Hemoglobin 9.7 g/dL (14.0-18.0); Mean Corpuscular HGB CONC 34.2 g/dL (32.0-36.0); Mean Corpuscular Hemoglobin 30.2 pg (27.0-31.0); Mean Corpuscular Volume 88.5 fL (78.0-98.0); Platelet Count 277 10x3/uL (130-400); RBC Distribution Width 13.9 % (11.5-14.5); Red Blood Cell (RBC) Count 3.21 mill/uL (4.70-6.10)
[2024-06-12 06:15] LABS: Anion Gap 13 mmol/L (10-20); BUN (Urea Nitrogen) 64 mg/dL (8.4-25.7); Calc. Creatinine Clearance 25 mL/min (70-130); Calcium 8.3 mg/dL (7.8-10.44); Carbon Dioxide 15 mmol/L (22-29); Cardiac Risk 4.7 (Less than 4.5); Chloride 116 mmol/L (98-107); Cholesterol 188 mg/dl (< 200 Desired); Estimated GFR 17; Glucose 218 mg/dL (70-105); HDL Cholesterol 40 mg/dL (>60 Neg Risk); LDL Cholesterol, Calculated 124 mg/dL; Potassium 5.1 mmol/L (3.5-5.1); Sodium 139 mmol/L (136-145); Triglycerides 119 mg/dL (Less than 150)
[2024-06-12] MEDS: Insulin Lispro 100 UNIT/ML 10 ML VIAL SC PRN (06:53)
[2024-06-12] MEDS: levETIRAcetam 500 MG (5 mL) VIAL SLOW IVP SCH (07:49)
[2024-06-12] MEDS: NIFEdipine XL 60 MG ER.TAB PO SCH (07:49)
[2024-06-12] MEDS: Pantoprazole 40 MG VIAL IVP SCH (07:49)
[2024-06-12] MEDS: Sertraline 100 MG TAB PO SCH (07:49)
[2024-06-12] MEDS ORDERED: Promethazine HCl 25 MG/ML VIAL IM PRN (08:24)
[2024-06-12] MEDS ORDERED: Famotidine/PF 20 mg/2ml Vial SLOW IVP SCH (09:00)
[2024-06-12] MEDS: Acetaminophen 325 MG TAB PO PRN (14:14)
[2024-06-12] MEDS: Sodium Bicarbonate Tab 325 MG TAB PO SCH (21:14)
[2024-06-12] MEDS: Labetalol HCl 100 MG/20 ML VIAL SLOW IVP PRN (23:00)
[2024-06-12] MEDS: HYDROcodone/Acetaminophen 7.5/325 mg Tablet PO PRN (23:02)
[2024-06-13 10:47] LABS: Anion Gap 13 mmol/L (10-20); BUN (Urea Nitrogen) 61 mg/dL (8.4-25.7); Calc. Creatinine Clearance 22 mL/min (70-130); Calcium 8.3 mg/dL (7.8-10.44); Carbon Dioxide 15 mmol/L (22-29); Chloride 112 mmol/L (98-107); Estimated GFR 15; Glucose 190 mg/dL (70-105); Potassium 4.5 mmol/L (3.5-5.1); Sodium 135 mmol/L (136-145)
[2024-06-13] MEDS: Sodium Bicarbonate Tab 325 MG TAB PO SCH (18:50)
[2024-06-13] MEDS: cloNIDine 0.1 MG TAB PO SCH (20:51)
[2024-06-14] MEDS: hydrALAZINE 20 MG/ML VIAL SLOW IVP PRN (04:00)
[2024-06-14] MEDS: Ondansetron PF 4 MG/2 ML Vial IVP PRN (08:05)
[2024-06-14 10:35] LABS: Anion Gap 15 mmol/L (10-20); BUN (Urea Nitrogen) 59 mg/dL (8.4-25.7); Calc. Creatinine Clearance 21 mL/min (70-130); Calcium 8.2 mg/dL (7.8-10.44); Carbon Dioxide 17 mmol/L (22-29); Chloride 106 mmol/L (98-107); Estimated GFR 15; Glucose 216 mg/dL (70-105); Potassium 4.9 mmol/L (3.5-5.1); Sodium 133 mmol/L (136-145)
[2024-06-14] MEDS: Pantoprazole DR 40 MG TAB PO SCH (11:46)
[2024-06-14] MEDS: NIFEdipine XL 30 MG ER.TAB PO SCH (13:30)
[2024-06-14] MEDS: hydrALAZINE 25 MG TAB PO SCH (16:08)
[2024-06-14] MEDS: Insulin Lispro 100 UNIT/ML 10 ML VIAL SC PRN (22:05)
[2024-06-15] MEDS: NIFEdipine XL 90 MG ER.TAB PO SCH (08:45)
[2024-06-15] MEDS: Pantoprazole DR 40 MG TAB PO SCH (22:33)
[2024-06-16 05:07] LABS: Anion Gap 13 mmol/L (10-20); BUN (Urea Nitrogen) 58 mg/dL (8.4-25.7); Calc. Creatinine Clearance 24 mL/min (70-130); Calcium 7.9 mg/dL (7.8-10.44); Carbon Dioxide 19 mmol/L (22-29); Chloride 106 mmol/L (98-107); Estimated GFR 15; Glucose 202 mg/dL (70-105); Potassium 4.9 mmol/L (3.5-5.1); Sodium 133 mmol/L (136-145)
[2024-06-16] MEDS: EPOETIN ALFA-EPBX (ESRD) 10,000 UNITS/ML VIAL SC SCH (13:17)
[2024-06-16] MEDS: cloNIDine 0.1 MG TAB PO SCH (13:17)
[2024-06-16] MEDS ORDERED: Baclofen 10 MG TAB PO PRN (15:35)
[2024-06-16] MEDS: hydrALAZINE 25 MG TAB PO SCH (16:22)
[2024-06-16] MEDS: cloNIDine 0.2 MG TAB PO SCH (21:01)
[2024-06-16] MEDS: levETIRAcetam 500 MG TAB PO SCH (21:02)
[2024-06-17 05:30] LABS: Anion Gap 14 mmol/L (10-20); BUN (Urea Nitrogen) 54 mg/dL (8.4-25.7); Calc. Creatinine Clearance 25 mL/min (70-130); Calcium 8.1 mg/dL (7.8-10.44); Carbon Dioxide 20 mmol/L (22-29); Chloride 103 mmol/L (98-107); Estimated GFR 16; Glucose 136 mg/dL (70-105); Potassium 4.7 mmol/L (3.5-5.1); Sodium 132 mmol/L (136-145)
[2024-06-17] MEDS: NIFEdipine XL 30 MG ER.TAB PO SCH (11:13)
[2024-06-17] MEDS: Atorvastatin Calcium 40 MG TAB PO SCH (20:30)
[2024-06-18 06:10] LABS: Anion Gap 15 mmol/L (10-20); BUN (Urea Nitrogen) 55 mg/dL (8.4-25.7); Calc. Creatinine Clearance 27 mL/min (70-130); Calcium 8.2 mg/dL (7.8-10.44); Carbon Dioxide 19 mmol/L (22-29); Chloride 102 mmol/L (98-107); Estimated GFR 18; Glucose 163 mg/dL (70-105); Potassium 4.6 mmol/L (3.5-5.1); Sodium 131 mmol/L (136-145)
[2024-06-18] MEDS: NIFEdipine XL 60 MG ER.TAB PO SCH (09:34)
[2024-06-18] MEDS ORDERED: CEFAZOLIN 1 GM VIAL ONE ×2 (10:04→10:56)
[2024-06-18] MEDS ORDERED: CEFAZOLIN 2 GM VIAL ONE (10:04)
[2024-06-18] MEDS ORDERED: Gentamicin 80 MG/2 ML VIAL ONE (10:04)
[2024-06-18 10:30] VITALS: BMI 31.9
[2024-06-18] MEDS: Sodium Chloride 0.9% 1,000 ML IV SCH (10:36)
[2024-06-18] MEDS ORDERED: fentaNYL 50 mcg/mL 1 mL Vial ONE (10:54)
[2024-06-18] MEDS ORDERED: Midazolam HCl 2 mg/2 ml Vial ONE (10:55)
[2024-06-18] MEDS: Carvedilol 6.25 MG TAB PO SCH (13:28)
[2024-06-18] MEDS ORDERED: Iopamidol 370 76% 100 ML VIAL ONE (15:09)
[2024-06-18] MEDS: Cephalexin 250 MG CAP PO SCH (16:16)
[2024-06-19 04:24] LABS: Anion Gap 12 mmol/L (10-20); BUN (Urea Nitrogen) 57 mg/dL (8.4-25.7); Calc. Creatinine Clearance 28 mL/min (70-130); Calcium 7.9 mg/dL (7.8-10.44); Carbon Dioxide 21 mmol/L (22-29); Chloride 101 mmol/L (98-107); Estimated GFR 18; Glucose 153 mg/dL (70-105); Potassium 4.2 mmol/L (3.5-5.1); Sodium 130 mmol/L (136-145)
[2024-06-19] MEDS: Carvedilol 6.25 MG TAB PO SCH (09:12)
[2024-06-20 04:15] LABS: Anion Gap 14 mmol/L (10-20); BUN (Urea Nitrogen) 56 mg/dL (8.4-25.7); Calc. Creatinine Clearance 27 mL/min (70-130); Calcium 7.8 mg/dL (7.8-10.44); Carbon Dioxide 22 mmol/L (22-29); Chloride 96 mmol/L (98-107); Estimated GFR 17; Glucose 147 mg/dL (70-105); Potassium 4.1 mmol/L (3.5-5.1); Sodium 128 mmol/L (136-145)
[2024-06-21 09:54] LABS: #Basophils Less than 0.03 10x3/uL (0.0-0.2); %Basophils 0.1 % (0.0-1.0); %Eosinophils 1.8 % (0.0-10.0); %Lymphocytes 22.3 % (21.0-51.0); %Neutrophils 65.4 % (42.0-75.0); Hematocrit 25.1 % (42.0-52.0); Mean Corpuscular HGB CONC 35.9 g/dL (32.0-36.0); Mean Corpuscular Hemoglobin 31.8 pg (27.0-31.0); Mean Corpuscular Volume 88.7 fL (78.0-98.0); Mean Platelet Volume 9.5 fL (7.4-10.4); Platelet Count 302 10x3/uL (130-400); RBC Distribution Width 12.5 % (11.5-14.5); Red Blood Cell (RBC) Count 2.83 mill/uL (4.70-6.10)
[2024-06-21 10:05] LABS: Anion Gap 13 mmol/L (10-20); BUN (Urea Nitrogen) 58 mg/dL (8.4-25.7); Calc. Creatinine Clearance 30 mL/min (70-130); Calcium 7.8 mg/dL (7.8-10.44); Carbon Dioxide 23 mmol/L (22-29); Chloride 96 mmol/L (98-107); Estimated GFR 19; Glucose 179 mg/dL (70-105); Potassium 3.8 mmol/L (3.5-5.1); Sodium 128 mmol/L (136-145)
[2024-06-21] MEDS: cloNIDine 0.1 MG TAB PO SCH (14:26)
[2024-06-21] MEDS: cloNIDine 0.3 MG TAB PO SCH (21:54)
[2024-06-22 04:22] LABS: Anion Gap 10 mmol/L (10-20); BUN (Urea Nitrogen) 51 mg/dL (8.4-25.7); Calc. Creatinine Clearance 30 mL/min (70-130); Calcium 7.7 mg/dL (7.8-10.44); Carbon Dioxide 26 mmol/L (22-29); Chloride 94 mmol/L (98-107); Estimated GFR 20; Glucose 200 mg/dL (70-105); Potassium 3.7 mmol/L (3.5-5.1); Sodium 126 mmol/L (136-145)
[2024-06-23 12:11] VITALS: BP 196/90; TEMP 98.2
== END 2024-06-23 13:45 | DRG 40 ==
LOC: ERS 13:21 → CCU 15:53 → 2SE 06-12 22:45
PROVIDERS: ADMIT Family Medicine; ATTEND Family Medicine
PROC: 0JH606Z Insertion of Pacemaker, Dual Chamber into Chest Subcutaneous Tissue and Fascia, Open Approach (ICD-10-PCS; principal; 2024-06-18)
PROC: 02H63JZ Insertion of Pacemaker Lead into Right Atrium, Percutaneous Approach (ICD-10-PCS; 2024-06-18)
PROC: 02HK3JZ Insertion of Pacemaker Lead into Right Ventricle, Percutaneous Approach (ICD-10-PCS; 2024-06-18)
DX: I61.9 Nontraumatic intracerebral hemorrhage, unspecified (principal); G93.6 Cerebral edema; E87.20 Acidosis, unspecified; G81.91 Hemiplegia, unspecified affecting right dominant side; I16.1 Hypertensive emergency; N17.9 Acute kidney failure, unspecified; N18.4 Chronic kidney disease, stage 4 (severe); E87.21 Acute metabolic acidosis; R47.81 Slurred speech; G40.909 Epilepsy, unspecified, not intractable, without status epilepticus; E11.22 Type 2 diabetes mellitus with diabetic chronic kidney disease; I12.9 Hypertensive chronic kidney disease with stage 1 through stage 4 chronic kidney disease, or unspecified chronic kidney disease; D63.1 Anemia in chronic kidney disease; E66.9 Obesity, unspecified; I44.1 Atrioventricular block, second degree; R33.9 Retention of urine, unspecified; Z91.041 Radiographic dye allergy status; Z79.899 Other long term (current) drug therapy; Z68.31 Body mass index [BMI] 31.0-31.9, adult
CPT/HCPCS: 33208; 36415; 36416; 70450; 70496; 71045; 76770; 80048; 80053; 80061; 83036; 83930; 84484; 85025; 93005; 93010; 93306; 94760; 95700; 95711; 95819; 96361; 96374; 96375; 97139; 99152; 99153; C1785; C1898; J0360; J0690; J1580; J1815; J1953; J2250; J2272; J2405; J2470; J3010; J7050; Q5105; Q9967

== ENCOUNTER 2024-09-17 20:14 | Inpatient (IN) | payer OTHER, SELFPAY ==
[2024-09-17 20:45] LABS: #Basophils 0.03 10x3/uL (0.0-0.2); %Basophils 0.5 % (0.0-1.0); %Eosinophils 3.6 % (0.0-10.0); %Lymphocytes 33.8 % (21.0-51.0); %Monocytes 9.8 % (0.0-10.0); %Neutrophils 52.1 % (42.0-75.0); Hematocrit 22.9 % (42.0-52.0); Hemoglobin 7.7 g/dL (14.0-18.0); Mean Corpuscular HGB CONC 33.6 g/dL (32.0-36.0); Mean Corpuscular Hemoglobin 30.2 pg (27.0-31.0); Mean Corpuscular Volume 89.8 fL (78.0-98.0); Mean Platelet Volume 8.4 fL (7.4-10.4); Platelet Count 202 10x3/uL (130-400); RBC Distribution Width 15.2 % (11.5-14.5); Red Blood Cell (RBC) Count 2.55 mill/uL (4.70-6.10)
[2024-09-17 21:06] LABS: ALT (SGPT) 7 U/L (8-55); AST (SGOT) 12 U/L (5-34); Albumin 2.6 g/dL (3.5-5.0); Alkaline Phosphatase 65 U/L (40-110); Anion Gap 15 mmol/L (10-20); BUN (Urea Nitrogen) 54 mg/dL (8.4-25.7); Bilirubin, Total 0.3 mg/dL (0.2-1.2); Calc. Creatinine Clearance 0 mL/min (70-130); Calcium 7.7 mg/dL (7.8-10.44); Carbon Dioxide 17 mmol/L (22-29); Chloride 110 mmol/L (98-107); Estimated GFR 13; Globulin 3.2 g/dL (2.4-3.5); Glucose 149 mg/dL (70-105); Potassium 4.8 mmol/L (3.5-5.1); Protein, Total 5.8 g/dL (6.0-8.3); Sodium 137 mmol/L (136-145)
[2024-09-17 21:14] LABS: Bilirubin Negative (Negative); Blood, Urine Trace (Negative); CAUTI Indications for Culture Pelvic or flank pain; Clarity Clear (Clear); Glucose, Urine (Dipstick) 70 mg/dL (Negative); Ketone, Urine Negative (Negative); Leukocyte Negative Leu/uL (Negative); Nitrite Negative (Negative); Protein, Urine (Dipstick) 300 mg/dL (Neg-Trace); RBC/HPF 0-3 HPF (0-3); Specific Gravity, Urine 1.007 (1.002-1.036); Squamous Epithelial None Seen HPF (0-3); Urobilinogen Normal mg/dL (Less than 2); pH, Urine 6.5 (5.0-9.0)
[2024-09-17 21:15] LABS: Bacteria/HPF Rare-Few HPF (None Seen); Urine Culture Reflex Yes Yes
[2024-09-18] MEDS ORDERED: Dextrose 50% Abboject 50 ML SYRINGE SLOW IVP PRN (00:06)
[2024-09-18] MEDS ORDERED: Dextrose 5% in Water 1,000 ML IV PRN (00:06)
[2024-09-18] MEDS ORDERED: Glucagon 1 MG/ML KIT IM PRN (00:06)
[2024-09-18] MEDS ORDERED: Ondansetron PF 4 MG/2 ML Vial IVP PRN (00:26)
[2024-09-18] MEDS ORDERED: Ondansetron ODT 4 MG TAB PO PRN (00:26)
[2024-09-18] MEDS ORDERED: Lorazepam 2 MG/ML VIAL SLOW IVP PRN (00:37)
[2024-09-18 01:11] VITALS: BMI 31.6
[2024-09-18 06:18] LABS: #Basophils Less than 0.03 10x3/uL (0.0-0.2); %Basophils 0.4 % (0.0-1.0); %Eosinophils 3.7 % (0.0-10.0); %Lymphocytes 27.4 % (21.0-51.0); %Monocytes 7.7 % (0.0-10.0); %Neutrophils 60.6 % (42.0-75.0); Hematocrit 23.8 % (42.0-52.0); Hemoglobin 7.9 g/dL (14.0-18.0); Mean Corpuscular HGB CONC 33.2 g/dL (32.0-36.0); Mean Corpuscular Hemoglobin 29.7 pg (27.0-31.0); Mean Corpuscular Volume 89.5 fL (78.0-98.0); Mean Platelet Volume 9.2 fL (7.4-10.4); Platelet Count 222 10x3/uL (130-400); RBC Distribution Width 15.2 % (11.5-14.5); Red Blood Cell (RBC) Count 2.66 mill/uL (4.70-6.10)
[2024-09-18 06:33] LABS: Anion Gap 14 mmol/L (10-20); BUN (Urea Nitrogen) 53 mg/dL (8.4-25.7); Calc. Creatinine Clearance 21 mL/min (70-130); Calcium 7.7 mg/dL (7.8-10.44); Carbon Dioxide 19 mmol/L (22-29); Chloride 110 mmol/L (98-107); Estimated GFR 13; Glucose 122 mg/dL (70-105); Potassium 4.7 mmol/L (3.5-5.1); Sodium 138 mmol/L (136-145)
[2024-09-18] MEDS: Furosemide 40 MG (4 mL) VIAL SLOW IVP SCH (06:56)
[2024-09-18] MEDS: Heparin 5,000 UNITS/ML VIAL SC SCH (08:12)
[2024-09-18] MEDS ORDERED: Epoetin (ESRD) 10,000 UNITS/ML VIAL SC SCH (13:00)
[2024-09-18] MEDS: EPOETIN ALFA-EPBX (ESRD) 10,000 UNITS/ML VIAL SC SCH (14:29)
[2024-09-18 16:22] LABS: Phosphorus 6.4 mg/dL (2.3-4.7)
[2024-09-18] MEDS: NIFEdipine XL 60 MG ER.TAB PO SCH (18:33)
[2024-09-18] MEDS: Isosorbide Mononitrate 30 MG ER.TAB PO SCH (18:34)
[2024-09-18] MEDS ORDERED: cloNIDine 0.3 MG TAB PO SCH (21:00)
[2024-09-18] MEDS: levETIRAcetam 500 MG TAB PO SCH (22:49)
[2024-09-18] MEDS: Isosorbide Dinitrate 20 MG TAB PO SCH (22:50)
[2024-09-18] MEDS: hydrALAZINE 25 MG TAB PO SCH (22:50)
[2024-09-18] MEDS: Sodium Bicarbonate Tab 325 MG TAB PO SCH (22:51)
[2024-09-18] MEDS: Atorvastatin Calcium 40 MG TAB PO SCH (22:51)
[2024-09-18] MEDS: Carvedilol 25 MG TAB PO SCH (22:51)
[2024-09-18] MEDS: Tamsulosin HCl 0.4 MG CAP PO SCH (22:51)
[2024-09-19 05:30] LABS: #Basophils Less than 0.03 10x3/uL (0.0-0.2); %Basophils 0.4 % (0.0-1.0); %Eosinophils 3.3 % (0.0-10.0); %Lymphocytes 34.8 % (21.0-51.0); %Monocytes 9.7 % (0.0-10.0); %Neutrophils 51.6 % (42.0-75.0); Hematocrit 20.5 % (42.0-52.0); Hemoglobin 6.7 g/dL (14.0-18.0); Mean Corpuscular HGB CONC 32.7 g/dL (32.0-36.0); Mean Corpuscular Hemoglobin 29.4 pg (27.0-31.0); Mean Corpuscular Volume 89.9 fL (78.0-98.0); Mean Platelet Volume 8.4 fL (7.4-10.4); Platelet Count 163 10x3/uL (130-400); RBC Distribution Width 15.2 % (11.5-14.5); Red Blood Cell (RBC) Count 2.28 mill/uL (4.70-6.10)
[2024-09-19 06:01] LABS: Anion Gap 13 mmol/L (10-20); BUN (Urea Nitrogen) 56 mg/dL (8.4-25.7); Calc. Creatinine Clearance 20 mL/min (70-130); Calcium 7.3 mg/dL (7.8-10.44); Carbon Dioxide 19 mmol/L (22-29); Chloride 113 mmol/L (98-107); Estimated GFR 13; Glucose 141 mg/dL (70-105); Potassium 4.6 mmol/L (3.5-5.1); Sodium 140 mmol/L (136-145)
[2024-09-19] MEDS: Furosemide 40 MG (4 mL) VIAL SLOW IVP SCH (06:53)
[2024-09-19] MEDS: Isosorbide Mononitrate 30 MG ER.TAB PO SCH (08:05)
[2024-09-19] MEDS: Isosorbide Dinitrate 20 MG TAB PO SCH (08:19)
[2024-09-19] MEDS: NIFEdipine XL 90 MG ER.TAB PO SCH (08:19)
[2024-09-19] MEDS: Ergocalciferol 1.25 MG(50,000 UNITS) CAP PO SCH (08:19)
[2024-09-19] MEDS: Folic Acid 1 MG TAB PO SCH (08:20)
[2024-09-19 12:43] LABS: Actual Bicarbonate (HCO3v) 20.9 mEq/L (22-28); Base Excess -4.2 mEq/L (-2.0 to +3.0); Calcium, Ionized (venous) 1.03 mmol/L (1.16-1.32); Chloride (VBG) 108 mmol/L (98-106); Hematocrit-VBG 23 % (42.0-52.0); Hemoglobin (Hb) 7.7 g/dL (13.1-17.2); Potassium (VBG) 4.65 mmol/L (3.70-5.30); Sodium 138 mmol/L (133-146); pH (venous) 7.361 (7.32-7.43)
[2024-09-20 04:17] LABS: #Basophils Less than 0.03 10x3/uL (0.0-0.2); %Basophils 0.3 % (0.0-1.0); %Eosinophils 3.5 % (0.0-10.0); %Lymphocytes 31.6 % (21.0-51.0); %Monocytes 8.8 % (0.0-10.0); %Neutrophils 55.3 % (42.0-75.0); Hematocrit 23.1 % (42.0-52.0); Hemoglobin 7.7 g/dL (14.0-18.0); Mean Corpuscular HGB CONC 33.3 g/dL (32.0-36.0); Mean Corpuscular Volume 89.9 fL (78.0-98.0); Mean Platelet Volume 9.2 fL (7.4-10.4); Platelet Count 191 10x3/uL (130-400); Red Blood Cell (RBC) Count 2.57 mill/uL (4.70-6.10)
[2024-09-20 04:37] LABS: Anion Gap 14 mmol/L (10-20); BUN (Urea Nitrogen) 54 mg/dL (8.4-25.7); Calc. Creatinine Clearance 21 mL/min (70-130); Calcium 7.7 mg/dL (7.8-10.44); Carbon Dioxide 20 mmol/L (22-29); Chloride 112 mmol/L (98-107); Estimated GFR 13; Glucose 105 mg/dL (70-105); Iron 75 ug/dL (65-175); Potassium 4.6 mmol/L (3.5-5.1); Sodium 141 mmol/L (136-145)
[2024-09-20 04:59] LABS: Ferritin 390.07 ng/mL (22-322)
[2024-09-20] MEDS: Acetaminophen 325 MG TAB PO PRN (06:10)
[2024-09-20] MEDS: Furosemide 40 MG (4 mL) VIAL SLOW IVP SCH (07:56)
[2024-09-20] MEDS ORDERED: cloNIDine 0.1 MG TAB PO PRN (07:57)
[2024-09-20] MEDS: NIFEdipine XL 30 MG ER.TAB PO SCH (08:11)
[2024-09-20] MEDS: Sodium Chloride 0.9% 500 ML IV SCH (09:50)
[2024-09-20] MEDS: Insulin Lispro 100 UNIT/ML 10 ML VIAL SC PRN (21:21)
[2024-09-21 05:36] LABS: #Basophils 0.03 10x3/uL (0.0-0.2); %Basophils 0.5 % (0.0-1.0); %Eosinophils 3.7 % (0.0-10.0); %Lymphocytes 34.3 % (21.0-51.0); %Neutrophils 50.2 % (42.0-75.0); Hematocrit 22.9 % (42.0-52.0); Hemoglobin 7.5 g/dL (14.0-18.0); Mean Corpuscular HGB CONC 32.8 g/dL (32.0-36.0); Mean Corpuscular Volume 91.6 fL (78.0-98.0); Mean Platelet Volume 9.3 fL (7.4-10.4); Platelet Count 196 10x3/uL (130-400); RBC Distribution Width 14.7 % (11.5-14.5)
[2024-09-21 05:50] LABS: Anion Gap 13 mmol/L (10-20); BUN (Urea Nitrogen) 55 mg/dL (8.4-25.7); Calc. Creatinine Clearance 20 mL/min (70-130); Calcium 7.5 mg/dL (7.8-10.44); Carbon Dioxide 21 mmol/L (22-29); Chloride 111 mmol/L (98-107); Estimated GFR 12; Glucose 126 mg/dL (70-105); Potassium 4.6 mmol/L (3.5-5.1); Sodium 140 mmol/L (136-145)
[2024-09-21] MEDS: NIFEdipine XL 60 MG ER.TAB PO SCH (07:57)
[2024-09-21] MEDS: LevoFLOXacin 500 MG TAB PO SCH (09:16)
[2024-09-21] MEDS: Cyanocobalamin (Vitamin B-12) 1,000 MCG TAB PO SCH (09:16)
[2024-09-21] MEDS: Sodium Chloride 0.9% 250 ML 250 ML IVPB SCH (16:15)
[2024-09-22] MEDS ORDERED: LevoFLOXacin 500 MG TAB PO SCH (06:00)
[2024-09-22 11:18] LABS: #Basophils Less than 0.03 10x3/uL (0.0-0.2); %Basophils 0.3 % (0.0-1.0); %Eosinophils 2.2 % (0.0-10.0); %Lymphocytes 24.6 % (21.0-51.0); %Neutrophils 64.8 % (42.0-75.0); Hematocrit 24.5 % (42.0-52.0); Hemoglobin 8.1 g/dL (14.0-18.0); Mean Corpuscular HGB CONC 33.1 g/dL (32.0-36.0); Mean Corpuscular Hemoglobin 29.7 pg (27.0-31.0); Mean Corpuscular Volume 89.7 fL (78.0-98.0); Platelet Count 195 10x3/uL (130-400); Red Blood Cell (RBC) Count 2.73 mill/uL (4.70-6.10)
[2024-09-22 11:42] LABS: Anion Gap 12 mmol/L (10-20); BUN (Urea Nitrogen) 54 mg/dL (8.4-25.7); Calc. Creatinine Clearance 20 mL/min (70-130); Calcium 7.7 mg/dL (7.8-10.44); Carbon Dioxide 21 mmol/L (22-29); Chloride 112 mmol/L (98-107); Estimated GFR 12; Glucose 88 mg/dL (70-105); Potassium 4.7 mmol/L (3.5-5.1); Sodium 140 mmol/L (136-145)
[2024-09-22] MEDS: Insulin Lispro 100 UNIT/ML 10 ML VIAL SC PRN (18:03)
[2024-09-23 05:11] LABS: #Basophils Less than 0.03 10x3/uL (0.0-0.2); %Basophils 0.3 % (0.0-1.0); %Eosinophils 3.2 % (0.0-10.0); %Lymphocytes 35.3 % (21.0-51.0); %Monocytes 10.9 % (0.0-10.0); Hematocrit 24.2 % (42.0-52.0); Hemoglobin 8.1 g/dL (14.0-18.0); Mean Corpuscular HGB CONC 33.5 g/dL (32.0-36.0); Mean Corpuscular Hemoglobin 30.8 pg (27.0-31.0); Platelet Count 193 10x3/uL (130-400); Red Blood Cell (RBC) Count 2.63 mill/uL (4.70-6.10)
[2024-09-23] MEDS: LevoFLOXacin 250 MG TAB PO SCH (05:33)
[2024-09-23 05:34] LABS: ALT (SGPT) 9 U/L (8-55); AST (SGOT) 17 U/L (5-34); Albumin 2.4 g/dL (3.5-5.0); Alkaline Phosphatase 67 U/L (40-110); Anion Gap 14 mmol/L (10-20); BUN (Urea Nitrogen) 53 mg/dL (8.4-25.7); Bilirubin, Total 0.3 mg/dL (0.2-1.2); Calc. Creatinine Clearance 19 mL/min (70-130); Calcium 7.6 mg/dL (7.8-10.44); Carbon Dioxide 20 mmol/L (22-29); Chloride 111 mmol/L (98-107); Estimated GFR 11; Glucose 131 mg/dL (70-105); Potassium 4.5 mmol/L (3.5-5.1); Protein, Total 5.4 g/dL (6.0-8.3); Sodium 140 mmol/L (136-145)
[2024-09-23] MEDS: Furosemide 40 MG TAB PO SCH (08:06)
[2024-09-23] MEDS: Heparin 5,000 UNITS/ML VIAL SC SCH (22:28)
[2024-09-23] MEDS: Tamsulosin HCl 0.4 MG CAP PO SCH (22:28)
[2024-09-24] MEDS: Furosemide 40 MG TAB PO SCH (09:30)
[2024-09-24 10:52] LABS: Anion Gap 12 mmol/L (10-20); BUN (Urea Nitrogen) 50 mg/dL (8.4-25.7); Calc. Creatinine Clearance 19 mL/min (70-130); Carbon Dioxide 21 mmol/L (22-29); Chloride 110 mmol/L (98-107); Estimated GFR 11; Glucose 154 mg/dL (70-105); Potassium 4.4 mmol/L (3.5-5.1); Sodium 139 mmol/L (136-145)
[2024-09-24 13:00] VITALS: TEMP 98.8
[2024-09-24] MEDS: NIFEdipine XL 90 MG ER.TAB PO SCH (14:05)
[2024-09-24 14:06] VITALS: BP 225/85
== END 2024-09-24 14:27 | disposition home or self-care (01) | DRG 683 ==
LOC: ERS 20:14 → T4-A 23:40 → OBSVTOIN 09-18 11:53
PROVIDERS: ADMIT Student in an Organized Health Care Education/Training Program; ATTEND Hospitalist
PROC: 30233N1 Transfusion of Nonautologous Red Blood Cells into Peripheral Vein, Percutaneous Approach (ICD-10-PCS; principal; 2024-09-19)
DX: N17.9 Acute kidney failure, unspecified (principal); I13.2 Hypertensive heart and chronic kidney disease with heart failure and with stage 5 chronic kidney disease, or end stage renal disease; I50.32 Chronic diastolic (congestive) heart failure; N39.0 Urinary tract infection, site not specified; N18.5 Chronic kidney disease, stage 5; G40.909 Epilepsy, unspecified, not intractable, without status epilepticus; E11.22 Type 2 diabetes mellitus with diabetic chronic kidney disease; I95.9 Hypotension, unspecified; R33.9 Retention of urine, unspecified; D63.1 Anemia in chronic kidney disease; I69.3 Sequelae of cerebral infarction; Z91.013 Allergy to seafood; Z95.0 Presence of cardiac pacemaker; Z98.890 Other specified postprocedural states; Z79.899 Other long term (current) drug therapy
CPT/HCPCS: 36415; 36416; 36430; 71045; 80048; 80053; 81001; 82274; 82306; 82607; 82728; 82805; 83540; 83880; 83970; 84100; 84443; 85025; 85046; 86850; 86900; 86901; 87077; 87086; 87186; 99285; J1644; J1815; J1940; J7030; P9016; Q5105

== ENCOUNTER 2024-09-29 14:59 | Emergency (ER) | payer OTHER ==
[2024-09-29 15:40] LABS: #Basophils Less than 0.03 10x3/uL (0.0-0.2); %Basophils 0.3 % (0.0-1.0); %Eosinophils 2.7 % (0.0-10.0); %Lymphocytes 27.5 % (21.0-51.0); %Monocytes 8.6 % (0.0-10.0); %Neutrophils 60.7 % (42.0-75.0); Hemoglobin 9.9 g/dL (14.0-18.0); Mean Corpuscular HGB CONC 34.1 g/dL (32.0-36.0); Mean Corpuscular Hemoglobin 30.1 pg (27.0-31.0); Mean Corpuscular Volume 88.1 fL (78.0-98.0); Mean Platelet Volume 8.8 fL (7.4-10.4); Platelet Count 217 10x3/uL (130-400); RBC Distribution Width 16.1 % (11.5-14.5); Red Blood Cell (RBC) Count 3.29 mill/uL (4.70-6.10)
[2024-09-29 15:59] LABS: ALT (SGPT) 12 U/L (8-55); AST (SGOT) 12 U/L (5-34); Albumin 2.6 g/dL (3.5-5.0); Alkaline Phosphatase 82 U/L (40-110); Anion Gap 15 mmol/L (10-20); BUN (Urea Nitrogen) 59 mg/dL (8.4-25.7); Bilirubin, Total 0.3 mg/dL (0.2-1.2); Calc. Creatinine Clearance 0 mL/min (70-130); Calcium 7.5 mg/dL (7.8-10.44); Carbon Dioxide 19 mmol/L (22-29); Chloride 107 mmol/L (98-107); Estimated GFR 12; Globulin 3.4 g/dL (2.4-3.5); Glucose 153 mg/dL (70-105); Sodium 137 mmol/L (136-145)
[2024-09-29 16:02] LABS: Troponin I Less than 0.010 ng/mL (< 0.028)
== END 2024-09-29 16:24 | disposition home or self-care (01) ==
LOC: ERS 14:59
DX: R53.1 Weakness (principal); I12.9 Hypertensive chronic kidney disease with stage 1 through stage 4 chronic kidney disease, or unspecified chronic kidney disease; E11.22 Type 2 diabetes mellitus with diabetic chronic kidney disease; N18.4 Chronic kidney disease, stage 4 (severe); Z95.0 Presence of cardiac pacemaker
CPT/HCPCS: 36415; 70450; 71045; 80053; 83880; 84484; 85025; 93005

== ENCOUNTER 2024-12-09 15:01 | Inpatient (IN) | payer OTHER, SELFPAY ==
[2024-12-09 16:04] LABS: #Basophils 0.03 10x3/uL (0.0-0.2); %Basophils 0.4 % (0.0-1.0); %Eosinophils 2.3 % (0.0-10.0); %Monocytes 5.4 % (0.0-10.0); %Neutrophils 60.8 % (42.0-75.0); Hemoglobin 9.6 g/dL (14.0-18.0); Mean Corpuscular HGB CONC 35.6 g/dL (32.0-36.0); Mean Corpuscular Hemoglobin 30.2 pg (27.0-31.0); Mean Corpuscular Volume 84.9 fL (78.0-98.0); Platelet Count 240 10x3/uL (130-400); RBC Distribution Width 13.2 % (11.5-14.5); Red Blood Cell (RBC) Count 3.18 mill/uL (4.70-6.10)
[2024-12-09 16:19] LABS: Phosphorus 6.7 mg/dL (2.5-4.5)
[2024-12-09 16:29] LABS: ALT (SGPT) 8 U/L (Less than 45); AST (SGOT) 10 U/L (11-34); Albumin 2.1 g/dL (3.1-4.5); Alkaline Phosphatase 79 U/L (40-110); Anion Gap 16 mmol/L (10-20); BUN (Urea Nitrogen) 75 mg/dL (8.4-25.7); Bilirubin, Total 0.2 mg/dL (0.3-1.2); Calc. Creatinine Clearance 0 mL/min (70-130); Calcium 7.1 mg/dL (7.8-10.44); Carbon Dioxide 16 mmol/L (22-29); Chloride 107 mmol/L (98-107); Estimated GFR 12; Globulin 2.8 g/dL (2.4-3.5); Glucose 345 mg/dL (70-105); Magnesium 1.6 mg/dL (1.6-2.6); Potassium 4.7 mmol/L (3.5-5.1); Protein, Total 4.9 g/dL (6.0-8.3); Sodium 134 mmol/L (136-145)
[2024-12-09] MEDS ORDERED: Acetaminophen 325 MG TAB PO PRN (18:42)
[2024-12-09] MEDS ORDERED: Dextrose 5% in Water 1,000 ML IV PRN (18:42)
[2024-12-09] MEDS ORDERED: Dextrose 50% Abboject 50 ML SYRINGE SLOW IVP PRN (18:42)
[2024-12-09] MEDS ORDERED: Glucagon 1 MG/ML KIT IM PRN (18:42)
[2024-12-09 20:08] VITALS: BMI 27.7
[2024-12-09] MEDS ORDERED: Tuberculin PPD 0.1 ML SYRINGE (10 TEST VIAL) I-DERMAL SCH (20:30)
[2024-12-09] MEDS: Isosorbide Dinitrate 20 MG TAB PO SCH (21:13)
[2024-12-09] MEDS: cloNIDine 0.3 MG TAB PO SCH (21:13)
[2024-12-09] MEDS: Sodium Bicarbonate Tab 325 MG TAB PO SCH (21:14)
[2024-12-09] MEDS: hydrALAZINE 25 MG TAB PO SCH (21:18)
[2024-12-09] MEDS: levETIRAcetam 500 MG TAB PO SCH (21:22)
[2024-12-09] MEDS: Carvedilol 25 MG TAB PO SCH (21:22)
[2024-12-09] MEDS: Heparin 5,000 UNITS/ML VIAL SC SCH (21:23)
[2024-12-09] MEDS: Insulin Lispro 100 UNIT/ML 10 ML VIAL SC PRN (21:25)
[2024-12-10] MEDS: Tuberculin PPD 0.1 ML SYRINGE (10 TEST VIAL) I-DERMAL SCH (01:01)
[2024-12-10 06:18] LABS: #Basophils 0.03 10x3/uL (0.0-0.2); %Basophils 0.5 % (0.0-1.0); %Eosinophils 2.5 % (0.0-10.0); %Lymphocytes 37.9 % (21.0-51.0); %Monocytes 6.4 % (0.0-10.0); %Neutrophils 52.4 % (42.0-75.0); Hematocrit 25.5 % (42.0-52.0); Hemoglobin 8.9 g/dL (14.0-18.0); Mean Corpuscular HGB CONC 34.9 g/dL (32.0-36.0); Mean Corpuscular Hemoglobin 29.8 pg (27.0-31.0); Mean Corpuscular Volume 85.3 fL (78.0-98.0); Mean Platelet Volume 9.1 fL (7.4-10.4); Platelet Count 243 10x3/uL (130-400); RBC Distribution Width 13.2 % (11.5-14.5); Red Blood Cell (RBC) Count 2.99 mill/uL (4.70-6.10)
[2024-12-10 06:43] LABS: Anion Gap 14 mmol/L (10-20); BUN (Urea Nitrogen) 71 mg/dL (8.4-25.7); Calc. Creatinine Clearance 17 mL/min (70-130); Calcium 7.5 mg/dL (7.8-10.44); Carbon Dioxide 17 mmol/L (22-29); Chloride 111 mmol/L (98-107); Estimated GFR 12; Glucose 175 mg/dL (70-105); Potassium 4.3 mmol/L (3.5-5.1); Sodium 138 mmol/L (136-145)
[2024-12-10 07:00] LABS: HBSAB Concentration Less than 8.00 mIU/mL; HBsAg Index 0.36 S/CO (0-0.99); Hep B Core Total Ab NONREACTIVE (NonReactive); Hep B Core Total Index 0.06 S/CO (0-0.79); Hep B Surf AB NONREACTIVE (NonReactive); Hep B Surf Ag NONREACTIVE S/CO (NonReactive); Hep C IgG Ab NONREACTIVE S/CO (NonReactive); Hep C Index 0.06 S/CO (0-0.79)
[2024-12-10] MEDS: NIFEdipine XL 90 MG ER.TAB PO SCH (09:04)
[2024-12-10] MEDS: Folic Acid 1 MG TAB PO SCH (09:04)
[2024-12-10] MEDS: Tamsulosin HCl 0.4 MG CAP PO SCH (09:05)
[2024-12-10] MEDS: Cyanocobalamin (Vitamin B-12) 1,000 MCG TAB PO SCH (09:05)
[2024-12-10] MEDS: Insulin Lispro 100 UNIT/ML 10 ML VIAL SC PRN (18:40)
[2024-12-10] MEDS: Sodium Bicarbonate Tab 325 MG TAB PO SCH (21:50)
[2024-12-11] MEDS: Sertraline 25 MG TAB PO SCH (08:27)
[2024-12-11] MEDS ORDERED: Promethazine HCl 25 MG/ML VIAL IM PRN (10:42)
[2024-12-11] MEDS ORDERED: Ondansetron HCl/PF 4 MG/2 ML Vial IVP PRN (10:42)
[2024-12-11] MEDS ORDERED: Heparin 10,000 UNITS/ 10 ML VIAL ONE ×2 (11:12→11:30)
[2024-12-11] MEDS ORDERED: EPINEPHrine 1 MG/ML VIAL ONE (11:12)
[2024-12-11] MEDS ORDERED: Lidocaine 2% PF 5 ML VIAL ONE (11:13)
[2024-12-11] MEDS ORDERED: Bupivacaine PF 0.5% 30 ML VIAL ONE (11:13)
[2024-12-11] MEDS ORDERED: CEFAZOLIN 2 GM VIAL ONE (11:31)
[2024-12-11] MEDS ORDERED: PROPOFOL 20 ML ONE (11:42)
[2024-12-11] MEDS ORDERED: Lidocaine 1% PF 5 ML VIAL ONE (11:42)
[2024-12-11] MEDS ORDERED: PHENYLEPHRINE-NS 100 MCG/ML 10 ML SYRINGE ONE (11:42)
[2024-12-11] MEDS ORDERED: Etomidate 40 MG (20 mL) VIAL ONE (11:46)
[2024-12-11] MEDS ORDERED: Dexamethasone 4 mg/ml Vial ONE (12:07)
[2024-12-11] MEDS ORDERED: Ondansetron PF 4 MG/2 ML Vial ONE (12:07)
[2024-12-11] MEDS ORDERED: ePHEDrine Sulfate 50 MG/10 ML VIAL ONE (12:12)
[2024-12-11] MEDS ORDERED: Vasopressin 20 UNITS/ML VIAL ONE (12:42)
[2024-12-11] MEDS: Ondansetron PF 4 MG/2 ML Vial IVP PRN (13:49)
[2024-12-11] MEDS ORDERED: CEFAZOLIN 2 GM in Sodium Chloride 0.9% 100 ML IVPB SCH (15:30)
[2024-12-12] MEDS ORDERED: Heparin 10,000 UNITS/ 10 ML VIAL ONE (11:33)
[2024-12-12] MEDS: hydrALAZINE 25 MG TAB PO SCH (15:10)
[2024-12-12] MEDS: Temazepam 15 MG CAP PO PRN (20:23)
[2024-12-12] MEDS: Insulin Glargine 30 UNITS/0.3 ML VIAL SC SCH (20:26)
[2024-12-13] MEDS: READ PPD TEST SITE PO SCH (02:37)
[2024-12-13 04:15] LABS: Hematocrit 23.3 % (42.0-52.0); Hemoglobin 7.9 g/dL (14.0-18.0)
[2024-12-13 04:48] LABS: Anion Gap 10 mmol/L (10-20); BUN (Urea Nitrogen) 36 mg/dL (8.4-25.7); Calc. Creatinine Clearance 22 mL/min (70-130); Calcium 7.5 mg/dL (7.8-10.44); Carbon Dioxide 27 mmol/L (22-29); Chloride 103 mmol/L (98-107); Estimated GFR 17; Glucose 130 mg/dL (70-105); Potassium 4.3 mmol/L (3.5-5.1); Sodium 136 mmol/L (136-145)
[2024-12-14 04:16] LABS: Hemoglobin 7.8 g/dL (14.0-18.0)
[2024-12-14] MEDS ORDERED: Heparin 10,000 UNITS/ 10 ML VIAL ONE (09:37)
[2024-12-14] MEDS: EPOETIN ALFA-EPBX (ESRD) 10,000 UNITS/ML VIAL IVP SCH (14:49)
[2024-12-15 06:20] LABS: Anion Gap 10 mmol/L (10-20); BUN (Urea Nitrogen) 23 mg/dL (8.4-25.7); Calc. Creatinine Clearance 27 mL/min (70-130); Calcium 7.6 mg/dL (7.8-10.44); Carbon Dioxide 27 mmol/L (22-29); Chloride 105 mmol/L (98-107); Estimated GFR 20; Glucose 76 mg/dL (70-105); Sodium 138 mmol/L (136-145)
[2024-12-15] MEDS: Isosorbide Dinitrate 20 MG TAB PO SCH (20:50)
[2024-12-15] MEDS: cloNIDine 0.2 MG TAB PO SCH (20:54)
[2024-12-15] MEDS ORDERED: hydrALAZINE 25 MG TAB PO SCH (21:00)
[2024-12-16 06:05] LABS: #Basophils 0.03 10x3/uL (0.0-0.2); %Basophils 0.4 % (0.0-1.0); %Lymphocytes 41.4 % (21.0-51.0); %Monocytes 8.5 % (0.0-10.0); %Neutrophils 47.3 % (42.0-75.0); Hematocrit 25.3 % (42.0-52.0); Hemoglobin 8.6 g/dL (14.0-18.0); Mean Corpuscular Hemoglobin 30.1 pg (27.0-31.0); Mean Corpuscular Volume 88.5 fL (78.0-98.0); Mean Platelet Volume 9.6 fL (7.4-10.4); Platelet Count 206 10x3/uL (130-400); RBC Distribution Width 13.1 % (11.5-14.5); Red Blood Cell (RBC) Count 2.86 mill/uL (4.70-6.10)
[2024-12-16 06:33] LABS: Anion Gap 12 mmol/L (10-20); BUN (Urea Nitrogen) 34 mg/dL (8.4-25.7); Calc. Creatinine Clearance 18 mL/min (70-130); Calcium 7.7 mg/dL (7.8-10.44); Carbon Dioxide 25 mmol/L (22-29); Chloride 105 mmol/L (98-107); Estimated GFR 13; Glucose 105 mg/dL (70-105); Potassium 3.7 mmol/L (3.5-5.1); Sodium 138 mmol/L (136-145)
[2024-12-16] MEDS: NIFEdipine XL 30 MG ER.TAB PO SCH (08:26)
[2024-12-16] MEDS: hydrALAZINE 25 MG TAB PO SCH (08:26)
[2024-12-16] MEDS ORDERED: Heparin 10,000 UNITS/ 10 ML VIAL ONE (09:31)
[2024-12-16 15:39] VITALS: BMI 27.3
[2024-12-17 06:39] LABS: Anion Gap 10 mmol/L (10-20); BUN (Urea Nitrogen) 21 mg/dL (8.4-25.7); Calc. Creatinine Clearance 25 mL/min (70-130); Calcium 7.7 mg/dL (7.8-10.44); Carbon Dioxide 28 mmol/L (22-29); Chloride 104 mmol/L (98-107); Estimated GFR 19; Glucose 107 mg/dL (70-105); Potassium 3.8 mmol/L (3.5-5.1); Sodium 138 mmol/L (136-145)
[2024-12-17] MEDS: Midodrine HCl 5 MG TAB PO SCH ×2 (15:39→20:40)
[2024-12-17] MEDS: cloNIDine 0.1 MG TAB PO SCH (20:40)
[2024-12-18] MEDS: hydrALAZINE 20 MG/ML VIAL SLOW IVP SCH (02:49)
[2024-12-18 08:11] VITALS: TEMP 98.2
[2024-12-18] MEDS: Isosorbide Dinitrate 20 MG TAB PO SCH (14:00)
[2024-12-18] MEDS: Midodrine HCl 5 MG TAB PO SCH (14:01)
[2024-12-18 14:09] VITALS: BP 139/68
== END 2024-12-18 17:18 | disposition home or self-care (01) | DRG 674 ==
LOC: ERS 15:01 → T4-B 17:42
PROVIDERS: ADMIT Family Medicine; ATTEND Family Medicine
PROC: 0JH60XZ Insertion of Tunneled Vascular Access Device into Chest Subcutaneous Tissue and Fascia, Open Approach (ICD-10-PCS; principal; 2024-12-10)
PROC: 05H533Z Insertion of Infusion Device into Right Subclavian Vein, Percutaneous Approach (ICD-10-PCS; 2024-12-10)
PROC: B5161ZA Fluoroscopy of Right Subclavian Vein using Low Osmolar Contrast, Guidance (ICD-10-PCS; 2024-12-10)
PROC: 5A1D70Z Performance of Urinary Filtration, Intermittent, Less than 6 Hours Per Day (ICD-10-PCS; 2024-12-10)
PROC: 3E033XZ Introduction of Vasopressor into Peripheral Vein, Percutaneous Approach (ICD-10-PCS; 2024-12-11)
DX: I12.0 Hypertensive chronic kidney disease with stage 5 chronic kidney disease or end stage renal disease (principal); E87.20 Acidosis, unspecified; I69.353 Hemiplegia and hemiparesis following cerebral infarction affecting right non-dominant side; N18.6 End stage renal disease; E11.22 Type 2 diabetes mellitus with diabetic chronic kidney disease; Z95.0 Presence of cardiac pacemaker; Z98.890 Other specified postprocedural states; F41.9 Anxiety disorder, unspecified; E11.65 Type 2 diabetes mellitus with hyperglycemia; D63.1 Anemia in chronic kidney disease; F32.89 Other specified depressive episodes; I95.1 Orthostatic hypotension; Z99.2 Dependence on renal dialysis
CPT/HCPCS: 36415; 36416; 71045; 80048; 80053; 83735; 84100; 85014; 85018; 85025; 86580; 86704; 86706; 86803; 87340; 90935; 93005; A6258; C1750; C1751; G0257; J0171; J0360; J0665; J1100; J1642; J1644; J1815; J2405; J2704; Q5105

== ENCOUNTER 2025-09-25 08:00 | Emergency (ER) | payer MEDICARE, OTHER, SELFPAY ==
[2025-09-25] MEDS ORDERED: Ondansetron PF 4 MG/2 ML Vial ONE (08:11)
[2025-09-25 08:26] LABS: #Basophils 0.05 10x3/uL (0.0-0.2); #Eosinophils 0.15 10x3/uL (0.0-0.7); #Monocytes 0.61 10x3/uL (0.11-0.59); #Neutrophils 3.51 10x3/uL (1.40-6.50); %Basophils 0.7 % (0.0-1.0); %Eosinophils 2.2 % (0.0-10.0); %Lymphocytes 37.3 % (21.0-51.0); %Monocytes 8.8 % (0.0-10.0); %Neutrophils 50.7 % (42.0-75.0); Hematocrit 31.8 % (42.0-52.0); Hemoglobin 10.8 g/dL (14.0-18.0); Mean Corpuscular Hemoglobin 32.5 pg (27.0-31.0); Mean Corpuscular Volume 95.8 fL (78.0-98.0); Platelet Count 257 10x3/uL (130-400); Red Blood Cell (RBC) Count 3.32 mill/uL (4.70-6.10); White Blood Cell (WBC) Count 6.92 10x3/uL (4.8-10.8)
[2025-09-25 08:56] LABS: ALT (SGPT) 14 U/L (Less than 45); AST (SGOT) 21 U/L (11-34); Albumin 3.6 g/dL (3.1-4.5); Alkaline Phosphatase 121 U/L (40-110); Anion Gap 18 mmol/L (10-20); BUN (Urea Nitrogen) 26 mg/dL (8.4-25.7); Bilirubin, Total 0.5 mg/dL (0.3-1.2); Calc. Creatinine Clearance 0 mL/min (70-130); Calcium 9.1 mg/dL (7.8-10.44); Carbon Dioxide 28 mmol/L (23-31); Chloride 93 mmol/L (98-107); Globulin 3.8 g/dL (2.4-3.5); Glucose 240 mg/dL (80-115); Lipase 38 U/L (8-78); Potassium 4.0 mmol/L (3.5-5.1); Sodium 135 mmol/L (136-145)
== END 2025-09-25 12:52 | disposition home or self-care (01) ==
LOC: ERS 08:00
DX: R07.81 Pleurodynia (principal); E11.22 Type 2 diabetes mellitus with diabetic chronic kidney disease; N18.6 End stage renal disease; E11.40 Type 2 diabetes mellitus with diabetic neuropathy, unspecified; Z55.6 Problems related to health literacy; Z87.891 Personal history of nicotine dependence; Z99.2 Dependence on renal dialysis; Z79.4 Long term (current) use of insulin; Z79.82 Long term (current) use of aspirin; Z79.899 Other long term (current) drug therapy
CPT/HCPCS: 74176; 76705; 80053; 83690; 85025; 93005; 96374; 96375; J2270; J2405